=== PATIENT | male | born 1945 | race Caucasian/White ===

== ENCOUNTER → 2023-04-23 16:47 | Outpatient (REF) | payer BC, SELFPAY ==
[2023-04-23 18:33] LABS: ALT (SGPT) 17 U/L (0-50); AST (SGOT) 24 U/L (17-59); Albumin 3.8 g/dl (3.5-5.0); Alkaline Phosphatase 83 U/L (38-126); Blood Urea Nitrogen 48 mg/dl (9-20); Calcium 9.5 mg/dl (8.4-10.2); Carbon Dioxide 26 mmol/L (22-30); Chloride 102 mmol/L (98-107); Glucose 138 mg/dl (70-99); Sodium 140 mmol/L (135-145); Total Bilirubin 0.8 mg/dl (0.2-1.3); Total Protein 5.9 g/dl (6.3-8.2); eGFR 36.11
[2023-04-23 18:50] LABS: Free T4 1.16 ng/dl (0.78-2.19); Vitamin D, 25-OH*** 50.4 ng/mL (30-80)
[2023-04-23 19:03] LABS: TSH 2.95 uIU/ml (0.47-4.68)
[2023-04-23 19:58] LABS: PSA, Total - Diagnostic < 0.06 ng/ml (0.0-4.0)
[2023-04-26 17:38] LABS: Thyroid Peroxidase Ab (TPO) <0.3 IU/mL (0.0-9.0)
== END ==
LOC: REG 16:47
PROVIDERS: ATTENDING PHYSICIAN Nurse Practitioner Adult Health; FAMILY PHYSICIAN Internal Medicine Endocrinology, Diabetes & Metabolism; REFERRING PHYSICIAN Physician Assistant
DX: R97.21 Rising PSA following treatment for malignant neoplasm of prostate (principal); R79.89 Other specified abnormal findings of blood chemistry; Z91.011 Allergy to milk products; Z13.820 Encounter for screening for osteoporosis; E27.9 Disorder of adrenal gland, unspecified; E26.09 Other primary hyperaldosteronism; C61 Malignant neoplasm of prostate
CPT/HCPCS: 36415; 80053; 82306; 84153; 84403; 84439; 84443; 86376

== ENCOUNTER → 2023-05-05 09:26 | Outpatient (REF) | payer BC, SELFPAY ==
[2023-05-05 10:59] LABS: Prolactin 16.4 ng/ml (3.7-17.9)
[2023-05-05 11:02] LABS: ALT (SGPT) 20 U/L (0-50); AST (SGOT) 23 U/L (17-59); Albumin 3.9 g/dl (3.5-5.0); Alkaline Phosphatase 93 U/L (38-126); Blood Urea Nitrogen 49 mg/dl (9-20); Calcium 9.6 mg/dl (8.4-10.2); Carbon Dioxide 26 mmol/L (22-30); Chloride 106 mmol/L (98-107); Glucose 143 mg/dl (70-99); Potassium 3.9 mmol/L (3.5-5.1); Sodium 138 mmol/L (135-145); Total Bilirubin 0.6 mg/dl (0.2-1.3); Total Protein 6.1 g/dl (6.3-8.2); eGFR 33.95
[2023-05-07 01:40] LABS: Aldosterone, Serum 58.4 ng/dL
[2023-05-07 20:32] LABS: Sex Hormone Binding Globulin 36 nmol/L (19-76)
[2023-05-08 11:03] LABS: Renin Activity Results 0.3 ng/mL/hr
== END ==
LOC: REG 09:26
PROVIDERS: ATTENDING PHYSICIAN Internal Medicine Endocrinology, Diabetes & Metabolism; FAMILY PHYSICIAN Internal Medicine
DX: E29.1 Testicular hypofunction (principal); E26.09 Other primary hyperaldosteronism
CPT/HCPCS: 36415; 80053; 82088; 83002; 84146; 84244; 84270; 84403

== ENCOUNTER → 2023-05-11 15:33 | Outpatient (REF) | payer BC, SELFPAY | LOC: REG 15:33 | PROVIDERS: ATTENDING PHYSICIAN Internal Medicine Endocrinology, Diabetes & Metabolism; FAMILY PHYSICIAN Internal Medicine | DX: E27.8 Other specified disorders of adrenal gland (principal) | CPT/HCPCS: 36415; 83835 ==

== ENCOUNTER 2023-05-15 15:44 | Emergency (ER) | payer BC, SELFPAY ==
[2023-05-15] VITALS (8 sets, daily range): BP systolic 137–171; BP diastolic 65–96; BMI 35.8
[2023-05-15 16:43] LABS: % Basophils 0.6 % (0-2); % Eosinophils 4.9 % (0-6); % Immature Granulocytes 0.4 % (0-0.5); % Lymphocytes 22.9 % (20.5-51.1); % Monocytes 4.7 % (1.7-9.3); % Neutrophils 66.5 % (42.2-75.2); Absolute Eosinophils 0.2 10^3/uL (0-0.7); Absolute Lymphocytes 1.1 10^3/uL (1.2-3.4); Absolute Monocytes 0.2 10^3/uL (0.1-0.6); Absolute Neutrophils 3.1 10^3/uL (1.4-6.5); Hematocrit 37.4 % (39.0-52.0); Mean Corp Hgb Conc. 34.8 g/dL (33.0-37.0); Mean Corpuscular Hgb 31.3 pg (27.0-31.0); Mean Corpuscular Volume 90.1 fL (80.0-94.0); Mean Platelet Volume 9.4 fL (7.4-10.4); Nucleated Red Blood Cells % 0 % (-); Platelet Count 190 10^3/uL (130-400); Red Blood Cell Count 4.15 10^6/uL (4.70-6.10); Red Cell Dist. Width 14.6 % (11.5-14.5); White Blood Cell Count 4.7 10^3/uL (4.8-10.8)
[2023-05-15 17:02] LABS: ALT (SGPT) 18 U/L (0-50); AST (SGOT) 29 U/L (17-59); Albumin 4.1 g/dl (3.5-5.0); Alkaline Phosphatase 67 U/L (38-126); Blood Urea Nitrogen 42 mg/dl (9-20); Calcium 9.5 mg/dl (8.4-10.2); Carbon Dioxide 26 mmol/L (22-30); Chloride 103 mmol/L (98-107); Estimated Creatinine Clearance 44 ml/min; Glucose 166 mg/dl (70-99); Potassium 4.3 mmol/L (3.5-5.1); Sodium 140 mmol/L (135-145); Total Bilirubin 0.8 mg/dl (0.2-1.3); Total Protein 6.2 g/dl (6.3-8.2); eGFR 38.53
--- NOTE | 2023-05-15 17:08 | ED.GENMED ---
History of Present Illness
<Alem Wharton PA-C - Last Filed: 05/16/23 12:35>
General
Chief Complaint: Breathing Problem
Source: patient
Exam Limitations: none
Time Seen by Provider: 05/15/23 15:56
Nursing documentation reviewed up to this point in time: agreed with
Travel History
Have you had any contact with someone who has COVID-19?: No
Do you have any symptoms of coronavirus? Fever > 100 degrees, chills, cough, shortness of breath, sore throat, loss of taste or smell, muscle aches, or headache?: Yes
Symptoms:: sob
History of Present Illness
History of Present Illness:
Patient is a 77-year-old male with history of COPD, CHF, hypertension, hyperlipidemia, diabetes presenting for evaluation of worsening fatigue and dyspnea on exertion over the past 2 weeks. Patient states that he has been feeling increasingly tired
over the past few weeks and notices becoming more short of breath with exertion. He has a pulse ox that he uses at home and has noticed that when he is walking around is dipping as low as 94%. Over the past few days he has also developed a
headache. He did notice that he had had some weight increases earlier in the week. He denies any sick contacts.
He denies any chest pain, cough, fever, chills. He denies any swelling or pain in his lower extremities. He reports normal bowel movements and denies any blood in his stool. He denies any urinary symptoms.
Of note�patient does state that he recently decreased his metoprolol dose from 100 mg to 50 mg due to reading side effects that may lead to shortness of breath.
Otherwise�she is compliant with medications.
Past History
<Alem Wharton PA-C - Last Filed: 05/16/23 12:35>
Past History
ED Past Medical History: Cancer (Kidney, Prostate), CHF, HTN, Hypercholesterolemia, NIDDM, Renal failure and Other (Obstructive sleep apnea, Cellulitis, Adrenal gland growth)
ED Past Surgical History: Urological (Left nephrectomy d/t cancer)
Patient has exhibited threatening behavior?: No
PSI?: No
Social History
Tobacco: Non-smoker
Alcohol: Occasional
Drug: None
Personal:
Living: with family
Employment: Employed
Family History
Family History: Other (Noncontributory)
Phy Exam
<Alem Wharton PA-C - Last Filed: 05/16/23 12:35>
Physical Exam
Physical Exam:
General: Well appearing and non-toxic
Vitals: Hypertensive, otherwise vital signs stable, afebrile
HEENT: Atraumatic, normocephalic; pupils equal round reactive light bilaterally, protecting airway
Neck: appears supple, no JVD
CV: Regular rate and rhythm, no evidence of cyanosis
Resp: No evidence of respiratory distress, scattered crackles at right lung base otherwise clear, no wheezing
Abd: Obese, soft nontender; moderate distention chronic per patient
Extremities: No deformities, no evidence of cyanosis or edema; DP pulses palpable and equal bilateral
Neuro: alert and oriented x 3, grossly
Psych: Normal affect
Skin: Intact, no rashes
Scores
<Alem Wharton PA-C - Last Filed: 05/16/23 12:35>
Heart Failure Risk
Heart Failure Risk Score: Yes
History of Stroke or TIA: No
History of intubation for respiratory distress: No
Heart rate on ED arrival >/= 110: No
SaO2 <90% on arrival on room air: No
HR >/=110 during 3min walk test (or too ill to perform test): No
ECG has acute ischemic changes: No
Urea >/=12mmol/L (BUN 33.6mg/dL): Yes
Serum CO2>/=35mmol/L: No
Troponin I or T elevated to [place] Level (0.4mg/dL): No
NT-proBNP >/=5,000ng/L (5,000pg/ml): No
HF Risk Score: 1
Admission Status: MEDIUM RISK 5.1% Consider observation or discharge to home with homecare & f/u visit to PCP/[facility], or SNF for treatment
Course
<Alem Wharton PA-C - Last Filed: 05/16/23 12:35>
Orders/Labs/Results
Orders:
Orders
05/15/23 15:48
EKG [Electrocardiogram (*1)] Urgent
Reason for Study: Shortness of Breath
EKG- Treatment ONCE
05/15/23 16:32
CBC/With Diff [Complete Blood Count/With Diff] Urgent
CMP [Comprehensive Metabolic Panel] Urgent
05/15/23 16:33
NT-proBNP Urgent
05/15/23 17:12
CR Chest - 2 Views Urgent
Comment:
Reason For Exam: shortness of breath
05/15/23 17:14
COVID-19 Antigen Urgent
Source: Nasal Swab
Influenza A+B Rapid Molecular Urgent
OLIVIA Source: Nasal Swab
Specimen Description:
05/15/23 19:00
Ipratropium/Albuterol Sulfate [Duoneb] 3 ml INH R NOW STA
05/15/23 19:01
Doxycycline [Vibramycin] 100 mg PO NOW STA
05/15/23 20:18
Amoxicillin 875 mg/Clav 125 mg [Augmentin 875 mg/125 mg] 1 tablet PO NOW STA
Abnormal Lab Results
05/15/23
16:32
WBC 4.7 L 10^3/uL
(4.8-10.8)
RBC 4.15 L 10^6/uL
(4.70-6.10)
Hct 37.4 L %
(39.0-52.0)
MCH 31.3 H pg
(27.0-31.0)
RDW 14.6 H %
(11.5-14.5)
Absolute Lymphs (auto) 1.1 L 10^3/uL
(1.2-3.4)
BUN 42 H mg/dl
(9-20)
Creatinine 1.8 H mg/dL
(0.7-1.3)
Glucose 166 H mg/dl
(70-99)
Total Protein 6.2 L g/dl
(6.3-8.2)
05/15/23 16:32
05/15/23 16:32
Vital Signs
Initial and Last Documented VS:
Initial Vital Signs
Temp Pulse Resp BP Pulse Ox
97.4 F 91 18 151/96 98
05/15/23 15:47 05/15/23 15:47 05/15/23 15:47 05/15/23 15:47 05/15/23 15:47
Last Documented Vital Signs
Temp Pulse Resp BP Pulse Ox
97.4 F 85 17 150/90 95
05/15/23 15:47 05/15/23 20:35 05/15/23 20:35 05/15/23 20:37 05/15/23 20:30
Rafalt;Jefferson Singletary, DO - Last Filed: 05/15/23 19:02>
Orders/Labs/Results
Orders:
Orders
05/15/23 15:48
EKG [Electrocardiogram (*1)] Urgent
Reason for Study: Shortness of Breath
EKG- Treatment ONCE
05/15/23 16:32
CBC/With Diff [Complete Blood Count/With Diff] Urgent
CMP [Comprehensive Metabolic Panel] Urgent
05/15/23 16:33
NT-proBNP Urgent
05/15/23 17:12
CR Chest - 2 Views Urgent
Comment:
Reason For Exam: shortness of breath
05/15/23 17:14
COVID-19 Antigen Urgent
Source: Nasal Swab
Influenza A+B Rapid Molecular Urgent
OLIVIA Source: Nasal Swab
Specimen Description:
05/15/23 19:00
Ipratropium/Albuterol Sulfate [Duoneb] 3 ml INH R NOW STA
05/15/23 19:01
Doxycycline [Vibramycin] 100 mg PO NOW STA
05/15/23 20:18
Amoxicillin 875 mg/Clav 125 mg [Augmentin 875 mg/125 mg] 1 tablet PO NOW STA
Abnormal Lab Results
05/15/23
16:32
WBC 4.7 L 10^3/uL
(4.8-10.8)
RBC 4.15 L 10^6/uL
(4.70-6.10)
Hct 37.4 L %
(39.0-52.0)
MCH 31.3 H pg
(27.0-31.0)
RDW 14.6 H %
(11.5-14.5)
Absolute Lymphs (auto) 1.1 L 10^3/uL
(1.2-3.4)
BUN 42 H mg/dl
(9-20)
Creatinine 1.8 H mg/dL
(0.7-1.3)
Glucose 166 H mg/dl
(70-99)
Total Protein 6.2 L g/dl
(6.3-8.2)
05/15/23 16:32
05/15/23 16:32
Vital Signs
Initial and Last Documented VS:
Initial Vital Signs
Temp Pulse Resp BP Pulse Ox
97.4 F 91 18 151/96 98
05/15/23 15:47 05/15/23 15:47 05/15/23 15:47 05/15/23 15:47 05/15/23 15:47
Last Documented Vital Signs
Temp Pulse Resp BP Pulse Ox
97.4 F 85 17 150/90 95
05/15/23 15:47 05/15/23 20:35 05/15/23 20:35 05/15/23 20:37 05/15/23 20:30
<Alem Wharton PA-C - Last Filed: 05/16/23 12:35>
MDM/Problems Addressed
Differential Diagnosis Includes:
Acute CHF exacerbation, COPD exacerbation, COVID, flu, pneumonia, anemia, cardiac arrhythmia
MDM/Problems Addressed:
Patient is a 77 year old male with history as documented presenting with worsening fatigue and dyspnea on exertion over the past few weeks. He does report a chronic cough and headache over the past few days. No chest pain, fever, chills, lower leg
swelling/edema. Patient is hypertensive, otherwise has stable vital signs. O2 saturation is 98 on room air. Physical exam as documented above. Patient is stable and in no apparent distress.There are scattered crackles over right lung base, otherwise
clear. No evidence of DVT or peripheral edema on exam. He does not appear fluid overloaded. Will check basic labs, pro-BNP, viral swabs, chest xray. Will give duoneb.
CBC without any clinically significant abnormalities. CMP with renal insufficiency - appears to be around patients baseline. Pro-BNP 1700, not elevated to a level of acute heart failure exacerbation. COVID and Flu negative. CXR shows a mild right
lower lobe pneumonia with no evidence of heart failure exacerbation
On -reassessment, patient with subjective improvement following duoneb. Patient remains stable in emergency department. Given he is afebrile, not requiring any oxygen, and without leukocytosis - there is no indication for admission at this time. He
is fit for outpatient management. Given comorbidites/chronic lunch disease will start patient on dual therapy with augmentin/doxy. Initial dose given in emergency department today. Stable for discharge with close return precautions/primary care
follow-up. He has appointment scheduled for next week. Patient comfortable with this plan. All questions answered.
Chronic conditions affecting care:
CHF, COPD, hypertension, cardiac arrhythmia, diabetes
Acute Exacerbation and/or Progression of Chronic Illness:
Pneumonia
<Alem Wharton PA-C - Last Filed: 05/16/23 12:35>
*Radiology
Radiology exam reviewed: preliminary read by ED provider and radiology read reviewed
*Pulse Oximetry
Patient hypoxic: no
*EKG
Interpreted by ED Provider?: Yes
EKG Intrepretation Date: 05/16/23
Heart Rate: 82
Ischemia: no ischemia
*Critical Care Note
Total Time (30-74mins, 75-104mins- exclusive of procedures): Not Applicable
ED Attending Note
<Alem Wharton PA-C - Last Filed: 05/16/23 12:35>
-
Portions of this chart may have been created with voice recognition software.� Occasional wrong word or��sound alike� substitutions may have occurred due to the inherent limitations of voice recognition software.
<Jefferson Singletary DO - Last Filed: 05/15/23 19:02>
ED Attending Note
Patient seen and examined by attending physician: Yes
I performed the substantive portion of visit, reviewed & personally made and approve the management plan that is documented in note by myself or HEYDI.: Yes
ED Attending Note:
Seen with ERWIN examined independently 77-year-old male AF status post ablation and pacemaker heart failure presents with a subacute shortness of breath made some changes to his metoprolol no fevers no leg edema proBNP and chest x-ray noted reports
noted will try neb consideration for course of antibiotics not convinced he is volume overloaded here
Discharge Plan
Departure
Patient Disposition: Home (Routine Discharge)
Date of Disposition: 05/15/23
Time of Disposition: 20:25
Patient with high blood pressure during this ER visit?: Yes
Condition: Good
Covid-19: Negative COVID-19
Discharge Problem:
Right lower lobe pneumonia
Instructions: Community-Acquired Pneumonia, Adult (DC), BLOOD PRESSURE
Prescriptions:
New
amoxicillin-pot clavulanate 875-125 mg tablet
1 tab PO BID Qty: 14 0RF
doxycycline monohydrate 100 mg capsule
100 mg PO BID 7 Days Qty: 14 0RF
No Action
ezetimibe 10 MG tablet
10 mg PO DAILY
hydroxyzine HCl 10 mg tablet
10 - 20 mg PO HS PRN (Reason: itching)
metoprolol succinate 50 mg tablet extended release 24 hr
50 mg PO BID
furosemide 20 mg tablet
20 mg PO DAILY Qty: 30 0RF
lansoprazole [Prevacid] 30 mg capsule,delayed release(DR/EC)
30 mg PO DAILY 14 Days Qty: 14 0RF
gabapentin 600 mg tablet
1,200 mg PO DAILY PRN (Reason: neuropathy)
ropinirole 1 mg tablet
1 mg PO DAILY
levothyroxine 25 mcg tablet
25 mcg PO DAILY
repaglinide 0.5 mg tablet
0.5 mg PO TID
tamsulosin 0.4 mg Capsule
0.4 mg PO DAILY
eplerenone 50 mg tablet
50 mg PO BID
Hold Instructions: Until instructed by your physician
trospium 20 mg tablet
20 mg PO BID
docusate sodium 100 mg Capsule
100 mg PO BID Qty: 60 0RF
guaifenesin 600 mg Tablet Extended Release 12hr
1,200 mg PO Q12 Qty: 14 0RF
acetaminophen 325 mg Tablet
650 mg PO Q6HPRN PRN (Reason: mild pain/ fever>100.5F) Qty: 0 0RF
amiodarone [Pacerone] 200 mg Tablet
200 mg PO DAILY Qty: 30 0RF
aspirin 81 mg tablet,delayed release (DR/EC)
81 mg PO DAILY Qty: 0 0RF
Referrals:
Maximiliano Lanza MD [Family Provider] - Follow up in 5-7 days
Activity Restrictions/Additional Instructions:
-Return to the emergency department with any high fevers, worsening cough, chest pain, shortness of breath, severe fatigue, worsening in current symptoms, or any other concerns
-You were given your first dose of antibiotics in the emergency department tonight. You should resume antibiotics in the morning. It is important that you complete the antibiotic course.
-You should follow-up with your primary care provider next week to ensure symptoms are improving
Interventions
Interventions:
*Risk Screen - Suicide Last Done: 05/15/23 16:11
*General Assessment Last Done: 05/15/23 16:11
*Neglect/Abuse Screening Last Done: 05/15/23 16:11
ED- Fall Risk Assessment Last Done: 05/15/23 16:11
*ED COVID-19 Vaccine History Last Done: 05/15/23 15:48
*Nursing Disposition Last Done: 05/15/23 20:45
ED- Cardiac Assessment Last Done: 05/15/23 16:11
ED- Pulmonary Assessment Last Done: 05/15/23 16:11
Discharge Date and Time
Discharge Date/Time: 05/15/23 20:47
[2023-05-15 17:34] LABS: COVID-19 Antigen Negative (Negative)
[2023-05-15 17:45] LABS: NT-proBNP 1700 pg/ml
[2023-05-15] MEDS: VIBRAMYCIN 100 MG PO (19:24)
[2023-05-15] MEDS: DUONEB 3 ML INH (19:24)
[2023-05-15] MEDS: AUGMENTIN 875 MG/125 MG 1 TABLET PO (20:35)
== END 2023-05-15 20:47 | disposition home or self-care (01) ==
LOC: EMR 15:44
PROVIDERS: Physician Assistant; EMERGENCY PHYSICIAN Emergency Medicine; FAMILY PHYSICIAN Internal Medicine
DX: J18.9 Pneumonia, unspecified organism (principal); J44.1 Chronic obstructive pulmonary disease with (acute) exacerbation; I11.0 Hypertensive heart disease with heart failure; I50.9 Heart failure, unspecified; E11.9 Type 2 diabetes mellitus without complications; Z95.0 Presence of cardiac pacemaker; Z11.52 Encounter for screening for COVID-19; Z85.528 Personal history of other malignant neoplasm of kidney
CPT/HCPCS: 99285; 94640; 71046; 80053; 83880; 85025; 87502; 87811; 93005

== ENCOUNTER → 2023-05-18 14:17 | Outpatient (REF) | payer BC, SELFPAY ==
[2023-05-18 18:15] LABS: Urine Protein < 5 mg/dl
== END ==
LOC: MRI 14:17
PROVIDERS: ATTENDING PHYSICIAN Neurological Surgery; FAMILY PHYSICIAN Internal Medicine; REFERRING PHYSICIAN Internal Medicine Nephrology
DX: D49.7 Neoplasm of unspecified behavior of endocrine glands and other parts of nervous system (principal); N18.32 Chronic kidney disease, stage 3b
CPT/HCPCS: 72158; 82570; 84156; A9575

== ENCOUNTER → 2023-05-21 16:52 | Outpatient (REF) | payer BC, SELFPAY ==
[2023-05-21 17:58] LABS: Uric Acid 10.2 mg/dl (3.5-8.5)
== END ==
LOC: REG 16:52
PROVIDERS: ATTENDING PHYSICIAN Internal Medicine Nephrology; FAMILY PHYSICIAN Internal Medicine
DX: N18.32 Chronic kidney disease, stage 3b (principal)
CPT/HCPCS: 36415; 84550

== ENCOUNTER → 2023-06-10 18:00 | Outpatient (REF) | payer BC, SELFPAY | LOC: RAD 18:00 | PROVIDERS: ATTENDING PHYSICIAN Nurse Practitioner Family; OTHER PHYSICIAN Internal Medicine | DX: R06.02 Shortness of breath (principal); Z87.01 Personal history of pneumonia (recurrent) | CPT/HCPCS: 71046 ==

== ENCOUNTER → 2023-06-29 07:21 | Outpatient (REF) | payer BC, SELFPAY ==
[2023-06-29] MEDS: LEXISCAN 0.400000000000000022 MG IV (09:54)
[2023-06-29] MEDS: FLUSH (NSS) 1 FLUSH IV (09:55)
== END ==
LOC: RCS 07:21
PROVIDERS: ATTENDING PHYSICIAN Nurse Practitioner Gerontology; FAMILY PHYSICIAN Internal Medicine
DX: R06.02 Shortness of breath (principal); R06.09 Other forms of dyspnea; R53.83 Other fatigue; I44.7 Left bundle-branch block, unspecified
CPT/HCPCS: 78452; 93017; A9500; J2785

== ENCOUNTER → 2023-07-13 06:21 | Outpatient (REF) | payer BC, SELFPAY ==
[2023-07-13 07:50] LABS: Prolactin 8.2 ng/ml (3.7-17.9)
[2023-07-13 08:05] LABS: Cortisol, Random 2.1 ug/dl
[2023-07-13 08:06] LABS: Testosterone, Total 91.7 ng/dl (72-623)
[2023-07-14 14:14] LABS: Sex Hormone Binding Globulin 48 nmol/L (19-76)
[2023-07-14 14:21] LABS: DHEA Sulfate 20 ug/dL (16-123)
== END ==
LOC: REG 06:21
PROVIDERS: ATTENDING PHYSICIAN Internal Medicine Endocrinology, Diabetes & Metabolism; FAMILY PHYSICIAN Internal Medicine
DX: E27.8 Other specified disorders of adrenal gland (principal); E29.1 Testicular hypofunction
CPT/HCPCS: 36415; 82533; 82627; 83001; 83002; 83498; 84146; 84270; 84403

== ENCOUNTER → 2023-07-23 09:31 | Outpatient (REF) | payer BC, SELFPAY | LOC: RCS 09:31 | PROVIDERS: ATTENDING PHYSICIAN Nurse Practitioner Gerontology; FAMILY PHYSICIAN Internal Medicine; REFERRING PHYSICIAN Neurological Surgery | DX: R06.02 Shortness of breath (principal); R06.09 Other forms of dyspnea; M43.16 Spondylolisthesis, lumbar region | CPT/HCPCS: 72114; 93306 ==

== ENCOUNTER → 2023-07-30 08:38 | Outpatient (REF) | payer BC, SELFPAY ==
[2023-07-30 09:37] LABS: ALT (SGPT) 19 U/L (0-50); AST (SGOT) 23 U/L (17-59); Albumin 4.4 g/dl (3.5-5.0); Alkaline Phosphatase 76 U/L (38-126); Blood Urea Nitrogen 40 mg/dl (9-20); Calcium 9.7 mg/dl (8.4-10.2); Carbon Dioxide 22 mmol/L (22-30); Chloride 108 mmol/L (98-107); Glucose 164 mg/dl (70-99); HDL Cholesterol 39 mg/dl; LDL Cholesterol, Calculated 100 mg/dl; Potassium 4.4 mmol/L (3.5-5.1); Sodium 140 mmol/L (135-145); Total Bilirubin 0.8 mg/dl (0.2-1.3); Total Cholesterol 165 mg/dl (50-199); Total Protein 6.4 g/dl (6.3-8.2); Triglyceride 130 mg/dl (10-149); Very Low Density Lipoprotein 26 mg/dl (0-30); eGFR 41.01
[2023-07-30 10:06] LABS: PSA, Total - Diagnostic < 0.06 ng/ml (0.0-4.0)
[2023-07-30 10:11] LABS: Cortisol, Random 2.1 ug/dl
[2023-07-30 13:11] LABS: Glycohemoglobin (HgbA1c) 7.3 % (4.0-5.6)
[2023-08-01 01:20] LABS: Aldosterone, Serum 45.4 ng/dL
== END ==
LOC: REG 08:38
PROVIDERS: ATTENDING PHYSICIAN Urology; FAMILY PHYSICIAN Nurse Practitioner Adult Health; OTHER PHYSICIAN Internal Medicine Endocrinology, Diabetes & Metabolism; REFERRING PHYSICIAN Internal Medicine
DX: E27.9 Disorder of adrenal gland, unspecified (principal); R97.21 Rising PSA following treatment for malignant neoplasm of prostate
CPT/HCPCS: 36415; 80053; 80061; 82088; 82533; 83036; 83835; 84153

== ENCOUNTER 2023-07-31 11:11 | Emergency (ER) | payer BC, SELFPAY ==
[2023-07-31 11:15] VITALS: BP 156/93
[2023-07-31 11:38] VITALS: BP 147/76; BMI 36.0
[2023-07-31 12:00] VITALS: BP 167/81
[2023-07-31 12:05] LABS: % Basophils 0.2 % (0-2); % Eosinophils 3.8 % (0-6); % Immature Granulocytes 0.3 % (0-0.5); % Lymphocytes 26.4 % (20.5-51.1); % Monocytes 5.6 % (1.7-9.3); % Neutrophils 63.7 % (42.2-75.2); Absolute Eosinophils 0.2 10^3/uL (0-0.7); Absolute Lymphocytes 1.5 10^3/uL (1.2-3.4); Absolute Monocytes 0.3 10^3/uL (0.1-0.6); Absolute Neutrophils 3.7 10^3/uL (1.4-6.5); Hematocrit 39.7 % (39.0-52.0); Hemoglobin 14.1 g/dL (13.0-18.0); Mean Corp Hgb Conc. 35.5 g/dL (33.0-37.0); Mean Corpuscular Hgb 31.8 pg (27.0-31.0); Mean Corpuscular Volume 89.6 fL (80.0-94.0); Mean Platelet Volume 9.5 fL (7.4-10.4); Nucleated Red Blood Cells % 0 % (-); Platelet Count 166 10^3/uL (130-400); Red Blood Cell Count 4.43 10^6/uL (4.70-6.10); Red Cell Dist. Width 14.6 % (11.5-14.5); White Blood Cell Count 5.7 10^3/uL (4.8-10.8)
--- NOTE | 2023-07-31 12:15 | ED.GENMED ---
History of Present Illness
General
Chief Complaint: Breathing Problem
Source: patient
Exam Limitations: none
Time Seen by Provider: 07/31/23 12:06
Nursing documentation reviewed up to this point in time: agreed with
Travel History
Have you had any contact with someone who has COVID-19?: No
Do you have any symptoms of coronavirus? Fever > 100 degrees, chills, cough, shortness of breath, sore throat, loss of taste or smell, muscle aches, or headache?: No
History of Present Illness
History of Present Illness:
Patient to ED with complaint of elevated BP and SOB. States he feels that his BP has been elevated for the past month. Today he reports rattling and wheezing in chest. Brought self to ED for eval.
Past History
Past History
ED Past Medical History: Cancer (Kidney, Prostate), CHF, HTN, Hypercholesterolemia, NIDDM, Renal failure and Other (Obstructive sleep apnea, Cellulitis, Adrenal gland growth)
ED Past Surgical History: Urological (Left nephrectomy d/t cancer)
Patient has exhibited threatening behavior?: No
PSI?: No
Social History
Tobacco: Non-smoker
Alcohol: Occasional
Drug: None
Personal:
Living: with family
Employment: Employed
Family History
Family History: Other (Noncontributory)
Review of Systems
Review of Systems
Allergies reviewed?: Yes
All Other Systems: ROS reviewed and negative except as documented in HPI and ROS
Constitutional: Reports no symptoms
EENT: Reports no symptoms
Respiratory: Reports cough and trouble breathing
Cardiac: Reports no symptoms
ABD/GI: Reports no symptoms
: Reports no symptoms
Musculoskeletal: Reports no symptoms
Skin: Reports no symptoms
Neurological: Reports no symptoms
Psychiatric: Reports no symptoms
Phy Exam
General Physical Exam
General Presentation: well appearing and no apparent distress
General age: appears stated age
General Skin: warm and dry
General Habitus: normal
General Mental: alert
Cardiovascular Exam
Cardiovascular Exam: regular rate/rhythm and no edema
Pulmonary Exam
Pulmonary Exam: lungs clear and no respiratory distress (Pulse ox 97% RA)
Gastrointestinal Exam
Gastrointestinal Exam: normal bowel sounds and non tender
Musculoskeletal Exam
Musculoskeletal Exam: full ROM and neuro vasc intact
Skin Exam
Skin Exam: normal color, warm/dry and no rash
Psychiatric Exam
Psychiatric Exam: normal mood/affect
Scores
Heart Failure Risk
Heart Failure Risk Score: Not Applicable
Course
Orders/Labs/Results
Orders:
Orders
07/31/23 11:52
CXR2 [CR Chest - 2 Views ] Urgent
Comment:
Reason For Exam: SOB
07/31/23 11:53
Complete Blood Count/With Diff Urgent
07/31/23 11:54
Comprehensive Metabolic Panel Urgent
NT-proBNP Urgent
Abnormal Lab Results
07/31/23 07/31/23
11:53 11:54
RBC 4.43 L 10^6/uL
(4.70-6.10)
MCH 31.8 H pg
(27.0-31.0)
RDW 14.6 H %
(11.5-14.5)
BUN 42 H mg/dl
(9-20)
Creatinine 1.5 H mg/dL
(0.7-1.3)
Glucose 215 H mg/dl
(70-99)
07/31/23 11:53
07/31/23 11:54
Vital Signs
Initial and Last Documented VS:
Initial Vital Signs
Temp Pulse Resp BP Pulse Ox
98.6 F 82 20 156/93 95
07/31/23 11:15 07/31/23 11:15 07/31/23 11:15 07/31/23 11:15 07/31/23 11:15
Last Documented Vital Signs
Temp Pulse Resp BP Pulse Ox
98.6 F 80 22 162/87 93
07/31/23 11:15 07/31/23 13:30 07/31/23 13:30 07/31/23 13:00 07/31/23 13:30
*Radiology
Radiology exam reviewed: radiology read reviewed
*Pulse Oximetry
Patient hypoxic: no
*Critical Care Note
Total Time (30-74mins, 75-104mins- exclusive of procedures): Not Applicable
Update Note
Update Note:
Patient to ED with complaint of SOB increasing over the past 24 hours. LCTA. CXR NAD. Labs reviewed with Dr. Garcia. BNP 2200 noted. Will recommend double Lasix dose tofay and tomorrow. FOllow up with PCP. Given instructions on s/s to return
to ED and he is agreeable to plan.
ED Attending Note
-
Portions of this chart may have been created with voice recognition software.� Occasional wrong word or��sound alike� substitutions may have occurred due to the inherent limitations of voice recognition software.
Discharge Plan
Departure
Patient Disposition: Home (Routine Discharge)
Date of Disposition: 07/31/23
Time of Disposition: 13:29
Patient with high blood pressure during this ER visit?: No
Condition: Good
Covid-19: Not Applicable
Discharge Problem:
Dyspnea
Instructions: Shortness of Breath (Dyspnea) (DC)
Prescriptions:
No Action
ezetimibe 10 MG tablet
10 mg PO DAILY
hydroxyzine HCl 10 mg tablet
10 - 20 mg PO HS PRN (Reason: itching)
metoprolol succinate 50 mg tablet extended release 24 hr
50 mg PO BID
furosemide 20 mg tablet
20 mg PO DAILY Qty: 30 0RF
lansoprazole [Prevacid] 30 mg capsule,delayed release(DR/EC)
30 mg PO DAILY 14 Days Qty: 14 0RF
gabapentin 600 mg tablet
1,200 mg PO DAILY PRN (Reason: neuropathy)
ropinirole 1 mg tablet
1 mg PO DAILY
levothyroxine 25 mcg tablet
25 mcg PO DAILY
repaglinide 0.5 mg tablet
0.5 mg PO TID
tamsulosin 0.4 mg Capsule
0.4 mg PO DAILY
eplerenone 50 mg tablet
50 mg PO BID
Hold Instructions: Until instructed by your physician
trospium 20 mg tablet
20 mg PO BID
docusate sodium 100 mg Capsule
100 mg PO BID Qty: 60 0RF
guaifenesin 600 mg Tablet Extended Release 12hr
1,200 mg PO Q12 Qty: 14 0RF
acetaminophen 325 mg Tablet
650 mg PO Q6HPRN PRN (Reason: mild pain/ fever>100.5F) Qty: 0 0RF
amiodarone [Pacerone] 200 mg Tablet
200 mg PO DAILY Qty: 30 0RF
aspirin 81 mg tablet,delayed release (DR/EC)
81 mg PO DAILY Qty: 0 0RF
amoxicillin-pot clavulanate 875-125 mg tablet
1 tab PO BID Qty: 14 0RF
doxycycline monohydrate 100 mg capsule
100 mg PO BID 7 Days Qty: 14 0RF
Referrals:
Melissa Cano MD [Family Provider] - Follow up in 2-3 days
Activity Restrictions/Additional Instructions:
Double your lasix dose for the next 2 days.
Interventions
Interventions:
*Risk Screen - Suicide Last Done: 07/31/23 11:15
*General Assessment Last Done: 07/31/23 11:15
*Neglect/Abuse Screening Last Done: 07/31/23 11:15
ED- Fall Risk Assessment Last Done: 07/31/23 11:39
*ED COVID-19 Vaccine History Last Done: 07/31/23 11:39
*Nursing Disposition Last Done: 07/31/23 13:49
ED- Cardiac Assessment Last Done: 07/31/23 11:40
ED- Pulmonary Assessment Last Done: 07/31/23 11:40
Discharge Date and Time
Print Language: GERMAN
[2023-07-31 12:22] LABS: ALT (SGPT) 18 U/L (0-50); AST (SGOT) 22 U/L (17-59); Albumin 4.3 g/dl (3.5-5.0); Alkaline Phosphatase 65 U/L (38-126); Blood Urea Nitrogen 42 mg/dl (9-20); Calcium 9.7 mg/dl (8.4-10.2); Carbon Dioxide 27 mmol/L (22-30); Chloride 106 mmol/L (98-107); Estimated Creatinine Clearance 52 ml/min; Glucose 215 mg/dl (70-99); Potassium 3.9 mmol/L (3.5-5.1); Sodium 141 mmol/L (135-145); Total Protein 6.4 g/dl (6.3-8.2); eGFR 47.65
[2023-07-31 12:31] LABS: NT-proBNP 2260 pg/ml
[2023-07-31 12:58] VITALS: O2SAT 97; O2SAT 98
[2023-07-31 13:00] VITALS: BP 162/87
== END 2023-07-31 14:04 | disposition home or self-care (01) ==
LOC: EMR 11:11
PROVIDERS: Student in an Organized Health Care Education/Training Program; EMERGENCY PHYSICIAN Emergency Medicine; FAMILY PHYSICIAN Internal Medicine
DX: R06.00 Dyspnea, unspecified (principal); R06.2 Wheezing; R09.89 Other specified symptoms and signs involving the circulatory and respiratory systems; R05.9 Cough, unspecified; I13.0 Hypertensive heart and chronic kidney disease with heart failure and stage 1 through stage 4 chronic kidney disease, or unspecified chronic kidney disease; E11.22 Type 2 diabetes mellitus with diabetic chronic kidney disease; N18.9 Chronic kidney disease, unspecified; I50.9 Heart failure, unspecified; E78.00 Pure hypercholesterolemia, unspecified; G47.33 Obstructive sleep apnea (adult) (pediatric); M54.30 Sciatica, unspecified side; G25.81 Restless legs syndrome; J45.909 Unspecified asthma, uncomplicated; K21.9 Gastro-esophageal reflux disease without esophagitis; K58.9 Irritable bowel syndrome, unspecified; N40.0 Benign prostatic hyperplasia without lower urinary tract symptoms; M19.90 Unspecified osteoarthritis, unspecified site; Z95.810 Presence of automatic (implantable) cardiac defibrillator; Z79.82 Long term (current) use of aspirin; Z85.528 Personal history of other malignant neoplasm of kidney; Z90.5 Acquired absence of kidney; Z88.8 Allergy status to other drugs, medicaments and biological substances; Z91.048 Other nonmedicinal substance allergy status
CPT/HCPCS: 99284; 71046; 80053; 83880; 85025

== ENCOUNTER → 2023-08-10 13:39 | Outpatient (REF) | payer BC, SELFPAY | LOC: MRI 13:39 | PROVIDERS: ATTENDING PHYSICIAN Neurological Surgery; FAMILY PHYSICIAN Internal Medicine | DX: M54.2 Cervicalgia (principal); G89.29 Other chronic pain | CPT/HCPCS: 72141 ==

== ENCOUNTER → 2023-08-25 12:50 | Outpatient (REF) | payer BC, MEDICARE, SELFPAY ==
[2023-08-25 14:34] LABS: Blood Urea Nitrogen 40 mg/dl (9-20); Calcium 9.2 mg/dl (8.4-10.2); Carbon Dioxide 26 mmol/L (22-30); Chloride 104 mmol/L (98-107); Glucose 141 mg/dl (70-99); Potassium 3.5 mmol/L (3.5-5.1); Sodium 140 mmol/L (135-145); eGFR 38.29
[2023-08-25 14:52] LABS: Free T4 1.35 ng/dl (0.78-2.19)
[2023-08-25 15:06] LABS: PSA, Total - Diagnostic < 0.06 ng/ml (0.0-4.0)
== END ==
LOC: REG 12:50
PROVIDERS: ATTENDING PHYSICIAN Physician Assistant Surgical; FAMILY PHYSICIAN Internal Medicine; OTHER PHYSICIAN Internal Medicine Endocrinology, Diabetes & Metabolism; REFERRING PHYSICIAN Internal Medicine Nephrology
DX: C61 Malignant neoplasm of prostate (principal); C64.2 Malignant neoplasm of left kidney, except renal pelvis; N18.32 Chronic kidney disease, stage 3b; M10.9 Gout, unspecified; R79.89 Other specified abnormal findings of blood chemistry
CPT/HCPCS: 36415; 80048; 84153; 84439; 84443; 84550

== ENCOUNTER → 2023-09-16 08:17 | Outpatient (REF) | payer BC, SELFPAY ==
[2023-09-16 10:16] LABS: ALT (SGPT) 16 U/L (0-50); AST (SGOT) 21 U/L (17-59); Albumin 3.8 g/dl (3.5-5.0); Alkaline Phosphatase 90 U/L (38-126); Blood Urea Nitrogen 30 mg/dl (9-20); Calcium 9.6 mg/dl (8.4-10.2); Carbon Dioxide 31 mmol/L (22-30); Chloride 104 mmol/L (98-107); Glucose 123 mg/dl (70-99); Potassium 3.6 mmol/L (3.5-5.1); Sodium 143 mmol/L (135-145); Total Bilirubin 0.6 mg/dl (0.2-1.3); Total Protein 5.8 g/dl (6.3-8.2); eGFR 41.01
[2023-09-17 21:40] LABS: Adrenocorticotropic Hormone 13.3 pg/mL (7.2-63.3)
[2023-09-18 00:18] LABS: Aldosterone, Serum 25.7 ng/dL
[2023-09-18 16:16] LABS: Renin Activity Results 0.1 ng/mL/hr
== END ==
LOC: REG 08:17
PROVIDERS: ATTENDING PHYSICIAN Internal Medicine Endocrinology, Diabetes & Metabolism; OTHER PHYSICIAN Internal Medicine; REFERRING PHYSICIAN Internal Medicine Nephrology
DX: E26.09 Other primary hyperaldosteronism (principal); E27.8 Other specified disorders of adrenal gland
CPT/HCPCS: 36415; 80053; 82024; 82088; 84244

== ENCOUNTER → 2023-09-17 12:49 | Outpatient (REF) | payer BC, SELFPAY | LOC: HWRAD 12:49 | PROVIDERS: ATTENDING PHYSICIAN Internal Medicine Endocrinology, Diabetes & Metabolism; FAMILY PHYSICIAN Internal Medicine | DX: E26.09 Other primary hyperaldosteronism (principal) | CPT/HCPCS: 74150 ==

== ENCOUNTER 2023-09-18 14:57 | Emergency (ER) | payer BC, SELFPAY ==
[2023-09-18 15:00] VITALS: BP 171/88; BMI 35.4
[2023-09-18 15:30] LABS: % Basophils 0.4 % (0-2); % Eosinophils 3.4 % (0-6); % Immature Granulocytes 0.4 % (0-0.5); % Lymphocytes 20.4 % (20.5-51.1); % Monocytes 4.5 % (1.7-9.3); % Neutrophils 70.9 % (42.2-75.2); Absolute Eosinophils 0.2 10^3/uL (0-0.7); Absolute Lymphocytes 0.9 10^3/uL (1.2-3.4); Absolute Monocytes 0.2 10^3/uL (0.1-0.6); Absolute Neutrophils 3.2 10^3/uL (1.4-6.5); Hematocrit 33.7 % (39.0-52.0); Hemoglobin 11.8 g/dL (13.0-18.0); Mean Corpuscular Hgb 32.3 pg (27.0-31.0); Mean Corpuscular Volume 92.3 fL (80.0-94.0); Mean Platelet Volume 9.1 fL (7.4-10.4); Nucleated Red Blood Cells % 0 % (-); Platelet Count 158 10^3/uL (130-400); Red Blood Cell Count 3.65 10^6/uL (4.70-6.10); Red Cell Dist. Width 14.6 % (11.5-14.5); White Blood Cell Count 4.5 10^3/uL (4.8-10.8)
[2023-09-18 15:43] LABS: ALT (SGPT) 18 U/L (0-50); AST (SGOT) 23 U/L (17-59); Albumin 3.7 g/dl (3.5-5.0); Alkaline Phosphatase 76 U/L (38-126); Blood Urea Nitrogen 25 mg/dl (9-20); Calcium 8.8 mg/dl (8.4-10.2); Carbon Dioxide 30 mmol/L (22-30); Chloride 104 mmol/L (98-107); Estimated Creatinine Clearance 46 ml/min; Glucose 180 mg/dl (70-99); Potassium 3.3 mmol/L (3.5-5.1); Sodium 140 mmol/L (135-145); Total Bilirubin 0.6 mg/dl (0.2-1.3); Total Protein 5.5 g/dl (6.3-8.2); eGFR 41.01
[2023-09-18 15:56] LABS: Troponin I 0.015 ng/ml
[2023-09-18 16:44] VITALS: BP 142/79
[2023-09-18 17:00] VITALS: BP 144/76
--- NOTE | 2023-09-18 17:06 | ED.GENMED ---
History of Present Illness
General
Chief Complaint: Chest Pain
Source: patient
Exam Limitations: none
Time Seen by Provider: 09/18/23 17:03
History of Present Illness
History of Present Illness:
This a pleasant 78-year-old male presents with chest pain and shortness of breath. He states it has been gradually worsening for the last week. Patient states that he has known metastases in the
Vital signs are stable. Patient not hypoxic
Nursing note reviewed. I agree with nursing documentation up to this point in time.
Home Meds and allergies reviewed.
NUMBER AND COMPLEXITY OF PROBLEMS ADDRESSED AT THE ENCOUNTER
� Chronic conditions affecting care: COPD, chronic bronchitis, hypertension, hyperlipidemia, congestive heart failure, defibrillator, syndrome X, PVCs
� Acute Exacerbation and/or Progression of Chronic Illness:
� Differential Diagnosis includes:
AMOUNT AND/OR COMPLEXITY OF DATA TO BE REVIEWED AND ANALYZED
I performed an independent evaluation of the following and my interpretation is:
EKG: EKG shows a paced rhythm rate of 82 with left axis deviation, widened QRS at 122 ms consistent with LVH. There is some ST depression now noted when compared with previous EKG dated May 15, 2023. The ST depressions are in
the anterior leads.
CT: IMPRESSION:
1. No evidence of pulmonary embolism.
2. Scattered bilateral pulmonary nodules, new from prior. In conjunction with new right hilar lymphadenopathy, findings are suspicious for neoplasm/metastases. Consider outpatient workup with PET/CT.
3. Nondisplaced posterior right sixth rib fracture.
X-rays: FINDINGS:
Stable right chest wall cardiac device with intact leads overlying the right heart.
Lungs: Low lung volumes. Mild bibasilar atelectasis. No convincing focal infiltrates. No pleural effusion or pneumothorax.
Heart: Cardiac and mediastinal contours are unremarkable. No overt pulmonary vascular congestion.
Osseous structures: No acute abnormalities.
IMPRESSION:
Low lung volumes with mild bibasilar atelectasis.
Ultrasound:
Laboratory Studies:
Other:
Review of other/old records:
Clinical information was obtained by an independent historian:
Prescriptions/Medications Considered but not given:
Further testing considered but not performed:
RISK OF COMPLICATIONS AND/OR MORBIDITY OR MORTALITY OF PATIENT MANAGEMENT
Social determinants of health affecting care: Good Social Support
Discussion with other providers:
Escalation of care including admission/observation vs risk of discharge considered:
CRITICAL CARE NOTE:
Total Time (exclusive of procedures):
Update:
Past History
Past History
ED Past Medical History: Cancer (Kidney, Prostate), CHF, HTN, Hypercholesterolemia, NIDDM, Renal failure and Other (Obstructive sleep apnea, Cellulitis, Adrenal gland growth)
ED Past Surgical History: Urological (Left nephrectomy d/t cancer)
Patient has exhibited threatening behavior?: No
PSI?: No
Social History
Tobacco: Non-smoker
Alcohol: Occasional
Drug: None
Personal:
Living: with family
Employment: Employed
Family History
Family History: Other (Noncontributory)
Phy Exam
General Physical Exam
General Presentation: mild distress
General age: appears older than age
General Skin: warm and dry
General Habitus: debilitated and elderly
General Mental: anxious
General Hydration: appears well hydrated
ENT Exam
ENT Exam: EOMI, pharynx normal, neck supple and normocephalic
Eye Exam
Eye Exam: PERRL, cornea clear and conjunctiva normal
Cardiovascular Exam
Cardiovascular Exam: regular rate/rhythm
Pulmonary Exam
Pulmonary Exam: no respiratory distress and generalized wheezing
Oxygen Status: oxygen 2 liters via NC
Breath Sounds: Wheeze: generalized
Gastrointestinal Exam
Gastrointestinal Exam: normal bowel sounds, non tender, soft, no organomegaly, no pulsatile mass and non distended
Neurological Exam
Neurological Exam: alert, oriented x3, no motor deficits and speech normal
Musculoskeletal Exam
Musculoskeletal Exam: full ROM, edema (1+) and neuro vasc intact
Skin Exam
Skin Exam: normal color, warm/dry, no rash and no petechia
Psychiatric Exam
Psychiatric Exam: normal mood/affect
Scores
Heart Score for Chest Pain Patients
STEMI patient?: No
History: Slightly or Non-Suspicious
ECG: Normal
Age: >/= 65 years
Risk Factors: 1 or 2 Risk Factors
Troponin: </= Normal Limit
Heart Score for Chest Pain Patients: 3
Heart Score Risk: 2.5% MACE over next 6 weeks
Course
Orders/Labs/Results
Orders:
Orders
09/18/23 14:59
Electrocardiogram (*1) Urgent
Reason for Study: Chest Pain
EKG- Treatment ONCE
09/18/23 15:00
CXR2 [CR Chest - 2 Views ] Urgent
Comment:
Reason For Exam: chest pain
09/18/23 15:07
Complete Blood Count/With Diff Urgent
Comprehensive Metabolic Panel Urgent
Troponin I Urgent
09/18/23 17:10
Electrocardiogram (*1) Stat
Reason for Study: Other
Other Reason for Exam: overdose
EKG- Treatment ONCE
09/18/23 17:19
CT Chest Pe Study Urgent
Comment:
Reason For Exam: cp, dyspnea, known 'mets' to the neck
09/18/23 17:58
Hemoglobin A1c [Glycohemoglobin (HgbA1c)] Urgent
NT-proBNP Urgent
PTT Urgent
Prothrombin Time Urgent
Troponin I Urgent
09/18/23 18:00
Electrocardiogram (*1) Urgent
Reason for Study: Chest Pain
09/18/23 19:49
Urinalysis Reflex To Culture Urgent
Date Specimen was Collected: 09/18/23
Time Specimen was Collected: 17:38
Comment: n
Abnormal Lab Results
09/18/23
15:07
WBC 4.5 L 10^3/uL
(4.8-10.8)
RBC 3.65 L 10^6/uL
(4.70-6.10)
Hgb 11.8 L g/dL
(13.0-18.0)
Hct 33.7 L %
(39.0-52.0)
MCH 32.3 H pg
(27.0-31.0)
RDW 14.6 H %
(11.5-14.5)
Absolute Lymphs (auto) 0.9 L 10^3/uL
(1.2-3.4)
Lymphocytes % 20.4 L %
(20.5-51.1)
Potassium 3.3 L mmol/L
(3.5-5.1)
BUN 25 H mg/dl
(9-20)
Creatinine 1.7 H mg/dL
(0.7-1.3)
Glucose 180 H mg/dl
(70-99)
Total Protein 5.5 L g/dl
(6.3-8.2)
09/18/23 15:07
09/18/23 15:07
Vital Signs
Initial and Last Documented VS:
Initial Vital Signs
Temp Pulse Resp BP Pulse Ox
98.5 F 84 16 171/88 98
09/18/23 15:00 09/18/23 15:00 09/18/23 15:00 09/18/23 15:00 09/18/23 15:00
Last Documented Vital Signs
Temp Pulse Resp BP Pulse Ox
98.5 F 80 20 169/95 96
09/18/23 15:00 09/18/23 19:45 09/18/23 19:45 09/18/23 19:01 09/18/23 19:45
*Critical Care Note
Total Time (30-74mins, 75-104mins- exclusive of procedures): Not Applicable
Update Note
Update Note:
Discussed CT scan findings. Patient has a full team of oncologist at [facility]. He will discuss the CT scan findings with his team at [facility].
ED Attending Note
-
Portions of this chart may have been created with voice recognition software.� Occasional wrong word or��sound alike� substitutions may have occurred due to the inherent limitations of voice recognition software.
Discharge Plan
Departure
Patient Disposition: Home (Routine Discharge)
Date of Disposition: 09/18/23
Time of Disposition: 20:01
Patient with high blood pressure during this ER visit?: Yes
Condition: Good
Discharge Problem:
Chest pain
Instructions: Chest Pain PCP Follow Up
Prescriptions:
No Action
ezetimibe 10 MG tablet
10 mg PO DAILY
hydroxyzine HCl 10 mg tablet
10 - 20 mg PO HS PRN (Reason: itching)
metoprolol succinate 50 mg tablet extended release 24 hr
50 mg PO BID
furosemide 20 mg tablet
20 mg PO DAILY Qty: 30 0RF
lansoprazole [Prevacid] 30 mg capsule,delayed release(DR/EC)
30 mg PO DAILY 14 Days Qty: 14 0RF
gabapentin 600 mg tablet
1,200 mg PO DAILY PRN (Reason: neuropathy)
ropinirole 1 mg tablet
1 mg PO DAILY
levothyroxine 25 mcg tablet
25 mcg PO DAILY
repaglinide 0.5 mg tablet
0.5 mg PO TID
tamsulosin 0.4 mg Capsule
0.4 mg PO DAILY
eplerenone 50 mg tablet
50 mg PO BID
Hold Instructions: Until instructed by your physician
trospium 20 mg tablet
20 mg PO BID
docusate sodium 100 mg Capsule
100 mg PO BID Qty: 60 0RF
guaifenesin 600 mg Tablet Extended Release 12hr
1,200 mg PO Q12 Qty: 14 0RF
acetaminophen 325 mg Tablet
650 mg PO Q6HPRN PRN (Reason: mild pain/ fever>100.5F) Qty: 0 0RF
amiodarone [Pacerone] 200 mg Tablet
200 mg PO DAILY Qty: 30 0RF
aspirin 81 mg tablet,delayed release (DR/EC)
81 mg PO DAILY Qty: 0 0RF
amoxicillin-pot clavulanate 875-125 mg tablet
1 tab PO BID Qty: 14 0RF
doxycycline monohydrate 100 mg capsule
100 mg PO BID 7 Days Qty: 14 0RF
Referrals:
Maximiliano Lanza MD [Family Provider] -
Activity Restrictions/Additional Instructions:
As discussed, please follow up with QUINTEN CLEARY to discuss the CT scan findings suspicious for lung neoplasm/metastases. If you have any concerns or worsening symptoms, please return to the ER. A copy of your CD of the radiology read will accompany
this paperwork.
It was a pleasure meeting you and taking part in your care. We hope for your continued healing and wellness.
Please read discharge instructions in their entirety. However, they are for general education and may not describe your exact diagnosis at discharge. Information on your ER visit and medical conditions were discussed with you along with appropriate
follow up information...
If indicated, please take your medications as instructed and indicated on discharge paperwork.
Please schedule a follow up appointment as directed. Call to schedule an appointment
Please return to the emergency department with ANY change in, persisting, or worsening of symptoms. If any of your symptoms do not improve, or persist, or become more severe within 6-12 hours, please return to the emergency department for further
care.
Please return to the emergency department if you develop a headache, neck pain/stiffness, fever greater than 100.4F, chest pain, shortness of breath, persistent nausea, vomiting, slurred speech, difficulty walking, numbness/tingling, weakness, signs
of infection or any other symptoms that are worrisome to you.
If you have any questions or concerns please do not hesitate to call the Hospital at or E-mail me directly at [email or web address]
Interventions
Interventions:
*Risk Screen - Suicide Last Done: 09/18/23 15:00
*Neglect/Abuse Screening Last Done: 09/18/23 15:00
ED- Cardiac Assessment Last Done: 09/18/23 16:50
Discharge Date and Time
Print Language: [id number]
[2023-09-18 18:20] LABS: INR 1.07; PT 13.8 Sec (11.4-14.6)
[2023-09-18 18:21] LABS: APTT 28.6 Sec (23.4-35.0)
[2023-09-18 18:41] LABS: NT-proBNP 3240 pg/ml; Troponin I 0.015 ng/ml
[2023-09-18 19:01] VITALS: BP 169/95
[2023-09-18 20:00] VITALS: BP 175/85
[2023-09-18 20:01] LABS: Urine Albumin Negative (Neg - Trace); Urine Bilirubin Negative (Negative); Urine Character Clear (Clear); Urine Color Yellow; Urine Glucose Negative (Negative); Urine Ketone Negative (Negative); Urine Leukocyte Negative (Negative); Urine Nitrite Negative (Negative); Urine Occult Blood Negative (Negative); Urine Urobilinogen Negative (Neg - 1+)
== END 2023-09-18 20:41 | disposition home or self-care (01) ==
LOC: EMR 14:57
PROVIDERS: Student in an Organized Health Care Education/Training Program; EMERGENCY PHYSICIAN Student in an Organized Health Care Education/Training Program; FAMILY PHYSICIAN Internal Medicine
DX: R07.89 Other chest pain (principal); I11.0 Hypertensive heart disease with heart failure; I50.9 Heart failure, unspecified; J44.9 Chronic obstructive pulmonary disease, unspecified; I49.3 Ventricular premature depolarization
CPT/HCPCS: 99285; 71046; 71275; 80053; 81003; 83036; 83880; 84484; 85025; 85610; 85730; 93005; Q9967

== ENCOUNTER → 2023-09-24 12:50 | Outpatient (REF) | payer BC, SELFPAY | LOC: HWRAD 12:50 | PROVIDERS: ATTENDING PHYSICIAN Internal Medicine Nephrology; FAMILY PHYSICIAN Internal Medicine; REFERRING PHYSICIAN Internal Medicine Endocrinology, Diabetes & Metabolism | DX: N18.32 Chronic kidney disease, stage 3b (principal) | CPT/HCPCS: 76775 ==

== ENCOUNTER → 2023-10-06 13:33 | Outpatient (REF) | payer BC, SELFPAY | LOC: MRI 13:33 | PROVIDERS: ATTENDING PHYSICIAN Neurological Surgery; FAMILY PHYSICIAN Internal Medicine | DX: M54.2 Cervicalgia (principal); G89.29 Other chronic pain | CPT/HCPCS: 70553; 72156; A9575 ==

== ENCOUNTER → 2023-10-11 17:30 | Outpatient (REF) | payer BC, SELFPAY ==
[2023-10-11 18:29] LABS: % Eosinophils 4.4 % (0-6); % Immature Granulocytes 0.4 % (0-0.5); % Lymphocytes 21.9 % (20.5-51.1); % Monocytes 5.5 % (1.7-9.3); % Neutrophils 66.8 % (42.2-75.2); Absolute Basophils 0.1 10^3/uL (0-0.2); Absolute Eosinophils 0.2 10^3/uL (0-0.7); Absolute Lymphocytes 1.2 10^3/uL (1.2-3.4); Absolute Monocytes 0.3 10^3/uL (0.1-0.6); Absolute Neutrophils 3.5 10^3/uL (1.4-6.5); Hemoglobin 12.1 g/dL (13.0-18.0); Mean Corp Hgb Conc. 34.6 g/dL (33.0-37.0); Mean Corpuscular Hgb 31.3 pg (27.0-31.0); Mean Corpuscular Volume 90.4 fL (80.0-94.0); Mean Platelet Volume 9.7 fL (7.4-10.4); Nucleated Red Blood Cells % 0 % (-); Platelet Count 200 10^3/uL (130-400); Red Blood Cell Count 3.87 10^6/uL (4.70-6.10); Red Cell Dist. Width 14.4 % (11.5-14.5); White Blood Cell Count 5.2 10^3/uL (4.8-10.8)
== END ==
LOC: REG 17:30
PROVIDERS: ATTENDING PHYSICIAN Physician Assistant; FAMILY PHYSICIAN Internal Medicine
DX: C64.2 Malignant neoplasm of left kidney, except renal pelvis (principal); E27.8 Other specified disorders of adrenal gland
CPT/HCPCS: 36415; 85025

== ENCOUNTER → 2023-11-01 11:42 | Outpatient (REF) | payer BC, SELFPAY ==
[2023-11-01 13:27] LABS: % Basophils 0.5 % (0-2); % Eosinophils 5.5 % (0-6); % Immature Granulocytes 0.5 % (0-0.5); % Lymphocytes 22.7 % (20.5-51.1); % Neutrophils 63.8 % (42.2-75.2); Absolute Eosinophils 0.2 10^3/uL (0-0.7); Absolute Lymphocytes 0.9 10^3/uL (1.2-3.4); Absolute Monocytes 0.3 10^3/uL (0.1-0.6); Absolute Neutrophils 2.7 10^3/uL (1.4-6.5); Hemoglobin 11.8 g/dL (13.0-18.0); Mean Corp Hgb Conc. 34.7 g/dL (33.0-37.0); Mean Corpuscular Hgb 31.6 pg (27.0-31.0); Mean Corpuscular Volume 90.9 fL (80.0-94.0); Mean Platelet Volume 9.4 fL (7.4-10.4); Nucleated Red Blood Cells % 0 % (-); Platelet Count 230 10^3/uL (130-400); Red Blood Cell Count 3.74 10^6/uL (4.70-6.10); Red Cell Dist. Width 14.3 % (11.5-14.5); White Blood Cell Count 4.2 10^3/uL (4.8-10.8)
[2023-11-01 15:40] LABS: ALT (SGPT) 16 U/L (0-50); AST (SGOT) 22 U/L (17-59); Albumin 4.1 g/dl (3.5-5.0); Alkaline Phosphatase 77 U/L (38-126); Blood Urea Nitrogen 29 mg/dl (9-20); Calcium 9.6 mg/dl (8.4-10.2); Carbon Dioxide 29 mmol/L (22-30); Chloride 103 mmol/L (98-107); Glucose 131 mg/dl (70-99); Potassium 3.7 mmol/L (3.5-5.1); Sodium 145 mmol/L (135-145); eGFR 41.01
== END ==
LOC: RAD 11:42
PROVIDERS: ATTENDING PHYSICIAN Internal Medicine; FAMILY PHYSICIAN Internal Medicine
DX: C64.9 Malignant neoplasm of unspecified kidney, except renal pelvis (principal)
CPT/HCPCS: 36415; 74176; 80053; 85025

== ENCOUNTER → 2023-11-04 09:23 | Outpatient (REF) | payer BC, SELFPAY | LOC: RAD 09:23 | PROVIDERS: ATTENDING PHYSICIAN Internal Medicine; FAMILY PHYSICIAN Internal Medicine | DX: C64.9 Malignant neoplasm of unspecified kidney, except renal pelvis (principal) | CPT/HCPCS: 78306; A9503 ==

== ENCOUNTER 2023-11-06 03:45 | Emergency (ER) | payer BC, SELFPAY ==
[2023-11-06] VITALS (18 sets, daily range): BP systolic 162–209; BP diastolic 89–159
[2023-11-06 05:48] LABS: % Basophils 0.6 % (0-2); % Eosinophils 3.3 % (0-6); % Immature Granulocytes 0.4 % (0-0.5); % Monocytes 5.5 % (1.7-9.3); % Neutrophils 69.2 % (42.2-75.2); Absolute Eosinophils 0.2 10^3/uL (0-0.7); Absolute Lymphocytes 1.1 10^3/uL (1.2-3.4); Absolute Monocytes 0.3 10^3/uL (0.1-0.6); Absolute Neutrophils 3.5 10^3/uL (1.4-6.5); Hematocrit 32.3 % (39.0-52.0); Hemoglobin 11.4 g/dL (13.0-18.0); Mean Corp Hgb Conc. 35.3 g/dL (33.0-37.0); Mean Corpuscular Volume 90.7 fL (80.0-94.0); Mean Platelet Volume 8.6 fL (7.4-10.4); Nucleated Red Blood Cells % 0 % (-); Platelet Count 210 10^3/uL (130-400); Red Blood Cell Count 3.56 10^6/uL (4.70-6.10); Red Cell Dist. Width 14.6 % (11.5-14.5); White Blood Cell Count 5.1 10^3/uL (4.8-10.8)
--- NOTE | 2023-11-06 06:04 | ED.GENMED ---
History of Present Illness
<Wendy Soto DO - Last Filed: 11/06/23 07:33>
General
Chief Complaint: Musculo-Skeletal Complaint
Source: patient and previous radiology exam
Exam Limitations: none
Time Seen by Provider: 11/06/23 04:08
Nursing documentation reviewed up to this point in time: agreed with
History of Present Illness
History of Present Illness:
This is a 78-year-old gentleman who resides at home independently. He has a history of metastatic renal cell carcinoma. Initially diagnosed 2018 and underwent left nephrectomy at that time as well as XRT. He follows with oncologist at [facility].
More recently has been suffering with neck pain, back pain and underwent MRI of the cervical spine August of this year which showed 1.1 cm bony lesion left C5 facet concerning for bony metastasis. Repeat MRI of the cervical spine October 05 showed
increase in size in the C5 mass to 1.4 cm but no appreciable extraosseous soft tissue component and no pathologic fracture.
An MRI of the brain October 05 showed a tiny hypoattenuating focus in the left posterior pituitary gland measuring 3 mm concerning for a microadenoma. Also note of moderate age-related parenchymal atrophy and mild chronic microangiopathic ischemia.
Whole-body bone scan November 03 showed intense activity right posterior sixth rib at site of subacute fracture concerning for pathologic rib fracture. Was also noted severe polyarticular arthritis bilateral knees, ankles, feet right AC joint as well
as right elbow. The left C5 lesion did not demonstrate increased radiopharmaceutical activity.
He continues with some posterior neck pain, stable but has had some left shoulder pain over the past week and since yesterday has noticed weakness of his left arm, inability to lift his left arm that has gotten progressively worse throughout the day
prompting him to drive to the ED this morning for evaluation.
He denies headache, no dizziness nor lightheadedness, no leg pain nor weakness, no numbness.
While walking to his car however he does note feeling very mildly wobbly but able to drive and walk into the ED without difficulty.
He did not attempt to call his oncologist yesterday.
He has been taking Tylenol as well as ibuprofen for his neck pain/left shoulder pain. Left shoulder pain does not worsen with attempted movement of his left arm. No chest pain, no shortness of breath.
He has history of chronic kidney disease, creatinine baseline 1.7.
Patient states he has been evaluated by neurosurgeon and plan is for local injections to his neck to help with pain.
Past History
<Wendy Soto, DO - Last Filed: 11/06/23 07:33>
Past History
ED Past Medical History: Cancer (Kidney, Prostate), CHF, HTN, Hypercholesterolemia, NIDDM, Renal failure (Chronic kidney disease stage IIIb. Creatinine baseline 1.7) and Other (Obstructive sleep apnea, Cellulitis, Adrenal gland growth)
ED Past Surgical History: Urological (Left nephrectomy d/t cancer 2019) and Other (Lung mass biopsy positive for renal cell carcinoma metastasis)
Patient has exhibited threatening behavior?: No
PSI?: No
Social History
Tobacco: Non-smoker
Alcohol: Occasional
Drug: None
Personal:
Living: with family
Employment: Employed
Family History
Family History: Other (Noncontributory)
Phy Exam
<Wendy Soto, DO - Last Filed: 11/06/23 07:33>
Physical Exam
Physical Exam:
GENERAL: 78-year-old gentleman appears his stated age, awake and alert, easily communicative, appears in no acute distress.
EYE: pupils equal and reactive. Extraocular muscles are full. Anicteric
NECK: Supple, no midline bony tenderness. Mild tenderness left paraspinal region, no meningismus, no significant adenopathy.
ENT: posterior pharynx is clear, oral mucosa is moist. TM clear b/l, nares patent.
CARDIAC: Regular rate and rhythm. no murmur.
LUNGS: Clear breath sounds bilaterally, no acute respiratory distress, no wheezes/rales/rhonchi
ABDOMEN: Rotund, soft, nondistended, without focal tenderness, no r/g, no cvat. normoactive BS.
NEUROLOGICAL: Alert and oriented x3, cranial nerves II through XII grossly intact. 4 out of 5 motor strength left upper extremity, 5/5 motor strength right upper extremity as well as bilateral lower extremities. Shoulder shrug is intact
bilaterally. Gross sensation is intact bilaterally. Hand grasps are equal bilaterally. Moderate dysmetria left upper extremity with attempted [id number].
SKIN: Warm and dry, normal color, skin intact. No rash.
MUSCULOSKELETAL: No C/C/E. peripheral pulses are full and equal b/l. No palpable tenderness.
PSYCH: Normal and appropriate interaction.
NIH Stroke Score
Level of Consciousness: 0 - Alert
LOC questions: 0-Answers both correctly
LOC Commands: 0-Performs both correctly
Best Gaze: 0-Normal
Visual Ferrer: 0=Normal, no visual loss
Facial palsy: 0=Normal, symmetrical
Motor - Right Arm: 0=No drift 10 seconds
Motor - Left Arm: 1=Drift < 10 seconds
Motor - Right Le-No drift 5 seconds
Motor - Left Le-No drift 5 seconds
Limb Ataxia: 1-Present in one limb
Sensation: 0-Normal
Best Language: 0-No aphasia
Dysarthria: 0-Normal
Extinction and Inattention: 0-No abnormality
Total Score:: 2
Alteplase Contraindication
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
Gantt Coma Scale
Eye Opening: Spontaneous
Verbal Response: Oriented
Motor Response: Obeys Commands
GCS Total Score: 15
<Jefferson Singletary, DO - Last Filed: 11/06/23 09:35>
NIH Stroke Score
Total Score:: 2
Mervat Coma Scale
GCS Total Score: 15
Course
<Wendy Soto, DO - Last Filed: 11/06/23 07:33>
Orders/Labs/Results
Orders:
Orders
11/06/23 05:02
CT Head W/o Iv Contrast Urgent
Comment:
Reason For Exam: acute left arm weakness
11/06/23 05:03
Electrocardiogram (*1) Urgent
Reason for Study: Fatigue / Weakness
EKG- Treatment ONCE
11/06/23 05:39
Complete Blood Count/With Diff Urgent
Comprehensive Metabolic Panel Urgent
11/06/23 07:07
MR Cervical Spine W Contrast Urgent
Comment:
Reason For Exam: acute L arm weakness, Hx met RCC
OK for patient to be off Cardiac Monitoring for MRI: Yes
Recent pill cam endoscopy?: No
Pacemaker/Defibrillator?: Yes
Is the pacemaker a conditional type?: No
Brain Aneurysm Clips?: No
Have you ever worked with metal? grinding metal? welding?: No
Cochlear(ear) implants?: No
Does Pt have a Temp Sensing Cath?: No
Does the patient have IV access?: Yes
Does the patient have any stents?: No
MRI Brain [MR Brain With Contrast] Urgent
Comment:
Reason For Exam: acute L arm weakness-worsening since yesterday
OK for patient to be off Cardiac Monitoring for MRI: Yes
Recent pill cam endoscopy?: No
11/06/23 08:13
Acetaminophen [Tylenol] 650 mg PO NOW STA
11/06/23 08:26
Dexamethasone Sod Phosphate [Decadron] 10 mg IV NOW STA
Abnormal Lab Results
11/06/23
05:39
RBC 3.56 L 10^6/uL
(4.70-6.10)
Hgb 11.4 L g/dL
(13.0-18.0)
Hct 32.3 L %
(39.0-52.0)
MCH 32.0 H pg
(27.0-31.0)
RDW 14.6 H %
(11.5-14.5)
Absolute Lymphs (auto) 1.1 L 10^3/uL
(1.2-3.4)
Carbon Dioxide 31 H mmol/L
(22-30)
BUN 31 H mg/dl
(9-20)
Creatinine 1.6 H mg/dL
(0.7-1.3)
Glucose 183 H mg/dl
(70-99)
Total Protein 5.9 L g/dl
(6.3-8.2)
11/06/23 05:39
11/06/23 05:39
Vital Signs
Initial and Last Documented VS:
Initial Vital Signs
Temp Pulse Resp BP Pulse Ox
98.3 F 83 18 185/100 97
11/06/23 03:47 11/06/23 03:47 11/06/23 03:47 11/06/23 03:47 11/06/23 03:47
Last Documented Vital Signs
Temp Pulse Resp BP Pulse Ox
98.3 F 80 20 180/97 94
11/06/23 03:47 11/06/23 07:44 11/06/23 07:44 11/06/23 07:44 11/06/23 07:44
<Jefferson Singletary, DO - Last Filed: 11/06/23 09:35>
Orders/Labs/Results
Orders:
Orders
11/06/23 05:02
CT Head W/o Iv Contrast Urgent
Comment:
Reason For Exam: acute left arm weakness
11/06/23 05:03
Electrocardiogram (*1) Urgent
Reason for Study: Fatigue / Weakness
EKG- Treatment ONCE
11/06/23 05:39
Complete Blood Count/With Diff Urgent
Comprehensive Metabolic Panel Urgent
11/06/23 07:07
MR Cervical Spine W Contrast Urgent
Comment:
Reason For Exam: acute L arm weakness, Hx met RCC
OK for patient to be off Cardiac Monitoring for MRI: Yes
Recent pill cam endoscopy?: No
Pacemaker/Defibrillator?: Yes
Is the pacemaker a conditional type?: No
Brain Aneurysm Clips?: No
Have you ever worked with metal? grinding metal? welding?: No
Cochlear(ear) implants?: No
Does Pt have a Temp Sensing Cath?: No
Does the patient have IV access?: Yes
Does the patient have any stents?: No
MRI Brain [MR Brain With Contrast] Urgent
Comment:
Reason For Exam: acute L arm weakness-worsening since yesterday
OK for patient to be off Cardiac Monitoring for MRI: Yes
Recent pill cam endoscopy?: No
11/06/23 08:13
Acetaminophen [Tylenol] 650 mg PO NOW STA
11/06/23 08:26
Dexamethasone Sod Phosphate [Decadron] 10 mg IV NOW STA
Abnormal Lab Results
11/06/23
05:39
RBC 3.56 L 10^6/uL
(4.70-6.10)
Hgb 11.4 L g/dL
(13.0-18.0)
Hct 32.3 L %
(39.0-52.0)
MCH 32.0 H pg
(27.0-31.0)
RDW 14.6 H %
(11.5-14.5)
Absolute Lymphs (auto) 1.1 L 10^3/uL
(1.2-3.4)
Carbon Dioxide 31 H mmol/L
(22-30)
BUN 31 H mg/dl
(9-20)
Creatinine 1.6 H mg/dL
(0.7-1.3)
Glucose 183 H mg/dl
(70-99)
Total Protein 5.9 L g/dl
(6.3-8.2)
11/06/23 05:39
11/06/23 05:39
Vital Signs
Initial and Last Documented VS:
Initial Vital Signs
Temp Pulse Resp BP Pulse Ox
98.3 F 83 18 185/100 97
11/06/23 03:47 11/06/23 03:47 11/06/23 03:47 11/06/23 03:47 11/06/23 03:47
Last Documented Vital Signs
Temp Pulse Resp BP Pulse Ox
98.3 F 80 20 180/97 94
11/06/23 03:47 11/06/23 07:44 11/06/23 07:44 11/06/23 07:44 11/06/23 07:44
<Wendy Soto DO - Last Filed: 11/06/23 07:33>
MDM/Problems Addressed
Differential Diagnosis Includes:
Patient with known metastatic renal cell carcinoma presents with left arm weakness that began yesterday afternoon, has progressed throughout the evening, delicatessen manager.
He has known bony lesion suspicious for metastasis C5 vertebra on the left that has progressed in size from MRI end of August to follow-up MRI end of September.
I have concern for further progression of this C5 lesion, concern for cord compression versus nerve root compression especially in light of their 1 week history of left shoulder pain.
Left shoulder weakness does not appear to be focal shoulder pain related.
Other consideration is acute stroke versus intracranial metastatic disease.
Will check CT of the head, will check labs.
Will discuss results with radiology and will discuss need for MRI of the brain and cervical spine.
Chronic conditions affecting care: Kidney disease and Cancer
<Jefferson Singletary DO - Last Filed: 11/06/23 09:35>
*Radiology
Radiology exam reviewed: radiology read reviewed
*Pulse Oximetry
Patient hypoxic: no
*Critical Care Note
Total Time (30-74mins, 75-104mins- exclusive of procedures): 40
<Wendy Soto DO - Last Filed: 11/06/23 07:33>
Update Note
Update Note:
CT of the head shows no acute findings.
Creatinine stable 1.6.
Neuroexam remain remained stable. Continues with moderate paresis left upper extremity. Currently comfortable.
Case discussed with radiology, will plan for CT of the cervical spine and brain with contrast, assess for acute stroke versus progression of metastatic disease, concern for cord compression.
<Jefferson Singletary DO - Last Filed: 11/06/23 09:35>
Update Note
Update Note:
CT of the head shows no acute findings.
Creatinine stable 1.6.
Neuroexam remain remained stable. Continues with moderate paresis left upper extremity. Currently comfortable.
Case discussed with radiology, will plan for CT of the cervical spine and brain with contrast, assess for acute stroke versus progression of metastatic disease, concern for cord compression.
8:30 AM numerous calls [id number] with radiology, MRI technicians, final conclusion is that patient cannot get an MRI on the weekend here due to some staffing issues, due to his pacemaker, on exam patient does appear weak of his left proximal
arm, reviewed the particular with the patient option to be admitted started on steroids versus discharging to home with steroids, will admit, start on steroids message sent to hospitalist
9:30 AM numerous conversations with hospitalist and neurosurgery via text ultimate decision was for the patient to go to [facility]
Patient is in agreement transfer form signed
CRITICAL CARE STATEMENT: A total of 40 minutes of critical care time was provided for this patient. This includes management of unstable vital signs, evaluation of the patient at bedside, reviewing the patient's pertinent medical records discussion
with EMS providers and patient's family in addition to discussion with consultants, review of old EKGs and review of pertinent medical records. This time with separate from time utilized to perform the aforementioned documented procedures
ED Attending Note
<Wendy Soto DO - Last Filed: 11/06/23 07:33>
-
Portions of this chart may have been created with voice recognition software.� Occasional wrong word or��sound alike� substitutions may have occurred due to the inherent limitations of voice recognition software.
Discharge Plan
Departure
Patient Disposition: Acute Care Hospital
Date of Disposition: 11/06/23
Time of Disposition: 09:35
Admit to: Med/Surg
Presentation/result/management discussed w/ accepting MD/DO: Hospitalist
Patient with high blood pressure during this ER visit?: No
Condition: Fair
Discharge Problem:
Left arm weakness
Prescriptions:
No Action
ezetimibe 10 MG tablet
10 mg PO DAILY
hydroxyzine HCl 10 mg tablet
10 - 20 mg PO HS PRN (Reason: itching)
metoprolol succinate 50 mg tablet extended release 24 hr
50 mg PO BID
furosemide 20 mg tablet
20 mg PO DAILY Qty: 30 0RF
lansoprazole [Prevacid] 30 mg capsule,delayed release(DR/EC)
30 mg PO DAILY 14 Days Qty: 14 0RF
gabapentin 600 mg tablet
1,200 mg PO DAILY PRN (Reason: neuropathy)
ropinirole 1 mg tablet
1 mg PO DAILY
levothyroxine 25 mcg tablet
25 mcg PO DAILY
repaglinide 0.5 mg tablet
0.5 mg PO TID
tamsulosin 0.4 mg Capsule
0.4 mg PO DAILY
eplerenone 50 mg tablet
50 mg PO BID
trospium 20 mg tablet
20 mg PO BID
docusate sodium 100 mg Capsule
100 mg PO BID Qty: 60 0RF
guaifenesin 600 mg Tablet Extended Release 12hr
1,200 mg PO Q12 Qty: 14 0RF
acetaminophen 325 mg Tablet
650 mg PO Q6HPRN PRN (Reason: mild pain/ fever>100.5F) Qty: 0 0RF
amiodarone [Pacerone] 200 mg Tablet
200 mg PO DAILY Qty: 30 0RF
aspirin 81 mg tablet,delayed release (DR/EC)
81 mg PO DAILY Qty: 0 0RF
amoxicillin-pot clavulanate 875-125 mg tablet
1 tab PO BID Qty: 14 0RF
doxycycline monohydrate 100 mg capsule
100 mg PO BID 7 Days Qty: 14 0RF
Referrals:
Melissa Cano MD [Family Provider] -
Hospital Transfer
Other hospital: [facility]
I certify that the patient requires transfer: Yes
Discussed case with accepting physician: BETHEL
Reason for transfer: availability of service
Interventions
Interventions:
*Risk Screen - Suicide Last Done: 11/06/23 03:47
*Neglect/Abuse Screening Last Done: 11/06/23 03:47
ED- Fall Risk Assessment Last Done: 11/06/23 04:11
*ED COVID-19 Vaccine History Last Done: 11/06/23 03:47
ED-Musculoskeletal Assessment Last Done: 11/06/23 04:11
Discharge Date and Time
Print Language: [facility]
[2023-11-06 06:15] LABS: ALT (SGPT) 15 U/L (0-50); AST (SGOT) 24 U/L (17-59); Albumin 3.9 g/dl (3.5-5.0); Alkaline Phosphatase 81 U/L (38-126); Blood Urea Nitrogen 31 mg/dl (9-20); Calcium 9.7 mg/dl (8.4-10.2); Carbon Dioxide 31 mmol/L (22-30); Chloride 103 mmol/L (98-107); Glucose 183 mg/dl (70-99); Potassium 3.5 mmol/L (3.5-5.1); Sodium 145 mmol/L (135-145); Total Protein 5.9 g/dl (6.3-8.2)
[2023-11-06] MEDS: TYLENOL 650 MG PO (08:16)
[2023-11-06] MEDS: DECADRON 10 MG IV (09:36)
[2023-11-06] MEDS: CARDURA 1 MG PO (11:52)
[2023-11-06] MEDS: LOPRESSOR 100 MG PO (11:52)
== END 2023-11-06 13:44 | disposition short-term general hospital (02) ==
LOC: EMR 03:45
PROVIDERS: Emergency Medicine; EMERGENCY PHYSICIAN Emergency Medicine; FAMILY PHYSICIAN Internal Medicine
DX: R53.1 Weakness (principal); C64.2 Malignant neoplasm of left kidney, except renal pelvis; C61 Malignant neoplasm of prostate; C79.9 Secondary malignant neoplasm of unspecified site; E11.22 Type 2 diabetes mellitus with diabetic chronic kidney disease; I13.0 Hypertensive heart and chronic kidney disease with heart failure and stage 1 through stage 4 chronic kidney disease, or unspecified chronic kidney disease; N18.32 Chronic kidney disease, stage 3b; I50.9 Heart failure, unspecified; G47.33 Obstructive sleep apnea (adult) (pediatric); E78.00 Pure hypercholesterolemia, unspecified; Z90.5 Acquired absence of kidney; Z95.0 Presence of cardiac pacemaker
CPT/HCPCS: 96374; 99291; 70450; 80053; 85025; 93005

== ENCOUNTER 2023-12-12 22:15 | Inpatient (IN) | payer MEDICARE, BC, SELFPAY ==
[2023-12-12 17:53] VITALS: BP 167/75
[2023-12-12 18:00] VITALS: BP 151/79
--- NOTE | 2023-12-12 18:16 | ED.GENMED ---
History of Present Illness
General
Chief Complaint: Weakness
Source: patient
Exam Limitations: none
Time Seen by Provider: 12/12/23 17:56
History of Present Illness
History of Present Illness:
This is a 78 year old male that is brought in by ambulance with c/o lethargy. States that his wanted him sent in to be checked. States that he just feels that he needs to take a nap. States that he has had a fever with chills. Denies any chest
pain, SOB, abd pain, nausea, vomiting, diarrhea, headache, dizziness, urinary burning.
Past History
Past History
ED Past Medical History: Asthma, Cancer (Kidney, Prostate), CHF, COPD, GERD, HTN, Hypercholesterolemia, NIDDM, Renal failure (Chronic kidney disease stage IIIb. Creatinine baseline 1.7), Psychiatric (bipolar, anxiety) and Other (Obstructive sleep
apnea, Cellulitis, Adrenal gland growth, Neck and back pain, Sciatica, restless leg syndrome. IBS, Anemia, Hypospadias)
ED Past Surgical History: Cardiac (pacer/defib, Ablation X 2), Orthopedic (L5 framiotomy), Urological (Left nephrectomy d/t cancer 2019) and Other (Lung mass biopsy positive for renal cell carcinoma metastasis, Right strabismus repair, )
Patient has exhibited threatening behavior?: No
PSI?: No
Social History
Tobacco: Non-smoker
Alcohol: None
Drug: None
Personal:
Living: senior living
Employment: Employed
Family History
Family History: Other (Noncontributory)
Review of Systems
Review of Systems
All Other Systems: ROS reviewed and negative except as documented in HPI and ROS
Constitutional: Reports fever and chills
EENT: Reports no symptoms
Respiratory: Reports no symptoms; Denies cough or trouble breathing
Cardiac: Reports no symptoms; Denies chest pain
ABD/GI: Reports no symptoms; Denies abdominal pain, nausea, vomiting or diarrhea
: Reports no symptoms; Denies dysuria, frequency or urgency
Musculoskeletal: Reports no symptoms
Skin: Reports no symptoms
Neurological: Reports no symptoms; Denies dizzy or headache
Psychiatric: Reports no symptoms
Phy Exam
General Physical Exam
General Presentation: no apparent distress
General age: appears stated age
General Skin: warm and dry
General Habitus: elderly
General Mental: alert
General Hydration: dry mucous membranes
ENT Exam
ENT Exam: pharynx normal, neck supple and other (Large amount cerumen both ears)
Eye Exam
Eye Exam: EOMI
Cardiovascular Exam
Cardiovascular Exam: regular rate/rhythm, no edema, normal peripheral pulses and pacemaker
Pulmonary Exam
Pulmonary Exam: lungs clear, no respiratory distress, no rales, chest non tender, no crackles, no rhonchi, no wheezing and no cough
Gastrointestinal Exam
Gastrointestinal Exam: normal bowel sounds, non tender, soft, no organomegaly, no pulsatile mass and non distended
Musculoskeletal Exam
Musculoskeletal Exam: full ROM and no edema
Skin Exam
Skin Exam: normal color, warm/dry, no rash and no petechia
Psychiatric Exam
Psychiatric Exam: normal mood/affect
Course
Orders/Labs/Results
Orders:
Orders
12/12/23 18:15
CR Chest - 2 Views Urgent
Comment:
Reason For Exam: fever
12/12/23 18:16
0.9% Sodium Chloride 500 ml [Nss] 500 ml IV BOLUS
12/12/23 18:17
Acetaminophen [Tylenol] 1,000 mg PO NOW STA
12/12/23 18:26
Electrocardiogram (*1) Urgent
Reason for Study: Fatigue / Weakness
EKG- Treatment ONCE
12/12/23 18:52
COVID-19 Antigen Urgent
Source: Nasal Swab
Complete Blood Count/With Diff Urgent
Comprehensive Metabolic Panel Urgent
Lactic Acid Q4H
Comment: CANCEL 2nd LACTIC ACID IF 1st LACTIC ACID IS LESS THAN 2
Troponin I Urgent
Influenza A+B Rapid Molecular Urgent
OLIVIA Source: Nasal Swab
Specimen Description:
12/12/23 18:56
Urinalysis Reflex To Culture Urgent
Date Specimen was Collected: 12/12/23
Time Specimen was Collected: 18:52
Urine Microscopic Reflex Cult Urgent
Urine Culture Urgent
OLIVIA Source: U
Specimen Description:
Date Specimen was Collected: 12/12/23
Time Specimen was Collected: 18:52
12/12/23 19:17
CefTRIAXone [Rocephin] 1,000 mg IV NOW STA
12/12/23 19:18
Acetaminophen 1000MG/100Ml [Ofirmev] 1,000 mg in 100 ml IV ONCE
Acetaminophen IV Indication:: ED Narcotic Naive Pt-ONCE
12/12/23 20:11
Blood Culture Urgent
OLIVIA Source: Blood/Venous
Specimen Description:
12/12/23 21:13
Admit/Transfer Patient As Directed
Co-Sign Provider:
Level of Care: Inpatient admission
Assign to:: Medical/Surgical
Physician / Group: Reece/Hospitalist
Diagnosis: COVID, hypoxia, UTI
Reason for Hospitalization: COVID, hypoxia, UTI
Expected length of stay greater than two midnights?: Yes
ELOS- Estimated Length of Stay in days: 4
I certify the patient meets the requirements for IP care: Yes
12/12/23 21:14
PRN Pain Medication Management As Directed
May give lesser potent ordered pain med per pt: Yes
preference::
Protocol:: Medication orders for pain may be administered in a
manner that supports deferring to patient preference
when the pt is:
- Requesting an ordered lesser potent pain medication.
Least to most potent pain medications are defined
as: acetaminophen < NSAID < tramadol < opioids
(morphine, oxycodone, hydromorphone).
- Requesting a lesser dose of the same medication IF
ORDERED.
- Requesting a less intrusive route of administration
if both routes are prescribed by the provider (PO <
IV).
12/12/23 21:33
Code Status As Directed
Resuscitation Status: Full Code
12/12/23 22:15
Lactic Acid Q4H
Comment: CANCEL 2nd LACTIC ACID IF 1st LACTIC ACID IS LESS THAN 2
Abnormal Lab Results
12/12/23 12/12/23
18:52 18:56
RBC 3.15 L 10^6/uL
(4.70-6.10)
Hgb 10.4 L g/dL
(13.0-18.0)
Hct 31.0 L %
(39.0-52.0)
MCV 98.4 H fL
(80.0-94.0)
MCH 33.0 H pg
(27.0-31.0)
RDW 15.0 H %
(11.5-14.5)
Abs Immat Gran (auto) 0.1 H 10^3/uL
(0-0.05)
Absolute Lymphs (auto) 0.6 L 10^3/uL
(1.2-3.4)
Immature Gran % 1.2 H %
(0-0.5)
Neutrophils % 79.6 H %
(42.2-75.2)
Lymphocytes % 9.6 L %
(20.5-51.1)
BUN 36 H mg/dl
(9-20)
Creatinine 1.5 H mg/dL
(0.7-1.3)
Glucose 107 H mg/dl
(70-99)
Total Protein 5.9 L g/dl
(6.3-8.2)
Urine Nitrite (Reflex) Positive A
(Negative)
Leukocyte Esterase Rfl 2+ A
(Negative)
Urine WBC (Reflex) 30-40 A /HPF
(0-5)
Urine Bacteria (Reflex) Many A
(Negative)
SARS-CoV-2 Antigen Positive A
(Negative)
12/12/23 18:52
12/12/23 18:52
H/H low. Anemia, chronic renal insufficiency, Urine positive for infection. Hyperglycemia. Lactic acid normal at 1.1, Troponin 0.030, COVID Positive, Influenza negative.
Vital Signs
Initial and Last Documented VS:
Initial Vital Signs
Pulse Resp BP Pulse Ox
88 17 167/75 93
12/12/23 17:53 12/12/23 17:53 12/12/23 17:53 12/12/23 17:53
Last Documented Vital Signs
Temp Pulse Resp BP Pulse Ox
101.3 F H 80 20 134/58 97
12/12/23 18:00 12/12/23 21:30 12/12/23 21:30 12/12/23 21:00 12/12/23 21:30
MDM/Problems Addressed
Differential Diagnosis Includes:
COVID, Viral syndrome
MDM/Problems Addressed:
This is a 78 year old male that comes in by ambulance with c/o lethargy. States that his wanted him checked out as he was very tired. States that he just feels like he needs to take a nap.
will check labs. Chest, urine COVID and influenza.
back into see patient. Explained that he has a urinary tract infection and that he also has COVID. Will admit patient and start IV antibiotics. Hospitalist notified.
Chronic conditions affecting care:
CHF
Chronic conditions affecting care: DM
Acute Exacerbation and/or Progression of Chronic Illness:
NA
*Radiology
Radiology exam reviewed: radiology read reviewed (Chest-Cardiomegaly without associated pulmonary edema. )
*Pulse Oximetry
Patient hypoxic: no
*EKG
Interpreted by ED Provider?: Yes
Heart Rate: 80
Rate: normal
Rhythm: av sequential
Maybee: left axis deviation
Interval: normal interval
QRS Pattern: left bundle branch block
Ischemia: no ischemia
*Home Builder Interpretation
Rate: normal
Heart Rate: 82
Rhythm: av sequential
*Critical Care Note
Total Time (30-74mins, 75-104mins- exclusive of procedures): Not Applicable
ED Attending Note
-
Portions of this chart may have been created with voice recognition software.� Occasional wrong word or��sound alike� substitutions may have occurred due to the inherent limitations of voice recognition software.
Discharge Plan
Departure
Patient Disposition: Admit
Date of Disposition: 12/12/23
Time of Disposition: 20:23
Admit to: Med/Surg
Presentation/result/management discussed w/ accepting MD/DO: Hospitalist
Patient with high blood pressure during this ER visit?: Yes
Condition: Good
Covid-19: Confirmed COVID-19
Discharge Problem:
Urinary tract infection, COVID
Prescriptions:
No Action
quetiapine [Seroquel] 25 mg Tablet
25 mg PO HS
cyclobenzaprine [Flexeril] 10 mg Tablet
10 mg PO DAILYPRN PRN (Reason: mucles spasms)
furosemide [Lasix] 40 mg Tablet
40 mg PO BID
silver sulfadiazine 1 % Cream
1 applic TOPICAL DAILY
sennosides [senna] 8.6 mg Tablet
17.2 mg PO BIDPRN PRN (Reason: constipation)
dextromethorphan polistirex 30 mg/5 mL Suspension,Extended Rel 12 Hr
30 ml PO Q8HPRN PRN (Reason: cough)
acetaminophen [Tylenol] 325 mg Tablet
650 mg PO TID
acetaminophen [Tylenol] 325 mg Tablet
650 mg PO Q6HPRN PRN (Reason: mild pain)
gabapentin 600 mg Tablet
600 mg PO HS
ipratropium-albuterol [DuoNeb] 0.5 mg-3 mg(2.5 mg base)/3 mL Solution For Nebulization
3 ml INHALATION R DAILY
ipratropium-albuterol [DuoNeb] 0.5 mg-3 mg(2.5 mg base)/3 mL Solution For Nebulization
3 ml INHALATION R Q6HPRN PRN (Reason: copd)
doxazosin 1 mg Tablet
1 mg PO HS
metoprolol succinate [Toprol XL] 100 mg Tablet Extended Release 24 Hr
100 mg PO BID
probenecid-colchicine 500-0.5 mg Tablet
1 tab PO BIDPRN PRN (Reason: gout)
thiamine HCl (vitamin B1) 100 mg Tablet
100 mg PO DAILY
valproic acid 250 mg Capsule
500 mg PO HS
amlodipine [Norvasc] 5 mg Tablet
5 mg PO DAILY
tramadol 50 mg Tablet
50 mg PO BIDPRN PRN (Reason: moderate pains)
magnesium hydroxide [Milk of Magnesia] 400 mg/5 mL Suspension
2,400 mg PO [id number] PRN (Reason: constipation)
ascorbic acid (vitamin C) [Vitamin C] 500 mg Tablet
500 mg PO DAILY
bisacodyl [Dulcolax (bisacodyl)] 10 mg Suppository
10 mg DC DAILYPRN PRN (Reason: if no bm aftr mom)
fluticasone propion-salmeterol [Advair Diskus] 500-50 mcg/dose Blister With Device
1 inh INHALATION R BIDPRN PRN (Reason: copd)
Fleet Enema 19-7 gram/118 mL Enema
118 ml DC DAILYPRN PRN (Reason: if no bm aftr dulcolax)
docusate sodium [Colace] 100 mg Capsule
100 mg PO BID
vitamin B complex [B Complete] Tablet
1 tab PO DAILY
folic acid 1 mg Tablet
1 mg PO DAILY
allopurinol 300 mg Tablet
300 mg PO DAILY
albuterol sulfate [ProAir HFA] 90 mcg/actuation Hfa Aerosol Inhaler
1 inh INHALATION R Q6HPRN PRN (Reason: copd)
repaglinide 1 mg Tablet
1 mg PO TID
cholecalciferol (vitamin D3) [Vitamin D3] 25 mcg (1,000 unit) Tablet
25 mcg PO DAILY
alpha lipoic acid 200 mg Tablet
200 mg PO MOWEFR@,,18
divalproex [Depakote ER] 500 mg Tablet Extended Release 24 Hr
500 mg PO DAILY
Referrals:
Lopez Hassan MD [Family Provider] -
Interventions
Interventions:
*Risk Screen - Suicide Last Done: 12/12/23 18:02
*General Assessment Last Done: 12/12/23 18:02
*Neglect/Abuse Screening Last Done: 12/12/23 18:02
ED- Cardiac Assessment Last Done: 12/12/23 18:02
ED- Neurological Assessment Last Done: 12/12/23 18:02
ED- Pulmonary Assessment Last Done: 12/12/23 18:02
Discharge Date and Time
Print Language: GERMAN
[2023-12-12 19:05] LABS: % Basophils 0.7 % (0-2); % Immature Granulocytes 1.2 % (0-0.5); % Lymphocytes 9.6 % (20.5-51.1); % Monocytes 6.9 % (1.7-9.3); % Neutrophils 79.6 % (42.2-75.2); Absolute Eosinophils 0.1 10^3/uL (0-0.7); Absolute Immature Granulocytes 0.1 10^3/uL (0-0.05); Absolute Lymphocytes 0.6 10^3/uL (1.2-3.4); Absolute Monocytes 0.4 10^3/uL (0.1-0.6); Absolute Neutrophils 4.7 10^3/uL (1.4-6.5); Hemoglobin 10.4 g/dL (13.0-18.0); Mean Corp Hgb Conc. 33.5 g/dL (33.0-37.0); Mean Corpuscular Volume 98.4 fL (80.0-94.0); Nucleated Red Blood Cells % 0 % (-); Platelet Count 255 10^3/uL (130-400); Red Blood Cell Count 3.15 10^6/uL (4.70-6.10)
[2023-12-12 19:07] LABS: Urine Albumin Trace (Neg - Trace); Urine Bilirubin Negative (Negative); Urine Character Slightly Cloudy (Clear); Urine Color Yellow; Urine Glucose Negative (Negative); Urine Ketone Negative (Negative); Urine Leukocyte 2+ (Negative); Urine Nitrite Positive (Negative); Urine Occult Blood Negative (Negative); Urine Urobilinogen Negative (Neg - 1+)
[2023-12-12 19:13] LABS: Urine Bacteria Many (Negative); Urine Red Blood Cell 0-2 /HPF (0-2); Urine White Cell 30-40 /HPF (0-5)
[2023-12-12 19:18] LABS: Lactic Acid 1.1 mmol/L (0.7-2.0)
[2023-12-12 19:19] LABS: ALT (SGPT) 12 U/L (0-50); AST (SGOT) 22 U/L (17-59); Albumin 3.7 g/dl (3.5-5.0); Alkaline Phosphatase 84 U/L (38-126); Blood Urea Nitrogen 36 mg/dl (9-20); Calcium 9.4 mg/dl (8.4-10.2); Carbon Dioxide 30 mmol/L (22-30); Chloride 101 mmol/L (98-107); Glucose 107 mg/dl (70-99); Potassium 3.7 mmol/L (3.5-5.1); Sodium 144 mmol/L (135-145); Total Bilirubin 0.4 mg/dl (0.2-1.3); Total Protein 5.9 g/dl (6.3-8.2); eGFR 47.65
[2023-12-12 19:21] LABS: COVID-19 Antigen Positive (Negative)
[2023-12-12] MEDS: OFIRMEV 100 IV (19:24)
[2023-12-12] MEDS: NSS 500 IV (20:02)
[2023-12-12] MEDS: ROCEPHIN 1000 MG IV (20:02)
[2023-12-12 20:06] VITALS: BP 115/61
--- NOTE | 2023-12-12 20:22 | HPS.HSE ---
Family Physician
-
Family Physician: Lopez Hassan
Chief Complaint
-
lethargy
History of Present Illness
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
HTN, HLD, NIDDM, CKD stage IIIb-baseline creat 1.7, bipolar, anxiety, ASUNCION, cellulitis, adrenal gland growth, neck and back pain, sciatica, restless leg syndrome, IBS, Anemia, Hypospadias who presents to the ED due to lethargy, fatigue, generalized
weakness, dry cough, and URI symptoms. He also has fever and chills. Family and patient also notice increased confusion. He was noted to be hypoxic this am at [facility], and started on O2 per NC 3 Liters today, though typically does not wear O2. Off
oxygen in ED, his O2 was 92% on RA and respiratory rate increased to 33.
No CP, no SOB, no n/v/d, no abdominal pain, no dysuria, no bleeding.
ED txt:
IV fluids 500 mL bolus
oral Tylenol 1000 mg & Tyleonol 1000 mg IV
IV Rocephin
COVID positive
Flu negative
Creat 1.5
Medical History
Past Medical History
Past Medical History: Reports Other (As above)
Past Surgical History: Reports Cardiac (pacer, AICD, ablation x 2 2022), Orthopedic and Other (Left nephrectomy d/t cancer 2019, Lung mass biopsy positive for renal cell carcinoma metastasis, Right strabismus repair)
Social History
Tobacco: Non-smoker
Alcohol: Occasional
Drug: None
Personal:
Living: With Family
Employment: Retired
Family History
Family History: Not pertinent (reviewed)
Allergies / Home Medications
Allergies reflects when Allergies were last updated in [facility].
Home Medications with original date entered in [facility]
Allergy/Medication List:
Allergies
Allergy/AdvReac Type Severity Reaction Status Date / Time
grass pollen Allergy Itching Verified 11/06/23 03:46
mold Allergy Itching Verified 11/06/23 03:46
Bgonxyt-ECA-McU Reductase Allergy full body Verified 11/06/23 03:46
Inhibitor aches
[Bqbyosn-Mfy-Fmc Reductase
Inhibitor]
valsartan Allergy body Verified 11/06/23 03:46
aches/tolerates
losartan
Home Medications
acetaminophen 325 mg tablet (Tylenol) 650 mg PO Q6HPRN PRN mild pain 12/12/23
acetaminophen 325 mg tablet (Tylenol) 650 mg PO TID 12/12/23
albuterol sulfate 90 mcg/actuation aerosol inhaler 1 inh inhalation R Q6HPRN PRN copd 12/12/23
allopurinol 300 mg tablet 300 mg PO DAILY 12/12/23
alpha lipoic acid 200 mg tablet 200 mg PO MOWEFR@08,12,18 12/12/23
amlodipine 5 mg tablet (Norvasc) 5 mg PO DAILY 12/12/23
ascorbic acid (vitamin C) 500 mg tablet (Vitamin C) 500 mg PO DAILY 12/12/23
bisacodyl 10 mg rectal suppository (Dulcolax (bisacodyl)) 10 mg ND DAILYPRN PRN if no bm aftr mom 12/12/23
cholecalciferol (vitamin D3) 25 mcg (1,000 unit) tablet (Vitamin D3) 25 mcg PO DAILY 12/12/23
cyclobenzaprine 10 mg tablet 10 mg PO DAILYPRN PRN mucles spasms 12/12/23
dextromethorphan polistirex 30 mg/5 mL oral susp ext.release 12hr 30 ml PO Q8HPRN PRN cough 12/12/23
docusate sodium 100 mg capsule (Colace) 100 mg PO BID 12/12/23
doxazosin 1 mg tablet 1 mg PO HS 12/12/23
fluticasone 500 mcg-salmeterol 50 mcg/dose blistr powdr for inhalation (Advair Diskus) 1 inh inhalation R BIDPRN PRN copd 12/12/23
folic acid 1 mg tablet 1 mg PO DAILY 12/12/23
furosemide 40 mg tablet (Lasix) 40 mg PO BID 12/12/23
gabapentin 600 mg tablet 600 mg PO HS 12/12/23
ipratropium 0.5 mg-albuterol 3 mg (2.5 mg base)/3 mL nebulization soln 3 ml inhalation R DAILY 12/12/23
ipratropium 0.5 mg-albuterol 3 mg (2.5 mg base)/3 mL nebulization soln 3 ml inhalation R Q6HPRN PRN copd 12/12/23
magnesium hydroxide 400 mg/5 mL oral suspension (Milk of Magnesia) 2,400 mg PO [id number] PRN constipation 12/12/23
metoprolol succinate 100 mg tablet,extended release 24 hr (Toprol XL) 100 mg PO BID 12/12/23
probenecid 500 mg-colchicine 0.5 mg tablet 1 tab PO BIDPRN PRN gout 12/12/23
quetiapine 25 mg tablet (Seroquel) 25 mg PO HS 12/12/23
repaglinide 1 mg tablet 1 mg PO TID 12/12/23
sennosides 8.6 mg tablet (senna) 17.2 mg PO BIDPRN PRN constipation 12/12/23
silver sulfadiazine 1 % topical cream 1 applic topical DAILY right posterior thigh 12/12/23
sodium phosphates 19 gram-7 gram/118 mL enema (Fleet Enema) 118 ml ND DAILYPRN PRN if no bm aftr dulcolax 12/12/23
thiamine HCl (vitamin B1) 100 mg tablet 100 mg PO DAILY 12/12/23
tramadol 50 mg tablet 50 mg PO BIDPRN PRN moderate pains 12/12/23
valproic acid 250 mg capsule 500 mg PO HS 12/12/23
vitamin B complex 1 tab PO DAILY 12/12/23
Review of Systems
-
A 12 point ROS was completed and negative except as noted: Yes
Physical Exam
Vital Signs
Vital Signs
Temp Pulse Resp BP Pulse Ox
101.3 F H 83 20 151/79 96
12/12/23 18:00 12/12/23 18:00 12/12/23 18:00 12/12/23 18:00 12/12/23 18:02
Physical Exam
General: Well Developed, Well Nourished, Conversant and Appears Chronically Ill
HEENT: NormoCephalic, Anicteric and Other (NC 3 liters, dry mucous membranes)
Respiratory: Clear
Cardiac: S1/S2 and Regular Rhythm
GI: Soft, Non Tender and Non Distended
Musculoskeletal: No Clubbing, No Cyanosis and No Edema
Skin: Warm and Dry
Neuro: AO x 3, No Motor Deficits and Nonfocal/grossly intact
Psych: Calm and Confused
Laboratory Results
-
12/12/23 18:52
12/12/23 18:52
Laboratory Results
Lactic Acid 1.1 mmol/L (0.7-2.0) 12/12/23 18:52
Total Bilirubin 0.4 mg/dl (0.2-1.3) 12/12/23 18:52
AST 22 U/L (17-59) 12/12/23 18:52
ALT 12 U/L (0-50) 12/12/23 18:52
Alkaline Phosphatase 84 U/L (38-126) 12/12/23 18:52
Troponin I 0.030 ng/ml 12/12/23 18:52
Data Reviewed
-
Diagnostic Radiology: Image Personally Visualized and interpreted (CXR pending report, poor inspiratory effort, pacemaker noted, no acute findings ) and Report Reviewed by me (Cardiomegaly without associated pulmonary edema)
Medical Tests (Nuc Med, Echo, EKG etc): Image Personally Visualized and interpreted (paced, LBBB, unchanged)
Impression/Plan
-
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
COPD, GERD, HTN, HLD, NIDDM, CKD stage IIIb-baseline creat 1.7, bipolar, anxiety, ASUNCION, cellulitis, adrenal gland growth, neck and back pain, sciatica, restless leg syndrome, IBS, Anemia, Hypospadias who presents to the ED due to lethargy, fatigue,
generalized weakness, dry cough, and URI symptoms. He also has fever and chills. Family and patient also notice increased confusion. He was noted to be hypoxic this am at [facility], and started on O2 per NC 3 Liters today, though typically does not wear
O2. Off oxygen in ED, his O2 was 92% on RA and respiratory rate increased to 33.
No CP, no SOB, no n/v/d, no abdominal pain, no dysuria, no bleeding.
ED txt:
IV fluids 500 mL bolus
oral Tylenol 1000 mg & Tyleonol 1000 mg IV
IV Rocephin
COVID positive
Flu negative
Creat 1.5
#UTI - fever, lethargic, UA positive nitrites, 2+ LE, 30-40 WBC, many bacteria
-gentle IVF
-IV Rocephin
-urine and blood cx pending
#COVID, SARS CoV-1 Antigen positive
-URI symptoms and hypoxia, oxygen saturation 90-92% on room air, not on baseline oxygen, now requiring oxygen due to increased respiratory distress with tachypnea in 30s off oxygen and oxygen drop from 97 to 92% off oxygen.
-start IV Remdesivir
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 Will hold off for now and monitor symptoms
-O2 and wean per protocol, requiring 3L currently
-Supportive care w higher dose Vit C, Vit D, Mucinex, Zinc, Tessalon Perles, inhalers INH prn
#CKD stage III (creat 1.5-1.9 in the past year)
-baseline creat, monitor
#Vit C deficiency-history of,
-check Vit C level
#History renal cell carcinoma status post left nephrectomy, mets to C-spine with left arm/hand weakness
#CHF, slightly volume depleted
-hold Lasix for now
-gentle IV hydration overnight and monitor
#Hyperaldosteronism
Eplerenone on hold
#Coronary artery disease
Aspirin
#Hypertension
amlodipine 5, metoprolol, hold parameters
#Hyperlipidemia
#Diabetes
Low-dose sliding scale
Hold Repaglinide for now
#Neuropathy
hold gabapentin as patient is not taking this OP
#Hypothyroidism
Continue home Synthroid
-check TSH
#Asthma
Stable on room air
#Overactive bladder
DVT prophylaxis SCDs/Lovenox SC
GI prophylaxis
Full code
[2023-12-12 21:00] VITALS: BP 134/58
[2023-12-12 23:05] VITALS: BP 142/74; BMI 33.3
[2023-12-13] MEDS: VITAMIN C 1000 MG PO ×2 (00:06→08:41)
[2023-12-13] MEDS: TESSALON PERLES 100 MG PO ×4 (00:06→21:13)
[2023-12-13] MEDS: TYLENOL 650 MG PO ×4 (00:07→21:13)
[2023-12-13] MEDS: DEPAKENE 500 MG PO ×2 (00:07→21:13)
[2023-12-13] MEDS: CARDURA 1 MG PO ×2 (00:08→21:23)
[2023-12-13 00:34] LABS: Glucose - Point of Care 98 mg/dl (70-99)
[2023-12-13] MEDS: VEKLURY 250 MG IV (00:50)
[2023-12-13 03:00] VITALS: BP 148/85
[2023-12-13] MEDS: NSS 30 IV (03:30)
[2023-12-13] MEDS: NSS 1000 IV (04:07)
[2023-12-13 06:00] LABS: % Basophils 0.6 % (0-2); % Eosinophils 2.8 % (0-6); % Lymphocytes 19.8 % (20.5-51.1); % Monocytes 11.5 % (1.7-9.3); % Neutrophils 63.3 % (42.2-75.2); Absolute Eosinophils 0.1 10^3/uL (0-0.7); Absolute Immature Granulocytes 0.1 10^3/uL (0-0.05); Absolute Lymphocytes 0.7 10^3/uL (1.2-3.4); Absolute Monocytes 0.4 10^3/uL (0.1-0.6); Absolute Neutrophils 2.3 10^3/uL (1.4-6.5); Hematocrit 28.2 % (39.0-52.0); Hemoglobin 9.3 g/dL (13.0-18.0); Mean Corpuscular Hgb 32.4 pg (27.0-31.0); Mean Corpuscular Volume 98.3 fL (80.0-94.0); Mean Platelet Volume 8.9 fL (7.4-10.4); Nucleated Red Blood Cells % 0 % (-); Platelet Count 206 10^3/uL (130-400); Red Blood Cell Count 2.87 10^6/uL (4.70-6.10); Red Cell Dist. Width 15.2 % (11.5-14.5); White Blood Cell Count 3.6 10^3/uL (4.8-10.8)
--- NOTE | 2023-12-13 06:06 | PTCARENOTE ---
Pt admitted from ED. Covid +, placed on respiratory precautions. Pt drowsy, forgetful at times. Denied pain. Afebrile, VSS. Placed on continuous pulse ox per MD order. Pt >95% on 2L NC. Medsitter and bedsitter in place. Q2 turns. Call mosley
within reach and bed in lowest position.
[2023-12-13 06:14] LABS: INR 1.12; PT 14.2 Sec (11.4-14.6)
[2023-12-13 06:27] LABS: ALT (SGPT) 10 U/L (0-50); AST (SGOT) 16 U/L (17-59); Alkaline Phosphatase 73 U/L (38-126); Blood Urea Nitrogen 32 mg/dl (9-20); Calcium 8.8 mg/dl (8.4-10.2); Carbon Dioxide 32 mmol/L (22-30); Chloride 103 mmol/L (98-107); Estimated Creatinine Clearance 50 ml/min; Glucose 100 mg/dl (70-99); Potassium 3.4 mmol/L (3.5-5.1); Sodium 144 mmol/L (135-145); Total Bilirubin 0.1 mg/dl (0.2-1.3); Total Protein 4.9 g/dl (6.3-8.2); eGFR 47.65
[2023-12-13 07:39] LABS: Glucose - Point of Care 118 mg/dl (70-99)
[2023-12-13 07:48] VITALS: BP 162/79
[2023-12-13] MEDS: NOVOLOG FLEXPEN-LOW RESISTANCE SC (08:36)
[2023-12-13] MEDS: MUCINEX 600 MG PO ×2 (08:41→21:12)
[2023-12-13] MEDS: FOLVITE 1 MG PO (08:41)
[2023-12-13] MEDS: B COMPLEX w/VITAMIN C 1 CAPLET PO (08:41)
[2023-12-13] MEDS: COLACE 100 MG PO ×2 (08:41→21:12)
[2023-12-13] MEDS: ZINC 50 MG PO (08:41)
[2023-12-13] MEDS: ZYLOPRIM 300 MG PO (08:41)
[2023-12-13] MEDS: VITAMIN B1 100 MG PO (08:41)
[2023-12-13] MEDS: VITAMIN D3 (cholecalciferol) 50 MCG PO (08:42)
[2023-12-13] MEDS: TOPROL XL 100 MG PO ×2 (08:42→21:23)
[2023-12-13] MEDS: NORVASC 5 MG PO (08:42)
[2023-12-13 12:02] VITALS: BMI 33.6
[2023-12-13 12:02] LABS: Glucose - Point of Care 181 mg/dl (70-99)
--- NOTE | 2023-12-13 12:18 | CM ---
Addendum entered by Diane Oneill 12/14/23 15:18:
[facility] is not ready for discharge today; urine cultures are still pending. CM to continue to follow for discharge to [facility] if bed available tomorrow. [facility] may be options if no beds available at [facility].
CM to follow with plan for SNF pending bed availability. Will f/u in AM.
Original Note:
Chart reviewed and spoke with pt's with whom he lives in a 2 story home with 3 entry steps. Recent hospitalization at [facility] and transferred to [facility] for rehabilitation on 11/26/2023 with plan to return home following rehab at SNF.
Transfer to due to covid+, weakness, and confusion which continues; pt on medsitter/bedsitter due to increased confusion.
Pt does not have a bed hold at [facility], but would be accepted back when medically cleared if a bed is available. No Covid+ beds available at this time.
Plan: CM to follow for discharge, likely return to [facility] for continued rehab services.
PCP: Lopez Hassan
Pharmacy: [facility] in [place]
--- NOTE | 2023-12-13 13:17 | W.PN.HOSP.TC ---
Today's Communication/Plan
-
incentive ammy, acapella
wean os as tolerated
possible trial of steroids
abx
f/u cultures
Assessment / Plan
Assessment / Plan
Physical Exam
General: Well Developed, Well Nourished, Conversant and Appears Chronically Ill
HEENT: NormoCephalic, Anicteric and Other (NC 2 liters, dry mucous membranes)
Respiratory: Clear
Cardiac: S1/S2 and Regular Rhythm
GI: Soft, Non Tender and Non Distended
Musculoskeletal: No Clubbing, No Cyanosis and No Edema
Skin: Warm and Dry
Neuro: AO x 3, No Motor Deficits and Nonfocal/grossly intact
Psych: Calm, AAOx3
#UTI - fever, lethargic, UA positive nitrites, 2+ LE, 30-40 WBC, many bacteria
-gentle IVF
-IV Rocephin
-urine and blood cx pending
#COVID, SARS CoV-2
#Hypoxia
-Refused Remdesivir - mental status AAOx3 and competent - understands risks/benefits
-wean o2 as tolerated; goal o2 >92%
-incentive ammy
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 Will hold off for now and monitor symptoms
#CKD stage III (creat 1.5-1.9 in the past year)
-baseline creat, monitor
#Vit C deficiency-history of,
-check Vit C level
#History renal cell carcinoma status post left nephrectomy, mets to C-spine with left arm/hand weakness
#CHF, slightly volume depleted
-hold Lasix for now
-gentle IV hydration overnight and monitor
#Hyperaldosteronism
Eplerenone on hold
#Coronary artery disease
Aspirin
#Hypertension
amlodipine 5, metoprolol, hold parameters
#Hyperlipidemia
#Diabetes
Low-dose sliding scale
Hold Repaglinide for now
#Neuropathy
hold gabapentin as patient is not taking this OP
#Hypothyroidism
Continue home Synthroid
-check TSH
#Asthma
#Overactive bladder
#Hypokalemia
-monitor and replete
DVT prophylaxis SCDs/Lovenox SC
GI prophylaxis
Full code
Anticipated Discharge: 24 - 48 hours
Subjective/Interval History
-
Date of Service: December 13, 2023
Patient's mental status appears to be improved
Objective Data
-
Labs:
Laboratory Results
12/13/23
05:32
WBC 3.6 L
Hgb 9.3 L
Hct 28.2 L
Plt Count 206
PT 14.2
INR 1.12
Sodium 144
Potassium 3.4 L
Chloride 103
Carbon Dioxide 32 H
BUN 32 H
Creatinine 1.5 H
Glucose 100 H
Calcium 8.8
Total Bilirubin 0.1 L
AST 16 L
ALT 10
Alkaline Phosphatase 73
Vital Signs:
Vital Signs
Temp Pulse Resp BP Pulse Ox
98.6 F 82 18 162/79 95
12/13/23 07:48 12/13/23 07:48 12/13/23 07:48 12/13/23 07:48 12/13/23 11:10
I&O
12/12/23 12/13/23 12/14/23
06:59 06:59 06:59
Intake Total 380 / 380
Balance 380 / 380
Review of Systems
-
All other systems: Reviewed and negative
Physical Exam
-
General: Well Developed, Well Nourished and No Apparent Distress
HEENT: Normocephalic and Atraumatic; Negative Oxygen
Respiratory: Clear to Auscultation; Negative Wheezes or Rhonchi
Cardiac: Regular Rhythm and S1/S2; Negative Murmur
GI: Soft, Nontender, Nondistended and Normal Bowel Sounds
Musculoskeletal: No Clubbing, No Cyanosis and No Edema
Skin: Warm
Neuro: Awake
Data Reviewed
-
Diagnostic Radiology: Image personally visualized and interpreted and Report Reviewed by me
Labs: Labs Reviewed by me
[2023-12-13] MEDS: NOVOLOG FLEXPEN-LOW RESISTANCE 1 UNITS SC (14:10)
[2023-12-13] MEDS: KCL ELIXIR 40 MEQ PO (14:19)
--- NOTE | 2023-12-13 14:33 | PTCARENOTE ---
Patient refused noon remdesivir administration due to concerns of kidney injury and failure, which are side effects of the drug. He is further concenred about taking this medication as he has one kidney. MD made aware of patient decision.
[2023-12-13 14:36] VITALS: O2SAT 96
--- NOTE | 2023-12-13 14:37 | PTCARENOTE ---
Patient weaned of NC, now 96% spo2 on room air. RN and PT helped patient stand and turn into recliner for late lunch.
--- NOTE | 2023-12-13 14:49 | PTOTSP ---
Please order occupational therapy for ADL dysfunction. Thank you.
[2023-12-13 15:07] VITALS: BP 130/67
[2023-12-13 16:54] LABS: Glucose - Point of Care 210 mg/dl (70-99)
[2023-12-13] MEDS: NOVOLOG FLEXPEN-LOW RESISTANCE 2 UNITS SC (16:59)
[2023-12-13] MEDS: ProAIR HFA INHALER 2 PUFF INH (18:36)
[2023-12-13] MEDS: ROCEPHIN 1000 MG IV (21:13)
[2023-12-13] MEDS: STERILE WATER FOR INJECTION 10 ML IV (21:13)
[2023-12-13] MEDS: SEROQUEL 25 MG PO (21:14)
[2023-12-13] MEDS: LOVENOX 40 MG SC (21:14)
[2023-12-13 22:04] LABS: Glucose - Point of Care 157 mg/dl (70-99)
[2023-12-13 23:35] VITALS: BP 130/58
[2023-12-14] MEDS: TYLENOL 650 MG PO ×5 (06:31→23:44)
[2023-12-14 06:54] LABS: Hematocrit 27.5 % (39.0-52.0); Hemoglobin 9.3 g/dL (13.0-18.0); Mean Corp Hgb Conc. 33.8 g/dL (33.0-37.0); Mean Corpuscular Hgb 32.6 pg (27.0-31.0); Mean Corpuscular Volume 96.5 fL (80.0-94.0); Platelet Count 181 10^3/uL (130-400); Red Blood Cell Count 2.85 10^6/uL (4.70-6.10); Red Cell Dist. Width 14.6 % (11.5-14.5); White Blood Cell Count 2.8 10^3/uL (4.8-10.8)
[2023-12-14 07:23] LABS: ALT (SGPT) 12 U/L (0-50); AST (SGOT) 20 U/L (17-59); Alkaline Phosphatase 80 U/L (38-126); Blood Urea Nitrogen 29 mg/dl (9-20); Carbon Dioxide 26 mmol/L (22-30); Chloride 105 mmol/L (98-107); Estimated Creatinine Clearance 63 ml/min; Glucose 103 mg/dl (70-99); Magnesium 1.8 mg/dl (1.6-2.3); Potassium 3.7 mmol/L (3.5-5.1); Sodium 143 mmol/L (135-145); Total Bilirubin 0.2 mg/dl (0.2-1.3); Total Protein 5.1 g/dl (6.3-8.2); eGFR > 60.00
[2023-12-14 07:30] VITALS: BP 151/85
[2023-12-14 07:51] LABS: TSH Reflex To Free T4 3.09 uIU/ml (0.47-4.68)
[2023-12-14 08:18] LABS: Glucose - Point of Care 124 mg/dl (70-99)
[2023-12-14] MEDS: NOVOLOG FLEXPEN-LOW RESISTANCE SC ×2 (09:52→12:18)
[2023-12-14] MEDS: VITAMIN B1 100 MG PO (09:55)
[2023-12-14] MEDS: B COMPLEX w/VITAMIN C 1 CAPLET PO (09:55)
[2023-12-14] MEDS: MUCINEX 600 MG PO ×2 (09:56→21:07)
[2023-12-14] MEDS: VITAMIN C 500 MG PO (09:56)
[2023-12-14] MEDS: FOLVITE 1 MG PO (09:56)
[2023-12-14] MEDS: TESSALON PERLES 100 MG PO ×3 (09:56→21:07)
[2023-12-14] MEDS: TOPROL XL 100 MG PO ×2 (09:57→21:13)
[2023-12-14] MEDS: ZYLOPRIM 300 MG PO (09:57)
[2023-12-14] MEDS: COLACE 100 MG PO ×2 (09:57→21:07)
[2023-12-14] MEDS: VITAMIN D3 (cholecalciferol) 50 MCG PO (09:57)
[2023-12-14] MEDS: NORVASC 5 MG PO (09:57)
--- NOTE | 2023-12-14 11:26 | W.PN.HOSP.TC ---
Addendum entered and electronically signed by Lincoln Begum MD 12/14/23 13:01:
with no confirmation of eplerone use in ckd - should f/u with outpatient cardiology for continuation. have had extensive search to find collateral for eplerone use but unfortunately cannot be confirmed.
Original Note:
Today's Communication/Plan
-
cefdinir to complete 7 day course total of abx
f/u bmp outpatient(monitoring renal function now that back on lasix
stop tramadol with renal function
Assessment / Plan
Assessment / Plan
Physical Exam
General: Well Developed, Well Nourished, Conversant and Appears Chronically Ill
HEENT: NormoCephalic, Anicteric and Other (NC 2 liters, dry mucous membranes)
Respiratory: Clear
Cardiac: S1/S2 and Regular Rhythm
GI: Soft, Non Tender and Non Distended
Musculoskeletal: No Clubbing, No Cyanosis and No Edema
Skin: Warm and Dry
Neuro: AO x 3, No Motor Deficits and Nonfocal/grossly intact
Psych: Calm, AAOx3
#UTI - fever, lethargic, UA positive nitrites, 2+ LE, 30-40 WBC, many bacteria
-gentle IVF
-IV Rocephin - dc on cefdinir to complete 7 day total abx course
-urine and blood cx pending
#COVID, SARS CoV-2
#Hypoxia
-Refused Remdesivir - mental status AAOx3 and competent - understands risks/benefits
-wean o2 as tolerated; goal o2 >92%; on RA with O2> 92% -continue supportive care
-incentive ammy
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 Will hold off for now and monitor symptoms
#CKD stage III (creat 1.5-1.9 in the past year)
-baseline creat, monitor
-f/u bmp outpatient now that back on lasix upon dc
#Vit C deficiency
#History renal cell carcinoma status post left nephrectomy, mets to C-spine with left arm/hand weakness
#CHF, slightly volume depleted
-now euvolemic
-can restart lasix upon dc tomorrow with close bmp
#Hyperaldosteronism
Eplerenone on
#Coronary artery disease
Aspirin
#Hypertension
amlodipine 5mg, metoprolol, hold parameters
#Hyperlipidemia
#Diabetes
Low-dose sliding scale
Repaglinide
#Neuropathy
hold gabapentin as patient is not taking this OP
#Hypothyroidism
Continue home Synthroid
-tsh wnl
#Asthma
#Overactive bladder
#Hypokalemia
-monitor and replete
DVT prophylaxis SCDs/Lovenox SC
GI prophylaxis
Full code
More than 30 minutes spent in discharge including
Final examination of the patient
Summarizing hospital stay
Instructions for continuing care to all relevant caregivers
Preparation of discharge records, prescriptions, and referral forms
Total time spent (35 in minutes):
Anticipated Discharge: Today
Subjective/Interval History
-
Date of Service: December 14, 2023
AAOx3
Objective Data
-
Labs:
Laboratory Results
12/14/23
06:15
WBC 2.8 L
Hgb 9.3 L
Hct 27.5 L
Plt Count 181
Sodium 143
Potassium 3.7
Chloride 105
Carbon Dioxide 26
BUN 29 H
Creatinine 1.2
Glucose 103 H
Calcium 9.0
Total Bilirubin 0.2
AST 20
ALT 12
Alkaline Phosphatase 80
Vital Signs:
Vital Signs
Temp Pulse Resp BP Pulse Ox
98.5 F 84 18 151/85 93
12/14/23 07:30 12/14/23 07:30 10/08/24 07:30 12/14/23 07:30 12/14/23 07:30
I&O
12/13/23 12/14/23 12/15/23
06:59 06:59 06:59
Intake Total 380 / 380 1220 / 1220
Balance 380 / 380 1220 / 1220
Review of Systems
-
History Source: Patient
All other systems: Not reviewed unless documented
Physical Exam
-
General: Well Developed, Well Nourished and No Apparent Distress
HEENT: Normocephalic and Atraumatic; Negative Oxygen
Respiratory: Clear to Auscultation; Negative Wheezes or Rhonchi
Cardiac: Regular Rhythm and S1/S2; Negative Murmur
GI: Soft, Nontender, Nondistended and Normal Bowel Sounds
Musculoskeletal: No Clubbing, No Cyanosis and No Edema
Skin: Warm
Neuro: Awake
Data Reviewed
-
Diagnostic Radiology: Image personally visualized and interpreted and Report Reviewed by me
Labs: Labs Reviewed by me
[2023-12-14 12:07] LABS: Glucose - Point of Care 145 mg/dl (70-99)
--- NOTE | 2023-12-14 13:03 | W.DS.TRANS ---
DC Summary - Account Coordinator
-
Discharge Instructions:
Discharge Diagnosis/Procedures #UTI
#COVID, SARS CoV-2
Diet Low Cholesterol,Low Fat
Activity As tolerated
Driving Restrictions No driving
Blood Work bmp in 3-5 days with pcp/cardiology now that
back on lasix
Specialty Instructions Weigh Daily
Instructions:
Stand-Alone Forms:
Changes to Home Medications: Yes
Discharge Medications:
DC Medications w/original date entered in [employer]
acetaminophen 325 mg tablet (Tylenol) 650 mg PO Q6HPRN PRN mild pain 12/12/23
acetaminophen 325 mg tablet (Tylenol) 650 mg PO TID Pain 12/12/23
albuterol sulfate 90 mcg/actuation aerosol inhaler 1 inh inhalation R Q6HPRN PRN copd 12/12/23
allopurinol 300 mg tablet 300 mg PO DAILY Gout 12/12/23
alpha lipoic acid 200 mg tablet 200 mg PO MOWEFR@08,12,18 Supplement 12/12/23
amlodipine 5 mg tablet (Norvasc) 5 mg PO DAILY Blood Pressure 12/12/23
ascorbic acid (vitamin C) 500 mg tablet (Vitamin C) 500 mg PO DAILY Supplement 12/12/23
bisacodyl 10 mg rectal suppository (Dulcolax (bisacodyl)) 10 mg OK DAILYPRN PRN if no bm aftr mom 12/12/23
cholecalciferol (vitamin D3) 25 mcg (1,000 unit) tablet (Vitamin D3) 25 mcg PO DAILY Supplement 12/12/23
cyclobenzaprine 10 mg tablet 10 mg PO DAILYPRN PRN mucles spasms 12/12/23
dextromethorphan polistirex 30 mg/5 mL oral susp ext.release 12hr 30 ml PO Q8HPRN PRN cough 12/12/23
docusate sodium 100 mg capsule (Colace) 100 mg PO BID Constipation 12/12/23
doxazosin 1 mg tablet 1 mg PO HS Blood Pressure 12/12/23
fluticasone 500 mcg-salmeterol 50 mcg/dose blistr powdr for inhalation (Advair Diskus) 1 inh inhalation R BIDPRN PRN copd 12/12/23
folic acid 1 mg tablet 1 mg PO DAILY Supplement 12/12/23
furosemide 40 mg tablet (Lasix) 40 mg PO BID Fluid Retention/Swelling 12/12/23
gabapentin 600 mg tablet 600 mg PO HS Neuropathic pain 12/12/23
ipratropium 0.5 mg-albuterol 3 mg (2.5 mg base)/3 mL nebulization soln 3 ml inhalation R DAILY copd 12/12/23
ipratropium 0.5 mg-albuterol 3 mg (2.5 mg base)/3 mL nebulization soln 3 ml inhalation R Q6HPRN PRN copd 12/12/23
magnesium hydroxide 400 mg/5 mL oral suspension (Milk of Magnesia) 2,400 mg PO [id number] PRN constipation 12/12/23
metoprolol succinate 100 mg tablet,extended release 24 hr (Toprol XL) 100 mg PO BID 12/12/23
probenecid 500 mg-colchicine 0.5 mg tablet 1 tab PO BIDPRN PRN gout 12/12/23
quetiapine 25 mg tablet (Seroquel) 25 mg PO HS Sleep 12/12/23
repaglinide 1 mg tablet 1 mg PO TID Diabetes 12/12/23
sennosides 8.6 mg tablet (senna) 17.2 mg PO BIDPRN PRN constipation 12/12/23
silver sulfadiazine 1 % topical cream 1 applic topical DAILY right posterior thigh 12/12/23
sodium phosphates 19 gram-7 gram/118 mL enema (Fleet Enema) 118 ml OK DAILYPRN PRN if no bm aftr dulcolax 12/12/23
thiamine HCl (vitamin B1) 100 mg tablet 100 mg PO DAILY Supplement 12/12/23
valproic acid 250 mg capsule 500 mg PO HS mood stabilizer 12/12/23
vitamin B complex 1 tab PO DAILY Supplement 12/12/23
benzonatate 100 mg capsule 100 mg PO TID #0 caps 12/14/23
cefdinir 300 mg capsule 300 mg PO BID 6 days #12 caps 12/14/23
Home Medication Changes
benzonatate 100 mg capsule 100 mg PO TID #0 caps 12/14/23
cefdinir 300 mg capsule 300 mg PO BID 6 days #12 caps 12/14/23
Pending Results: No
[2023-12-14 13:23] VITALS: BP 165/86; PULSE 82; O2SAT 93
[2023-12-14 13:24] VITALS: BP 165/86; PULSE 79; O2SAT 92
--- NOTE | 2023-12-14 14:21 | PTOTSP ---
Dysphagia Evaluation
Oral/pharyngeal swallowing within functional limits to continue regular diet and thin liquids. Consider supervision with PO intake given changes to cognition. No further dysphagia therapy warranted. Please reconsult as appropriate.
Recommend:
1. Regular, Thin Liquids
2. Medications - as best tolerated; crush in puree as needed
3. Strategies: upright to 90 degrees, supervision, check for oral residue, reflux precautions
[2023-12-14 14:50] VITALS: BP 162/87
[2023-12-14 16:43] LABS: Glucose - Point of Care 163 mg/dl (70-99)
[2023-12-14] MEDS: NOVOLOG FLEXPEN-LOW RESISTANCE 1 UNITS SC (16:44)
--- NOTE | 2023-12-14 18:38 | PTCARENOTE ---
Patient continues to turn self. Discussed pressure ulcer prevention. q2hr turning discontinued at this time
[2023-12-14 20:44] LABS: Glucose - Point of Care 143 mg/dl (70-99)
[2023-12-14] MEDS: SEROQUEL 25 MG PO (21:07)
[2023-12-14] MEDS: DEPAKENE 500 MG PO (21:07)
[2023-12-14] MEDS: STERILE WATER FOR INJECTION 10 ML IV (21:08)
[2023-12-14] MEDS: LOVENOX 40 MG SC (21:08)
[2023-12-14] MEDS: ROCEPHIN 1000 MG IV (21:09)
[2023-12-14] MEDS: CARDURA 1 MG PO (21:09)
[2023-12-14] MEDS: TYLENOL PO (21:39)
[2023-12-14 22:13] VITALS: BP 136/71
[2023-12-14 23:54] VITALS: BP 160/82
[2023-12-15 06:22] LABS: Hematocrit 26.6 % (39.0-52.0); Hemoglobin 8.9 g/dL (13.0-18.0); Mean Corp Hgb Conc. 33.5 g/dL (33.0-37.0); Mean Corpuscular Hgb 30.7 pg (27.0-31.0); Mean Corpuscular Volume 91.7 fL (80.0-94.0); Mean Platelet Volume 9.1 fL (7.4-10.4); Platelet Count 182 10^3/uL (130-400); Red Cell Dist. Width 14.6 % (11.5-14.5); White Blood Cell Count 2.7 10^3/uL (4.8-10.8)
[2023-12-15 06:53] LABS: ALT (SGPT) 13 U/L (0-50); AST (SGOT) 26 U/L (17-59); Alkaline Phosphatase 66 U/L (38-126); Blood Urea Nitrogen 23 mg/dl (9-20); Calcium 8.9 mg/dl (8.4-10.2); Carbon Dioxide 27 mmol/L (22-30); Chloride 106 mmol/L (98-107); Estimated Creatinine Clearance 69 ml/min; Glucose 104 mg/dl (70-99); Magnesium 1.9 mg/dl (1.6-2.3); Potassium 3.6 mmol/L (3.5-5.1); Sodium 142 mmol/L (135-145); Total Bilirubin 0.3 mg/dl (0.2-1.3); eGFR > 60.00
[2023-12-15 07:30] VITALS: BP 143/70
[2023-12-15 08:21] LABS: Glucose - Point of Care 123 mg/dl (70-99)
[2023-12-15] MEDS: VITAMIN B1 100 MG PO (08:23)
[2023-12-15] MEDS: TYLENOL 650 MG PO ×4 (08:23→21:42)
[2023-12-15] MEDS: NOVOLOG FLEXPEN-LOW RESISTANCE SC ×3 (08:23→17:56)
[2023-12-15] MEDS: MUCINEX 600 MG PO ×2 (08:24→20:19)
[2023-12-15] MEDS: VITAMIN C 500 MG PO (08:24)
[2023-12-15] MEDS: VITAMIN D3 (cholecalciferol) 50 MCG PO (08:24)
[2023-12-15] MEDS: B COMPLEX w/VITAMIN C 1 CAPLET PO (08:24)
[2023-12-15] MEDS: ZYLOPRIM 300 MG PO (08:25)
[2023-12-15] MEDS: NORVASC 5 MG PO (08:25)
[2023-12-15] MEDS: FOLVITE 1 MG PO (08:25)
[2023-12-15] MEDS: COLACE 100 MG PO ×2 (08:25→20:19)
[2023-12-15] MEDS: TESSALON PERLES 100 MG PO ×3 (08:25→21:42)
[2023-12-15] MEDS: TOPROL XL 100 MG PO ×2 (08:26→20:20)
[2023-12-15 09:39] VITALS: BMI 32.8
--- NOTE | 2023-12-15 12:13 | CM ---
Addendum entered by Diane Oneill 12/15/23 12:35:
Additional referrals made to [facility] in [place], [facility], [facility], and [facility]. Await responses.
Original Note:
Lyle is ready for discharge to SNF. I spoke with his daughter and his . They do not want Lyle to return to [facility] and [facility] was requested, CM will also seek other options in the
event [facility] will not have a bed.
Lyle was Covid+ on admission 12/12/2023; most facilities will not accept until 5 day quarantine is met, unless they have a bed available with another covid+ patient.
Plan: CM to follow for transfer to SNF pending bed availability.
[2023-12-15 12:15] LABS: Glucose - Point of Care 134 mg/dl (70-99)
--- NOTE | 2023-12-15 13:10 | W.PN.HOSP.TC ---
Today's Communication/Plan
-
dc ready - cm aware - pending bed
cont abx
Assessment / Plan
Assessment / Plan
Physical Exam
General: Well Developed, Well Nourished, Conversant and Appears Chronically Ill
HEENT: NormoCephalic, Anicteric and Other (NC 2 liters, dry mucous membranes)
Respiratory: Clear
Cardiac: S1/S2 and Regular Rhythm
GI: Soft, Non Tender and Non Distended
Musculoskeletal: No Clubbing, No Cyanosis and No Edema
Skin: Warm and Dry
Neuro: AO x 3, No Motor Deficits and Nonfocal/grossly intact
Psych: Calm, AAOx3
#UTI - Serratia Marcescens
-gentle IVF
-IV Rocephin - dc on cefdinir to complete 7 day total abx course
-urine and blood cx pending
#COVID, SARS CoV-2
#Hypoxia, resolved
-Refused Remdesivir - mental status AAOx3 and competent - understands risks/benefits
-wean o2 as tolerated; goal o2 >92%; on RA with O2> 92% -continue supportive care
-incentive ammy
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 Will hold off for now and monitor symptoms
#CKD stage III (creat 1.5-1.9 in the past year)
-baseline creat, monitor
-f/u bmp outpatient now that back on lasix upon dc
#Vit C deficiency
#History renal cell carcinoma status post left nephrectomy, mets to C-spine with left arm/hand weakness
#CHF, slightly volume depleted
-now euvolemic
-restarted lasix
#Hyperaldosteronism
Unclear if patient is on Eplerenone; defer to cardiology outpatient - family has no official documentation here that he is on it and cardiology states patient has been to multiple different providers after August with possible changes of medication
that family has no collateral for. Pharmacy engaged v thoroughly to find collateral but no clear evidence that patient is on this med.
#Coronary artery disease
Aspirin
#Hypertension
amlodipine 5mg, metoprolol, hold parameters
#Hyperlipidemia
#Diabetes
Low-dose sliding scale
Repaglinide
#Neuropathy
hold gabapentin as patient is not taking this OP
#Hypothyroidism
Continue home Synthroid
-tsh wnl
#Asthma
#Overactive bladder
#Hypokalemia
-monitor and replete
DVT prophylaxis SCDs/Lovenox SC
GI prophylaxis
Full code
Anticipated Discharge: Within 24 hours
Subjective/Interval History
-
Date of Service: December 15, 2023
no acute events, ready for dc -
Objective Data
-
Labs:
Laboratory Results
12/15/23
05:38
WBC 2.7 L
Hgb 8.9 L
Hct 26.6 L
Plt Count 182
Sodium 142
Potassium 3.6
Chloride 106
Carbon Dioxide 27
BUN 23 H
Creatinine 1.1
Glucose 104 H
Calcium 8.9
Total Bilirubin 0.3
AST 26
ALT 13
Alkaline Phosphatase 66
Vital Signs:
Vital Signs
Temp Pulse Resp BP Pulse Ox
97.7 F 84 18 143/70 93
12/15/23 07:30 12/15/23 07:30 12/15/23 07:30 12/15/23 08:25 12/15/23 07:30
I&O
12/14/23 12/15/23 12/16/23
06:59 06:59 06:59
Intake Total 1220 / 1220 1040 / 1040
Balance 1220 / 1220 1040 / 1040
Review of Systems
-
History Source: Patient
All other systems: Not reviewed unless documented
Physical Exam
-
General: Well Developed, Well Nourished and No Apparent Distress
HEENT: Normocephalic and Atraumatic; Negative Oxygen
Respiratory: Clear to Auscultation; Negative Wheezes or Rhonchi
Cardiac: Regular Rhythm and S1/S2; Negative Murmur
GI: Soft, Nontender, Nondistended and Normal Bowel Sounds
Musculoskeletal: No Clubbing, No Cyanosis and No Edema
Skin: Warm
Neuro: Awake
Data Reviewed
-
Diagnostic Radiology: Image personally visualized and interpreted and Report Reviewed by me
Labs: Labs Reviewed by me
[2023-12-15] MEDS: TORADOL 15 MG IV (13:13)
[2023-12-15] MEDS: PROTONIX 40 MG PO (13:13)
--- NOTE | 2023-12-15 14:08 | PTCARENOTE ---
pt's requesting multiple constults including dermatology, anruology and psychaitry. reports pt has painful mole on left shoulder, and that pt 'has not been right since having surgery' pt's also concerned about rehab placement. states
previous rehab was unacceptable, stating 'they stopped his mood stabilizer cold turkey' and pt unable to provide what medication or dose was, or when it was stopped. pt is ao x3 but forgetful and seems inappropriate at times. and pt
arguing in room about '[facility]' Attending notifie dof consult requests. pt is in [place] at present d/t c/o calf tenderness over night, but now denies.
[2023-12-15 15:00] VITALS: BP 150/74
[2023-12-15 17:55] LABS: Glucose - Point of Care 118 mg/dl (70-99)
[2023-12-15] MEDS: LOVENOX 40 MG SC (20:18)
[2023-12-15] MEDS: ROCEPHIN 1000 MG IV (20:19)
[2023-12-15] MEDS: STERILE WATER FOR INJECTION 10 ML IV (20:19)
[2023-12-15] MEDS: CARDURA 1 MG PO (21:42)
[2023-12-15] MEDS: SEROQUEL 25 MG PO (21:42)
[2023-12-15] MEDS: DEPAKENE 500 MG PO (21:42)
[2023-12-15 22:19] LABS: Glucose - Point of Care 154 mg/dl (70-99)
[2023-12-15 23:10] VITALS: BP 170/99
[2023-12-16] MEDS: TORADOL 15 MG IV
[2023-12-16 00:39] VITALS: BP 157/83
[2023-12-16 06:00] VITALS: BMI 32.4
[2023-12-16 07:37] LABS: Hematocrit 27.5 % (39.0-52.0); Hemoglobin 9.3 g/dL (13.0-18.0); Mean Corp Hgb Conc. 33.8 g/dL (33.0-37.0); Mean Corpuscular Volume 91.7 fL (80.0-94.0); Platelet Count 176 10^3/uL (130-400); Red Cell Dist. Width 14.4 % (11.5-14.5); White Blood Cell Count 2.8 10^3/uL (4.8-10.8)
[2023-12-16 07:58] LABS: Glucose - Point of Care 114 mg/dl (70-99)
[2023-12-16 08:05] LABS: ALT (SGPT) 13 U/L (0-50); AST (SGOT) 23 U/L (17-59); Alkaline Phosphatase 68 U/L (38-126); Blood Urea Nitrogen 18 mg/dl (9-20); Calcium 8.8 mg/dl (8.4-10.2); Carbon Dioxide 26 mmol/L (22-30); Chloride 106 mmol/L (98-107); Estimated Creatinine Clearance 67 ml/min; Glucose 97 mg/dl (70-99); Magnesium 1.8 mg/dl (1.6-2.3); Potassium 3.4 mmol/L (3.5-5.1); Sodium 143 mmol/L (135-145); Total Bilirubin 0.3 mg/dl (0.2-1.3); Total Protein 5.1 g/dl (6.3-8.2); eGFR > 60.00
--- NOTE | 2023-12-16 09:10 | CM ---
Referrals made to [facility] in [place] (no bed available), [facility] (do not accept outside referrals), [facility] (may consider). Awaiting responses from: [facility], and [facility], [facility].
Call placed to the outstanding referrals - no bed available at [facility] until possibly next week, [facility] is looking at referral with possible bed available tomorrow, awaiting response from [facility].
CM will continue to follow.
--- NOTE | 2023-12-16 09:22 | PTCARENOTE ---
patient voided large amount of dorie urine on bed holm, bladder scanned for 129, will continue to monitor.
[2023-12-16] MEDS: NOVOLOG FLEXPEN-LOW RESISTANCE SC ×3 (09:44→18:00)
[2023-12-16 09:45] VITALS: BP 158/79
[2023-12-16] MEDS: TOPROL XL 100 MG PO (09:47)
[2023-12-16] MEDS: MUCINEX 600 MG PO (09:47)
[2023-12-16] MEDS: NORVASC 5 MG PO (09:49)
[2023-12-16] MEDS: B COMPLEX w/VITAMIN C 1 CAPLET PO (09:49)
[2023-12-16] MEDS: VITAMIN B1 100 MG PO (09:49)
[2023-12-16] MEDS: FOLVITE 1 MG PO (09:49)
[2023-12-16] MEDS: COLACE 100 MG PO (09:49)
[2023-12-16] MEDS: ZYLOPRIM 300 MG PO (09:49)
[2023-12-16] MEDS: TESSALON PERLES 100 MG PO ×2 (09:49→16:04)
[2023-12-16] MEDS: VITAMIN C 500 MG PO (09:50)
[2023-12-16] MEDS: TYLENOL 650 MG PO ×2 (09:50→16:02)
[2023-12-16] MEDS: ELIQUIS 10 MG PO (09:50)
[2023-12-16] MEDS: KCL ELIXIR 40 MEQ PO (09:55)
[2023-12-16] MEDS: VITAMIN D3 (cholecalciferol) 50 MCG PO (09:58)
[2023-12-16 12:14] LABS: Glucose - Point of Care 129 mg/dl (70-99)
--- NOTE | 2023-12-16 13:22 | CM ---
met with patient at bedside.he is stable for dc to snf facility.i spoke with bryce at [facility] and patient has to be isolated for 10 days.beore he is ad.i answered wil allen's questions and they have a bed for patient today.i called and left [facility]
for dght and spoke with who is fine with [facility].patient will transport via ambulance due to his covid + status.attending chandana.
patient signed imm letter.
phone number to call report is [phone] and fax number is [phone].
--- NOTE | 2023-12-16 13:27 | W.PN.HOSP.TC ---
Addendum entered and electronically signed by Lincoln Begum MD 12/17/23 18:13:
[id number]
Original Note:
Today's Communication/Plan
-
eliquis starter pack; 10mg BID x 7 days then 5mg bid thereafter for DVT
Cont abx course for UTI
F/u closely for eplerenone and depakote use
F/u hematology, pcp, neurology, cardiology outpatient
Assessment / Plan
Assessment / Plan
Physical Exam
General: Well Developed, Well Nourished, Conversant and Appears Chronically Ill
HEENT: NormoCephalic, Anicteric and Other (NC 2 liters, dry mucous membranes)
Respiratory: Clear
Cardiac: S1/S2 and Regular Rhythm
GI: Soft, Non Tender and Non Distended
Musculoskeletal: No Clubbing, No Cyanosis and No Edema
Skin: Warm and Dry
Neuro: AO x 3, No Motor Deficits and Nonfocal/grossly intact
Psych: Calm, AAOx3
#UTI - Serratia Marcescens
-gentle IVF
-IV Rocephin - dc on cefdinir to complete 7 day total abx course
#COVID, SARS CoV-2
#Hypoxia, resolved
-Refused Remdesivir - mental status AAOx3 and competent - understands risks/benefits
-wean o2 as tolerated; goal o2 >92%; on RA with O2> 92% -continue supportive care
-incentive ammy
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 Will hold off for now and monitor symptoms
#CKD stage III (creat 1.5-1.9 in the past year)
-baseline creat, monitor
-f/u bmp outpatient now that back on lasix upon dc
#DVT
-Small amount of occlusive thrombus in the left posterior tibial vein
-started on Eliquis
-f/u hematology outpatient
#Vit C deficiency
#History renal cell carcinoma status post left nephrectomy, mets to C-spine with left arm/hand weakness
#CHF, slightly volume depleted
-now euvolemic
-restarted lasix
#Hyperaldosteronism
Unclear if patient is on Eplerenone; defer to cardiology outpatient - family has no official documentation here that he is on it and cardiology states patient has been to multiple different providers after August with possible changes of medication
that family has no collateral for. Pharmacy engaged v thoroughly to find collateral but no clear evidence that patient is on this med.
#Coronary artery disease
Aspirin
#Hypertension
amlodipine 5mg, metoprolol, hold parameters
#Hyperlipidemia
#Diabetes
Low-dose sliding scale
Repaglinide
#Neuropathy
hold gabapentin as patient is not taking this OP
#Hypothyroidism
Continue home Synthroid
-tsh wnl
#Asthma
#Overactive bladder
#Hypokalemia
-monitor and replete
DVT prophylaxis SCDs/Lovenox SC
GI prophylaxis
Full code
More than 30 minutes spent in discharge including
Final examination of the patient
Summarizing hospital stay
Instructions for continuing care to all relevant caregivers
Preparation of discharge records, prescriptions, and referral forms
Total time spent (35 in minutes):
Anticipated Discharge: Today
Subjective/Interval History
-
Date of Service: December 16, 2023
no acute events; doing well
Objective Data
-
Labs:
Laboratory Results
12/16/23
06:43
WBC 2.8 L
Hgb 9.3 L
Hct 27.5 L
Plt Count 176
Sodium 143
Potassium 3.4 L
Chloride 106
Carbon Dioxide 26
BUN 18
Creatinine 1.1
Glucose 97
Calcium 8.8
Total Bilirubin 0.3
AST 23
ALT 13
Alkaline Phosphatase 68
Vital Signs:
Vital Signs
Temp Pulse Resp BP Pulse Ox
98.5 F 69 18 158/79 96
12/16/23 09:45 12/16/23 09:47 12/16/23 09:45 12/16/23 09:49 12/16/23 09:45
I&O
12/15/23 12/16/23 12/17/23
06:59 06:59 06:59
Intake Total 1040 / 1040 1280 / 1280
Output Total 100 / 100
Balance 1040 / 1040 1180 / 1180
Review of Systems
-
History Source: Patient
All other systems: Not reviewed unless documented
Physical Exam
-
General: Well Developed, Well Nourished and No Apparent Distress
HEENT: Normocephalic and Atraumatic; Negative Oxygen
Respiratory: Clear to Auscultation; Negative Wheezes or Rhonchi
Cardiac: Regular Rhythm and S1/S2; Negative Murmur
GI: Soft, Nontender, Nondistended and Normal Bowel Sounds
Musculoskeletal: No Clubbing, No Cyanosis and No Edema
Skin: Warm
Neuro: Awake
Data Reviewed
-
Diagnostic Radiology: Image personally visualized and interpreted and Report Reviewed by me
Labs: Labs Reviewed by me
--- NOTE | 2023-12-16 13:31 | W.DS.TRANS ---
DC Summary - Xray Tech
-
Discharge Instructions:
Discharge Diagnosis/Procedures #UTI
#COVID, SARS CoV-2
DVT
Diet Low Cholesterol,Low Fat
Activity As tolerated
Driving Restrictions No driving
Blood Work bmp in 3-5 days with pcp/cardiology now that
back on lasix
Specialty Instructions Weigh Daily
Instructions:
Stand-Alone Forms:
Changes to Home Medications: Yes
Discharge Medications:
DC Medications w/original date entered in [facility]
acetaminophen 325 mg tablet (Tylenol) 650 mg PO Q6HPRN PRN mild pain 12/12/23
acetaminophen 325 mg tablet (Tylenol) 650 mg PO TID Pain 12/12/23
albuterol sulfate 90 mcg/actuation aerosol inhaler 1 inh inhalation R Q6HPRN PRN copd 12/12/23
allopurinol 300 mg tablet 300 mg PO DAILY Gout 12/12/23
alpha lipoic acid 200 mg tablet 200 mg PO MOWEFR@08,12,18 Supplement 12/12/23
amlodipine 5 mg tablet (Norvasc) 5 mg PO DAILY Blood Pressure 12/12/23
ascorbic acid (vitamin C) 500 mg tablet (Vitamin C) 500 mg PO DAILY Supplement 12/12/23
bisacodyl 10 mg rectal suppository (Dulcolax (bisacodyl)) 10 mg AR DAILYPRN PRN if no bm aftr mom 12/12/23
cholecalciferol (vitamin D3) 25 mcg (1,000 unit) tablet (Vitamin D3) 25 mcg PO DAILY Supplement 12/12/23
cyclobenzaprine 10 mg tablet 10 mg PO DAILYPRN PRN mucles spasms 12/12/23
dextromethorphan polistirex 30 mg/5 mL oral susp ext.release 12hr 30 ml PO Q8HPRN PRN cough 12/12/23
docusate sodium 100 mg capsule (Colace) 100 mg PO BID Constipation 12/12/23
doxazosin 1 mg tablet 1 mg PO HS Blood Pressure 12/12/23
fluticasone 500 mcg-salmeterol 50 mcg/dose blistr powdr for inhalation (Advair Diskus) 1 inh inhalation R BIDPRN PRN copd 12/12/23
folic acid 1 mg tablet 1 mg PO DAILY Supplement 12/12/23
furosemide 40 mg tablet (Lasix) 40 mg PO BID Fluid Retention/Swelling 12/12/23
gabapentin 600 mg tablet 600 mg PO HS Neuropathic pain 12/12/23
ipratropium 0.5 mg-albuterol 3 mg (2.5 mg base)/3 mL nebulization soln 3 ml inhalation R DAILY copd 12/12/23
ipratropium 0.5 mg-albuterol 3 mg (2.5 mg base)/3 mL nebulization soln 3 ml inhalation R Q6HPRN PRN copd 12/12/23
magnesium hydroxide 400 mg/5 mL oral suspension (Milk of Magnesia) 2,400 mg PO [id number] PRN constipation 12/12/23
metoprolol succinate 100 mg tablet,extended release 24 hr (Toprol XL) 100 mg PO BID Blood Pressure 12/12/23
probenecid 500 mg-colchicine 0.5 mg tablet 1 tab PO BIDPRN PRN gout 12/12/23
quetiapine 25 mg tablet (Seroquel) 25 mg PO HS Sleep 12/12/23
repaglinide 1 mg tablet 1 mg PO TID Diabetes 12/12/23
sennosides 8.6 mg tablet (senna) 17.2 mg PO BIDPRN PRN constipation 12/12/23
silver sulfadiazine 1 % topical cream 1 applic topical DAILY right posterior thigh 12/12/23
sodium phosphates 19 gram-7 gram/118 mL enema (Fleet Enema) 118 ml AR DAILYPRN PRN if no bm aftr dulcolax 12/12/23
thiamine HCl (vitamin B1) 100 mg tablet 100 mg PO DAILY Supplement 12/12/23
vitamin B complex 1 tab PO DAILY Supplement 12/12/23
benzonatate 100 mg capsule 100 mg PO TID #0 caps 12/14/23
cefdinir 300 mg capsule 300 mg PO BID 6 days #12 caps 12/14/23
divalproex 500 mg tablet,extended release 24 hr (Depakote ER) 500 mg PO DAILY Seizures 12/14/23
apixaban 5 mg (74 tabs) tablets in a dose pack (Eliquis DVT-PE Treat 30D Start) See Rx Instructions .Route .COMPLEX #74 ea 12/16/23
Home Medication Changes
cefdinir 300 mg capsule 300 mg PO BID 6 days #12 caps 12/14/23
divalproex 500 mg tablet,extended release 24 hr (Depakote ER) 500 mg PO DAILY Seizures 12/14/23
apixaban 5 mg (74 tabs) tablets in a dose pack (Eliquis DVT-PE Treat 30D Start) See Rx Instructions .Route .COMPLEX #74 ea 12/16/23
Pending Results: No
--- NOTE | 2023-12-16 14:55 | PTCARENOTE ---
patient medicated with PRN Roxicodone this am without relief, then Toradol 15mgs IV x1 ordered with right knee pain decreasing from 10/10 to 8/10. patient feeling 'groggy/drowsy' afterwards. Alina Alcantara updated. Also, patient constipated,
awaiting results from [facility], turns with max assist x2, tolerating diet, vss, will continue to monitor.
--- NOTE | 2023-12-16 15:09 | PTCARENOTE ---
Addendum entered by Carmel Queen RN 12/16/23 19:41:
patient denies complaints, no sob, tolerating diet, but appetite is poor, PO's encouraged, vss, bed alarm maintained for safety. patient encouraged to not throw attends on floor when he has been incontinent and to let nursing staff know so he or
she can come and change him, will continue to monitor.
Original Note:
patient denies complaints, no sob, tolerating diet, but appetite is poor, PO's encouraged, vss, bed alarm maintained for safety, will continue to monitor.
[2023-12-16 15:25] VITALS: BP 119/64
--- NOTE | 2023-12-16 19:00 | PTCARENOTE ---
IV removed and report called to Susan Molina. patient's sister in room. patient to be picked up via ambulance at 1930, next shift RN made aware to follow up.
== END 2023-12-16 19:50 | DRG 689 ==
LOC: 3 WEST ACU 22:15
PROVIDERS: Clinical Nurse Specialist Family Health; ADMITTING PHYSICIAN Internal Medicine; ATTENDING PHYSICIAN Internal Medicine; EMERGENCY PHYSICIAN Student in an Organized Health Care Education/Training Program; FAMILY PHYSICIAN Internal Medicine
DX: N39.0 Urinary tract infection, site not specified (principal); U07.1 COVID-19; C79.51 Secondary malignant neoplasm of bone; I13.0 Hypertensive heart and chronic kidney disease with heart failure and stage 1 through stage 4 chronic kidney disease, or unspecified chronic kidney disease; I50.22 Chronic systolic (congestive) heart failure; D63.1 Anemia in chronic kidney disease; E03.9 Hypothyroidism, unspecified; E11.22 Type 2 diabetes mellitus with diabetic chronic kidney disease; E11.40 Type 2 diabetes mellitus with diabetic neuropathy, unspecified; E11.65 Type 2 diabetes mellitus with hyperglycemia; F31.9 Bipolar disorder, unspecified; G25.81 Restless legs syndrome; N18.32 Chronic kidney disease, stage 3b; J44.89 Other specified chronic obstructive pulmonary disease; Z53.29 Procedure and treatment not carried out because of patient's decision for other reasons; B96.89 Other specified bacterial agents as the cause of diseases classified elsewhere; E26.9 Hyperaldosteronism, unspecified; E54 Ascorbic acid deficiency; E78.00 Pure hypercholesterolemia, unspecified; E86.9 Volume depletion, unspecified; F41.9 Anxiety disorder, unspecified; G47.33 Obstructive sleep apnea (adult) (pediatric); I25.10 Atherosclerotic heart disease of native coronary artery without angina pectoris; I44.7 Left bundle-branch block, unspecified; K21.9 Gastro-esophageal reflux disease without esophagitis; K58.9 Irritable bowel syndrome, unspecified; N32.81 Overactive bladder; R09.02 Hypoxemia; R06.03 Acute respiratory distress; Z79.84 Long term (current) use of oral hypoglycemic drugs; Z79.899 Other long term (current) drug therapy; Z85.46 Personal history of malignant neoplasm of prostate; Z85.528 Personal history of other malignant neoplasm of kidney; Z88.8 Allergy status to other drugs, medicaments and biological substances
CPT/HCPCS: 71046; 80053; 81003; 81015; 82248; 82962; 83605; 83735; 84443; 84484; 85025; 85027; 85610; 87040; 87070; 87077; 87086; 87147; 87186; 87502; 87811; 92610; 93005; 93970; 94640; 96374; 96375; 97116; 97163; 97167; 97530; 99285; J0248

== ENCOUNTER → 2023-12-20 11:16 | Outpatient (REF) | payer MEDICARE, BC, SELFPAY ==
[2023-12-20 12:43] LABS: Blood Urea Nitrogen 32 mg/dl (9-20); Calcium 8.5 mg/dl (8.4-10.2); Carbon Dioxide 28 mmol/L (22-30); Chloride 103 mmol/L (98-107); Glucose 110 mg/dl (70-99); Potassium 3.1 mmol/L (3.5-5.1); Sodium 142 mmol/L (135-145); eGFR 38.29
== END ==
LOC: OLABP 11:16
PROVIDERS: ATTENDING PHYSICIAN Family Medicine
DX: N18.32 Chronic kidney disease, stage 3b (principal); I50.22 Chronic systolic (congestive) heart failure; E11.9 Type 2 diabetes mellitus without complications; Z95.810 Presence of automatic (implantable) cardiac defibrillator; I44.7 Left bundle-branch block, unspecified; E87.6 Hypokalemia; I25.10 Atherosclerotic heart disease of native coronary artery without angina pectoris
CPT/HCPCS: 36415; 80048

== ENCOUNTER → 2023-12-27 17:14 | Outpatient (REF) | payer OTHER, MEDICARE, BC, SELFPAY ==
[2023-12-27 18:48] LABS: % Basophils 0.4 % (0-2); % Eosinophils 10.6 % (0-6); % Immature Granulocytes 0.4 % (0-0.5); % Lymphocytes 17.7 % (20.5-51.1); % Monocytes 6.7 % (1.7-9.3); % Neutrophils 64.2 % (42.2-75.2); Absolute Eosinophils 0.5 10^3/uL (0-0.7); Absolute Lymphocytes 0.9 10^3/uL (1.2-3.4); Absolute Monocytes 0.3 10^3/uL (0.1-0.6); Absolute Neutrophils 3.1 10^3/uL (1.4-6.5); Hematocrit 28.4 % (39.0-52.0); Hemoglobin 9.3 g/dL (13.0-18.0); Mean Corp Hgb Conc. 32.7 g/dL (33.0-37.0); Mean Corpuscular Hgb 32.1 pg (27.0-31.0); Mean Corpuscular Volume 97.9 fL (80.0-94.0); Mean Platelet Volume 9.3 fL (7.4-10.4); Nucleated Red Blood Cells % 0 % (-); Platelet Count 244 10^3/uL (130-400); Red Cell Dist. Width 15.3 % (11.5-14.5); White Blood Cell Count 4.8 10^3/uL (4.8-10.8)
[2023-12-27 19:03] LABS: Blood Urea Nitrogen 27 mg/dl (9-20); Calcium 9.1 mg/dl (8.4-10.2); Carbon Dioxide 28 mmol/L (22-30); Chloride 105 mmol/L (98-107); Glucose 111 mg/dl (70-99); Potassium 3.2 mmol/L (3.5-5.1); Sodium 145 mmol/L (135-145); eGFR 56.58
== END ==
LOC: OLABP 17:14
PROVIDERS: ATTENDING PHYSICIAN Family Medicine
DX: N18.32 Chronic kidney disease, stage 3b (principal); I50.22 Chronic systolic (congestive) heart failure; E11.9 Type 2 diabetes mellitus without complications; Z95.810 Presence of automatic (implantable) cardiac defibrillator; I44.7 Left bundle-branch block, unspecified; E87.6 Hypokalemia; I25.10 Atherosclerotic heart disease of native coronary artery without angina pectoris
CPT/HCPCS: 36415; 80048; 85025

== ENCOUNTER 2024-01-16 17:16 | Emergency (ER) | payer MEDICARE, BC, SELFPAY ==
[2024-01-16 17:18] VITALS: BP 147/86
[2024-01-16 18:35] LABS: % Basophils 0.5 % (0-2); % Eosinophils 4.4 % (0-6); % Immature Granulocytes 0.5 % (0-0.5); % Lymphocytes 17.3 % (20.5-51.1); % Monocytes 4.2 % (1.7-9.3); % Neutrophils 73.1 % (42.2-75.2); Absolute Eosinophils 0.2 10^3/uL (0-0.7); Absolute Lymphocytes 0.8 10^3/uL (1.2-3.4); Absolute Monocytes 0.2 10^3/uL (0.1-0.6); Absolute Neutrophils 3.2 10^3/uL (1.4-6.5); Hematocrit 34.6 % (39.0-52.0); Hemoglobin 11.4 g/dL (13.0-18.0); Mean Corp Hgb Conc. 32.9 g/dL (33.0-37.0); Mean Corpuscular Hgb 31.4 pg (27.0-31.0); Mean Corpuscular Volume 95.3 fL (80.0-94.0); Mean Platelet Volume 8.6 fL (7.4-10.4); Nucleated Red Blood Cells % 0 % (-); Platelet Count 226 10^3/uL (130-400); Red Blood Cell Count 3.63 10^6/uL (4.70-6.10); White Blood Cell Count 4.3 10^3/uL (4.8-10.8)
[2024-01-16 18:55] LABS: ALT (SGPT) 12 U/L (0-50); AST (SGOT) 18 U/L (17-59); Albumin 4.1 g/dl (3.5-5.0); Alkaline Phosphatase 71 U/L (38-126); Blood Urea Nitrogen 29 mg/dl (9-20); Calcium 9.9 mg/dl (8.4-10.2); Carbon Dioxide 29 mmol/L (22-30); Chloride 102 mmol/L (98-107); Glucose 123 mg/dl (70-99); Potassium 3.8 mmol/L (3.5-5.1); Sodium 143 mmol/L (135-145); Total Bilirubin 0.6 mg/dl (0.2-1.3); Total Protein 6.2 g/dl (6.3-8.2)
--- NOTE | 2024-01-16 19:06 | ED.GENMED ---
History of Present Illness
General
Chief Complaint: Fatigue
Source: patient
Exam Limitations: none
Time Seen by Provider: 01/16/24 18:41
Nursing documentation reviewed up to this point in time: agreed with
History of Present Illness
History of Present Illness:
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
nephrectomy presents to the ER for evaluation. Patient presents with several complaints. He feels fatigue and in addition reports he is having urination issues. He will avoid but only urinate small amounts at a time and feels that he is
retaining. He denies however any pain or fevers. He denies any nausea vomiting abdominal pain fever chills. In addition he complains of low back pain he does have back issues but denies any injury. He denies any radiation of back pain. He
denies any numbness tingling or weakness in lower extremities.
Patient had a bone scan done October 2023 which showed increased radiopharmaceutical activity in the right posterior sixth rib at the site of subacute fracture and severe probably take arthritis in knees ankles feet and right AC joint
Past History
Past History
ED Past Medical History: Asthma, Cancer (Kidney, Prostate), CHF, COPD, GERD, HTN, Hypercholesterolemia, NIDDM, Renal failure (Chronic kidney disease stage IIIb. Creatinine baseline 1.7), Psychiatric (bipolar, anxiety) and Other (Obstructive sleep
apnea, Cellulitis, Adrenal gland growth, Neck and back pain, Sciatica, restless leg syndrome. IBS, Anemia, Hypospadias)
ED Past Surgical History: Cardiac (pacer/defib, Ablation X 2), Orthopedic (L5 framiotomy), Urological (Left nephrectomy d/t cancer 2019) and Other (Lung mass biopsy positive for renal cell carcinoma metastasis, Right strabismus repair, )
Patient has exhibited threatening behavior?: No
PSI?: No
Social History
Tobacco: Non-smoker
Alcohol: None
Drug: None
Personal:
Living: [facility]
Employment: Employed
Family History
Family History: Other (Noncontributory)
Review of Systems
Review of Systems
Allergies reviewed?: Yes
All Other Systems: ROS reviewed and negative except as documented in HPI and ROS
Constitutional: Reports no symptoms
Respiratory: Reports no symptoms
Cardiac: Reports no symptoms
ABD/GI: Reports no symptoms
: Reports other (pt does not feel that he is voiding completely )
Musculoskeletal: Reports back pain
Skin: Reports no symptoms
Neurological: Reports no symptoms
Psychiatric: Reports no symptoms
Phy Exam
General Physical Exam
General Presentation: no apparent distress
General age: appears stated age
General Skin: warm and dry
General Habitus: normal
General Mental: alert
General Hydration: dry mucous membranes
Gastrointestinal Exam
Gastrointestinal Exam: non tender and soft
Neurological Exam
Neurological Exam: alert, oriented x3 and other (Negative straight leg raise normal dorsiflexion para flexion normal sensation bilaterally)
Musculoskeletal Exam
Musculoskeletal Exam: other (normal inspection to lower back , non tender )
Skin Exam
Skin Exam: normal color and warm/dry
Psychiatric Exam
Psychiatric Exam: normal mood/affect
Course
Orders/Labs/Results
Orders:
Orders
01/16/24 17:18
EKG [Electrocardiogram (*1)] Urgent
Reason for Study: Shortness of Breath
EKG- Treatment ONCE
01/16/24 18:18
Complete Blood Count/With Diff Urgent
Comprehensive Metabolic Panel Urgent
TSH Reflex To Free T4 Urgent
Comment: ADDON
01/16/24 19:04
Add On- LAB Urgent
Tests Added?: tsh with reflexive t4
01/16/24 19:24
CT Abd/pel Without Iv Or Oral Urgent
Comment:
Reason For Exam: back pain /hx of stanton cell carcinoma +diff urinati
01/16/24 19:45
UA Reflex to Culture [Urinalysis Reflex To Culture] Urgent
Date Specimen was Collected: 01/16/24
Time Specimen was Collected: 19:18
Abnormal Lab Results
01/16/24
18:18
WBC 4.3 L 10^3/uL
(4.8-10.8)
RBC 3.63 L 10^6/uL
(4.70-6.10)
Hgb 11.4 L g/dL
(13.0-18.0)
Hct 34.6 L %
(39.0-52.0)
MCV 95.3 H fL
(80.0-94.0)
MCH 31.4 H pg
(27.0-31.0)
MCHC 32.9 L g/dL
(33.0-37.0)
RDW 16.0 H %
(11.5-14.5)
Absolute Lymphs (auto) 0.8 L 10^3/uL
(1.2-3.4)
Lymphocytes % 17.3 L %
(20.5-51.1)
BUN 29 H mg/dl
(9-20)
Creatinine 1.6 H mg/dL
(0.7-1.3)
Glucose 123 H mg/dl
(70-99)
Total Protein 6.2 L g/dl
(6.3-8.2)
01/16/24 18:18
01/16/24 18:18
Vital Signs
Initial and Last Documented VS:
Initial Vital Signs
Temp Pulse Resp BP Pulse Ox
97.7 F 87 18 147/86 95
01/16/24 17:18 01/16/24 17:18 01/16/24 17:18 01/16/24 17:18 01/16/24 17:18
Last Documented Vital Signs
Temp Pulse Resp BP Pulse Ox
97.7 F 87 18 147/86 95
01/16/24 17:18 01/16/24 17:18 01/16/24 17:18 01/16/24 17:18 01/16/24 17:18
External Grinder consulted with Physician
External Grinder consulted with physician?: Yes
Name of Physician Consulted: Paz
MDM/Problems Addressed
MDM/Problems Addressed:
Patient as document is a 78-year-old as documented male with history of renal cell carcinoma with recent fusion of neck due to cancer followed at [facility] presents to the ER for fatigue and low back pain. CAT scan unfortunately shows hepatic
metastasis right middle lobe pulmonary metastasis interval enlargement of multiple subcutaneous nodules suspicious for multifocal subcutaneous metastatic disease and a sclerotic lesion in the S1.
Patient has been taking Tylenol for pain patient was offered admission for fatigue and back pain however he is scheduled for radiation at [facility] tomorrow and does not want to miss this. Patient was given a Of his CAT scan report to further
review findings with his oncologist. Patient had some mild urinary retention however not significant for Womack catheter will DC on Flomax. Patient's urinalysis is negative for infection, creatinine minimally increased 1.6 hemoglobin stable 11.4.
case d/ c w/ DR Mullne
Chronic conditions affecting care:
renal cell carcinoma with mets
*Radiology
Radiology exam reviewed: radiology read reviewed
*Critical Care Note
Total Time (30-74mins, 75-104mins- exclusive of procedures): Not Applicable
ED Attending Note
-
Portions of this chart may have been created with voice recognition software.� Occasional wrong word or��sound alike� substitutions may have occurred due to the inherent limitations of voice recognition software.
Discharge Plan
Departure
Patient Disposition: Home (Routine Discharge)
Date of Disposition: 01/16/24
Time of Disposition: 21:01
Patient with high blood pressure during this ER visit?: Yes
Covid-19: Not Applicable
Discharge Problem:
Metastatic cancer
Instructions: Fatigue (DC), BLOOD PRESSURE
Prescriptions:
New
tamsulosin [Flomax] 0.4 mg capsule
0.4 mg PO DAILY Qty: 14 0RF
No Action
quetiapine [Seroquel] 25 mg Tablet
25 mg PO HS
cyclobenzaprine 10 mg Tablet
10 mg PO DAILYPRN PRN (Reason: mucles spasms)
furosemide [Lasix] 40 mg Tablet
40 mg PO BID
silver sulfadiazine 1 % Cream
1 applic TOPICAL DAILY
sennosides [senna] 8.6 mg Tablet
17.2 mg PO BIDPRN PRN (Reason: constipation)
dextromethorphan polistirex 30 mg/5 mL Suspension,Extended Rel 12 Hr
30 ml PO Q8HPRN PRN (Reason: cough)
acetaminophen [Tylenol] 325 mg Tablet
650 mg PO TID
acetaminophen [Tylenol] 325 mg Tablet
650 mg PO Q6HPRN PRN (Reason: mild pain)
gabapentin 600 mg Tablet
600 mg PO HS
ipratropium-albuterol 0.5 mg-3 mg(2.5 mg base)/3 mL Solution For Nebulization
3 ml INHALATION R DAILY
ipratropium-albuterol 0.5 mg-3 mg(2.5 mg base)/3 mL Solution For Nebulization
3 ml INHALATION R Q6HPRN PRN (Reason: copd)
doxazosin 1 mg Tablet
1 mg PO HS
metoprolol succinate [Toprol XL] 100 mg Tablet Extended Release 24 Hr
100 mg PO BID
probenecid-colchicine 500-0.5 mg Tablet
1 tab PO BIDPRN PRN (Reason: gout)
thiamine HCl (vitamin B1) 100 mg Tablet
100 mg PO DAILY
amlodipine [Norvasc] 5 mg Tablet
5 mg PO DAILY
magnesium hydroxide [Milk of Magnesia] 400 mg/5 mL Suspension
2,400 mg PO [id number] PRN (Reason: constipation)
ascorbic acid (vitamin C) [Vitamin C] 500 mg Tablet
500 mg PO DAILY
bisacodyl [Dulcolax (bisacodyl)] 10 mg Suppository
10 mg MT DAILYPRN PRN (Reason: if no bm aftr mom)
fluticasone propion-salmeterol [Advair Diskus] 500-50 mcg/dose Blister With Device
1 inh INHALATION R BIDPRN PRN (Reason: copd)
Fleet Enema 19-7 gram/118 mL Enema
118 ml MT DAILYPRN PRN (Reason: if no bm aftr dulcolax)
docusate sodium [Colace] 100 mg Capsule
100 mg PO BID
vitamin B complex Tablet
1 tab PO DAILY
folic acid 1 mg Tablet
1 mg PO DAILY
allopurinol 300 mg Tablet
300 mg PO DAILY
albuterol sulfate 90 mcg/actuation Hfa Aerosol Inhaler
1 inh INHALATION R Q6HPRN PRN (Reason: copd)
repaglinide 1 mg Tablet
1 mg PO TID
cholecalciferol (vitamin D3) [Vitamin D3] 25 mcg (1,000 unit) Tablet
25 mcg PO DAILY
alpha lipoic acid 200 mg Tablet
200 mg PO MOWEFR@,,18
benzonatate 100 mg Capsule
100 mg PO TID Qty: 0 0RF
cefdinir 300 mg capsule
300 mg PO BID 6 Days Qty: 12 0RF
divalproex [Depakote ER] 500 mg Tablet Extended Release 24 Hr
500 mg PO DAILY
Eliquis DVT-PE Treat 30D Start 5 mg (74 tabs) tablets,dose pack
See Rx Instructions .ROUTE .COMPLEX Qty: 74 0RF
Rx Instructions:
5 mg orally ;10mg BID x 7 days, then 5mg BID thereafter. For DVT
Referrals:
Maximiliano Lanza MD [Family Provider] -
Activity Restrictions/Additional Instructions:
As discussed please review your CAT scan results with your oncologist at [facility]. In addition a prescription for Flomax was sent to your pharmacy take as directed for urinary retention. Return if any worsening of symptoms
Interventions
Interventions:
*Risk Screen - Suicide Last Done: 01/16/24 17:18
*General Assessment Last Done: 01/16/24 17:18
*Neglect/Abuse Screening Last Done: 01/16/24 17:18
ED- Fall Risk Assessment Last Done: 01/16/24 19:42
*ED COVID-19 Vaccine History Last Done: 01/16/24 17:18
Discharge Date and Time
Print Language: KISWAHILI
[2024-01-16 19:42] VITALS: BMI 34.1
[2024-01-16 19:54] LABS: TSH Reflex To Free T4 2.32 uIU/ml (0.47-4.68)
[2024-01-16 19:56] LABS: Urine Albumin Negative (Neg - Trace); Urine Bilirubin Negative (Negative); Urine Character Clear (Clear); Urine Color Yellow; Urine Glucose Negative (Negative); Urine Ketone Negative (Negative); Urine Leukocyte Negative (Negative); Urine Nitrite Negative (Negative); Urine Occult Blood Negative (Negative); Urine Urobilinogen Negative (Neg - 1+)
[2024-01-16] MEDS: FLOMAX 0.4 MG PO (21:07)
[2024-01-16 21:26] VITALS: BP 160/64
== END 2024-01-16 21:27 | disposition home or self-care (01) ==
LOC: EMR 17:16
PROVIDERS: Emergency Medicine; Nurse Practitioner; EMERGENCY PHYSICIAN Emergency Medicine; FAMILY PHYSICIAN Internal Medicine
DX: C64.2 Malignant neoplasm of left kidney, except renal pelvis (principal); C78.01 Secondary malignant neoplasm of right lung; C79.51 Secondary malignant neoplasm of bone; C78.7 Secondary malignant neoplasm of liver and intrahepatic bile duct; C61 Malignant neoplasm of prostate; I13.0 Hypertensive heart and chronic kidney disease with heart failure and stage 1 through stage 4 chronic kidney disease, or unspecified chronic kidney disease; N18.32 Chronic kidney disease, stage 3b; I50.9 Heart failure, unspecified; Z79.01 Long term (current) use of anticoagulants; E78.00 Pure hypercholesterolemia, unspecified
CPT/HCPCS: 99285; 51798; 74176; 80053; 81003; 84443; 85025; 93005

== ENCOUNTER 2024-01-28 17:54 | Emergency (ER) | payer BC, SELFPAY ==
[2024-01-28 17:58] VITALS: BP 143/67
--- NOTE | 2024-01-28 18:59 | ED.GENMED ---
History of Present Illness
General
Chief Complaint: Esophageal Problem
Source: patient
Exam Limitations: none
Time Seen by Provider: 01/28/24 18:31
Nursing documentation reviewed up to this point in time: agreed with
History of Present Illness
History of Present Illness:
Patient is a 78-year-old male who presents the ED for evaluation. Patient reports last night he was taking his medication and usually takes several pills at once and since then feels like a pill has been stuck in his throat.
Patient has a history of renal cancer with metastasis including metastasis to neck. He currently gets radiation and recently got radiation to the neck on Wednesday(2 days ago ).
he feels it in his upper esophagus area. He did not vomit he has been able to eat and drink with it. He does tell me he' heard stridor' last night when it happened but no longer hears that. He denies any shortness breath. When he swallows or
drinks/eats he does feel that sensation that something is stuck in his throat.
Past History
Past History
ED Past Medical History: Asthma, Cancer (Kidney, Prostate), CHF, COPD, GERD, HTN, Hypercholesterolemia, NIDDM, Renal failure (Chronic kidney disease stage IIIb. Creatinine baseline 1.7), Psychiatric (bipolar, anxiety) and Other (Obstructive sleep
apnea, Cellulitis, Adrenal gland growth, Neck and back pain, Sciatica, restless leg syndrome. IBS, Anemia, Hypospadias)
ED Past Surgical History: Cardiac (pacer/defib, Ablation X 2), Orthopedic (L5 framiotomy), Urological (Left nephrectomy d/t cancer 2019) and Other (Lung mass biopsy positive for renal cell carcinoma metastasis, Right strabismus repair, )
Patient has exhibited threatening behavior?: No
PSI?: No
Social History
Tobacco: Non-smoker
Alcohol: None
Drug: None
Personal:
Living: snf
Employment: Employed
Family History
Family History: Other (Noncontributory)
Review of Systems
Review of Systems
Allergies reviewed?: Yes
All Other Systems: ROS reviewed and negative except as documented in HPI and ROS
Constitutional: Reports no symptoms; Denies fever, fatigue or chills
Respiratory: Reports other (Patient tells me he heard stridor last night but denies now no difficulty breathing)
Cardiac: Reports no symptoms
ABD/GI: Reports other (Foreign body sensation in throat); Denies abdominal pain, nausea or vomiting
: Reports no symptoms
Musculoskeletal: Reports no symptoms
Skin: Reports no symptoms
Neurological: Reports no symptoms
Psychiatric: Reports no symptoms
Phy Exam
General Physical Exam
General Presentation: no apparent distress
General age: appears stated age
General Skin: warm and dry
General Habitus: elderly
General Mental: alert
General Hydration: other (Slightly dry mucous membranes)
ENT Exam
ENT Exam: pharynx normal, neck supple and other (No drooling)
Cardiovascular Exam
Cardiovascular Exam: regular rate/rhythm, no murmur and normal peripheral pulses
Pulmonary Exam
Pulmonary Exam: lungs clear and no respiratory distress
Neurological Exam
Neurological Exam: alert and oriented x3
Musculoskeletal Exam
Musculoskeletal Exam: full ROM
Skin Exam
Skin Exam: normal color and warm/dry
Psychiatric Exam
Psychiatric Exam: normal mood/affect
Course
Vital Signs
Initial and Last Documented VS:
Initial Vital Signs
Temp Pulse Resp BP Pulse Ox
98.2 F 95 16 143/67 98
01/28/24 17:58 01/28/24 17:58 01/28/24 17:58 01/28/24 17:58 01/28/24 17:58
Last Documented Vital Signs
Temp Pulse Resp BP Pulse Ox
98.2 F 89 20 143/67 96
01/28/24 17:58 01/28/24 18:40 01/28/24 18:40 01/28/24 17:58 01/28/24 18:40
Raschel Knitting Machine Operator consulted with Physician
Raschel Knitting Machine Operator consulted with physician?: Yes
Name of Physician Consulted: DR Oconnell
MDM/Problems Addressed
Differential Diagnosis Includes:
Not limited to esophageal abrasion
MDM/Problems Addressed:
As documented patient is a 78-year-old male who presented for foreign body sensation to upper esophagus. He was swallowing pills last night and felt got stuck. He does get radiation to the neck region for history of metastatic renal cancer. He
presents awake alert no acute distress he is not short of breath there is no drooling he is tolerating secretions well and able to swallow. He does feel discomfort but is able to swallow. He has been able to eat and drink and did drink water in
front of me without any difficulty. He still feels a sensation that something may be stuck however is in no acute distress. Case discussed ED physician Case discussed with ENT on-call patient obviously may have a component of dysphagia as
discussed with ENT when he is getting radiation. Will hold off on imaging as discussed with ENT. he should stay well-hydrated and symptoms should improve over the next several days. Will give ENT follow-up if no
*Pulse Oximetry
Patient hypoxic: no
*Critical Care Note
Total Time (30-74mins, 75-104mins- exclusive of procedures): Not Applicable
ED Attending Note
-
Portions of this chart may have been created with voice recognition software.� Occasional wrong word or��sound alike� substitutions may have occurred due to the inherent limitations of voice recognition software.
Discharge Plan
Departure
Patient Disposition: Home (Routine Discharge)
Date of Disposition: 01/28/24
Time of Disposition: 19:22
Patient with high blood pressure during this ER visit?: Yes
Discharge Problem:
irritation of esophagus, Dysphagia
Instructions: Dysphagia, BLOOD PRESSURE
Prescriptions:
No Action
quetiapine [Seroquel] 25 mg Tablet
25 mg PO HS
cyclobenzaprine 10 mg Tablet
10 mg PO DAILYPRN PRN (Reason: mucles spasms)
furosemide [Lasix] 40 mg Tablet
40 mg PO BID
silver sulfadiazine 1 % Cream
1 applic TOPICAL DAILY
sennosides [senna] 8.6 mg Tablet
17.2 mg PO BIDPRN PRN (Reason: constipation)
dextromethorphan polistirex 30 mg/5 mL Suspension,Extended Rel 12 Hr
30 ml PO Q8HPRN PRN (Reason: cough)
acetaminophen [Tylenol] 325 mg Tablet
650 mg PO TID
acetaminophen [Tylenol] 325 mg Tablet
650 mg PO Q6HPRN PRN (Reason: mild pain)
gabapentin 600 mg Tablet
600 mg PO HS
ipratropium-albuterol 0.5 mg-3 mg(2.5 mg base)/3 mL Solution For Nebulization
3 ml INHALATION R DAILY
ipratropium-albuterol 0.5 mg-3 mg(2.5 mg base)/3 mL Solution For Nebulization
3 ml INHALATION R Q6HPRN PRN (Reason: copd)
doxazosin 1 mg Tablet
1 mg PO HS
metoprolol succinate [Toprol XL] 100 mg Tablet Extended Release 24 Hr
100 mg PO BID
probenecid-colchicine 500-0.5 mg Tablet
1 tab PO BIDPRN PRN (Reason: gout)
thiamine HCl (vitamin B1) 100 mg Tablet
100 mg PO DAILY
amlodipine [Norvasc] 5 mg Tablet
5 mg PO DAILY
magnesium hydroxide [Milk of Magnesia] 400 mg/5 mL Suspension
2,400 mg PO [id number] PRN (Reason: constipation)
ascorbic acid (vitamin C) [Vitamin C] 500 mg Tablet
500 mg PO DAILY
bisacodyl [Dulcolax (bisacodyl)] 10 mg Suppository
10 mg AZ DAILYPRN PRN (Reason: if no bm aftr mom)
fluticasone propion-salmeterol [Advair Diskus] 500-50 mcg/dose Blister With Device
1 inh INHALATION R BIDPRN PRN (Reason: copd)
Fleet Enema 19-7 gram/118 mL Enema
118 ml [place] DAILYPRN PRN (Reason: if no bm aftr dulcolax)
docusate sodium [Colace] 100 mg Capsule
100 mg PO BID
vitamin B complex Tablet
1 tab PO DAILY
folic acid 1 mg Tablet
1 mg PO DAILY
allopurinol 300 mg Tablet
300 mg PO DAILY
albuterol sulfate 90 mcg/actuation Hfa Aerosol Inhaler
1 inh INHALATION R Q6HPRN PRN (Reason: copd)
repaglinide 1 mg Tablet
1 mg PO TID
cholecalciferol (vitamin D3) [Vitamin D3] 25 mcg (1,000 unit) Tablet
25 mcg PO DAILY
alpha lipoic acid 200 mg Tablet
200 mg PO MOWEFR@,,18
benzonatate 100 mg Capsule
100 mg PO TID Qty: 0 0RF
cefdinir 300 mg capsule
300 mg PO BID 6 Days Qty: 12 0RF
divalproex [Depakote ER] 500 mg Tablet Extended Release 24 Hr
500 mg PO DAILY
Eliquis DVT-PE Treat 30D Start 5 mg (74 tabs) tablets,dose pack
See Rx Instructions .ROUTE .COMPLEX Qty: 74 0RF
Rx Instructions:
5 mg orally ;10mg BID x 7 days, then 5mg BID thereafter. For DVT
tamsulosin [Flomax] 0.4 mg capsule
0.4 mg PO DAILY Qty: 14 0RF
Referrals:
Reynaldo Chua MD [Active] -
Maxiimliano Lanza MD [Family Provider] -
Activity Restrictions/Additional Instructions:
Be sure to stay well-hydrated. Eat Soft foods ,not irritating foods. Follow-up with ENT as needed return if any worsening of symptoms
Interventions
Interventions:
*Risk Screen - Suicide Last Done: 01/28/24 17:58
*General Assessment Last Done: 01/28/24 17:58
*Neglect/Abuse Screening Last Done: 01/28/24 17:58
Discharge Date and Time
Print Language: DANISH
== END 2024-01-28 20:22 | disposition home or self-care (01) ==
LOC: EMR 17:54
PROVIDERS: EMERGENCY PHYSICIAN Emergency Medicine; FAMILY PHYSICIAN Internal Medicine
DX: K22.89 Other specified disease of esophagus (principal); R13.10 Dysphagia, unspecified; C64.9 Malignant neoplasm of unspecified kidney, except renal pelvis; C79.89 Secondary malignant neoplasm of other specified sites; I13.0 Hypertensive heart and chronic kidney disease with heart failure and stage 1 through stage 4 chronic kidney disease, or unspecified chronic kidney disease; I50.9 Heart failure, unspecified; N18.32 Chronic kidney disease, stage 3b; K21.9 Gastro-esophageal reflux disease without esophagitis; E78.00 Pure hypercholesterolemia, unspecified; G25.81 Restless legs syndrome; Z92.3 Personal history of irradiation; G47.33 Obstructive sleep apnea (adult) (pediatric)
CPT/HCPCS: 99283

== ENCOUNTER → 2024-01-31 17:06 | Outpatient (REF) | payer BC, SELFPAY | LOC: RAD 17:06 | PROVIDERS: ATTENDING PHYSICIAN Physician Assistant Medical; FAMILY PHYSICIAN Internal Medicine | DX: G95.89 Other specified diseases of spinal cord (principal); Z98.1 Arthrodesis status | CPT/HCPCS: 72052 ==

== ENCOUNTER → 2024-02-16 12:51 | Outpatient (REF) | payer BC, SELFPAY ==
[2024-02-16 13:55] LABS: % Basophils 0.7 % (0-2); % Eosinophils 4.3 % (0-6); % Immature Granulocytes 0.3 % (0-0.5); % Lymphocytes 14.7 % (20.5-51.1); Absolute Eosinophils 0.3 10^3/uL (0-0.7); Absolute Lymphocytes 0.9 10^3/uL (1.2-3.4); Absolute Monocytes 0.3 10^3/uL (0.1-0.6); Absolute Neutrophils 4.3 10^3/uL (1.4-6.5); Hematocrit 35.8 % (39.0-52.0); Hemoglobin 11.8 g/dL (13.0-18.0); Mean Corpuscular Hgb 30.9 pg (27.0-31.0); Mean Corpuscular Volume 93.7 fL (80.0-94.0); Mean Platelet Volume 8.7 fL (7.4-10.4); Nucleated Red Blood Cells % 0 % (-); Platelet Count 204 10^3/uL (130-400); Red Blood Cell Count 3.82 10^6/uL (4.70-6.10); Red Cell Dist. Width 14.3 % (11.5-14.5); White Blood Cell Count 5.8 10^3/uL (4.8-10.8)
[2024-02-16 14:23] LABS: Glycohemoglobin (HgbA1c) 6.1 % (4.0-5.6)
[2024-02-16 14:47] LABS: ALT (SGPT) 13 U/L (0-50); AST (SGOT) 17 U/L (17-59); Alkaline Phosphatase 86 U/L (38-126); Blood Urea Nitrogen 24 mg/dl (9-20); Calcium 9.3 mg/dl (8.4-10.2); Carbon Dioxide 30 mmol/L (22-30); Chloride 102 mmol/L (98-107); Glucose 120 mg/dl (70-99); HDL Cholesterol 32 mg/dl; LDL Cholesterol, Calculated 78 mg/dl; Potassium 3.5 mmol/L (3.5-5.1); Sodium 142 mmol/L (135-145); Total Bilirubin 0.6 mg/dl (0.2-1.3); Total Cholesterol 144 mg/dl (50-199); Total Protein 5.9 g/dl (6.3-8.2); Triglyceride 173 mg/dl (10-149); Uric Acid 7.1 mg/dl (3.5-8.5); Very Low Density Lipoprotein 34 mg/dl (0-30)
[2024-02-16 15:30] LABS: PSA, Total - Diagnostic < 0.06 ng/ml (0.0-4.0); TSH 6.28 uIU/ml (0.47-4.68)
[2024-02-19 01:45] LABS: PSA Total <0.1 ng/mL (0.0-4.0)
== END ==
LOC: REG 12:51
PROVIDERS: ATTENDING PHYSICIAN Internal Medicine Endocrinology, Diabetes & Metabolism; FAMILY PHYSICIAN Internal Medicine; OTHER PHYSICIAN Internal Medicine; OTHER PHYSICIAN Internal Medicine Nephrology; OTHER PHYSICIAN Nurse Practitioner Adult Health
DX: E26.09 Other primary hyperaldosteronism (principal); C61 Malignant neoplasm of prostate; N18.32 Chronic kidney disease, stage 3b; M10.9 Gout, unspecified; E11.9 Type 2 diabetes mellitus without complications; R53.83 Other fatigue; Z00.00 Encounter for general adult medical examination without abnormal findings; E78.5 Hyperlipidemia, unspecified; Z12.5 Encounter for screening for malignant neoplasm of prostate; C64.9 Malignant neoplasm of unspecified kidney, except renal pelvis
CPT/HCPCS: 36415; 80053; 80061; 83036; 84153; 84154; 84443; 84550; 85025

== ENCOUNTER 2024-03-27 20:34 | Emergency (ER) | payer BC, MEDICARE, SELFPAY ==
[2024-03-27 20:35] VITALS: BP 149/89
[2024-03-27] MEDS: TYLENOL 1000 MG PO (23:21)
[2024-03-27 23:27] VITALS: BMI 31.3
[2024-03-27 23:38] VITALS: BP 137/91
[2024-03-27 23:42] LABS: % Basophils 0.5 % (0-2); % Eosinophils 4.6 % (0-6); % Immature Granulocytes 0.5 % (0-0.5); % Lymphocytes 14.8 % (20.5-51.1); % Monocytes 5.7 % (1.7-9.3); % Neutrophils 73.9 % (42.2-75.2); Absolute Eosinophils 0.3 10^3/uL (0-0.7); Absolute Lymphocytes 0.9 10^3/uL (1.2-3.4); Absolute Monocytes 0.3 10^3/uL (0.1-0.6); Absolute Neutrophils 4.3 10^3/uL (1.4-6.5); Hematocrit 35.8 % (39.0-52.0); Mean Corp Hgb Conc. 33.5 g/dL (33.0-37.0); Mean Corpuscular Hgb 29.7 pg (27.0-31.0); Mean Corpuscular Volume 88.6 fL (80.0-94.0); Mean Platelet Volume 8.6 fL (7.4-10.4); Nucleated Red Blood Cells % 0 % (-); Platelet Count 216 10^3/uL (130-400); Red Blood Cell Count 4.04 10^6/uL (4.70-6.10); Red Cell Dist. Width 14.2 % (11.5-14.5); White Blood Cell Count 5.8 10^3/uL (4.8-10.8)
[2024-03-28 00:08] LABS: Blood Urea Nitrogen 22 mg/dl (9-20); Calcium 8.9 mg/dl (8.4-10.2); Carbon Dioxide 29 mmol/L (22-30); Chloride 100 mmol/L (98-107); Estimated Creatinine Clearance 49 ml/min; Glucose 155 mg/dl (70-99); Potassium 3.4 mmol/L (3.5-5.1); Sodium 139 mmol/L (135-145); eGFR 47.65
--- NOTE | 2024-03-28 01:03 | ED.GENMED ---
History of Present Illness
General
Chief Complaint: Back Pain
Source: patient
Exam Limitations: none
Time Seen by Provider: 03/27/24 22:41
History of Present Illness
History of Present Illness:
78-year-old male with a history of ongoing back issues. Some increased back pain today. Rolled off the couch with some increasing pain to the thighs. Pain is actually near baseline again. No abdominal pain no chest pain no other complaints
Past History
Past History
ED Past Medical History: Asthma, Cancer (Kidney, Prostate), CHF, COPD, GERD, HTN, Hypercholesterolemia, NIDDM, Renal failure (Chronic kidney disease stage IIIb. Creatinine baseline 1.7), Psychiatric (bipolar, anxiety) and Other (Obstructive sleep
apnea, Cellulitis, Adrenal gland growth, Neck and back pain, Sciatica, restless leg syndrome. IBS, Anemia, Hypospadias)
ED Past Surgical History: Cardiac (pacer/defib, Ablation X 2), Orthopedic (L5 framiotomy), Urological (Left nephrectomy d/t cancer 2019) and Other (Lung mass biopsy positive for renal cell carcinoma metastasis, Right strabismus repair, )
Patient has exhibited threatening behavior?: No
PSI?: No
Social History
Tobacco: Non-smoker
Alcohol: None
Drug: None
Personal:
Living: jail
Employment: Employed
Family History
Family History: Other (Noncontributory)
Review of Systems
Review of Systems
Constitutional: Denies fever
Cardiac: Reports no symptoms
Phy Exam
Physical Exam
Physical Exam:
GENERAL: Alert and oriented in no apparent distress
EYE: Orbits normal.
NECK: Supple
CARDIAC: Regular rate and rhythm without any obvious murmurs. Pacemaker
LUNGS: Clear breath sounds,normal
ABDOMEN: Soft, without focal tenderness or distention
NEUROLOGICAL: Alert and oriented , grossly non-focal. Good lower extremity strength. Able to get up and ambulate well.
SKIN: Warm and dry, no rash or lesion, no discoloration, skin intact.
MUSCULOSKELETAL: No edema,no deformity.Good color. Patient points to the paralumbar area although no swelling no spinal tenderness no warmth.
PSYCH: Normal and appropriate interaction.
Course
Orders/Labs/Results
Orders:
Orders
03/27/24 23:07
CT Lumbar Spine W/o Iv Contras Urgent
Comment:
Reason For Exam: Low back pain. History of CVA
IV Insert/Care/Rem.- Treatment PRN
Acetaminophen [Tylenol] 1,000 mg PO NOW STA
CXR2 [CR Chest - 2 Views ] Urgent
Comment:
Reason For Exam: sob
03/27/24 23:08
Electrocardiogram (*1) Stat
Reason for Study: Other
Other Reason for Exam: chest pain
EKG- Treatment ONCE
03/27/24 23:35
Basic Metabolic Panel Urgent
Complete Blood Count/With Diff Urgent
Abnormal Lab Results
03/27/24
23:35
RBC 4.04 L 10^6/uL
(4.70-6.10)
Hgb 12.0 L g/dL
(13.0-18.0)
Hct 35.8 L %
(39.0-52.0)
Absolute Lymphs (auto) 0.9 L 10^3/uL
(1.2-3.4)
Lymphocytes % 14.8 L %
(20.5-51.1)
Potassium 3.4 L mmol/L
(3.5-5.1)
BUN 22 H mg/dl
(9-20)
Creatinine 1.5 H mg/dL
(0.7-1.3)
Glucose 155 H mg/dl
(70-99)
03/27/24 23:35
03/27/24 23:35
Vital Signs
Initial and Last Documented VS:
Initial Vital Signs
Temp Pulse Resp BP Pulse Ox
97.7 F 85 16 149/89 96
03/27/24 20:35 03/27/24 20:35 03/27/24 20:35 03/27/24 20:35 03/27/24 20:35
Last Documented Vital Signs
Temp Pulse Resp BP Pulse Ox
97.6 F 82 20 137/91 96
03/27/24 23:39 03/27/24 23:39 03/27/24 23:39 03/27/24 23:38 03/27/24 23:45
*Radiology
Radiology exam reviewed: preliminary read by ED provider (No acute findings) and radiology read reviewed (No acute findings on CT)
*Pulse Oximetry
Patient hypoxic: no
*EKG
Interpreted by ED Provider?: Yes
Interpretation: abnormal
Comparison EKG: no changes
Rate: normal
Rhythm: other (Atrial paced)
[place]: normal axis
Interval: normal interval
QRS Pattern: left bundle branch block
Ischemia: non-specific ST changes
*Critical Care Note
Total Time (30-74mins, 75-104mins- exclusive of procedures): Not Applicable
Data Reviewed
Review of Other/Old Records Reveals: Labs, Records and Testing
Update Note
Update Note:
Patient doing well. Back to baseline. Stable for discharge. No serious etiology found.
ED Attending Note
-
Portions of this chart may have been created with voice recognition software.� Occasional wrong word or��sound alike� substitutions may have occurred due to the inherent limitations of voice recognition software.
Discharge Plan
Departure
Patient Disposition: Home (Routine Discharge)
Date of Disposition: 03/28/24
Time of Disposition: 01:19
Patient with high blood pressure during this ER visit?: Yes
Discharge Problem:
Low back pain, Chronic renal insufficiency
Instructions: Low Back Pain (DC), BLOOD PRESSURE
Prescriptions:
No Action
quetiapine [Seroquel] 25 mg Tablet
25 mg PO HS
cyclobenzaprine 10 mg Tablet
10 mg PO DAILYPRN PRN (Reason: mucles spasms)
furosemide [Lasix] 40 mg Tablet
40 mg PO BID
silver sulfadiazine 1 % Cream
1 applic TOPICAL DAILY
sennosides [senna] 8.6 mg Tablet
17.2 mg PO BIDPRN PRN (Reason: constipation)
dextromethorphan polistirex 30 mg/5 mL Suspension,Extended Rel 12 Hr
30 ml PO Q8HPRN PRN (Reason: cough)
acetaminophen [Tylenol] 325 mg Tablet
650 mg PO TID
acetaminophen [Tylenol] 325 mg Tablet
650 mg PO Q6HPRN PRN (Reason: mild pain)
gabapentin 600 mg Tablet
600 mg PO HS
ipratropium-albuterol 0.5 mg-3 mg(2.5 mg base)/3 mL Solution For Nebulization
3 ml INHALATION R DAILY
ipratropium-albuterol 0.5 mg-3 mg(2.5 mg base)/3 mL Solution For Nebulization
3 ml INHALATION R Q6HPRN PRN (Reason: copd)
doxazosin 1 mg Tablet
1 mg PO HS
metoprolol succinate [Toprol XL] 100 mg Tablet Extended Release 24 Hr
100 mg PO BID
probenecid-colchicine 500-0.5 mg Tablet
1 tab PO BIDPRN PRN (Reason: gout)
thiamine HCl (vitamin B1) 100 mg Tablet
100 mg PO DAILY
amlodipine [Norvasc] 5 mg Tablet
5 mg PO DAILY
magnesium hydroxide [Milk of Magnesia] 400 mg/5 mL Suspension
2,400 mg PO [id number] PRN (Reason: constipation)
ascorbic acid (vitamin C) [Vitamin C] 500 mg Tablet
500 mg PO DAILY
bisacodyl [Dulcolax (bisacodyl)] 10 mg Suppository
10 mg PA DAILYPRN PRN (Reason: if no bm aftr mom)
fluticasone propion-salmeterol [Advair Diskus] 500-50 mcg/dose Blister With Device
1 inh INHALATION R BIDPRN PRN (Reason: copd)
Fleet Enema 19-7 gram/118 mL Enema
118 ml PA DAILYPRN PRN (Reason: if no bm aftr dulcolax)
docusate sodium [Colace] 100 mg Capsule
100 mg PO BID
vitamin B complex Tablet
1 tab PO DAILY
folic acid 1 mg Tablet
1 mg PO DAILY
allopurinol 300 mg Tablet
300 mg PO DAILY
albuterol sulfate 90 mcg/actuation Hfa Aerosol Inhaler
1 inh INHALATION R Q6HPRN PRN (Reason: copd)
repaglinide 1 mg Tablet
1 mg PO TID
cholecalciferol (vitamin D3) [Vitamin D3] 25 mcg (1,000 unit) Tablet
25 mcg PO DAILY
alpha lipoic acid 200 mg Tablet
200 mg PO MOWEFR@08,,18
benzonatate 100 mg Capsule
100 mg PO TID Qty: 0 0RF
cefdinir 300 mg capsule
300 mg PO BID 6 Days Qty: 12 0RF
divalproex [Depakote ER] 500 mg Tablet Extended Release 24 Hr
500 mg PO DAILY
Eliquis DVT-PE Treat 30D Start 5 mg (74 tabs) tablets,dose pack
See Rx Instructions .ROUTE .COMPLEX Qty: 74 0RF
Rx Instructions:
5 mg orally ;10mg BID x 7 days, then 5mg BID thereafter. For DVT
tamsulosin [Flomax] 0.4 mg capsule
0.4 mg PO DAILY Qty: 14 0RF
Referrals:
Melissa Cano MD [Family Provider] - Follow up in 2-3 days
Activity Restrictions/Additional Instructions:
Tylenol for pain. Close follow-up with your physician
Interventions
Interventions:
*General Assessment Last Done: 03/27/24 22:04
ED- Fall Risk Assessment Last Done: 03/27/24 22:04
ED-Musculoskeletal Assessment Last Done: 03/27/24 22:04
Discharge Date and Time
Print Language: UKRAINIAN
[2024-03-28 01:09] VITALS: BP 126/79
== END 2024-03-28 01:25 | disposition home or self-care (01) ==
LOC: EMR 20:34
PROVIDERS: EMERGENCY PHYSICIAN Emergency Medicine; FAMILY PHYSICIAN Internal Medicine
DX: M54.50 Low back pain, unspecified (principal); E11.22 Type 2 diabetes mellitus with diabetic chronic kidney disease; I13.0 Hypertensive heart and chronic kidney disease with heart failure and stage 1 through stage 4 chronic kidney disease, or unspecified chronic kidney disease; N18.32 Chronic kidney disease, stage 3b; I50.9 Heart failure, unspecified; J44.89 Other specified chronic obstructive pulmonary disease; E78.00 Pure hypercholesterolemia, unspecified; G47.33 Obstructive sleep apnea (adult) (pediatric); K21.9 Gastro-esophageal reflux disease without esophagitis; Z85.528 Personal history of other malignant neoplasm of kidney; Z95.0 Presence of cardiac pacemaker; Z90.5 Acquired absence of kidney
CPT/HCPCS: 99285; 71046; 72131; 80048; 85025; 93005

== ENCOUNTER 2024-04-03 11:23 | Inpatient (IN) | payer MEDICARE, BC, SELFPAY ==
[2024-03-31 18:41] VITALS: BP 161/86
--- NOTE | 2024-03-31 22:13 | ED.GENMED ---
History of Present Illness
General
Chief Complaint: Back Pain
Source: patient and spouse
Exam Limitations: none
Time Seen by Provider: 03/31/24 21:46
Nursing documentation reviewed up to this point in time: agreed with
History of Present Illness
History of Present Illness:
Patient to ED wtih complaint of increasing confusion, increasing weakness. He was seen in ED on Wednesday for low back pain. CT completed, reveals multilevel DDD, degenerative facet disease. States pain continues to worsen. Sent back to ED by PCP.
states she is unable to care for him due to increasing weakness
Past History
Past History
ED Past Medical History: Asthma, Cancer (Kidney, Prostate), CHF, COPD, GERD, HTN, Hypercholesterolemia, NIDDM, Renal failure (Chronic kidney disease stage IIIb. Creatinine baseline 1.7), Psychiatric (bipolar, anxiety) and Other (Obstructive sleep
apnea, Cellulitis, Adrenal gland growth, Neck and back pain, Sciatica, restless leg syndrome. IBS, Anemia, Hypospadias)
ED Past Surgical History: Cardiac (pacer/defib, Ablation X 2), Orthopedic (L5 framiotomy), Urological (Left nephrectomy d/t cancer 2019) and Other (Lung mass biopsy positive for renal cell carcinoma metastasis, Right strabismus repair, )
Patient has exhibited threatening behavior?: No
PSI?: No
Social History
Tobacco: Non-smoker
Alcohol: None
Drug: None
Personal:
Living: fpc
Employment: Employed
Family History
Family History: Other (Noncontributory)
Review of Systems
Review of Systems
Allergies reviewed?: Yes
All Other Systems: ROS reviewed and negative except as documented in HPI and ROS
Constitutional: Reports fatigue
Respiratory: Reports no symptoms
Cardiac: Reports no symptoms
ABD/GI: Reports no symptoms
Musculoskeletal: Reports back pain (low back pain with radiation bilaterally to posterior thighs.)
Skin: Reports no symptoms
Neurological: Reports weakness and other (confusion)
Psychiatric: Reports no symptoms
Phy Exam
General Physical Exam
General Presentation: moderate distress
General age: appears stated age
General Skin: warm and dry
General Habitus: normal
General Mental: alert
Cardiovascular Exam
Cardiovascular Exam: regular rate/rhythm
Pulmonary Exam
Pulmonary Exam: lungs clear, no respiratory distress and chest non tender
Gastrointestinal Exam
Gastrointestinal Exam: normal bowel sounds, non tender and soft
Neurological Exam
Neurological Exam: alert, oriented x3, no motor deficits, no sensory deficits and speech normal
Musculoskeletal Exam
Musculoskeletal Exam: back pain (low back pain) and neuro vasc intact
Skin Exam
Skin Exam: normal color and no rash
Psychiatric Exam
Psychiatric Exam: normal mood/affect
Course
Orders/Labs/Results
Orders:
Orders
03/31/24 22:24
Complete Blood Count/No Diff Urgent
Comprehensive Metabolic Panel Urgent
04/01/24 00:01
CT Head W/o Iv Contrast Urgent
Reason For Exam: confusion
04/01/24 03:22
Admit/Transfer Patient As Directed
Co-Sign Provider:
Level of Care: Observation services
Assign to:: Medical/Surgical
Physician / Group: [facility]
Diagnosis: Pelvic Pain
04/01/24 03:23
Code Status As Directed
Resuscitation Status: Full Code
PRN Pain Medication Management As Directed
May give lesser potent ordered pain med per pt: Yes
preference::
Protocol:: Medication orders for pain may be administered in a
manner that supports deferring to patient preference
when the pt is:
- Requesting an ordered lesser potent pain medication.
Least to most potent pain medications are defined
as: acetaminophen < NSAID < tramadol < opioids
(morphine, oxycodone, hydromorphone).
- Requesting a lesser dose of the same medication IF
ORDERED.
- Requesting a less intrusive route of administration
if both routes are prescribed by the provider (PO <
IV).
04/01/24 03:55
Acetaminophen [Tylenol] 650 mg PO Q4HPRN PRN
Dextrose 50%-Water [Dextrose 50% Syringe] 12.5 grams IV [id number] PRN
Glucagon [GlucaGen] 1 mg IM PRN PRN
HYDROmorphone [Dilaudid] 0.5 mg IV Q4HPRN PRN
Tramadol HCl [Ultram] 25 mg PO Q6HPRN PRN
04/01/24 03:55
Activity As Directed
Activity Level: Ambulate
With Assistance
Bedside Glucose Monitoring As Directed
Frequency: AC&HS
Additional Instructions:: Change to q6h if pt on TPN, tube feeding or not eating
Bladder Scan As Directed
Follow Bladder Retention/Intermittent Cath Algorithm?: Yes
PRN if no void in __ hours: 6
Frequency: Per Retention Algorithm
If Bladder Scan Result >: 400
then:: Straight cath
I/O [Intake/ Output] As Directed
Frequency: Per unit guidelines
Straight Cath As Directed
Frequency: Per Retention Algorithm
Additional Instructions: straight cath as needed per acute urinary retention algorithm for 24 hrs
Additional Instructions: for bladder scan greater than 400 mL
Vital Signs As Directed
Frequency: Per unit guidelines
Weight As Directed
Frequency: Daily
Oxygen Therapy [O2 Therapy] [RESP] Routine
Titrate/Wean O2 to maintain O2 sat greater than (%): 94
Ot Eval And Treat Routine
PT Consult [Pt Eval And Treat] Routine
Activity Level: Ambulate
With Assistance
DX Deep Vein Thrombosis Video Routine
04/01/24 05:42
Basic Metabolic Panel IN AM
Complete Blood Count/No Diff IN AM
Glycohemoglobin (HgbA1c) IN AM
04/01/24 Breakfast
Regular
At Your Request: Full Participation
04/01/24 07:30
Insulin Aspart Corrective Low [Novolog Flexpen-Low Resistance] See Protocol SC AC
04/01/24 08:00
CT Pelvis W/o Iv Contrast Routine
Comment:
Reason For Exam: Pelvic Pain, Metastatic Disease
Heparin 5,000 units SC Q12
Abnormal Lab Results
03/31/24
22:24
RBC 4.26 L 10^6/uL
(4.70-6.10)
Hgb 12.6 L g/dL
(13.0-18.0)
Hct 37.6 L %
(39.0-52.0)
RDW 14.7 H %
(11.5-14.5)
Potassium 3.3 L mmol/L
(3.5-5.1)
Chloride 97 L mmol/L
(98-107)
Carbon Dioxide 33 H mmol/L
(22-30)
BUN 25 H mg/dl
(9-20)
Creatinine 1.5 H mg/dL
(0.7-1.3)
Glucose 138 H mg/dl
(70-99)
Total Protein 5.9 L g/dl
(6.3-8.2)
03/31/24 22:24
03/31/24 22:24
Vital Signs
Initial and Last Documented VS:
Initial Vital Signs
Temp Pulse Resp BP Pulse Ox
97.7 F 82 18 161/86 97
03/31/24 18:41 03/31/24 18:41 03/31/24 18:41 03/31/24 18:41 03/31/24 18:41
Last Documented Vital Signs
Temp Pulse Resp BP Pulse Ox
97.9 F 88 17 126/71 97
04/01/24 23:28 04/01/24 23:28 04/01/24 23:28 04/01/24 23:28 04/01/24 23:28
*Critical Care Note
Total Time (30-74mins, 75-104mins- exclusive of procedures): Not Applicable
Update Note
Update Note:
Patient to ED wtih increasing weakness over the past week. He was seen in ED 4 days ago with complaint of back pain. Had CT of lumbar spine which confirms DDD. Pain has not increased much since his visit here on Wednesday. states since discharge
he has been confused and now is unsteady on his feet. She is unable to care for him and feels he is now unsafe. PMH renal cancer, now with lung mets. Abd/pelvis CT from 01/29 reviewed: hepatic mets, pulmonary mets, sclerotic lesion on S1
suspicious for mets. No bone mets noted on lumber CT 03/28. Will recheck labs tonight. Head CT for increased confusion and weakness. He will not be able to return home at this point due to weakness and ambulatory instability. Will admit to
hospitalists service.
ED Attending Note
-
Portions of this chart may have been created with voice recognition software.� Occasional wrong word or��sound alike� substitutions may have occurred due to the inherent limitations of voice recognition software.
Discharge Plan
Departure
Patient Disposition: Admit
Date of Disposition: 04/01/24
Time of Disposition: 01:44
Admit to: Med/Surg
Presentation/result/management discussed w/ accepting MD/DO: Hospitalist
Discharge Problem:
Weakness, Metastatic renal cell carcinoma
Interventions
Interventions:
*Risk Screen - Suicide Last Done: 03/31/24 18:41
*General Assessment Last Done: 03/31/24 18:41
*Neglect/Abuse Screening Last Done: 03/31/24 18:41
ED- Fall Risk Assessment Last Done: 04/01/24 03:00
*ED COVID-19 Vaccine History Last Done: 03/31/24 22:16
*Nursing Disposition Last Done: 04/01/24 06:02
ED-Musculoskeletal Assessment Last Done: 03/31/24 22:17
Discharge Date and Time
Discharge Date/Time: 04/01/24 06:04
Musculoskeletal Injury Exam
Musculoskeletal Injury Exam
Bilateral Lower Back:
Pain with Movement?: Moderate
Tender to palpation?: Mild
Soft tissue swelling?: None
External deformity and angulation?: None
Joint effusion?: None
Contusion?: None
Hematoma-local bleeding into tissue?: None
Crepitus with movement?: No
Joint instability?: No
Malalignment/deformity?: No
Range of motion: Limited
Distal skin color and temperature: normal-warm & good color
Capillary Refill: normal
Normal distal neurovascular exam?: Yes
[2024-03-31 22:15] VITALS: BMI 30.7
[2024-03-31 22:25] VITALS: BP 166/90
[2024-03-31 22:30] LABS: Hematocrit 37.6 % (39.0-52.0); Hemoglobin 12.6 g/dL (13.0-18.0); Mean Corp Hgb Conc. 33.5 g/dL (33.0-37.0); Mean Corpuscular Hgb 29.6 pg (27.0-31.0); Mean Corpuscular Volume 88.3 fL (80.0-94.0); Mean Platelet Volume 8.6 fL (7.4-10.4); Platelet Count 208 10^3/uL (130-400); Red Blood Cell Count 4.26 10^6/uL (4.70-6.10); Red Cell Dist. Width 14.7 % (11.5-14.5)
[2024-03-31 22:50] LABS: ALT (SGPT) < 10 U/L (0-50); AST (SGOT) 20 U/L (17-59); Albumin 3.8 g/dl (3.5-5.0); Alkaline Phosphatase 95 U/L (38-126); Blood Urea Nitrogen 25 mg/dl (9-20); Calcium 9.2 mg/dl (8.4-10.2); Carbon Dioxide 33 mmol/L (22-30); Chloride 97 mmol/L (98-107); Estimated Creatinine Clearance 48 ml/min; Glucose 138 mg/dl (70-99); Potassium 3.3 mmol/L (3.5-5.1); Sodium 139 mmol/L (135-145); Total Bilirubin 0.7 mg/dl (0.2-1.3); Total Protein 5.9 g/dl (6.3-8.2); eGFR 47.65
[2024-04-01] VITALS (9 sets, daily range): BP systolic 126–175; BP diastolic 71–92; BMI 29.8
--- NOTE | 2024-04-01 03:27 | HPS.HSE ---
Family Physician
-
Family Physician: Juliane Fajardo MD
Chief Complaint
-
Pelvic pain, ambulatory dysfunction
History of Present Illness
Patient is a 78y M with PMH significant for renal cancer with metastatic lesions, hypertension and CKD who presents to ED complaining of pelvic / hip pain and difficulty ambulating. Patient states that his current symptoms started about 2-3
weeks ago. He denies any initial injury, fall, trauma at that time. Patient notes that his symptoms have gradually progressed. He reports mostly sharp, stabbing pains in the pelvis that are self-limited. He notes difficulty with ambulation due
to pain and unsteadiness.
Patient was seen in the ED here on 03/[address] scan of the lumbar spine was performed at that time. This showed multilevel DDD without acute abnormality.
Patient denies any paresthesias in the extremities. He denies any incontinence of bowel or bladder.
His pain continued / worsened in the past few days and patient returns to the ED this evening for further evaluation.
Given his degree of unsteadiness, feels that she cannot safely care for him at home.
He is currently followed at [facility] in regards to his malignancy.
Medical History
Past Medical History
Past Medical History: Reports Other
Additional Past Medical History:
Ventricular Ectopy / Bigeminy / NSVT
Chronic HFpEF
Hypertension
Hyperaldosteronism
History of Renal Oncocytoma
Metastatic Disease to the Lung and Spine
CKD III s/p Nephrectomy
DM-II
BPH
History of Prostate Cancer
Past Surgical History: Reports Other
Additional Past Surgical History:
VT Ablation (12/11/21)
Back Surgery
Cataracts
Left Nephrectomy
Social History
Tobacco: Non-smoker
Alcohol: Occasional
Drug: None
Family History
Family History: Not pertinent
Allergies / Home Medications
Allergies reflects when Allergies were last updated in [employer].
Home Medications with original date entered in [employer]
Allergy/Medication List:
Unable to reconcile.
If medication reconciliation has not been performed, why?: Medication List N/A (Unable to confirm current medications.)
Review of Systems
-
History Source: Patient
A 12 point ROS was completed and negative except as noted: Yes
Constitutional: Reports Fatigue; Denies Fever or Chills
Respiratory: Denies Cough or Trouble Breathing
Cardiac: Denies Chest Pain or Palpitations
Abdomen/GI: Denies Abdominal Pain, Nausea, Vomiting or Diarrhea
: Denies Dysuria or Frequency
Musculoskeletal: Reports Other (Pelvic pain.); Denies Edema
Neurological: Reports Weakness; Denies Dizzy or Headache
Psych: Denies Depression or Anxiety
Physical Exam
Vital Signs
Vital Signs
Temp Pulse Resp BP Pulse Ox
97.7 F 81 18 166/90 99
03/31/24 18:41 03/31/24 22:25 03/31/24 22:25 03/31/24 22:25 03/31/24 22:25
Physical Exam
General: Other (78y M in no acute distress.)
HEENT: Moist mucous membranes and PERRLA
Respiratory: Clear; No Wheezes, Rales or Rhonchi
Cardiac: S1/S2 and Regular Rhythm; No Murmur
GI: Soft, Non Tender, Non Distended and Normal Bowel Sounds
Musculoskeletal: No Clubbing, No Cyanosis and No Edema
Neuro: AO x 3 and Nonfocal/grossly intact
Laboratory Results
-
03/31/24 22:24
03/31/24 22:24
Laboratory Results
Total Bilirubin 0.7 mg/dl (0.2-1.3) 03/31/24 22:24
AST 20 U/L (17-59) 03/31/24 22:24
ALT < 10 U/L (0-50) 03/31/24 22:24
Alkaline Phosphatase 95 U/L (38-126) 03/31/24 22:24
Impression/Plan
-
A/P: Patient is a 78y M with PMH significant for metastatic renal carcinoma, hypertension and CKD who presents to ED complaining of several weeks of pelvic pain with ambulatory dysfunction.
Pelvic Pain
Ambulatory Dysfunction secondary to the above
- Observe overnight for further evaluation and treatment.
- Imaging from 03/28 included the L-spine and showed no acute abnormality.
- Will check CT pelvis given reported location of patient pain.
- Prior imaging with sclerotic lesions at S1 and L iliac crest.
- PT / OT evaluations.
- Pain control as needed.
- Follow for clinical improvement.
Metastatic Renal Carcinoma
- Followed at [facility] and on daily oral chemo or immunotherapy agent.
- Reconcile meds in AM / family will need to bring in oral agent for continued use during his stay.
Chronic HFrEF
History of VT
- Stable. No current dyspnea, edema, etc.
- Current med regimen is unclear and will need formal med rec in AM.
- Follow daily weights, I/Os, etc.
CKD III
- Stable. Renal function at / near known baseline.
- Solitary kidney s/p L nephrectomy.
- Follow for changes.
Benign Hypertension
Hyperaldosteronism
- Stable at present.
- Complete med rec in AM and resume usual outpatient medications.
- Reviewed available data sources and note conflicting agents, doses, etc.
Diet-Controlled DM-II
- Stable. Follow glucose and cover with SSI if needed.
- Update A1C.
DVT Prophylaxis: Subcut heparin
Code Status: Full
[2024-04-01 06:01] LABS: Hematocrit 35.4 % (39.0-52.0); Hemoglobin 11.9 g/dL (13.0-18.0); Mean Corp Hgb Conc. 33.6 g/dL (33.0-37.0); Mean Corpuscular Hgb 29.8 pg (27.0-31.0); Mean Corpuscular Volume 88.7 fL (80.0-94.0); Platelet Count 210 10^3/uL (130-400); Red Blood Cell Count 3.99 10^6/uL (4.70-6.10); Red Cell Dist. Width 14.6 % (11.5-14.5); White Blood Cell Count 4.3 10^3/uL (4.8-10.8)
[2024-04-01] MEDS: DILAUDID 0.5 MG IV (06:07)
[2024-04-01 06:16] LABS: Blood Urea Nitrogen 23 mg/dl (9-20); Calcium 8.9 mg/dl (8.4-10.2); Carbon Dioxide 33 mmol/L (22-30); Chloride 101 mmol/L (98-107); Estimated Creatinine Clearance 47 ml/min; Glucose 113 mg/dl (70-99); Potassium 3.2 mmol/L (3.5-5.1); Sodium 142 mmol/L (135-145); eGFR 51.77
[2024-04-01 07:16] LABS: Glucose - Point of Care 131 mg/dl (70-99)
[2024-04-01] MEDS: NOVOLOG FLEXPEN-LOW RESISTANCE SC (07:17)
[2024-04-01] MEDS: DEPAKOTE ER (24 HR RELEASE) 500 MG PO (07:47)
[2024-04-01] MEDS: ELIQUIS 5 MG PO ×2 (07:47→20:38)
[2024-04-01] MEDS: KCL 40 MEQ PO (07:47)
[2024-04-01 07:55] LABS: COVID-19 Antigen Negative (Negative)
[2024-04-01 08:03] LABS: Magnesium 1.9 mg/dl (1.6-2.3)
[2024-04-01 08:43] LABS: Urine Albumin 1+ (Neg - Trace); Urine Bilirubin Negative (Negative); Urine Character Clear (Clear); Urine Color Yellow; Urine Glucose Negative (Negative); Urine Ketone Trace (Negative); Urine Leukocyte Negative (Negative); Urine Nitrite Negative (Negative); Urine Occult Blood Negative (Negative); Urine Specific Gravity 1.015 (<1.030); Urine Urobilinogen Negative (Neg - 1+)
[2024-04-01 08:58] LABS: Urine Red Blood Cell 0-2 /HPF (0-2); Urine Squamous Cell 0-2 /LPF (Few); Urine White Cell None Seen /HPF (0-5)
--- NOTE | 2024-04-01 09:59 | W.PN.HOSP.TC ---
Today's Communication/Plan
-
See PN
Assessment / Plan
Assessment / Plan
78yo M with PMHx of DVT on eliquis, CKD stage 3b, HTN, hyperaldosteronism, Hx of L renal resection 2/2 mertastatic RCC currently on chemo, with metastatic disease to the neck s/p RT in 2023, chronic low back pain since 2013 came with new onset of
vertigo with movement and worsening lower back pain with radiation to both legs.
A/P:
#Vertigo
without hearing chage or ear pain
BPPV vs posterior stroke
MRI brain
PT/OT
CT head without acute findings
Meclizine PRN
#Hx of RCC with bone and lung mets
#Chronic lower back pain with exacerbations with intermittent L inner thigh numbness
getting SI joint injections
MRI lumbar spine to eval for metastatic disease
CT pelvis for lythic lesions
cont chemo
CT lumbar spine with foraminal stenosis, L3-L4 spurring of endplates with moderate imprigement on thecal sac
#DM type 2 with neuropathy
Accuchecks, insulin SS, DM diet
#Anemia
#Leukopenia
2/2 chemo
follow CBC
#Hypokalemia
replete and follow
#Hx of DVT
#CKD stage 3b
#Essential HTN
#COPD, not in exacerbation
#HLD
#DM type 2 with neuropathy
#Bipolar d/o
#Chronic HFrEF
#Afib s/p ablation and PPM
#Hx of L5 laminectomy
#Adrenal hypertrhophy with hyperaldosteronism
cont home meds
DVT ppx on Elqiuis
Full code
I have spent at least 59min reviewing chart, test results and direct patient care
Anticipated Discharge: > 48 hours
Subjective/Interval History
-
Date of Service: April 01, 2024
Objective Data
-
Labs:
Laboratory Results
03/31/24 04/01/24
22:24 05:42
WBC 6.0 4.3 L
Hgb 12.6 L 11.9 L
Hct 37.6 L 35.4 L
Plt Count 208 210
Sodium 139 142
Potassium 3.3 L 3.2 L
Chloride 97 L 101
Carbon Dioxide 33 H 33 H
BUN 25 H 23 H
Creatinine 1.5 H 1.4 H
Glucose 138 H 113 H
Calcium 9.2 8.9
Total Bilirubin 0.7
AST 20
ALT < 10
Alkaline Phosphatase 95
Vital Signs:
Vital Signs
Temp Pulse Resp BP Pulse Ox
97.3 F 81 16 154/78 96
04/01/24 07:00 04/01/24 07:00 04/01/24 07:00 04/01/24 07:00 04/01/24 07:00
Review of Systems
-
History Source: Patient
All other systems: Reviewed and negative
Musculoskeletal: Reports Other (lower back pain)
Neuro: Reports Dizzy
Physical Exam
-
General: Well Developed, Well Nourished and No Apparent Distress
HEENT: Normocephalic
Cardiac: Regular Rhythm
GI: Soft, Nontender and Nondistended
Genito-urinary: No Costovertebral Tender
Musculoskeletal: No Clubbing, No Cyanosis and No Edema
Neuro: Awake, Oriented, AO x 3, No Motor Deficits and No Sensory Deficits
Psych: Calm
[2024-04-01] MEDS: ANTIVERT 12.5 MG PO (10:18)
[2024-04-01 11:39] LABS: Glycohemoglobin (HgbA1c) 6.9 % (4.0-5.6)
[2024-04-01 12:04] LABS: Glucose - Point of Care 174 mg/dl (70-99)
[2024-04-01] MEDS: BENADRYL 25 MG PO (12:13)
[2024-04-01] MEDS: NOVOLOG FLEXPEN-LOW RESISTANCE 1 UNITS SC ×2 (12:26→17:18)
--- NOTE | 2024-04-01 15:46 | CM ---
Reviewed the chart notes and spoke with the patient at the bedside. The patient is admitted under observational status. [facility] letter provide and explained. The patient had no questions with regards to the letter.
The patient resides with his spouse in a two story home with three steps to enter. The patient has a cane and rolling walker. The patient has had [facility] in the past and been to [facility] and [facility]. The patient confirmed his pharmacy of choice is the [facility]
Brian Membreno CM continues to be available to patient/family and is monitoring medical plan for needs at discharge.
Plan: Discharge to home when medically stable. No anticipated needs.
[2024-04-01 17:17] LABS: Glucose - Point of Care 155 mg/dl (70-99)
[2024-04-01] MEDS: PRANDIN 1 MG PO ×2 (17:18→22:06)
[2024-04-01] MEDS: TESSALON PERLES 100 MG PO ×2 (17:18→22:06)
[2024-04-01] MEDS: LASIX 40 MG PO (17:18)
[2024-04-01] MEDS: TYLENOL 650 MG PO ×2 (17:50→22:08)
[2024-04-01] MEDS: NON-FORMULARY ITEM 2 MG PO (20:38)
[2024-04-01 21:59] LABS: Glucose - Point of Care 143 mg/dl (70-99)
[2024-04-01] MEDS: ZETIA 10 MG PO (22:06)
[2024-04-01] MEDS: NEURONTIN 300 MG PO (22:06)
[2024-04-02 05:30] VITALS: BMI 29.7
[2024-04-02 07:25] VITALS: BP 160/80
[2024-04-02 07:36] LABS: % Basophils 0.4 % (0-2); % Eosinophils 5.6 % (0-6); % Immature Granulocytes 0.4 % (0-0.5); % Lymphocytes 20.3 % (20.5-51.1); % Neutrophils 67.3 % (42.2-75.2); Absolute Eosinophils 0.3 10^3/uL (0-0.7); Absolute Monocytes 0.3 10^3/uL (0.1-0.6); Absolute Neutrophils 3.3 10^3/uL (1.4-6.5); Hematocrit 33.4 % (39.0-52.0); Hemoglobin 11.3 g/dL (13.0-18.0); Mean Corp Hgb Conc. 33.8 g/dL (33.0-37.0); Mean Corpuscular Volume 88.6 fL (80.0-94.0); Mean Platelet Volume 8.9 fL (7.4-10.4); Nucleated Red Blood Cells % 0 % (-); Platelet Count 197 10^3/uL (130-400); Red Blood Cell Count 3.77 10^6/uL (4.70-6.10); Red Cell Dist. Width 14.7 % (11.5-14.5)
[2024-04-02 07:45] LABS: Glucose - Point of Care 111 mg/dl (70-99)
[2024-04-02] MEDS: NOVOLOG FLEXPEN-LOW RESISTANCE SC ×2 (08:16→17:54)
[2024-04-02] MEDS: NON-FORMULARY ITEM 2 MG PO (08:16)
[2024-04-02] MEDS: B COMPLEX w/VITAMIN C 1 CAPLET PO (08:17)
[2024-04-02] MEDS: TYLENOL 650 MG PO ×3 (08:17→20:16)
[2024-04-02] MEDS: ZYLOPRIM 300 MG PO (08:17)
[2024-04-02] MEDS: PRANDIN 1 MG PO ×3 (08:18→21:13)
[2024-04-02] MEDS: VITAMIN B1 100 MG PO (08:18)
[2024-04-02] MEDS: FOLVITE 1 MG PO (08:18)
[2024-04-02] MEDS: ELIQUIS 5 MG PO ×2 (08:18→20:16)
[2024-04-02] MEDS: LASIX 40 MG PO ×2 (08:18→15:57)
[2024-04-02] MEDS: FLOMAX 0.8 MG PO (08:18)
[2024-04-02] MEDS: TESSALON PERLES 100 MG PO ×3 (08:18→21:13)
[2024-04-02] MEDS: NORVASC 5 MG PO (08:19)
[2024-04-02] MEDS: TOPROL XL 100 MG PO (08:19)
--- NOTE | 2024-04-02 10:00 | W.PN.HOSP.TC ---
Today's Communication/Plan
-
MRI brain and lumbar spine
Onc to follow
Assessment / Plan
Assessment / Plan
78yo M with PMHx of DVT on eliquis, CKD stage 3b, HTN, hyperaldosteronism, Hx of L renal resection 2/2 mertastatic RCC currently on chemo, with metastatic disease to the neck s/p RT in 2023, chronic low back pain since 2013 came with new onset of
vertigo with movement and worsening lower back pain with radiation to both legs.
A/P:
#Vertigo
without hearing chage or ear pain
BPPV vs posterior stroke
MRI brain
PT/OT
CT head without acute findings
Meclizine PRN
#Chronic confusion
since recent cervical Sx in Nov 2023 - had significant postOP delirium
MRI brain ordered
#Hx of RCC with bone and lung mets
#Chronic lower back pain with exacerbations with intermittent L inner thigh numbness
getting SI joint injections
MRI lumbar spine to eval for metastatic disease
CT pelvis: Stable S1 sclerotic lesion. New lytic lesion within the anterior right iliac bone measuring up to 2.0 cm, likely new metastasis. Grossly stable scattered subcutaneous soft tissue nodules measuring up to 2.0 cm, likely metastases.
cont chemo
CT lumbar spine with foraminal stenosis, L3-L4 spurring of endplates with moderate impingement on thecal sac - MRI lumbar spine
Oncology consult
#DM type 2 with neuropathy
Accuchecks, insulin SS, DM diet
#Anemia
#Leukopenia
2/2 chemo, stable
#Hypokalemia
replete and follow
#Hx of DVT
#CKD stage 3b
#Essential HTN
#COPD, not in exacerbation
#HLD
#DM type 2 with neuropathy
#Bipolar d/o
#Chronic HFrEF
#Afib s/p ablation and PPM
#Hx of L5 laminectomy
#Adrenal hypertrhophy with hyperaldosteronism
cont home meds
DVT ppx on Eliquis
Full code
I have spent at least 39min reviewing chart, test results and direct patient care
Anticipated Discharge: > 48 hours
Subjective/Interval History
-
Date of Service: April 02, 2024
Objective Data
-
Labs:
Laboratory Results
04/02/24
07:06
WBC 5.0
Hgb 11.3 L
Hct 33.4 L
Plt Count 197
Vital Signs:
Vital Signs
Temp Pulse Resp BP Pulse Ox
97.7 F 82 16 160/80 99
04/02/24 07:25 04/02/24 08:19 04/02/24 07:25 04/02/24 08:19 04/02/24 07:25
I&O
04/01/24 04/02/24 04/03/24
06:59 06:59 06:59
Intake Total 1380 / 1380
Output Total 925 / 925
Balance 455 / 455
Review of Systems
-
History Source: Patient
All other systems: Reviewed and negative
Neuro: Reports Dizzy
Physical Exam
-
General: No Apparent Distress
Neuro: Awake, Alert, Oriented and AO x 3
Psych: Calm and Confused (chronic)
[2024-04-02] MEDS: NON-FORMULARY ITEM 1 UNIT PO ×2 (11:37→20:17)
[2024-04-02 11:44] VITALS: BP 130/62
[2024-04-02 11:55] LABS: Glucose - Point of Care 211 mg/dl (70-99)
[2024-04-02] MEDS: NOVOLOG FLEXPEN-LOW RESISTANCE 2 UNITS SC (12:59)
--- NOTE | 2024-04-02 14:04 | CON.ONC ---
Impression
Impression
stage IV RCC - tx at [facility] - on Inlyta - Dr. Tinajero
back pain - new osseous metastasis on pelvic CT
Plan
Plan
1. Back pain - new metastatic focus appreciated on pelvic CT
-denies any new neurologic complaints - no weakness or numbness - no bowel or bladder changes
-MRI lumbar spine pending
-cont analgesia - may need to titrate up for pain control
2. Stage IV RCC - tx at [facility]
-on Inlyta - multikinase inhibitor
-per pt some dicussions of addition of keytruda
-will attempt to obtain records from [facility]
Will continue to follow with you.
Patient History
History of Present Illness
78y/o male seen in consultation today regarding h/o metastatic renal cell carcinoma, w/ liver, lung, and bone metastasis.
The patient is currently under the care of Dr. Tinajero at [facility]. He has been treated w/ multikinase therapy - Inlyta for the past several months. Per patient, some discussions were being had about the addition of Keytruda.
The patient has had issues w/ back pain, which progressed, prompting evaluation at the [place] [facility]. CT imaging of the lumbar spine revealed no acute abnormalities. Pelvic CT revealed stable S1 sclerotic lesion. New lytic lesion within the anterior
right iliac bone measuring up to 2.0 cm, likely new metastasis. Grossly stable scattered subcutaneous soft tissue nodules measuring up to 2.0 cm, likely metastases. Due to continued discomfort, MRI lumbar spine is pending for today along w/ MRI
brain.
Clinically, the patient notes continued back pain. He denies any numbness or tingling in his LE. No weakness. He is able to ambulate. No acute changes in bowel or bladder function. No fevers or chills. No singificant diarrhea w/ Inlyta.
Past-Medical/Surgical History
PMH:
stage IV renal cell carcinoma - lung, liver, bone mets - Dr. Tinajero - [facility] - Inlyta
Ventricular Ectopy / Bigeminy / NSVT
Chronic HFpEF
Hypertension
Hyperaldosteronism
History of Renal Oncocytoma
Metastatic Disease to the Lung and Spine
CKD III s/p Nephrectomy
DM-II
BPH
History of Prostate Cancer
PSH:
VT Ablation (12/11/21)
Back Surgery
Cataracts
Left Nephrectomy
Social History
Tobacco: Non-smoker
Alcohol: Occasional
Drug: None
Family History
Family History: Not pertinent
Allergies:
Amiodarone
statins
valsartan
Patient Medication
�Medication �Instructions �Recorded �Confirmed �Last Taken �Type
acetaminophen 325 mg tablet 650 mg PO Q6HPRN PRN mild pain 12/12/23 04/01/24 12/10/23 History
(Tylenol)
acetaminophen 325 mg tablet 650 mg PO TID Pain 12/12/23 04/01/24 12/12/23 History
(Tylenol)
albuterol sulfate 90 mcg/actuation 1 inh inhalation R Q6HPRN PRN copd 12/12/23 04/01/24 Unknown History
aerosol inhaler
allopurinol 300 mg tablet 300 mg PO DAILY Gout 12/12/23 04/01/24 12/12/23 History
alpha lipoic acid 200 mg tablet 600 mg PO MOWEFR@08,12,18 12/12/23 04/01/24 12/12/23 History
Supplement
amlodipine 5 mg tablet (Norvasc) 5 mg PO DAILY Blood Pressure 12/12/23 04/01/24 12/12/23 History
ascorbic acid (vitamin C) 500 mg 500 mg PO DAILY Supplement 12/12/23 04/01/24 12/12/23 History
tablet (Vitamin C)
bisacodyl 10 mg rectal suppository 10 mg OH DAILYPRN PRN if no bm 12/12/23 04/01/24 Unknown History
(Dulcolax (bisacodyl)) aftr mom
cholecalciferol (vitamin D3) 25 25 mcg PO DAILY Supplement 12/12/23 04/01/24 12/12/23 History
mcg (1,000 unit) tablet (Vitamin
D3)
cyclobenzaprine 10 mg tablet 10 mg PO DAILYPRN PRN mucles spasms 12/12/23 04/01/24 12/11/23 History
dextromethorphan polistirex 30 30 ml PO Q8HPRN PRN cough 12/12/23 04/01/24 Unknown History
mg/5 mL oral susp ext.release 12hr
doxazosin 1 mg tablet 1 mg PO HS Blood Pressure 12/12/23 04/01/24 12/11/23 History
fluticasone 500 mcg-salmeterol 50 1 inh inhalation R BIDPRN PRN copd 12/12/23 04/01/24 Unknown History
mcg/dose blistr powdr for
inhalation (Advair Diskus)
folic acid 1 mg tablet 1 mg PO DAILY Supplement 12/12/23 04/01/24 12/12/23 History
furosemide 40 mg tablet (Lasix) 40 mg PO BID Fluid 12/12/23 04/01/24 12/12/23 History
Retention/Swelling
gabapentin 600 mg tablet 300 mg PO HS Neuropathic pain 12/12/23 04/01/24 12/11/23 History
ipratropium 0.5 mg-albuterol 3 mg 3 ml inhalation R DAILY copd 12/12/23 04/01/24 12/12/23 History
(2.5 mg base)/3 mL nebulization
soln
ipratropium 0.5 mg-albuterol 3 mg 3 ml inhalation R Q6HPRN PRN copd 12/12/23 04/01/24 Unknown History
(2.5 mg base)/3 mL nebulization
soln
magnesium hydroxide 400 mg/5 mL 2,400 mg PO [id number] PRN 12/12/23 04/01/24 Unknown History
oral suspension (Milk of Magnesia) constipation
metoprolol succinate 100 mg 100 mg PO DAILY Blood Pressure 12/12/23 04/01/24 12/12/23 History
tablet,extended release 24 hr
(Toprol XL)
probenecid 500 mg-colchicine 0.5 1 tab PO BIDPRN PRN gout 12/12/23 04/01/24 Unknown History
mg tablet
repaglinide 1 mg tablet 1 mg PO TID Diabetes 12/12/23 04/01/24 12/12/23 History
sennosides 8.6 mg tablet (senna) 17.2 mg PO BIDPRN PRN constipation 12/12/23 04/01/24 Unknown History
sodium phosphates 19 gram-7 118 ml OH DAILYPRN PRN if no bm 12/12/23 04/01/24 Unknown History
gram/118 mL enema (Fleet Enema) aftr dulcolax
thiamine HCl (vitamin B1) 100 mg 100 mg PO DAILY Supplement 12/12/23 04/01/24 12/12/23 History
tablet
vitamin B complex 1 tab PO DAILY Supplement 12/12/23 04/01/24 12/12/23 History
benzonatate 100 mg capsule 100 mg PO TID #0 caps 12/14/23 04/01/24 Unknown Rx
tamsulosin 0.4 mg capsule (Flomax) 0.4 mg PO DAILY #14 caps 01/16/24 04/01/24 Unknown Rx
axitinib 1 mg tablet (Inlyta) 3 mg PO BID Antineoplastic Agent 04/01/24 04/01/24 03/31/24 History
ezetimibe 10 mg tablet (Zetia) 10 mg PO HS High Cholesterol 04/01/24 04/01/24 Unknown History
hydroxyzine HCl 10 mg tablet 10 mg PO HS PRN itching 04/01/24 04/01/24 Unknown History
sertraline 25 mg tablet (Zoloft) 25 mg PO DAILY Mental 04/01/24 04/01/24 Unknown History
Health/Anxiety
apixaban 5 mg (74 tabs) tablets in See Rx Instructions .ROUTE 04/02/24 04/01/24 Unknown History
a dose pack (Eliquis DVT-PE Treat .COMPLEX Blood Clot Prevention/Tx
30D Start)
eplerenone 50 mg tablet 50 mg PO BID Blood Pressure 04/02/24 04/02/24 Unknown History
Active Medications
Generic Name Dose Route Start Last Admin
Trade Name Freq PRN Reason Stop Dose Admin
Acetaminophen 650 mg 04/01/24 03:55 04/02/24 08:17
Acetaminophen 325 Mg Tablet PO 04/29/24 03:54 650 mg
Q4HPRN PRN Administration
Mild Pain / Temp > 101
Albuterol 1 puff 04/01/24 15:35
Albuterol Hfa [90 Mcg/Dose] Inhaler INH
R Q6HPRN PRN
copd
Protocol
Albuterol/Ipratropium 3 ml 04/01/24 15:35
Ipratropium 0.5/Albuterol 3 Mg (3 Ml Ampul) INH
R Q6HPRN PRN
copd
Protocol
Allopurinol 300 mg 04/02/24 08:00 04/02/24 08:17
Allopurinol 300 Mg Tablet PO 04/30/24 07:59 300 mg
DAILY HERLINDA Administration
Amlodipine Besylate 5 mg 04/02/24 08:00 04/02/24 08:19
Amlodipine 5 Mg Tablet PO 04/30/24 07:59 5 mg
DAILY HERLINDA Administration
Apixaban 5 mg 04/01/24 08:00 04/02/24 08:18
Apixaban (Eliquis) 5 Mg Tablet PO 04/29/24 07:59 5 mg
BID HERLINDA Administration
Benzonatate 100 mg 04/01/24 16:00 04/02/24 08:18
Benzonatate 100 Mg Capsule PO 04/29/24 15:59 100 mg
TID HERLINDA Administration
Bisacodyl 10 mg 04/01/24 15:35
Bisacodyl 10 Mg Rectal Suppository RECTAL 04/29/24 15:34
DAILYPRN PRN
if no bm aftr mom
Cyclobenzaprine HCl 10 mg 04/01/24 15:35
Cyclobenzaprine 10 Mg Tablet PO 04/29/24 15:34
DAILYPRN PRN
mucles spasms
Dextrose 12.5 grams 04/01/24 03:55
Dextrose 50% (0.5 Grams/Ml) 50 Ml Syringe IV 04/29/24 03:54
[id number] PRN
hypoglycemia
Protocol
Diphenhydramine HCl 25 mg 04/01/24 11:55 04/01/24 12:13
Diphenhydramine 25 Mg Capsule PO 04/29/24 11:54 25 mg
Q8HPRN PRN Administration
itching
Ezetimibe 10 mg 04/01/24 22:00 04/01/24 22:06
Ezetimibe (Zetia) 10 Mg Tablet PO 04/29/24 21:59 10 mg
HS HERLINDA Administration
Folic Acid 1 mg 04/02/24 08:00 04/02/24 08:18
Folic Acid 1 Mg Tablet PO 04/30/24 07:59 1 mg
DAILY HERLINDA Administration
Furosemide 40 mg 04/01/24 16:00 04/02/24 08:18
Furosemide 40 Mg Tablet PO 04/29/24 15:59 40 mg
BID@0800,1600 HERLINDA Administration
Gabapentin 300 mg 04/01/24 22:00 04/01/24 22:06
Gabapentin 300 Mg Capsule PO 04/29/24 21:59 300 mg
HS HERLINDA Administration
Glucagon 1 mg 04/01/24 03:55
Glucagon 1 Mg Vial IM 04/29/24 03:54
PRN PRN
hypoglycemia
Protocol
Hydroxyzine HCl 10 mg 04/01/24 15:35
Hydroxyzine 10 Mg Tablet PO 04/29/24 15:34
HS PRN
itching
Insulin Aspart 0 units 04/01/24 07:30 04/02/24 12:59
Insulin Aspart Low Resistance 300 Units/3 Ml Pen.Injctr SC 04/29/24 07:29 2 units
AC HERLINDA Administration
Protocol
Magnesium Hydroxide 30 ml 04/01/24 15:35
Milk Of Magnesia 30 Ml Cup PO 04/29/24 15:34
[id number] PRN
constipation
Meclizine HCl 12.5 mg 04/01/24 10:00 04/01/24 10:18
Meclizine 12.5 Mg Tablet PO 04/29/24 09:59 12.5 mg
Q8HPRN PRN Administration
vertigo
Metoprolol Succinate 100 mg 04/02/24 08:00 04/02/24 08:19
Metoprolol 100 Mg Extended Release Tablet PO 04/30/24 07:59 100 mg
DAILY HERLINDA Administration
Axitinib [Inlyta] 1 0 mg 04/01/24 20:00 04/02/24 08:16
Mg Tablet; Take 2 PO 04/29/24 19:59 2 mg
Tablets Po Bid BID HERLINDA Administration
Non-Formulary Medication 30 ml 04/01/24 15:35
Dextromethorphan Polistirex PO
Q8HPRN PRN
cough
Eplerenone 50mg 0 unit 04/02/24 11:00 04/02/24 11:37
Tablet Po Bid PO 04/30/24 10:59 1 unit
BID HERLINDA Administration
Oxycodone HCl 5 mg 04/01/24 11:55
Oxycodone 5 Mg Regular Release Tablet PO 04/15/24 11:54
Q6HPRN PRN
severe pain
Repaglinide 1 mg 04/01/24 16:00 04/02/24 08:18
Repaglinide 1 Mg Tablet PO 04/29/24 15:59 1 mg
TID HERLINDA Administration
Fluticasone/Salmeterol 2 puff 04/01/24 18:00
Advair Hfa 230/21 Inhaler INH 04/29/24 17:59
R BIDPRN PRN
copd
Sertraline HCl 25 mg 04/02/24 10:03
Sertraline 25 Mg Tablet PO 04/30/24 07:59
HS HERLINDA
Sodium Chloride 0 flush 04/01/24 05:00
Sodium Chloride 0.9% (Flush) Syringe IV 04/29/24 04:59
PER PROTOCOL HERLINDA
Tamsulosin HCl 0.8 mg 04/02/24 08:00 04/02/24 08:18
Tamsulosin 0.4 Mg Capsule PO 04/30/24 07:59 0.8 mg
DAILY HERLINDA Administration
Thiamine HCl 100 mg 04/02/24 08:00 04/02/24 08:18
Thiamine 100 Mg Tablet PO 04/30/24 07:59 100 mg
DAILY HERLINDA Administration
Vitamin B Complex/Vitamin C 1 caplet 04/02/24 08:00 04/02/24 08:17
Vitamin B Complex With Vitamin C Caplet PO 04/30/24 07:59 1 caplet
DAILY HERLINDA Administration
Review of Systems
-
An ROS was performed w/ pertinent findings as per HPI.
Physical Exam
-
General: Well Developed and No Apparent Distress
HEENT: Negative Jaundice
Cardiology: Normal Sinus Rhythm
Pulmonary: Clear
Extremities: Negative Edema
Neurology: Non Focal
Labs
Lab Results
WBC 5.0 10^3/uL (4.8-10.8) 04/02/24 07:06
RBC 3.77 10^6/uL (4.70-6.10) L 04/02/24 07:06
Hgb 11.3 g/dL (13.0-18.0) L 04/02/24 07:06
Hct 33.4 % (39.0-52.0) L 04/02/24 07:06
MCV 88.6 fL (80.0-94.0) 04/02/24 07:06
MCH 30.0 pg (27.0-31.0) 04/02/24 07:06
MCHC 33.8 g/dL (33.0-37.0) 04/02/24 07:06
RDW 14.7 % (11.5-14.5) H 04/02/24 07:06
Plt Count 197 10^3/uL (130-400) 04/02/24 07:06
MPV 8.9 fL (7.4-10.4) 04/02/24 07:06
Abs Immat Gran (auto) 0.0 10^3/uL (0-0.05) 04/02/24 07:06
Absolute Neuts (auto) 3.3 10^3/uL (1.4-6.5) 04/02/24 07:06
Absolute Lymphs (auto) 1.0 10^3/uL (1.2-3.4) L 04/02/24 07:06
Absolute Monos (auto) 0.3 10^3/uL (0.1-0.6) 04/02/24 07:06
Absolute Eos (auto) 0.3 10^3/uL (0-0.7) 04/02/24 07:06
Absolute Basos (auto) 0.0 10^3/uL (0-0.2) 04/02/24 07:06
Immature Gran % 0.4 % (0-0.5) 04/02/24 07:06
Neutrophils % 67.3 % (42.2-75.2) 04/02/24 07:06
Lymphocytes % 20.3 % (20.5-51.1) L 04/02/24 07:06
Monocytes % 6.0 % (1.7-9.3) 04/02/24 07:06
Eosinophils % 5.6 % (0-6) 04/02/24 07:06
Basophils % 0.4 % (0-2) 04/02/24 07:06
Creatinine 1.4 mg/dL (0.7-1.3) H 04/01/24 05:42
Vital Signs
Vital Signs
Temp Pulse Resp BP Pulse Ox
97.7 F 82 16 130/62 99
04/02/24 07:25 04/02/24 11:44 04/02/24 07:25 04/02/24 11:44 04/02/24 07:25
[2024-04-02 15:25] VITALS: BP 133/73
[2024-04-02 17:22] LABS: Glucose - Point of Care 146 mg/dl (70-99)
[2024-04-02] MEDS: NON-FORMULARY ITEM 3 MG PO (20:16)
[2024-04-02 21:10] LABS: Glucose - Point of Care 178 mg/dl (70-99)
[2024-04-02] MEDS: NEURONTIN 300 MG PO (21:13)
[2024-04-02] MEDS: ZETIA 10 MG PO (21:13)
[2024-04-02] MEDS: ZOLOFT 25 MG PO (21:13)
[2024-04-02] MEDS: FLEXERIL 10 MG PO (23:27)
[2024-04-02 23:31] VITALS: BP 150/73
[2024-04-03 05:12] VITALS: BMI 29.7
[2024-04-03 06:58] VITALS: BP 169/74
[2024-04-03] MEDS: NON-FORMULARY ITEM 2 MG PO ×2 (07:24→20:54)
[2024-04-03] MEDS: NON-FORMULARY ITEM 1 UNIT PO ×2 (07:25→20:53)
[2024-04-03] MEDS: PRANDIN 1 MG PO ×3 (07:25→23:38)
[2024-04-03] MEDS: B COMPLEX w/VITAMIN C 1 CAPLET PO (07:25)
[2024-04-03] MEDS: ZYLOPRIM 300 MG PO (07:25)
[2024-04-03] MEDS: VITAMIN B1 100 MG PO (07:25)
[2024-04-03] MEDS: FLOMAX 0.8 MG PO (07:26)
[2024-04-03] MEDS: TYLENOL 650 MG PO ×2 (07:26→16:57)
[2024-04-03] MEDS: ELIQUIS 5 MG PO ×2 (07:27→20:53)
[2024-04-03] MEDS: NORVASC 5 MG PO (07:27)
[2024-04-03] MEDS: TESSALON PERLES 100 MG PO ×3 (07:27→23:38)
[2024-04-03] MEDS: FOLVITE 1 MG PO (07:27)
[2024-04-03] MEDS: LASIX 40 MG PO ×2 (07:27→16:57)
[2024-04-03] MEDS: TOPROL XL 100 MG PO (07:27)
[2024-04-03 07:42] LABS: Blood Urea Nitrogen 26 mg/dl (9-20); Calcium 9.1 mg/dl (8.4-10.2); Carbon Dioxide 31 mmol/L (22-30); Chloride 101 mmol/L (98-107); Estimated Creatinine Clearance 47 ml/min; Glucose 104 mg/dl (70-99); Potassium 3.8 mmol/L (3.5-5.1); Sodium 142 mmol/L (135-145); eGFR 51.77
[2024-04-03 07:47] LABS: Glucose - Point of Care 110 mg/dl (70-99)
[2024-04-03] MEDS: NOVOLOG FLEXPEN-LOW RESISTANCE SC ×2 (08:12→13:36)
--- NOTE | 2024-04-03 08:59 | W.PN.HOSP.TC ---
Today's Communication/Plan
-
MRI findings noted
Appreciate oncology eval given suspected spine mets
PT/OT, eval for SNF placement
Assessment / Plan
Assessment / Plan
Physical Exam
General: No Apparent Distress
Neuro: Awake, Alert, Oriented and AO x 3. Cranial Nerves, sensation and strength grossly intact bilaterally.
Psych: Calm and Confused (chronic)
Assessment/Plan
78 y/o male with PMHx of DVT on eliquis, CKD stage 3b, HTN, hyperaldosteronism, Hx of L renal resection 2/2 metastatic RCC currently on chemo, with metastatic disease to the neck s/p RT in 2023, chronic low back pain since 2013 came with new onset
of vertigo with movement and worsening lower back pain with radiation to both legs.
#Vertigo
without hearing chage or ear pain
BPPV vs posterior stroke
MRI brain with no acute stoke
MRI Lumbar Spine showed 2 separate intradural masses within the lower lumbar spinal canal, slightly increased from prior with similar differential including meningioma, schwannoma and myxopapillary ependymoma and multilevel degenerative changes of
the lumbar spine as detailed, worst at L4-5 where disc and facet disease contribute to severe spinal canal and moderate neural foraminal stenosis at this level. Findings are overall not significantly changed compared to prior exam 05/18/2023 --
patient should see spine surgeon Dr. Gopi Ureña outpatient. Oncology already on the case and will appreciate their recommendations on the MRI L-Spine findings.
PT/OT
CT head without acute findings
Meclizine PRN
#Chronic confusion
since recent cervical Sx in Nov 2023 - had significant postOP delirium
MRI brain showed likely chronic small vessel ischemic changes and mild mucosal thickening of the bilateral maxillary sinuses.
#Hx of RCC with bone and lung mets
#Chronic lower back pain with exacerbations with intermittent L inner thigh numbness
getting SI joint injections
MRI lumbar spine suggests metastatic disease
CT pelvis: Stable S1 sclerotic lesion. New lytic lesion within the anterior right iliac bone measuring up to 2.0 cm, likely new metastasis. Grossly stable scattered subcutaneous soft tissue nodules measuring up to 2.0 cm, likely metastases.
cont chemo
CT lumbar spine with foraminal stenosis, L3-L4 spurring of endplates with moderate impingement on thecal sac - MRI lumbar spine noted
Oncology consult
#DM type 2 with neuropathy
Accuchecks, insulin SS, DM diet
#Anemia
#Leukopenia
2/2 chemo, stable
#Hypokalemia
replete and follow
#Hx of DVT
#CKD stage 3b
#Essential HTN
#COPD, not in exacerbation
#HLD
#DM type 2 with neuropathy
#Bipolar d/o
#Chronic HFrEF
#Afib s/p ablation and PPM
#Hx of L5 laminectomy
#Adrenal hypertrhophy with hyperaldosteronism
cont home meds
DVT ppx on Eliquis
Full code
Anticipated Discharge: 24 - 48 hours
Subjective/Interval History
-
Date of Service: April 03, 2024
Patient was seen and examined. He reported that he is doing okay, dizziness is only sometimes now, he is able to ambulate with a rolling walker, with assistance.
Objective Data
-
Labs:
Laboratory Results
04/03/24
06:30
Sodium 142
Potassium 3.8
Chloride 101
Carbon Dioxide 31 H
BUN 26 H
Creatinine 1.4 H
Glucose 104 H
Calcium 9.1
Vital Signs:
Vital Signs
Temp Pulse Resp BP Pulse Ox
97.6 F 82 18 169/74 93
04/03/24 06:58 04/03/24 07:27 04/03/24 06:58 04/03/24 07:27 04/03/24 06:58
I&O
04/02/24 04/03/2404/04/25
06:59 06:59 06:59
Intake Total 1380 / 1380 860 / 860
Output Total 925 / 925
Balance 455 / 455 860 / 860
--- NOTE | 2024-04-03 11:47 | W.PN.ONC ---
Today's Communication / Plan
-
Obtain additional imaging via MRI
MRI brain, MRI lumbar spine pending
Pain control per primary, may need up titration of opiate pain medication
Plan on referring to [facility] for palliative radiation to bone mets
Impression
Impression
stage IV RCC - tx at [facility] - on Inlyta - Dr. Tinajero
back pain - new osseous metastasis on pelvic CT
Plan
Plan
# Back pain
History stage IV renal cell carcinoma with mets to the liver, lung and bone
Now with new metastatic focus appreciated on pelvic CT
Patient denies any new neurologic complaints - no weakness or numbness - no bowel or bladder changes
MRI lumbar spine pending
MRI brain pending
cont analgesia per primary, may need to titrate up for pain control
Will recommend follow-up at [facility] to see radiation oncology for palliative radiation to new bony mets for analgesia
#Stage IV RCC
Receives treatment at [facility] followed by Dr. Tinajero
on Inlyta - multikinase inhibitor
per pt some dicussions of addition of keytruda
will attempt to obtain records from [facility])
Subjective/Objective
Subjective/Objective
Patient in MRI during visit
Vital Signs:
Vital Signs
Temp Pulse Resp BP Pulse Ox
97.6 F 82 18 169/74 93
04/03/24 06:58 04/03/24 07:27 04/03/24 06:58 04/03/24 07:27 04/03/24 06:58
Lab Results:
Laboratory Data
WBC 5.0 10^3/uL (4.8-10.8) 04/02/24 07:06
Hgb 11.3 g/dL (13.0-18.0) L 04/02/24 07:06
Plt Count 197 10^3/uL (130-400) 04/02/24 07:06
eGFR 51.77 04/03/24 06:30
[2024-04-03 13:27] LABS: Glucose - Point of Care 114 mg/dl (70-99)
--- NOTE | 2024-04-03 16:31 | CM ---
tt from [facility] - patient LOC to inpatient
IMM explained & signed. In chart
PT rec Home Health
Options given [facility] preferred
Referral placed in [facility] - notified Liaison
PLAN; home, [facility]
[2024-04-03 16:33] LABS: Glucose - Point of Care 159 mg/dl (70-99)
[2024-04-03] MEDS: NOVOLOG FLEXPEN-LOW RESISTANCE 1 UNITS SC (17:00)
[2024-04-03 19:29] VITALS: BP 124/68
[2024-04-03 21:54] LABS: Glucose - Point of Care 229 mg/dl (70-99)
[2024-04-03] MEDS: ZOLOFT 25 MG PO (23:38)
[2024-04-03] MEDS: ZETIA 10 MG PO (23:38)
[2024-04-03] MEDS: NEURONTIN 300 MG PO (23:38)
[2024-04-03 23:49] VITALS: BP 109/61
[2024-04-04 03:26] VITALS: BP 146/71
[2024-04-04 06:00] VITALS: BMI 29.5
--- NOTE | 2024-04-04 07:36 | W.PN.HOSP.TC ---
Today's Communication/Plan
-
Discharge today
Assessment / Plan
Assessment / Plan
Physical Exam
General: No Apparent Distress
Neuro: Awake, Alert, Oriented and AO x 3. Cranial Nerves, sensation and strength grossly intact bilaterally.
Psych: Calm and Confused (chronic)
Assessment/Plan
78 y/o male with PMHx of DVT on eliquis, CKD stage 3b, HTN, hyperaldosteronism, Hx of L renal resection 2/2 metastatic RCC currently on chemo, with metastatic disease to the neck s/p RT in 2023, chronic low back pain since 2013 came with new onset
of vertigo with movement and worsening lower back pain with radiation to both legs.
#Vertigo
without hearing chage or ear pain
BPPV vs posterior stroke
MRI brain with no acute stoke
MRI Lumbar Spine showed 2 separate intradural masses within the lower lumbar spinal canal, slightly increased from prior with similar differential including meningioma, schwannoma and myxopapillary ependymoma and multilevel degenerative changes of
the lumbar spine as detailed, worst at L4-5 where disc and facet disease contribute to severe spinal canal and moderate neural foraminal stenosis at this level. Findings are overall not significantly changed compared to prior exam 05/18/2023 --
patient should see spine surgeon Dr. Gopi Ureña outpatient. Oncology already on the case and will appreciate their recommendations on the MRI L-Spine findings.
PT/OT
CT head without acute findings
Meclizine PRN
Pain control with Tylenol
Meghan Cooley (rad onc) will see him as outpatient yenni to plan radiation for the Lspine lesions
#Chronic confusion
since recent cervical Sx in Nov 2023 - had significant postOP delirium
MRI brain showed likely chronic small vessel ischemic changes and mild mucosal thickening of the bilateral maxillary sinuses.
#Hx of RCC with bone and lung mets
#Chronic lower back pain with exacerbations with intermittent L inner thigh numbness
getting SI joint injections
MRI lumbar spine suggests metastatic disease
CT pelvis: Stable S1 sclerotic lesion. New lytic lesion within the anterior right iliac bone measuring up to 2.0 cm, likely new metastasis. Grossly stable scattered subcutaneous soft tissue nodules measuring up to 2.0 cm, likely metastases.
cont chemo
CT lumbar spine with foraminal stenosis, L3-L4 spurring of endplates with moderate impingement on thecal sac - MRI lumbar spine noted
Oncology consult
#DM type 2 with neuropathy
Accuchecks, insulin SS, DM diet
#Anemia
#Leukopenia
2/2 chemo, stable
#Hypokalemia
replete and follow
#Hx of DVT
#CKD stage 3b
#Essential HTN
#COPD, not in exacerbation
#HLD
#DM type 2 with neuropathy
#Bipolar d/o
#Chronic HFrEF
#Afib s/p ablation and PPM
#Hx of L5 laminectomy
#Adrenal hypertrhophy with hyperaldosteronism
cont home meds
DVT ppx on Eliquis
Full code
More than 30 minutes spent in discharge including
Final examination of the patient
Summarizing hospital stay
Instructions for continuing care to all relevant caregivers
Preparation of discharge records, prescriptions, and referral forms
Total time spent (in minutes): 35
Anticipated Discharge: Today
Subjective/Interval History
-
Date of Service: April 04, 2024
Patient was seen and examined. He reported mild pain but otherwise denied any other new symptoms or complaints.
Objective Data
-
Vital Signs:
Vital Signs
Temp Pulse Resp BP Pulse Ox
98.2 F 91 19 146/71 96
04/04/24 03:26 04/04/24 03:26 04/04/24 03:26 04/04/24 03:26 04/04/24 03:26
I&O
04/03/24 04/04/24 04/05/24
06:59 06:59 06:59
Intake Total 860 / 860 520 / 520
Balance 860 / 860 520 / 520
[2024-04-04 07:48] LABS: Glucose - Point of Care 130 mg/dl (70-99)
[2024-04-04 07:49] VITALS: BP 145/82
--- NOTE | 2024-04-04 08:27 | W.PN.ONC ---
Today's Communication / Plan
-
Reviewed Lspine CT images personally, d/w radiology. Though rare, I suspect the intradural lesions are metastases from his metastatic renal cell cancer.
Findings on pelvis CT do not align with his pain location
Case d/w Dr. Meghan Cooley ([facility] onc, [facility]) and Dr. Tip Tinajero at ([facility] onc, [facility])
Suspect he'll benefit from palliative radiation - will assist w/ arranging appt to see Dr. Yasir foster
Continue Tylenol for pain control, could consider adding steroids if needed
OOB, PT evaluation recommended
Continues on Inlyta for systemic therapy, with reports of consideration to add Keytruda (immunotherapy)
He has f/u with Dr. Tinajero on 04/18/24
d/c planning
Impression
Impression
stage IV RCC - tx at [facility] - on Inlyta - Dr. Tinajero
back pain - localizes to left low back/upper sacrum, without radiation, saddle anesthesia, ambulatory dysfunction, bowel/bladder symptoms; controlled w/ Tylenol
Pelvic CT shows new right anterior iliac bone lesion, stable S1 lesion
Plan
Plan
Reviewed Lspine CT images personally, d/w radiology. Though rare, I suspect the intradural lesions are metastases from his metastatic renal cell cancer.
Findings on pelvis CT do not align with his pain location
Case d/w Dr. Meghan Cooley (rad onc, [facility]) and Dr. Tip Tinajero at ([facility] onc, [facility])
Suspect he'll benefit from palliative radiation - will assist w/ arranging appt to see Dr. Yasir foster
Continue Tylenol for pain control, could consider adding steroids if needed
OOB, PT evaluation recommended
Continues on Inlyta for systemic therapy, with reports of consideration to add Keytruda (immunotherapy)
He has f/u with Dr. Tinajero on 04/18/24
Subjective/Objective
Subjective/Objective
describes back pain as localized to low back, just to the left of midline. No radiation of pain, no saddle anesthesia, no ambulatory dysfunction (except one episode last week when he had trouble walking), no bowel or bladder dysfunction. Tylenol is
helping.
Vital Signs:
Vital Signs
Temp Pulse Resp BP Pulse Ox
98.1 F 90 17 145/82 94
04/04/24 07:49 04/04/24 07:49 04/04/24 07:49 04/04/24 07:49 04/04/24 07:49
Lab Results:
Laboratory Data
WBC 5.0 10^3/uL (4.8-10.8) 04/02/24 07:06
Hgb 11.3 g/dL (13.0-18.0) L 04/02/24 07:06
Plt Count 197 10^3/uL (130-400) 04/02/24 07:06
eGFR 51.77 04/03/24 06:30
[2024-04-04 08:39] LABS: % Basophils 0.5 % (0-2); % Eosinophils 6.1 % (0-6); % Immature Granulocytes 0.2 % (0-0.5); % Lymphocytes 21.6 % (20.5-51.1); % Monocytes 6.6 % (1.7-9.3); Absolute Eosinophils 0.3 10^3/uL (0-0.7); Absolute Monocytes 0.3 10^3/uL (0.1-0.6); Absolute Neutrophils 2.9 10^3/uL (1.4-6.5); Hematocrit 34.2 % (39.0-52.0); Hemoglobin 11.6 g/dL (13.0-18.0); Mean Corp Hgb Conc. 33.9 g/dL (33.0-37.0); Mean Corpuscular Hgb 30.2 pg (27.0-31.0); Mean Corpuscular Volume 89.1 fL (80.0-94.0); Mean Platelet Volume 9.1 fL (7.4-10.4); Nucleated Red Blood Cells % 0 % (-); Platelet Count 206 10^3/uL (130-400); Red Blood Cell Count 3.84 10^6/uL (4.70-6.10); Red Cell Dist. Width 14.7 % (11.5-14.5); White Blood Cell Count 4.4 10^3/uL (4.8-10.8)
[2024-04-04] MEDS: NOVOLOG FLEXPEN-LOW RESISTANCE SC ×2 (08:40→17:12)
[2024-04-04] MEDS: B COMPLEX w/VITAMIN C 1 CAPLET PO (08:41)
[2024-04-04] MEDS: ZYLOPRIM 300 MG PO (08:41)
[2024-04-04] MEDS: NORVASC 5 MG PO (08:41)
[2024-04-04] MEDS: FOLVITE 1 MG PO (08:41)
[2024-04-04] MEDS: ELIQUIS 5 MG PO (08:41)
[2024-04-04] MEDS: VITAMIN B1 100 MG PO (08:41)
[2024-04-04] MEDS: FLOMAX 0.8 MG PO (08:41)
[2024-04-04] MEDS: PRANDIN 1 MG PO ×2 (08:41→17:13)
[2024-04-04] MEDS: LASIX 40 MG PO ×2 (08:41→17:13)
[2024-04-04] MEDS: TESSALON PERLES 100 MG PO (08:41)
[2024-04-04] MEDS: TOPROL XL 100 MG PO (08:41)
[2024-04-04] MEDS: NON-FORMULARY ITEM 2 MG PO (08:42)
[2024-04-04] MEDS: NON-FORMULARY ITEM 1 UNIT PO ×2 (08:42→11:29)
[2024-04-04 09:01] LABS: Blood Urea Nitrogen 26 mg/dl (9-20); Calcium 9.4 mg/dl (8.4-10.2); Carbon Dioxide 29 mmol/L (22-30); Chloride 100 mmol/L (98-107); Estimated Creatinine Clearance 44 ml/min; Glucose 126 mg/dl (70-99); Potassium 3.5 mmol/L (3.5-5.1); Sodium 139 mmol/L (135-145); eGFR 47.65
--- NOTE | 2024-04-04 09:06 | VNURNOTE ---
Home Health Liaison met with patient at bedside to discuss [facility] nurse/therapy, visits, schedule and homebound status. Patient is agreeable and understands that visits at home will be 2-3 x per week to assess and teach medical management. [facility]
brochure provided with contact information. Patient is aware that [facility] will contact them for start of care in 1-2 days after discharge from .
[facility] referral completed in [facility].
[2024-04-04 11:35] VITALS: BP 147/87
[2024-04-04] MEDS: TYLENOL 650 MG PO (12:05)
[2024-04-04 12:11] LABS: Glucose - Point of Care 170 mg/dl (70-99)
[2024-04-04] MEDS: NOVOLOG FLEXPEN-LOW RESISTANCE 1 UNITS SC (12:22)
--- NOTE | 2024-04-04 14:36 | CM ---
Addendum entered by Fariba Almaraz RN 04/04/24 15:19:
IMM reviewed.
Original Note:
Reviewed the chart notes. CM continues to be available to patient/family and is monitoring medical plan for needs at discharge.
Plan: Discharge to home with [facility] services.
[2024-04-04 14:47] VITALS: BP 108/64; BP 113/75; PULSE 92; PULSE 95
[2024-04-04 15:40] VITALS: BP 128/75
[2024-04-04] MEDS: TESSALON PERLES PO (17:12)
== END 2024-04-04 19:01 | disposition home health service (06) | DRG 543 ==
LOC: 2 NORTH 11:23
PROVIDERS: Internal Medicine; Nurse Practitioner; ADMITTING PHYSICIAN Hospitalist; ATTENDING PHYSICIAN Hospitalist; CONSULT PHYSICIAN Internal Medicine Hematology & Oncology; EMERGENCY PHYSICIAN Emergency Medicine; FAMILY PHYSICIAN Hospitalist
DX: C79.51 Secondary malignant neoplasm of bone (principal); C64.2 Malignant neoplasm of left kidney, except renal pelvis; C78.00 Secondary malignant neoplasm of unspecified lung; I50.32 Chronic diastolic (congestive) heart failure; I13.0 Hypertensive heart and chronic kidney disease with heart failure and stage 1 through stage 4 chronic kidney disease, or unspecified chronic kidney disease; N18.32 Chronic kidney disease, stage 3b; E26.9 Hyperaldosteronism, unspecified; J44.89 Other specified chronic obstructive pulmonary disease; F41.9 Anxiety disorder, unspecified; F31.9 Bipolar disorder, unspecified; E11.40 Type 2 diabetes mellitus with diabetic neuropathy, unspecified; Z86.718 Personal history of other venous thrombosis and embolism; E87.6 Hypokalemia; D64.81 Anemia due to antineoplastic chemotherapy; D70.1 Agranulocytosis secondary to cancer chemotherapy; E11.22 Type 2 diabetes mellitus with diabetic chronic kidney disease; E78.00 Pure hypercholesterolemia, unspecified; G25.81 Restless legs syndrome; G47.33 Obstructive sleep apnea (adult) (pediatric); K21.9 Gastro-esophageal reflux disease without esophagitis; K58.9 Irritable bowel syndrome, unspecified; M10.9 Gout, unspecified; M47.819 Spondylosis without myelopathy or radiculopathy, site unspecified; M54.40 Lumbago with sciatica, unspecified side; N40.0 Benign prostatic hyperplasia without lower urinary tract symptoms; Z79.01 Long term (current) use of anticoagulants; Z79.899 Other long term (current) drug therapy; Z85.46 Personal history of malignant neoplasm of prostate; Z90.5 Acquired absence of kidney; Z11.52 Encounter for screening for COVID-19; R42 Dizziness and giddiness
CPT/HCPCS: 70450; 70551; 71045; 72148; 72192; 80048; 80053; 81003; 81015; 82962; 83036; 83735; 85025; 85027; 87070; 87502; 87811; 97162; 97166; 97530; 99284

== ENCOUNTER → 2024-04-15 10:59 | Outpatient (REF) | payer MEDICARE, BC, SELFPAY ==
[2024-04-15 11:35] LABS: % Basophils 0.5 % (0-2); % Eosinophils 4.4 % (0-6); % Immature Granulocytes 0.3 % (0-0.5); % Lymphocytes 11.8 % (20.5-51.1); % Monocytes 3.6 % (1.7-9.3); % Neutrophils 79.4 % (42.2-75.2); Absolute Eosinophils 0.3 10^3/uL (0-0.7); Absolute Lymphocytes 0.7 10^3/uL (1.2-3.4); Absolute Monocytes 0.2 10^3/uL (0.1-0.6); Absolute Neutrophils 4.9 10^3/uL (1.4-6.5); Hematocrit 40.9 % (39.0-52.0); Hemoglobin 12.9 g/dL (13.0-18.0); Mean Corp Hgb Conc. 31.5 g/dL (33.0-37.0); Mean Corpuscular Volume 91.9 fL (80.0-94.0); Mean Platelet Volume 8.5 fL (7.4-10.4); Nucleated Red Blood Cells % 0 % (-); Platelet Count 201 10^3/uL (130-400); Red Blood Cell Count 4.45 10^6/uL (4.70-6.10); Red Cell Dist. Width 15.9 % (11.5-14.5); White Blood Cell Count 6.2 10^3/uL (4.8-10.8)
[2024-04-15 11:50] LABS: ALT (SGPT) 11 U/L (0-50); AST (SGOT) 16 U/L (17-59); Albumin 4.3 g/dl (3.5-5.0); Alkaline Phosphatase 90 U/L (38-126); Blood Urea Nitrogen 23 mg/dl (9-20); Calcium 10.1 mg/dl (8.4-10.2); Carbon Dioxide 26 mmol/L (22-30); Chloride 105 mmol/L (98-107); Glucose 143 mg/dl (70-99); Potassium 4.5 mmol/L (3.5-5.1); Sodium 140 mmol/L (135-145); Total Protein 6.2 g/dl (6.3-8.2); eGFR 47.65
== END ==
LOC: REG 10:59
PROVIDERS: ATTENDING PHYSICIAN Internal Medicine; FAMILY PHYSICIAN Internal Medicine; REFERRING PHYSICIAN Physician Assistant Surgical
DX: C64.9 Malignant neoplasm of unspecified kidney, except renal pelvis (principal); C64.2 Malignant neoplasm of left kidney, except renal pelvis
CPT/HCPCS: 36415; 80053; 85025

== ENCOUNTER → 2024-04-24 15:02 | Outpatient (REF) | payer MEDICARE, BC, SELFPAY | LOC: HWRAD 15:02 | PROVIDERS: ATTENDING PHYSICIAN Neurological Surgery; FAMILY PHYSICIAN Internal Medicine | DX: C64.9 Malignant neoplasm of unspecified kidney, except renal pelvis (principal); C79.51 Secondary malignant neoplasm of bone | CPT/HCPCS: 72125 ==

== ENCOUNTER → 2024-05-02 10:45 | Outpatient (REF) | payer MEDICARE, BC, SELFPAY ==
[2024-05-02 11:55] LABS: % Basophils 0.4 % (0-2); % Eosinophils 2.2 % (0-6); % Immature Granulocytes 0.3 % (0-0.5); % Lymphocytes 14.6 % (20.5-51.1); % Monocytes 5.7 % (1.7-9.3); % Neutrophils 76.8 % (42.2-75.2); Absolute Eosinophils 0.2 10^3/uL (0-0.7); Absolute Lymphocytes 1.4 10^3/uL (1.2-3.4); Absolute Monocytes 0.5 10^3/uL (0.1-0.6); Absolute Neutrophils 7.1 10^3/uL (1.4-6.5); Hematocrit 43.9 % (39.0-52.0); Hemoglobin 14.3 g/dL (13.0-18.0); Mean Corp Hgb Conc. 32.6 g/dL (33.0-37.0); Mean Corpuscular Hgb 29.4 pg (27.0-31.0); Mean Corpuscular Volume 90.1 fL (80.0-94.0); Mean Platelet Volume 10.4 fL (7.4-10.4); Nucleated Red Blood Cells % 0 % (-); Platelet Count 269 10^3/uL (130-400); Red Blood Cell Count 4.87 10^6/uL (4.70-6.10); Red Cell Dist. Width 16.1 % (11.5-14.5); White Blood Cell Count 9.2 10^3/uL (4.8-10.8)
[2024-05-02 12:17] LABS: ALT (SGPT) 29 U/L (0-50); AST (SGOT) 21 U/L (17-59); Albumin 4.5 g/dl (3.5-5.0); Alkaline Phosphatase 123 U/L (38-126); Blood Urea Nitrogen 70 mg/dl (9-20); Calcium 9.9 mg/dl (8.4-10.2); Carbon Dioxide 24 mmol/L (22-30); Chloride 98 mmol/L (98-107); Glucose 313 mg/dl (70-99); Potassium 3.9 mmol/L (3.5-5.1); Sodium 138 mmol/L (135-145); Total Bilirubin 1.8 mg/dl (0.2-1.3); Total Protein 6.6 g/dl (6.3-8.2); eGFR 35.88
== END ==
LOC: RAD 10:45
PROVIDERS: ATTENDING PHYSICIAN Internal Medicine; FAMILY PHYSICIAN Internal Medicine
DX: C64.9 Malignant neoplasm of unspecified kidney, except renal pelvis (principal)
CPT/HCPCS: 36415; 71260; 74177; 80053; 85025; Q9967

== ENCOUNTER 2024-06-06 17:22 | Observation (INO) | payer BC, SELFPAY ==
[2024-06-06] VITALS (10 sets, daily range): BP systolic 119–182; BP diastolic 76–118; PULSE 80; BMI 28.3
--- NOTE | 2024-06-06 13:17 | ED.GENMED ---
History of Present Illness
<Elayne Byrne PA-C - Last Filed: 06/07/24 10:55>
General
Chief Complaint: Weakness
Source: patient and ambulance crew
Exam Limitations: none
Time Seen by Provider: 06/06/24 13:03
History of Present Illness
History of Present Illness:
78yoM with a history of metastatic renal cell carcinoma on Inlyta (receives care at [facility]), atrial fibrillation, CHF, hypertension, hyperlipidemia, type 2 diabetes, CKD, and ICD placement presenting via EMS for evaluation of generalized
weakness. Patient woke up this morning and was feeling confused. He is also feeling generally weak which he has been feeling for the past several months. He has not been eating or drinking much and feels dehydrated. He is not sure if he urinated
today. He feels somewhat short of breath which is also chronic for him. Additionally, he has a slight headache. He denies any chest pain, abdominal pain, vomiting, diarrhea, fevers. states he was recently hospitalized at [facility] about 1.5
weeks ago for dehydration.
Past History
<Elayne Byrne PA-C - Last Filed: 06/07/24 10:55>
Past History
ED Past Medical History: Asthma, Cancer (Kidney, Prostate), CHF, COPD, GERD, HTN, Hypercholesterolemia, NIDDM, Renal failure (Chronic kidney disease stage IIIb. Creatinine baseline 1.7), Psychiatric (bipolar, anxiety) and Other (Obstructive sleep
apnea, Cellulitis, Adrenal gland growth, Neck and back pain, Sciatica, restless leg syndrome. IBS, Anemia, Hypospadias)
ED Past Surgical History: Cardiac (pacer/defib, Ablation X 2), Orthopedic (L5 framiotomy), Urological (Left nephrectomy d/t cancer 2019) and Other (Lung mass biopsy positive for renal cell carcinoma metastasis, Right strabismus repair, )
Patient has exhibited threatening behavior?: No
PSI?: No
Social History
Tobacco: Non-smoker
Alcohol: None
Drug: None
Personal:
Living: custodial
Employment: Employed
Family History
Family History: Other (Noncontributory)
Phy Exam
<Elayne Byrne PA-C - Last Filed: 06/07/24 10:55>
Physical Exam
Physical Exam:
Chronically ill appearing, no acute distress
General Physical Exam
General Presentation: no apparent distress
General Skin: warm and dry
General Habitus: elderly
General Mental: alert
General Hydration: dry mucous membranes
ENT Exam
ENT Exam: normocephalic
Cardiovascular Exam
Cardiovascular Exam: regular rate/rhythm
Pulmonary Exam
Pulmonary Exam: lungs clear, no respiratory distress, no rales, no crackles, no rhonchi and no wheezing
Gastrointestinal Exam
Gastrointestinal Exam: non tender, soft and non distended
Neurological Exam
Neurological Exam: alert, oriented x3, no motor deficits and other (Oriented to person, place, and time. Able to state the exact date.)
[place] Coma Scale
Eye Opening: Spontaneous
Verbal Response: Oriented
Motor Response: Obeys Commands
GCS Total Score: 15
Skin Exam
Skin Exam: normal color and warm/dry
Course
<Elayne Byrne PA-C - Last Filed: 06/07/24 10:55>
Orders/Labs/Results
Orders:
Orders
06/06/24 13:11
Electrocardiogram (*1) Urgent
Reason for Study: Fatigue / Weakness
EKG- Treatment ONCE
06/06/24 13:16
CT Head W/o Iv Contrast Urgent
Comment:
Reason For Exam: confusion
Cardiac Monitoring- Treatment ONCE
06/06/24 13:26
Complete Blood Count/With Diff Urgent
Comprehensive Metabolic Panel Urgent
Magnesium Urgent
Troponin I Urgent
06/06/24 14:02
PT Consult [Pt Eval And Treat] Urgent
Activity Level: Out of Bed-Early Mobility
06/06/24 14:15
COVID-19 Antigen Urgent
Source: Nasal Swab
Influenza A+B Rapid Molecular Urgent
OLIVIA Source: Nasal Swab
Specimen Description:
06/06/24 Dinner
Cholesterol Lowering
At Your Request: Full Participation
Cholesterol Lowering: Sodium, 2 Gram
06/06/24 15:48
0.9% Sodium Chloride 500 ml [Nss] 500 ml IV BOLUS
CR Forearm - Right 2 View Urgent
Comment:
Reason For Exam: pain
06/06/24 15:52
Straight cath- Treatment ONCE
06/06/24 15:54
Case Management Consult ONCE
Case Management Consult: Discharge Planning
06/06/24 17:02
Admit/Transfer Patient As Directed
Co-Sign Provider:
Level of Care: Observation services
Assign to:: Medical/Surgical
Physician / Group: deidra amin
Diagnosis: gen weakness 2/2 volume depletion, hx renal ca mets c-spine,lung,,lumbar
Code Status As Directed
Resuscitation Status: Do not resuscitate
Reached after discussion with pt or family/Healthcare POA: Yes
Based on pt advanced directive or healthcare POA form: Yes
Decision communicated with: Per patient with Iveth and attending Dr. Amin at bedside
DNR Bracelet Application ONCE
06/06/24 17:09
PRN Pain Medication Management As Directed
May give lesser potent ordered pain med per pt: Yes
preference::
Protocol:: Medication orders for pain may be administered in a
manner that supports deferring to patient preference
when the pt is:
- Requesting an ordered lesser potent pain medication.
Least to most potent pain medications are defined
as: acetaminophen < NSAID < tramadol < opioids
(morphine, oxycodone, hydromorphone).
- Requesting a lesser dose of the same medication IF
ORDERED.
- Requesting a less intrusive route of administration
if both routes are prescribed by the provider (PO <
IV).
06/06/24 17:29
Urinalysis Reflex To Culture Urgent
Date Specimen was Collected: 06/06/24
Time Specimen was Collected: 15:08
Urine Microscopic Reflex Cult Urgent
06/06/24 20:16
0.9% Sodium Chloride 1000 ml [Nss] 1,000 ml IV 60 mls/hr
Dextrose 50%-Water [Dextrose 50% Syringe] 12.5 grams IV [id number] PRN
Glucagon [GlucaGen] 1 mg IM PRN PRN
Metoprolol Xl [Toprol Xl] 100 mg PO BID
Ondansetron Injectable [Zofran] 4 mg IV Q6HPRN PRN
Oxycodone [Roxicodone] 5 mg PO Q4
06/06/24 20:16
DIETARY IP CONSULT Routine
Reason for Consult: Decreased appetite only drinking 24 ounces a day
VTE Contraindication Routine
VTE Mechanical Device Contraindication: Medical Contraindication
Pharmocologic Contraindication: Medical Contraindication
Comment: Patient on Eliquis
Activity As Directed
Activity Level: With Assistance
Comment: Uses walker
Bedside Glucose Monitoring As Directed
Frequency: AC&HS
Additional Instructions:: Change to q6h if pt on TPN, tube feeding or not eating
Buprenorphine Patch Confirmation BID@0700,1900
Intake/ Output As Directed
Frequency: Per unit guidelines
Precautions As Directed
Type of Precautions: Other
Comment: Fall
Vital Signs As Directed
Frequency: Per unit guidelines
Weight As Directed
Frequency: Daily
06/06/24 20:29
Cyclobenzaprine HCl [Flexeril] 5 mg PO TIDPRN PRN
06/06/24 20:30
Apixaban [Eliquis] 5 mg PO BID
06/06/24 21:00
Eplerenone [Inspra] 50 mg PO BID AT 0800,1600
Sertraline HCl [Zoloft] 50 mg PO QPM
06/06/24 22:00
Acetaminophen [Tylenol] 975 mg PO TID
Ezetimibe [Zetia] 10 mg PO HS
06/06/24 23:00
axitinib [Inlyta] See Dose Instructions PO BID
06/07/24 07:30
Insulin Aspart Corrective Low [Novolog Flexpen-Low Resistance] See Protocol SC AC
06/07/24 08:00
Allopurinol [Zyloprim] 300 mg PO DAILY
Amlodipine [Norvasc] 10 mg PO DAILY
FOLic ACID [Folvite] 1 mg PO DAILY
06/07/24 09:36
Complete Blood Count/With Diff IN AM
Comprehensive Metabolic Panel IN AM
Glycohemoglobin (HgbA1c) IN AM
06/12/24 08:00
Pt Own Bupren Patch 5 Mcg/Hr [Butrans 5 Mcg/Hr Patch Patient Own] 1 patch TRANSDERM MO
Remove Pt Own Buprenorph Patch [Remove Pt Own Butrans Patch] See Dose Instructions REMOVE Q7D
Abnormal Lab Results
06/06/24
13:26
WBC 4.5 L 10^3/uL
(4.8-10.8)
RBC 4.18 L 10^6/uL
(4.70-6.10)
Hgb 12.5 L g/dL
(13.0-18.0)
Hct 36.7 L %
(39.0-52.0)
RDW 16.4 H %
(11.5-14.5)
Absolute Lymphs (auto) 0.6 L 10^3/uL
(1.2-3.4)
Neutrophils % 76.1 H %
(42.2-75.2)
Lymphocytes % 12.8 L %
(20.5-51.1)
BUN 30 H mg/dl
(9-20)
Glucose 158 H mg/dl
(70-99)
Total Protein 5.7 L g/dl
(6.3-8.2)
06/06/24 13:26
06/06/24 13:26
Vital Signs
Initial and Last Documented VS:
Initial Vital Signs
Pulse Resp BP Pulse Ox
81 20 156/98 98
06/06/24 13:06 06/06/24 13:06 06/06/24 13:06 06/06/24 13:06
Last Documented Vital Signs
Temp Pulse Resp BP Pulse Ox
98.5 F 82 24 181/94 97
06/07/24 07:30 06/07/24 09:54 06/07/24 07:30 06/07/24 09:54 06/07/24 07:30
<Carmel Purcell MD - Last Filed: 06/06/24 14:00>
Orders/Labs/Results
Orders:
Orders
06/06/24 13:11
Electrocardiogram (*1) Urgent
Reason for Study: Fatigue / Weakness
EKG- Treatment ONCE
06/06/24 13:16
CT Head W/o Iv Contrast Urgent
Comment:
Reason For Exam: confusion
Cardiac Monitoring- Treatment ONCE
06/06/24 13:26
Complete Blood Count/With Diff Urgent
Comprehensive Metabolic Panel Urgent
Magnesium Urgent
Troponin I Urgent
06/06/24 14:02
PT Consult [Pt Eval And Treat] Urgent
Activity Level: Out of Bed-Early Mobility
06/06/24 14:15
COVID-19 Antigen Urgent
Source: Nasal Swab
Influenza A+B Rapid Molecular Urgent
OLIVIA Source: Nasal Swab
Specimen Description:
06/06/24 Dinner
Cholesterol Lowering
At Your Request: Full Participation
Cholesterol Lowering: Sodium, 2 Gram
06/06/24 15:48
0.9% Sodium Chloride 500 ml [Nss] 500 ml IV BOLUS
CR Forearm - Right 2 View Urgent
Comment:
Reason For Exam: pain
06/06/24 15:52
Straight cath- Treatment ONCE
06/06/24 15:54
Case Management Consult ONCE
Case Management Consult: Discharge Planning
06/06/24 17:02
Admit/Transfer Patient As Directed
Co-Sign Provider:
Level of Care: Observation services
Assign to:: Medical/Surgical
Physician / Group: deidra amin
Diagnosis: gen weakness 2/2 volume depletion, hx renal ca mets c-spine,lung,,lumbar
Code Status As Directed
Resuscitation Status: Do not resuscitate
Reached after discussion with pt or family/Healthcare POA: Yes
Based on pt advanced directive or healthcare POA form: Yes
Decision communicated with: Per patient with Iveth and attending Dr. Amin at bedside
DNR Bracelet Application ONCE
06/06/24 17:09
PRN Pain Medication Management As Directed
May give lesser potent ordered pain med per pt: Yes
preference::
Protocol:: Medication orders for pain may be administered in a
manner that supports deferring to patient preference
when the pt is:
- Requesting an ordered lesser potent pain medication.
Least to most potent pain medications are defined
as: acetaminophen < NSAID < tramadol < opioids
(morphine, oxycodone, hydromorphone).
- Requesting a lesser dose of the same medication IF
ORDERED.
- Requesting a less intrusive route of administration
if both routes are prescribed by the provider (PO <
IV).
06/06/24 17:29
Urinalysis Reflex To Culture Urgent
Date Specimen was Collected: 06/06/24
Time Specimen was Collected: 15:08
Urine Microscopic Reflex Cult Urgent
06/06/24 20:16
0.9% Sodium Chloride 1000 ml [Nss] 1,000 ml IV 60 mls/hr
Dextrose 50%-Water [Dextrose 50% Syringe] 12.5 grams IV [id number] PRN
Glucagon [GlucaGen] 1 mg IM PRN PRN
Metoprolol Xl [Toprol Xl] 100 mg PO BID
Ondansetron Injectable [Zofran] 4 mg IV Q6HPRN PRN
Oxycodone [Roxicodone] 5 mg PO Q4
06/06/24 20:16
DIETARY IP CONSULT Routine
Reason for Consult: Decreased appetite only drinking 24 ounces a day
VTE Contraindication Routine
VTE Mechanical Device Contraindication: Medical Contraindication
Pharmocologic Contraindication: Medical Contraindication
Comment: Patient on Eliquis
Activity As Directed
Activity Level: With Assistance
Comment: Uses walker
Bedside Glucose Monitoring As Directed
Frequency: AC&HS
Additional Instructions:: Change to q6h if pt on TPN, tube feeding or not eating
Buprenorphine Patch Confirmation BID@0700,1900
Intake/ Output As Directed
Frequency: Per unit guidelines
Precautions As Directed
Type of Precautions: Other
Comment: Fall
Vital Signs As Directed
Frequency: Per unit guidelines
Weight As Directed
Frequency: Daily
06/06/24 20:29
Cyclobenzaprine HCl [Flexeril] 5 mg PO TIDPRN PRN
06/06/24 20:30
Apixaban [Eliquis] 5 mg PO BID
06/06/24 21:00
Eplerenone [Inspra] 50 mg PO BID AT 0800,1600
Sertraline HCl [Zoloft] 50 mg PO QPM
06/06/24 22:00
Acetaminophen [Tylenol] 975 mg PO TID
Ezetimibe [Zetia] 10 mg PO HS
06/06/24 23:00
axitinib [Inlyta] See Dose Instructions PO BID
06/07/24 07:30
Insulin Aspart Corrective Low [Novolog Flexpen-Low Resistance] See Protocol SC AC
06/07/24 08:00
Allopurinol [Zyloprim] 300 mg PO DAILY
Amlodipine [Norvasc] 10 mg PO DAILY
FOLic ACID [Folvite] 1 mg PO DAILY
06/07/24 09:36
Complete Blood Count/With Diff IN AM
Comprehensive Metabolic Panel IN AM
Glycohemoglobin (HgbA1c) IN AM
06/12/24 08:00
Pt Own Bupren Patch 5 Mcg/Hr [Butrans 5 Mcg/Hr Patch Patient Own] 1 patch TRANSDERM MO
Remove Pt Own Buprenorph Patch [Remove Pt Own Butrans Patch] See Dose Instructions REMOVE Q7D
Abnormal Lab Results
06/06/24
13:26
WBC 4.5 L 10^3/uL
(4.8-10.8)
RBC 4.18 L 10^6/uL
(4.70-6.10)
Hgb 12.5 L g/dL
(13.0-18.0)
Hct 36.7 L %
(39.0-52.0)
RDW 16.4 H %
(11.5-14.5)
Absolute Lymphs (auto) 0.6 L 10^3/uL
(1.2-3.4)
Neutrophils % 76.1 H %
(42.2-75.2)
Lymphocytes % 12.8 L %
(20.5-51.1)
BUN 30 H mg/dl
(9-20)
Glucose 158 H mg/dl
(70-99)
Total Protein 5.7 L g/dl
(6.3-8.2)
06/06/24 13:26
06/06/24 13:26
Vital Signs
Initial and Last Documented VS:
Initial Vital Signs
Pulse Resp BP Pulse Ox
81 20 156/98 98
06/06/24 13:06 06/06/24 13:06 06/06/24 13:06 06/06/24 13:06
Last Documented Vital Signs
Temp Pulse Resp BP Pulse Ox
98.5 F 82 24 181/94 97
06/07/24 07:30 06/07/24 09:54 06/07/24 07:30 06/07/24 09:54 06/07/24 07:30
<Elayne Byrne PA-C - Last Filed: 06/07/24 10:55>
MDM/Problems Addressed
Differential Diagnosis Includes:
78yoM here with generalized weakness and feeling dehydrated. Also was confused earlier today. Hx of metastatic renal cell carcinoma. He is mildly hypertensive with otherwise normal vital signs. Mucous membranes are dry. He is A&Ox4. Differential
diagnosis includes but is not limited to: dehydration, CHRISTIAN, failure to thrive, brain mets, UTI
Initial ED plan: Check cardiac labs, EKG, UA, and CT head.
<Elayne Byrne PA-C - Last Filed: 06/07/24 10:55>
*Critical Care Note
Total Time (30-74mins, 75-104mins- exclusive of procedures): Not Applicable
<Elayne Byrne PA-C - Last Filed: 06/07/24 10:55>
Update Note
Update Note:
Labs overall unremarkable. Renal function at baseline. EKG shows paced rhythm and troponin WNL. CT head is negative for acute findings. Patient assessed by PT and he was unable to stand due to lightheadedness. interested in placement at [facility]. Patient complaining of R forearm pain. X-rays added and patient admitted for further management. UA pending.
ED Attending Note
<Elayne Byrne PA-C - Last Filed: 06/07/24 10:55>
-
Portions of this chart may have been created with voice recognition software.� Occasional wrong word or��sound alike� substitutions may have occurred due to the inherent limitations of voice recognition software.
<Carmel Purcell MD - Last Filed: 06/06/24 14:00>
ED Attending Note
Patient seen and examined by attending physician: Yes
I performed the substantive portion of visit, reviewed & personally made and approve the management plan that is documented in note by myself or HEYDI.: Yes
ED Attending Note:
Patient reports that he feels slightly confused and reports he has been seeing animals that are not really there. Additionally, he reports that he is having increased difficulty walking due to generalized weakness. On exam, patient is alert and
oriented x 3. He is appears tired and disheveled. Lungs are clear. Abdomen is soft and nontender. His neurological exam is nonfocal. We will check for UTI and check CT head.
Discharge Plan
Departure
Patient Disposition: Admit
Date of Disposition: 06/06/24
Time of Disposition: 15:54
Presentation/result/management discussed w/ accepting MD/DO: Hospitalist
Discharge Problem:
Generalized weakness
Interventions
Interventions:
*Risk Screen - Suicide Last Done: 06/06/24 19:46
*General Assessment Last Done: 06/06/24 13:41
*Neglect/Abuse Screening Last Done: 06/06/24 13:41
*ED- Fall Risk Assessment Last Done: 06/06/24 13:41
*ED COVID-19 Vaccine History Last Done: 06/06/24 13:40
*Nursing Disposition Last Done: 06/06/24 20:05
ED- Cardiac Assessment Last Done: 06/06/24 13:41
ED- Neurological Assessment Last Done: 06/06/24 13:41
ED- Pulmonary Assessment Last Done: 06/06/24 13:41
Discharge Date and Time
Discharge Date/Time: 06/06/24 20:05
[2024-06-06 13:38] LABS: % Basophils 0.4 % (0-2); % Eosinophils 4.6 % (0-6); % Immature Granulocytes 0.4 % (0-0.5); % Lymphocytes 12.8 % (20.5-51.1); % Monocytes 5.7 % (1.7-9.3); % Neutrophils 76.1 % (42.2-75.2); Absolute Eosinophils 0.2 10^3/uL (0-0.7); Absolute Lymphocytes 0.6 10^3/uL (1.2-3.4); Absolute Monocytes 0.3 10^3/uL (0.1-0.6); Absolute Neutrophils 3.5 10^3/uL (1.4-6.5); Hematocrit 36.7 % (39.0-52.0); Hemoglobin 12.5 g/dL (13.0-18.0); Mean Corp Hgb Conc. 34.1 g/dL (33.0-37.0); Mean Corpuscular Hgb 29.9 pg (27.0-31.0); Mean Corpuscular Volume 87.8 fL (80.0-94.0); Mean Platelet Volume 10.4 fL (7.4-10.4); Nucleated Red Blood Cells % 0 % (-); Platelet Count 190 10^3/uL (130-400); Red Blood Cell Count 4.18 10^6/uL (4.70-6.10); Red Cell Dist. Width 16.4 % (11.5-14.5); White Blood Cell Count 4.5 10^3/uL (4.8-10.8)
[2024-06-06 13:54] LABS: ALT (SGPT) < 10 U/L (0-50); AST (SGOT) 17 U/L (17-59); Albumin 3.7 g/dl (3.5-5.0); Alkaline Phosphatase 100 U/L (38-126); Blood Urea Nitrogen 30 mg/dl (9-20); Calcium 9.6 mg/dl (8.4-10.2); Carbon Dioxide 26 mmol/L (22-30); Chloride 105 mmol/L (98-107); Glucose 158 mg/dl (70-99); Magnesium 1.6 mg/dl (1.6-2.3); Potassium 3.8 mmol/L (3.5-5.1); Sodium 141 mmol/L (135-145); Total Protein 5.7 g/dl (6.3-8.2); eGFR 56.58
[2024-06-06 14:04] LABS: Troponin I 0.016 ng/ml
[2024-06-06 14:43] LABS: COVID-19 Antigen Negative (Negative)
--- NOTE | 2024-06-06 16:15 | CM ---
ED CM reviewed chart and consulted noted for SNF placement
Pt resides with spouse in a 2[facility] with 3 HARPER and full flight to 2nd floor
Pt is indep with ambulation and personal with use of a WW
Lately, family has been assisting as needed
Per PT eval, SNF recs
Referral sent to [facility] via [facility] per request
Referral pending
OT eval requested for [facility] Fed auth
Discharge Disposition- SNF pending auth
--- NOTE | 2024-06-06 16:27 | W.PN.UPDATE ---
Update Note
Progress Note Update
I saw and examined the patient.
The [employer] or PA's note was reviewed and I agree with the note.
Comment: 78 y/o M who presents with generalized weakness, nausea, decreased oral intake, and visual hallucinations.
158/76, 80, 24, 97.8 F, 93%
Gen: NAD, Awake and alert
Eyes: EOMI, PERRLA, no scleral icterus.
ENMT: dry MM
Neck: supple.
CV: RRR, +S1/S2, no m/r/g.
Resp: CTAB, no rales, wheezes, or rhonchi.
Abd: +BS, soft, NT, ND
Skin: No rashes.
Neuro: CN 2-12 intact, non-focal.
Psych: Normal mood and affect.
Lab Results
06/06/24 06/06/24
13:26 14:15
WBC 4.5 L
RBC 4.18 L
Hgb 12.5 L
Hct 36.7 L
MCV 87.8
MCH 29.9
MCHC 34.1
RDW 16.4 H
Plt Count 190
MPV 10.4
Abs Immat Gran (auto) 0.0
Absolute Neuts (auto) 3.5
Absolute Lymphs (auto) 0.6 L
Absolute Monos (auto) 0.3
Absolute Eos (auto) 0.2
Absolute Basos (auto) 0.0
Immature Gran % 0.4
Neutrophils % 76.1 H
Lymphocytes % 12.8 L
Monocytes % 5.7
Eosinophils % 4.6
Basophils % 0.4
Nucleated RBC % 0
Sodium 141
Potassium 3.8
Chloride 105
Carbon Dioxide 26
BUN 30 H
Creatinine 1.3
eGFR 56.58
Glucose 158 H
Calcium 9.6
Magnesium 1.6
Total Bilirubin 1.0
AST 17
ALT < 10
Alkaline Phosphatase 100
Troponin I 0.016
Total Protein 5.7 L
Albumin 3.7
SARS-CoV-[address] brain: No acute intracranial abnormality.
R forearm Xray: No evidence acute fracture or dislocation. There is a 3.7 cm lucency within the distal right humerus, suspicious for metastasis in the setting of known malignancy. Consider nonemergent MRI for further evaluation.
Acute metabolic encephalopathy:
-Presumably visual hallucinations likely represent acute metabolic encephalopathy due to nausea and decreased oral intake.
-500cc NS given in the ER, cont maintenance IVFs (low flow rate with h/o CHF)
-Regarding generalized weakness will consult PT/OT
-Case discussed with ELEN Byrne. Patient's vital signs were stable in the ER and labs reportedly unremarkable (confirmed by me). Patient was seen by physical therapy in the ER and he was unable to stand. The was requesting [facility].
Case management was consulted. Case discussed with Vasu Jenkins. Patient will need insurance authorization. A bed search will be started today. In the meantime the patient will be brought into the hospital under observation.
Other problems:
DM2 with diabetic neuropathy: SSI/accuchecks/diabetic diet
CKD3b
Essential HTN: cont Norvasc/BB
COPD, not in exacerbation
HLD
Bipolar disorder: cont Zoloft
Chronic HFrEF: daily wts, I/Os, close attention to volume status while patient is being rehydrated
Atrial fibrillation status post ablation and PPM: cont BB/Eliquis
History of L5 laminectomy
Adrenal hypertrophy with hyperaldosteronism
--- NOTE | 2024-06-06 16:29 | HPS.HSE ---
Addendum entered and electronically signed by SOHA Alexis 06/06/24 17:56:
Prior Alcohol abuse
Per Stopped drinking 1.5 years ago whiskey
- used to drink 2-4 oz of whisky daily or 6 beers every 2 days
Original Note:
Family Physician
-
Family Physician: Maximiliano Lanza
Chief Complaint
-
Weakness, confusion, decreased oral intake
History of Present Illness
78-year-old male with history of metastatic renal cell carcinoma on and Inlyta that he receives at [facility]. His states she is a school bus driver and was out of work this morning when her was trying to call their daughter to
come and help him he was confused thinking she still lives here however she lives in [place]. The patient was admitted 2 weeks ago to [facility] for confusion secondary to dehydration from poor oral intake. He has been home 8
days. She states when he came home 8 days ago he walked up the stairs with a walker to the second floor with the bedrooms and bathrooms are he fell in the hallway. She states EMS came out picked him up and was able to place him back in his bed he
has been upstairs for the last 6 days unable to walk to the downstairs due to weakness. He is only drinking 20 ounces of water and 4 ounces of Premier protein shake and is very volume depleted. He does not appear to be retaining any urine on
bedside bladder scan by nurse. No one is home during the day to help him they are asking for SNF placement at [facility]. He also complains of a slight headache he is unsure if he urinated today. He denies fever, chills, sore throat, headache,
chest pain, palpitations, abdominal pain, nausea, vomiting, diarrhea, rash. He had recent IV normal saline infiltration to his right arm at [facility] 2 weeks ago.
He has past medical history of renal cell CA status post left nephrectomy 2018, metastatic renal cell carcinoma summer 2023 to lungs, cervical /lumbar spine, right shoulder, fracture left rib, status post neck scraping, tumor resection, radiation to
neck summer 2023 [place], status post lumbar radiation x 5 days April 2023, CKD 3 status post nephrectomy ventricular, BPH, prostate cancer status post radiation x 24 treatments 2018, ectopy / Bigeminy / NSVT status post VT ablation,
pacemaker/defibrillator chronic heart failure reduced EF 40%,, Hypertension, DM2, hyperaldosteronism, GERD, sciatica, ASUNCION, restless leg syndrome, IBS,Pt on eliquis for DVT Prophylaxis 2 years now.
Medical History
Past Medical History
Past Medical History: Reports Other
Additional Past Medical History:
Ventricular Ectopy / Bigeminy / NSVT
Chronic HF reduced EF 40% 2023
Hypertension
Hyperaldosteronism
CKD III s/p Nephrectomy left 2017
DM-II
BPH
History of Prostate Cancer Dx 2019 status post 28 radiation treatments
History of renal cell carcinoma status post left nephrectomy 2017
HX of metastatic renal cell carcinoma to lungs, cervical and lumbar spine, left rib with fracture, right shoulder
Radiation lumbar spine April 2024 x 5 days
Radiation cervical spine with neck scraping, tumor resection summer 2023 [facility]
GERD
sciatica
ASUNCION
restless leg syndrome
IBS
Past Surgical History: Reports Other
Additional Past Surgical History:
VT Ablation (12/11/21)
Back Surgery
Cataracts
Left Nephrectomy
Social History
Tobacco: Non-smoker
Alcohol: Occasional
Drug: None
Personal:
Living: With Family ( Iveth)
Employment: Retired
Family History
Family History: Not pertinent
Allergies / Home Medications
Allergies reflects when Allergies were last updated in [employer].
Home Medications with original date entered in [employer]
Allergy/Medication List:
Allergies
Allergy/AdvReac Type Severity Reaction Status Date / Time
amiodarone Allergy Itching Verified 06/06/24 13:49
grass pollen Allergy Itching Verified 06/06/24 13:49
mold Allergy Itching Verified 06/06/24 13:49
Nigmdif-NSK-BwK Reductase Allergy full body Verified 06/06/24 13:49
Inhibitor aches
[Janhewh-Xjj-Nrp Reductase
Inhibitor]
valsartan Allergy body Verified 06/06/24 13:49
aches/tolerates
losartan
Home Medications
acetaminophen 325 mg tablet (Tylenol) 975 mg PO TID Pain 12/12/23
allopurinol 300 mg tablet 300 mg PO DAILY Gout 12/12/23
alpha lipoic acid 200 mg tablet 600 mg PO MOWEFR@0800 Supplement 12/12/23
amlodipine 5 mg tablet (Norvasc) 10 mg PO DAILY Blood Pressure 12/12/23
ascorbic acid (vitamin C) 500 mg tablet (Vitamin C) 500 mg PO DAILY Supplement 12/12/23
folic acid 1 mg tablet 1 mg PO DAILY Supplement 12/12/23
metoprolol succinate 100 mg tablet,extended release 24 hr (Toprol XL) 100 mg PO BID Blood Pressure 12/12/23
repaglinide 1 mg tablet 1 mg PO TID Diabetes 12/12/23
axitinib 1 mg tablet (Inlyta) 3 mg PO BID Antineoplastic Agent 04/01/24
ezetimibe 10 mg tablet (Zetia) 10 mg PO HS High Cholesterol 04/01/24
sertraline 25 mg tablet (Zoloft) 50 mg PO QPM Mental Health/Anxiety 04/01/24
apixaban 5 mg (74 tabs) tablets in a dose pack (Eliquis DVT-PE Treat 30D Start) 5 mg PO BID Blood Clot Prevention/Tx 04/02/24
eplerenone 50 mg tablet 50 mg PO BID Blood Pressure 04/02/24
buprenorphine 5 mcg/hour weekly transdermal patch 1 patch transdermal MO 06/06/24
cyclobenzaprine 5 mg tablet 5 mg PO TIDPRN PRN muscle spasms 06/06/24
oxycodone 5 mg tablet 5 mg PO Q4H 06/06/24
potassium 500 mg PO DAILY 06/06/24
Review of Systems
-
History Source: Patient and Family ( at bedside)
A 12 point ROS was completed and negative except as noted: Yes
Constitutional: Reports Fatigue (Generalized) and Other (Confusion earlier); Denies Fever or Chills
EENT: Denies Sore Throat or Runny Nose
Respiratory: Denies Cough or Trouble Breathing
Cardiac: Denies Chest Pain, Diaphoresis, Palpitations or Syncope
Abdomen/GI: Denies Abdominal Pain, Nausea, Vomiting, Diarrhea, Constipated, Bloody Stools or Black Stools
: Denies Dysuria, Frequency, Flank Pain, Incontinence, Difficulty Voiding or Urgency
Musculoskeletal: Reports Joint Pain (Chronic right shoulder pain, right humeral pain)
Skin: Reports Other (Recent IV normal saline infiltration 2 weeks ago right arm [facility]); Denies Itching or Rash
Neurological: Reports Headache and Weakness (Generalized); Denies Dizzy
Endocrine: Denies Polyuria or Polydipsia
Hematologic/Lymphatic: Reports No Symptoms
Psych: Reports Calm
Physical Exam
Vital Signs
Vital Signs
Temp Pulse Resp BP Pulse Ox
97.8 F 80 24 158/76 93
06/06/24 13:08 06/06/24 15:00 06/06/24 13:45 06/06/24 15:00 06/06/24 14:45
Physical Exam
General: Conversant; No Pain, Fever or Chills
HEENT: NormoCephalic, Anicteric, PERRLA, [place] Conjunctivae, No Ptosis and Other (Dry oral mucosa)
Respiratory: Clear; No Wheezes, Rales or Rhonchi
Cardiac: S1/S2 and Other (Paced, permanent pacemaker/defibrillator left upper chest wall); No Rub, Gallop or Peripheral Edema
Breast: Deferred by me
GI: Soft, Non Tender, Non Distended and No Hepatosplenomegaly
Rectal: Deferred by Provider
Genito-urinary: Deferred by me
Musculoskeletal: No Clubbing, No Cyanosis, No Edema and Other (Chronic right shoulder pain upper right humerus likely secondary to new lucency likely CA on x-ray)
Skin: Warm and Dry; No Rash
Neuro: AO x 3 (Patient states was confused earlier forgot his daughter lived in [place] and was trying to call her), Nonfocal/grossly intact, Cranial Nerves Intact, No Sensory Deficits and Other (Limited range of motion right arm due to likely
new lucency/mets humerus); No Slurred Speech, Facial Droop or Tremors
Psych: Calm
Laboratory Results
-
06/06/24 13:26
06/06/24 13:26
Laboratory Results
Total Bilirubin 1.0 mg/dl (0.2-1.3) 06/06/24 13:26
AST 17 U/L (17-59) 06/06/24 13:26
ALT < 10 U/L (0-50) 06/06/24 13:26
Alkaline Phosphatase 100 U/L (38-126) 06/06/24 13:26
Troponin I 0.016 ng/ml 06/06/24 13:26
Impression/Plan
-
Impression/plan:
Observation MedSurg
#Generalized weakness/confusion 2/2 Volume depletion
Recent hospitalization weakness, confusion secondary to dehydration 2 weeks ago at [facility]
-Patient drinking 20 ounces water and 4 ounce Premier protein shake daily only
Creat 1.3
-Consult dietary
-IV NSS 60 cc an hour x 1 L total due to CHF with a EF 40%
-PT/OT/case management consult for SNF patient and requesting [facility] [facility]
#Right shoulder pain secondary to suspected NEW metastases distal right humerus
-Continue oxycodone 5 mg p.o. every 4 hours as needed, buprenorphine patch transdermal Mondays, Tylenol 975 mg p.o. 3 times daily
Right forearm x-ray:There is a 3.7 cm lucency within the distal right humerus, suspicious for metastasis in the setting of known malignancy. Consider nonemergent MRI for further evaluation.
-
#History of renal cell carcinoma status post left nephrectomy 2017
#HX of metastatic renal cell carcinoma to lungs, cervical and lumbar spine, left rib with fracture, right shoulder
#Radiation lumbar spine April 2024 x 5 days
#Radiation cervical spine with neck scraping, tumor resection summer 2023 [facility]
Follows with [place] [facility]-Dr.'s Tinajero
-Receives Inlyta started 3 months ago with plans for possible Keytruda immunotherapy
#CKD 3 A
-Creat 1.3
#Permanent pacemaker/defibrillator
#Chronic heart failure reduced EF
I/O, daily weights
2D echo 07/23/2023: EF 40-45%, mildly reduced systolic function, mild diffuse hypokinesis, mild concentric LVH, mild MR/AR
#Hypertension
-BP 158/76
-Continue Norvasc 10 mg daily, eplernone 50 mg twice daily, Toprol XL 100 mg twice daily with hold parameters
#Hyperaldosteronism
#DM-II
-Accu-Cheks with SSI, check HgbA1c
-Hold repaglinide 1 mg 3 times daily due to decreased oral intake
BS 158
#BPH
#History of Prostate Cancer Dx 2018
Status post radiation x 29 treatments
#Ventricular Ectopy / Bigeminy / NSVT
-Status post VT ablation 2 years ago
Pt on eliquis for DVT Prophylaxis 2 years now
Other PMH:
GERD
ASUNCION
Sciatica
Restless leg syndrome
IBS
DVT prophylaxis
Continue Eliquis 5 mg twice daily
DNR per patient with Iveth at bedside
[2024-06-06] MEDS: NSS 500 IV (16:49)
[2024-06-06 17:43] LABS: Urine Albumin 3+ (Neg - Trace); Urine Bilirubin Negative (Negative); Urine Character Clear (Clear); Urine Color Yellow; Urine Glucose Negative (Negative); Urine Ketone Negative (Negative); Urine Leukocyte Negative (Negative); Urine Nitrite Negative (Negative); Urine Occult Blood Negative (Negative); Urine Specific Gravity 1.015 (<1.030); Urine Urobilinogen 1+ (Neg - 1+)
[2024-06-06 17:49] LABS: Urine Hyaline Cast 0-2 /LPF (0-2)
[2024-06-06 17:50] LABS: Urine Bacteria Few (Negative); Urine Mucus Few; Urine Red Blood Cell 0-2 /HPF (0-2); Urine White Cell 0-2 /HPF (0-5)
--- NOTE | 2024-06-06 19:48 | W.PN.UPDATE ---
Update Note
Progress Note Update
CODE STATUS full code at 1948 PM-patient changed mind from DNR to full code
--- NOTE | 2024-06-06 20:24 | PTCARENOTE ---
Pt arrived onto floor @2023. Pt AAOx3 and a socket puller to the bed. Pt with no complaints of pain or SOB at this time. Pt oriented to room and call mosley; will continue to monitor
[2024-06-06 21:29] LABS: Glucose - Point of Care 130 mg/dl (70-99)
[2024-06-06] MEDS: NSS 1000 IV (22:18)
[2024-06-06] MEDS: ROXICODONE 5 MG PO (22:18)
[2024-06-06] MEDS: TYLENOL 975 MG PO (22:20)
[2024-06-06] MEDS: ZETIA 10 MG PO (22:20)
[2024-06-06] MEDS: ZOLOFT 50 MG PO (22:20)
[2024-06-06] MEDS: ELIQUIS 5 MG PO (22:20)
[2024-06-06] MEDS: INSPRA 50 MG PO (22:20)
[2024-06-06] MEDS: TOPROL XL 100 MG PO (22:22)
[2024-06-06] MEDS: NON-FORMULARY ITEM 1 MG PO (23:22)
[2024-06-07] MEDS: ROXICODONE PO ×3 (00:59→12:00)
[2024-06-07 04:45] VITALS: BMI 29.8
[2024-06-07 07:16] LABS: Glucose - Point of Care 101 mg/dl (70-99)
[2024-06-07] MEDS: NOVOLOG FLEXPEN-LOW RESISTANCE SC ×3 (07:22→16:39)
[2024-06-07 07:30] VITALS: BP 181/94
[2024-06-07] MEDS: ELIQUIS 5 MG PO ×2 (09:52→20:43)
[2024-06-07] MEDS: INSPRA 50 MG PO ×2 (09:52→17:39)
[2024-06-07] MEDS: TYLENOL 975 MG PO ×3 (09:52→21:39)
[2024-06-07] MEDS: TOPROL XL 100 MG PO ×2 (09:53→20:45)
[2024-06-07] MEDS: ZYLOPRIM 300 MG PO (09:53)
[2024-06-07] MEDS: FOLVITE 1 MG PO (09:53)
[2024-06-07 09:54] LABS: % Basophils 0.3 % (0-2); % Eosinophils 3.3 % (0-6); % Immature Granulocytes 0.5 % (0-0.5); % Lymphocytes 8.5 % (20.5-51.1); % Monocytes 5.4 % (1.7-9.3); Absolute Eosinophils 0.2 10^3/uL (0-0.7); Absolute Lymphocytes 0.5 10^3/uL (1.2-3.4); Absolute Monocytes 0.3 10^3/uL (0.1-0.6); Absolute Neutrophils 4.8 10^3/uL (1.4-6.5); Hematocrit 33.2 % (39.0-52.0); Hemoglobin 11.3 g/dL (13.0-18.0); Mean Corpuscular Hgb 29.8 pg (27.0-31.0); Mean Corpuscular Volume 87.6 fL (80.0-94.0); Mean Platelet Volume 9.9 fL (7.4-10.4); Nucleated Red Blood Cells % 0 % (-); Platelet Count 155 10^3/uL (130-400); Red Blood Cell Count 3.79 10^6/uL (4.70-6.10); Red Cell Dist. Width 15.8 % (11.5-14.5); White Blood Cell Count 5.8 10^3/uL (4.8-10.8)
[2024-06-07] MEDS: NON-FORMULARY ITEM 3 MG PO ×2 (09:54→20:45)
[2024-06-07] MEDS: NORVASC 10 MG PO (09:54)
[2024-06-07] MEDS: ROXICODONE 5 MG PO ×4 (09:57→23:47)
--- NOTE | 2024-06-07 10:54 | W.PN.HOSP.TC ---
Today's Communication/Plan
-
d/c
Assessment / Plan
Assessment / Plan
Gen: NAD, Awake and alert
Eyes: EOMI, PERRLA, no scleral icterus.
ENMT: MMM
Neck: supple.
CV: remains RRR, +S1/S2, no m/r/g.
Resp: CTAB anteriorly, no rales, wheezes, or rhonchi.
Abd: +BS, soft, NT, ND
Skin: No rashes.
Neuro: CN 2-12 intact, non-focal.
Psych: Normal mood and affect.
CT brain: No acute intracranial abnormality.
R forearm Xray: No evidence acute fracture or dislocation. There is a 3.7 cm lucency within the distal right humerus, suspicious for metastasis in the setting of known malignancy. Consider nonemergent MRI for further evaluation.
Acute metabolic encephalopathy:
-Presumably visual hallucinations likely represent acute metabolic encephalopathy due to nausea and decreased oral intake.
-500cc NS given in the ER, cont maintenance IVFs (low flow rate with h/o CHF)
-Regarding generalized weakness will consult PT/OT
-Case discussed with ELEN Byrne. Patient's vital signs were stable in the ER and labs reportedly unremarkable (confirmed by me). Patient was seen by physical therapy in the ER and he was unable to stand. The was requesting [place] run.
Case management was consulted. Case discussed with Vasu Jenkins. Patient will need insurance authorization. A bed search will be started today. In the meantime the patient will be brought into the hospital under observation.
Other problems:
DM2 with diabetic neuropathy: SSI/accuchecks/diabetic diet
CKD3b
Essential HTN: cont Norvasc/BB
COPD, not in exacerbation
HLD
Bipolar disorder: cont Zoloft
Chronic HFrEF: daily wts, I/Os, close attention to volume status while patient is being rehydrated
Atrial fibrillation status post ablation and PPM: cont BB/Eliquis
History of L5 laminectomy
Adrenal hypertrophy with hyperaldosteronism
FULL/Eliquis
Medically cleared for discharge. Case management aware.
Anticipated Discharge: Today
Subjective/Interval History
-
Date of Service: June 07, 2024
Patient reports ports that he has a dull ache in his chest that is chronic.
Objective Data
-
Labs:
Laboratory Results
06/07/24
09:36
WBC 5.8
Hgb 11.3 L
Hct 33.2 L
Plt Count 155
Sodium Pending
Potassium Pending
Chloride Pending
Carbon Dioxide Pending
BUN Pending
Creatinine Pending
Glucose Pending
Calcium Pending
Total Bilirubin Pending
AST Pending
ALT Pending
Alkaline Phosphatase Pending
Vital Signs:
Vital Signs
Temp Pulse Resp BP Pulse Ox
98.5 F 82 24 181/94 97
06/07/24 07:30 06/07/24 09:54 06/07/24 07:30 06/07/24 09:54 06/07/24 07:30
I&O
06/06/24 06/07/24 06/08/24
06:59 06:59 06:59
Intake Total 200 / 200
Balance 200 / 200
[2024-06-07 11:16] LABS: Glycohemoglobin (HgbA1c) 7.1 % (4.0-5.6)
[2024-06-07 12:02] LABS: Glucose - Point of Care 126 mg/dl (70-99)
[2024-06-07 12:02] LABS: ALT (SGPT) < 10 U/L (0-50); AST (SGOT) 14 U/L (17-59); Albumin 3.2 g/dl (3.5-5.0); Alkaline Phosphatase 96 U/L (38-126); Blood Urea Nitrogen 23 mg/dl (9-20); Calcium 8.8 mg/dl (8.4-10.2); Carbon Dioxide 24 mmol/L (22-30); Chloride 108 mmol/L (98-107); Estimated Creatinine Clearance 51 ml/min; Glucose 111 mg/dl (70-99); Potassium 3.4 mmol/L (3.5-5.1); Sodium 140 mmol/L (135-145); Total Bilirubin 1.2 mg/dl (0.2-1.3); Total Protein 5.1 g/dl (6.3-8.2); eGFR > 60.00
[2024-06-07 12:09] VITALS: BP 157/90
--- NOTE | 2024-06-07 12:35 | CM ---
Addendum entered by Tori Anders 06/07/24 14:12:
Patient's sister Sima Hagan contacted returned case inspector to request update, patient's sister in not listed as emergency contact however, returned case inspector met with patient who gave permission for returned case inspector to update patient's sister, ,
patient had a recent inpatient stay at [facility] 05/16/24 to 05/25/24 and returned case inspector reached out to [facility] with dates to see if patient has a qualifying stay for skilled placement at [facility].
Original Note:
Chart reviewed and patient admitted under OBS, OBS letter provided to patient. Plan was for skilled placement and referral sent to [facility], per admissions at [facility], patient has Medicare A only and does not have Medicare part B, and is OBS, per
[facility] they contacted patient's [employer] and patient's [employer] is a secondary insurance and will not pay for skilled placement therefore patient would be private pay for skilled placement at [facility] and family would need to
complete financial application in order to move forward, patient's spouse made aware and is extremely upset.
Plan: At this patient will need to private pay for skilled placement as patient is OBS, has Medicare A but not B and [employer] is secondary to Medicare.
--- NOTE | 2024-06-07 14:30 | PTCARENOTE ---
Earlier today with night RN, verified Butrans patch on RUE and documented appropriately in [email or web address].
This afternoon, while ambulating patient, RN observed another Butrans patch on LUE. Patient stated that should have been removed when RUE placed.
Removed patch and disposed.
[2024-06-07 15:00] VITALS: BP 170/92
[2024-06-07 16:39] LABS: Glucose - Point of Care 121 mg/dl (70-99)
[2024-06-07 17:01] VITALS: BMI 29.8
[2024-06-07] MEDS: ZOLOFT 50 MG PO (17:39)
[2024-06-07 20:41] VITALS: BP 130/95
[2024-06-07] MEDS: ZETIA 10 MG PO (21:39)
[2024-06-07 23:09] LABS: Glucose - Point of Care 125 mg/dl (70-99)
[2024-06-07 23:59] VITALS: BP 176/101
[2024-06-08] MEDS: ROXICODONE PO (04:42)
[2024-06-08 07:30] VITALS: BP 155/87
[2024-06-08 07:39] LABS: Glucose - Point of Care 117 mg/dl (70-99)
[2024-06-08] MEDS: NOVOLOG FLEXPEN-LOW RESISTANCE SC ×2 (07:58→17:45)
[2024-06-08] MEDS: INSPRA 50 MG PO ×2 (08:45→17:18)
[2024-06-08] MEDS: TYLENOL 975 MG PO ×2 (08:46→17:18)
[2024-06-08] MEDS: ROXICODONE 5 MG PO ×3 (08:48→17:18)
[2024-06-08] MEDS: ZYLOPRIM 300 MG PO (08:49)
[2024-06-08] MEDS: TOPROL XL 100 MG PO (08:49)
[2024-06-08] MEDS: ELIQUIS 5 MG PO (08:49)
[2024-06-08] MEDS: NORVASC 10 MG PO (08:50)
[2024-06-08] MEDS: FOLVITE 1 MG PO (08:50)
[2024-06-08] MEDS: NON-FORMULARY ITEM 3 MG PO (08:52)
--- NOTE | 2024-06-08 10:18 | W.PN.HOSP.TC ---
Addendum entered and electronically signed by Mikal Dodson MD 06/08/24 12:23:
Total time spent on d/c = 34 min. This included today's physical exam, progress note, review of laboratory and diagnostic data, preparation of discharge documents and prescriptions, and discussions about the pt's hospital course and discharge plan
with the patient and other medical support specialist involved in the patient's care.
Original Note:
Today's Communication/Plan
-
d/c aftger Mg/K result
Assessment / Plan
Assessment / Plan
Gen: NAD, Awake and alert
Eyes: EOMI, PERRLA, no scleral icterus.
ENMT: MMM
Neck: supple.
CV: continues to remain RRR, +S1/S2, no m/r/g.
Resp: CTAB anteriorly, no rales, wheezes, or rhonchi.
Abd: remains +BS, soft, NT, ND
Skin: No rashes.
Neuro: remains CN 2-12 intact, non-focal.
Psych: Normal mood and affect.
CT brain: No acute intracranial abnormality.
R forearm Xray: No evidence acute fracture or dislocation. There is a 3.7 cm lucency within the distal right humerus, suspicious for metastasis in the setting of known malignancy. Consider nonemergent MRI for further evaluation.
Acute metabolic encephalopathy:
-Presumably visual hallucinations likely represent acute metabolic encephalopathy due to nausea and decreased oral intake.
-500cc NS given in the ER, cont maintenance IVFs (low flow rate with h/o CHF)
-Regarding generalized weakness will consult PT/OT
-from admission: Case discussed with ELEN Byrne. Patient's vital signs were stable in the ER and labs reportedly unremarkable (confirmed by me). Patient was seen by physical therapy in the ER and he was unable to stand. The was
requesting [place] run. Case management was consulted. Case discussed with Vasu Jenkins. Patient will need insurance authorization. A bed search will be started today. In the meantime the patient will be brought into the hospital under observation.
-pt now has a bed at [facility]
Other problems:
Hypokalemia: check K/Mg
DM2 with diabetic neuropathy: SSI/accuchecks/diabetic diet
CKD3b
Essential HTN: cont Norvasc/BB
COPD, not in exacerbation
HLD
Bipolar disorder: cont Zoloft
Chronic HFrEF: daily wts, I/Os, close attention to volume status while patient is being rehydrated
Atrial fibrillation status post ablation and PPM: cont BB/Eliquis
History of L5 laminectomy
Adrenal hypertrophy with hyperaldosteronism
FULL/Eliquis
Anticipated Discharge: Today
Subjective/Interval History
-
Date of Service: June 08, 2024
Patient states he is confused and is not sure why. Offers no other acute complaints.
Objective Data
-
Vital Signs:
Vital Signs
Temp Pulse Resp BP Pulse Ox
97.6 F 81 18 155/87 98
06/08/24 07:30 06/08/24 07:30 06/08/24 07:30 06/08/24 07:30 06/08/24 07:30
I&O
06/07/24 06/08/24 06/09/24
06:59 06:59 06:59
Intake Total 200 / 200 1200 / 1200
Output Total 600 / 600
Balance 200 / 200 600 / 600
[2024-06-08 10:30] VITALS: BP 130/76
[2024-06-08 10:56] LABS: Blood Urea Nitrogen 22 mg/dl (9-20); Calcium 8.9 mg/dl (8.4-10.2); Carbon Dioxide 23 mmol/L (22-30); Chloride 109 mmol/L (98-107); Estimated Creatinine Clearance 56 ml/min; Glucose 138 mg/dl (70-99); Potassium 3.7 mmol/L (3.5-5.1); Sodium 141 mmol/L (135-145); eGFR > 60.00
--- NOTE | 2024-06-08 10:58 | CM ---
Addendum entered by Tori Anders 06/08/24 14:48:
Patient was admitted under OBS, [facility] letter provided to patient 06/07/24 at 1pm.
Original Note:
Chart reviewed and patient has had a recent stay at [facility] inpatient, per Judy in Medical records patient was at [facility] from 05/16/24 to 05/25/24. pool manager spoke with [facility] admissions this morning and they can accept patient today based
on recent inpatient stay at [facility]. Patient will need to go by w/c darlyn. Family made aware.
[facility] Skilled
Report [phone]

Plan; Skilled placement at [facility] today.
[2024-06-08 11:17] LABS: Magnesium 1.6 mg/dl (1.6-2.3)
[2024-06-08 12:01] LABS: Glucose - Point of Care 174 mg/dl (70-99)
[2024-06-08] MEDS: NOVOLOG FLEXPEN-LOW RESISTANCE 1 UNITS SC (12:46)
--- NOTE | 2024-06-08 14:13 | W.DCSUMMARY ---
Discharge Summary
Discharge Data
Date of Admission: 06/06/24
Date of Discharge: 06/08/24
-
Pending Results: No
Hospital Course
Primary diagnoses:
Acute metabolic encephalopathy due to nausea and decreased oral intake
Secondary diagnoses:
Hypokalemia
Type 2 diabetes mellitus with diabetic neuropathy
Chronic kidney disease 3b
Essential hypertension
Chronic obstructive pulmonary disease
Hyperlipidemia
Bipolar disorder
Chronic heart failure with reduced ejection fraction
Atrial fibrillation status post ablation and permanent pacemaker
History of L5 laminectomy
Adrenal hypertrophy with hyperaldosteronism
Consultants:
None
Imaging:
CT brain: No acute intracranial abnormality.
R forearm Xray: No evidence acute fracture or dislocation. There is a 3.7 cm lucency within the distal right humerus, suspicious for metastasis in the setting of known malignancy. Consider nonemergent MRI for further evaluation.
Hospital course: 78-year-old male who presented with chief complaints of weakness, confusion, decreased oral intake as outlined in the H&P done on admission. The patient reportedly had visual hallucinations. This was likely due to acute metabolic
encephalopathy due to nausea he was having as well as decreased oral intake. He was given IV fluids in the ER and then placed on maintenance fluids. He was seen in consultation by physical therapy in the ER. He was unable to be placed from the ER
and brought into the hospital under observation status. The patient's acute metabolic encephalopathy resolved and he was discharged in medically stable condition upon run.
Discharge Plan
-
Patient Disposition: Usp/SNF
Discharge Diagnosis/Procedures: Acute metabolic encephalopathy due to nausea and decreased oral intake
Condition: Fair
Diet: Low Cholesterol and Diabetic, Carb Controlled
Additional Diets: fluid restrict to 1500cc/day
Activity: With assistance
Driving Restrictions: No driving
Blood Work: BMP and CBC in 1 week, prescription from PCP
Referrals:
Maximiliano Lanza MD [Family Provider] - in less than 1 week
Prescriptions:
New
Eliquis 5 mg Tablet
5 mg PO BID Qty: 0 0RF
magnesium oxide 400 mg magnesium capsule
400 mg PO BID Qty: 60 0RF
Continued
acetaminophen [Tylenol] 325 mg Tablet
975 mg PO TID
metoprolol succinate [Toprol XL] 100 mg Tablet Extended Release 24 Hr
100 mg PO BID
amlodipine [Norvasc] 5 mg Tablet
10 mg PO DAILY
ascorbic acid (vitamin C) [Vitamin C] 500 mg Tablet
500 mg PO DAILY
folic acid 1 mg Tablet
1 mg PO DAILY
allopurinol 300 mg Tablet
300 mg PO DAILY
repaglinide 1 mg Tablet
1 mg PO TID
alpha lipoic acid 200 mg Tablet
600 mg PO MOWEFR@0800
Inlyta 1 mg Tablet
3 mg PO BID
sertraline [Zoloft] 25 mg Tablet
50 mg PO QPM
ezetimibe [Zetia] 10 mg Tablet
10 mg PO HS
eplerenone 50 mg Tablet
50 mg PO BID
potassium
500 mg PO DAILY
oxycodone 5 mg Tablet
5 mg PO Q4H
cyclobenzaprine 5 mg Tablet
5 mg PO TIDPRN PRN (Reason: muscle spasms)
buprenorphine 5 mcg/hour Patch Weekly
1 patch TRANSDERMAL MO
Discontinued
Eliquis DVT-PE Treat 30D Start 5 mg (74 tabs) tablets,dose pack
5 mg PO BID
Discharge Orders:
Discharge Patient (As Directed); Ordered 06/08/24
Ordered By: Mikal Dodson
Discharge Date and Time
Print Language: LAO
[2024-06-08 15:00] VITALS: BP 153/88
[2024-06-08 17:23] LABS: Glucose - Point of Care 126 mg/dl (70-99)
== END 2024-06-08 18:36 ==
LOC: 4 WEST ACU 17:22
PROVIDERS: Clinical Nurse Specialist Family Health; Physician Assistant; ADMITTING PHYSICIAN Internal Medicine; EMERGENCY PHYSICIAN Emergency Medicine; FAMILY PHYSICIAN Internal Medicine
DX: G93.41 Metabolic encephalopathy (principal); E87.6 Hypokalemia; R53.1 Weakness; E86.0 Dehydration; R51.9 Headache, unspecified; R11.0 Nausea; R63.0 Anorexia; M25.511 Pain in right shoulder; R44.1 Visual hallucinations; R26.2 Difficulty in walking, not elsewhere classified; R41.0 Disorientation, unspecified; C64.2 Malignant neoplasm of left kidney, except renal pelvis; C78.00 Secondary malignant neoplasm of unspecified lung; C79.51 Secondary malignant neoplasm of bone; I50.22 Chronic systolic (congestive) heart failure; I13.0 Hypertensive heart and chronic kidney disease with heart failure and stage 1 through stage 4 chronic kidney disease, or unspecified chronic kidney disease; I48.91 Unspecified atrial fibrillation; E11.22 Type 2 diabetes mellitus with diabetic chronic kidney disease; E78.00 Pure hypercholesterolemia, unspecified; N18.32 Chronic kidney disease, stage 3b; J44.9 Chronic obstructive pulmonary disease, unspecified; K21.9 Gastro-esophageal reflux disease without esophagitis; F31.9 Bipolar disorder, unspecified; G47.33 Obstructive sleep apnea (adult) (pediatric); N40.0 Benign prostatic hyperplasia without lower urinary tract symptoms; M18.11 Unilateral primary osteoarthritis of first carpometacarpal joint, right hand; E26.9 Hyperaldosteronism, unspecified; I44.7 Left bundle-branch block, unspecified; E27.8 Other specified disorders of adrenal gland; G25.81 Restless legs syndrome; F10.11 Alcohol abuse, in remission; Z92.3 Personal history of irradiation; Z79.01 Long term (current) use of anticoagulants; Z86.718 Personal history of other venous thrombosis and embolism; Z90.5 Acquired absence of kidney; Z88.8 Allergy status to other drugs, medicaments and biological substances; Z85.46 Personal history of malignant neoplasm of prostate; Z11.52 Encounter for screening for COVID-19; Z95.0 Presence of cardiac pacemaker
CPT/HCPCS: 70450; 73090; 80048; 80053; 81003; 81015; 82962; 83036; 83735; 84484; 85025; 87070; 87502; 87811; 93005; 96360; 99285; G0378

== ENCOUNTER → 2024-06-12 11:42 | Outpatient (REF) | payer OTHER, MEDICARE, BC, SELFPAY ==
[2024-06-12 12:52] LABS: % Basophils 0.5 % (0-2); % Eosinophils 5.4 % (0-6); % Immature Granulocytes 0.8 % (0-0.5); % Lymphocytes 15.6 % (20.5-51.1); % Monocytes 7.5 % (1.7-9.3); % Neutrophils 70.2 % (42.2-75.2); Absolute Eosinophils 0.2 10^3/uL (0-0.7); Absolute Lymphocytes 0.6 10^3/uL (1.2-3.4); Absolute Monocytes 0.3 10^3/uL (0.1-0.6); Absolute Neutrophils 2.6 10^3/uL (1.4-6.5); Hematocrit 35.1 % (39.0-52.0); Hemoglobin 11.8 g/dL (13.0-18.0); Mean Corp Hgb Conc. 33.6 g/dL (33.0-37.0); Mean Corpuscular Hgb 29.8 pg (27.0-31.0); Mean Corpuscular Volume 88.6 fL (80.0-94.0); Mean Platelet Volume 10.3 fL (7.4-10.4); Nucleated Red Blood Cells % 0 % (-); Platelet Count 173 10^3/uL (130-400); Red Blood Cell Count 3.96 10^6/uL (4.70-6.10); Red Cell Dist. Width 16.4 % (11.5-14.5); White Blood Cell Count 3.7 10^3/uL (4.8-10.8)
[2024-06-12 13:05] LABS: ALT (SGPT) < 10 U/L (0-50); AST (SGOT) 14 U/L (17-59); Albumin 3.1 g/dl (3.5-5.0); Alkaline Phosphatase 103 U/L (38-126); Blood Urea Nitrogen 18 mg/dl (9-20); Calcium 8.6 mg/dl (8.4-10.2); Carbon Dioxide 26 mmol/L (22-30); Chloride 109 mmol/L (98-107); Glucose 116 mg/dl (70-99); Potassium 3.8 mmol/L (3.5-5.1); Sodium 140 mmol/L (135-145); Total Bilirubin 0.8 mg/dl (0.2-1.3); Total Protein 4.9 g/dl (6.3-8.2); eGFR > 60.00
== END ==
LOC: OLABP 11:42
PROVIDERS: ATTENDING PHYSICIAN Family Medicine
DX: G92.8 Other toxic encephalopathy (principal); R53.1 Weakness; C64.9 Malignant neoplasm of unspecified kidney, except renal pelvis; J45.909 Unspecified asthma, uncomplicated; E11.21 Type 2 diabetes mellitus with diabetic nephropathy; Z90.5 Acquired absence of kidney; E87.6 Hypokalemia; R11.0 Nausea; R63.0 Anorexia; N18.30 Chronic kidney disease, stage 3 unspecified; I10 Essential (primary) hypertension; J44.9 Chronic obstructive pulmonary disease, unspecified; I50.32 Chronic diastolic (congestive) heart failure; E78.5 Hyperlipidemia, unspecified; E27.40 Unspecified adrenocortical insufficiency; F31.9 Bipolar disorder, unspecified
CPT/HCPCS: 36415; 80053; 85025

== ENCOUNTER → 2024-06-29 12:46 | Outpatient (REF) | payer OTHER, MEDICARE, BC, SELFPAY ==
[2024-06-29 13:33] LABS: % Basophils 0.3 % (0-2); % Eosinophils 4.7 % (0-6); % Immature Granulocytes 0.7 % (0-0.5); % Lymphocytes 11.9 % (20.5-51.1); % Monocytes 6.5 % (1.7-9.3); % Neutrophils 75.9 % (42.2-75.2); Absolute Eosinophils 0.3 10^3/uL (0-0.7); Absolute Immature Granulocytes 0.1 10^3/uL (0-0.05); Absolute Lymphocytes 0.8 10^3/uL (1.2-3.4); Absolute Monocytes 0.5 10^3/uL (0.1-0.6); Absolute Neutrophils 5.4 10^3/uL (1.4-6.5); Hematocrit 40.8 % (39.0-52.0); Hemoglobin 13.8 g/dL (13.0-18.0); Mean Corp Hgb Conc. 33.8 g/dL (33.0-37.0); Mean Corpuscular Hgb 30.5 pg (27.0-31.0); Mean Corpuscular Volume 90.1 fL (80.0-94.0); Mean Platelet Volume 9.7 fL (7.4-10.4); Nucleated Red Blood Cells % 0 % (-); Platelet Count 171 10^3/uL (130-400); Red Blood Cell Count 4.53 10^6/uL (4.70-6.10); Red Cell Dist. Width 18.4 % (11.5-14.5); White Blood Cell Count 7.1 10^3/uL (4.8-10.8)
== END ==
LOC: OLABP 12:46
PROVIDERS: ATTENDING PHYSICIAN Family Medicine
DX: G92.8 Other toxic encephalopathy (principal); R53.1 Weakness; C64.9 Malignant neoplasm of unspecified kidney, except renal pelvis; J45.909 Unspecified asthma, uncomplicated; E11.21 Type 2 diabetes mellitus with diabetic nephropathy; Z90.5 Acquired absence of kidney; E87.6 Hypokalemia; R11.0 Nausea; R63.0 Anorexia; N18.30 Chronic kidney disease, stage 3 unspecified; I10 Essential (primary) hypertension; J44.9 Chronic obstructive pulmonary disease, unspecified; I50.32 Chronic diastolic (congestive) heart failure; E78.5 Hyperlipidemia, unspecified; E27.40 Unspecified adrenocortical insufficiency; F31.9 Bipolar disorder, unspecified
CPT/HCPCS: 36415; 85025

== ENCOUNTER → 2024-07-07 15:34 | Outpatient (REF) | payer OTHER, MEDICARE, BC, SELFPAY ==
[2024-07-07 16:18] LABS: % Basophils 0.4 % (0-2); % Eosinophils 3.7 % (0-6); % Immature Granulocytes 0.4 % (0-0.5); % Lymphocytes 14.9 % (20.5-51.1); % Monocytes 3.7 % (1.7-9.3); % Neutrophils 76.9 % (42.2-75.2); Absolute Eosinophils 0.2 10^3/uL (0-0.7); Absolute Lymphocytes 0.7 10^3/uL (1.2-3.4); Absolute Monocytes 0.2 10^3/uL (0.1-0.6); Absolute Neutrophils 3.8 10^3/uL (1.4-6.5); Hematocrit 42.1 % (39.0-52.0); Hemoglobin 14.4 g/dL (13.0-18.0); Mean Corp Hgb Conc. 34.2 g/dL (33.0-37.0); Mean Corpuscular Hgb 30.8 pg (27.0-31.0); Nucleated Red Blood Cells % 0 % (-); Platelet Count 161 10^3/uL (130-400); Red Blood Cell Count 4.68 10^6/uL (4.70-6.10); Red Cell Dist. Width 18.9 % (11.5-14.5); White Blood Cell Count 4.9 10^3/uL (4.8-10.8)
[2024-07-07 17:20] LABS: ALT (SGPT) 14 U/L (0-50); AST (SGOT) 16 U/L (17-59); Albumin 3.5 g/dl (3.5-5.0); Alkaline Phosphatase 82 U/L (38-126); Blood Urea Nitrogen 27 mg/dl (9-20); Calcium 9.8 mg/dl (8.4-10.2); Carbon Dioxide 20 mmol/L (22-30); Chloride 111 mmol/L (98-107); Glucose 118 mg/dl (70-99); Sodium 142 mmol/L (135-145); Total Bilirubin 1.1 mg/dl (0.2-1.3); Total Protein 5.6 g/dl (6.3-8.2); eGFR > 60.00
== END ==
LOC: OLABP 15:34
PROVIDERS: ATTENDING PHYSICIAN Family Medicine
DX: E27.40 Unspecified adrenocortical insufficiency (principal); R53.1 Weakness; C64.9 Malignant neoplasm of unspecified kidney, except renal pelvis; J45.909 Unspecified asthma, uncomplicated; E11.21 Type 2 diabetes mellitus with diabetic nephropathy
CPT/HCPCS: 36415; 80053; 85025

== ENCOUNTER → 2024-07-08 07:09 | Outpatient (REF) | payer MEDICARE, BC, SELFPAY | LOC: RCS 07:09 | PROVIDERS: ATTENDING PHYSICIAN Internal Medicine Cardiovascular Disease; FAMILY PHYSICIAN Hospitalist | DX: Z01.818 Encounter for other preprocedural examination (principal) | CPT/HCPCS: 93306; 93356 ==

== ENCOUNTER → 2024-07-20 09:57 | Outpatient (REF) | payer OTHER, MEDICARE, SELFPAY ==
[2024-07-20 10:41] LABS: % Basophils 0.5 % (0-2); % Immature Granulocytes 0.2 % (0-0.5); % Lymphocytes 13.2 % (20.5-51.1); % Monocytes 7.9 % (1.7-9.3); % Neutrophils 72.2 % (42.2-75.2); Absolute Eosinophils 0.3 10^3/uL (0-0.7); Absolute Lymphocytes 0.6 10^3/uL (1.2-3.4); Absolute Monocytes 0.3 10^3/uL (0.1-0.6); Absolute Neutrophils 3.1 10^3/uL (1.4-6.5); Hemoglobin 12.8 g/dL (13.0-18.0); Mean Corpuscular Hgb 30.9 pg (27.0-31.0); Mean Corpuscular Volume 96.6 fL (80.0-94.0); Mean Platelet Volume 10.7 fL (7.4-10.4); Nucleated Red Blood Cells % 0 % (-); Platelet Count 139 10^3/uL (130-400); Red Blood Cell Count 4.14 10^6/uL (4.70-6.10); Red Cell Dist. Width 19.7 % (11.5-14.5); White Blood Cell Count 4.3 10^3/uL (4.8-10.8)
[2024-07-20 10:49] LABS: ALT (SGPT) 14 U/L (0-50); AST (SGOT) 15 U/L (17-59); Albumin 2.8 g/dl (3.5-5.0); Alkaline Phosphatase 75 U/L (38-126); Blood Urea Nitrogen 27 mg/dl (9-20); Calcium 8.4 mg/dl (8.4-10.2); Carbon Dioxide 25 mmol/L (22-30); Chloride 112 mmol/L (98-107); Glucose 95 mg/dl (70-99); Potassium 3.7 mmol/L (3.5-5.1); Sodium 141 mmol/L (135-145); Total Bilirubin 1.3 mg/dl (0.2-1.3); Total Protein 4.9 g/dl (6.3-8.2); eGFR > 60.00
== END ==
LOC: OLABP 09:57
PROVIDERS: ATTENDING PHYSICIAN Family Medicine
DX: E27.40 Unspecified adrenocortical insufficiency (principal); R53.1 Weakness; C64.9 Malignant neoplasm of unspecified kidney, except renal pelvis; J45.909 Unspecified asthma, uncomplicated; E11.21 Type 2 diabetes mellitus with diabetic nephropathy; Z90.5 Acquired absence of kidney; E87.6 Hypokalemia; R11.0 Nausea; R63.0 Anorexia; N18.30 Chronic kidney disease, stage 3 unspecified; I10 Essential (primary) hypertension; J44.9 Chronic obstructive pulmonary disease, unspecified; I50.32 Chronic diastolic (congestive) heart failure; E78.5 Hyperlipidemia, unspecified; F31.9 Bipolar disorder, unspecified
CPT/HCPCS: 36415; 80053; 85025

== ENCOUNTER → 2024-09-20 17:09 | Outpatient (REF) | payer MEDICARE, BC, SELFPAY ==
[2024-09-20 18:06] LABS: Hematocrit 33.8 % (39.0-52.0); Hemoglobin 11.4 g/dL (13.0-18.0); Mean Corp Hgb Conc. 33.7 g/dL (33.0-37.0); Mean Corpuscular Volume 96.3 fL (80.0-94.0); Nucleated Red Blood Cells % 0 % (-); Platelet Count 180 10^3/uL (130-400); Red Cell Dist. Width 14.9 % (11.5-14.5)
[2024-09-20 18:16] LABS: Microalb - Urine Creatinine 86.000 mg/dl
[2024-09-20 18:28] LABS: ALT (SGPT) < 10 U/L (0-50); AST (SGOT) 12 U/L (17-59); Albumin 3.9 g/dl (3.5-5.0); Alkaline Phosphatase 74 U/L (38-126); Blood Urea Nitrogen 23 mg/dl (9-20); Calcium 9.1 mg/dl (8.4-10.2); Carbon Dioxide 23 mmol/L (22-30); Glucose 199 mg/dl (70-99); Total Protein 5.6 g/dl (6.3-8.2); eGFR > 60.00
[2024-09-20 18:44] LABS: Chloride 109 mmol/L (98-107); Potassium 3.6 mmol/L (3.5-5.1); Sodium 139 mmol/L (135-145)
[2024-09-20 18:50] LABS: TSH 3.68 uIU/ml (0.47-4.68)
[2024-09-20 18:59] LABS: Microalbumin, Random Urine > 57.0 mg/dl (0.6-1.7)
[2024-09-21 10:04] LABS: Glycohemoglobin (HgbA1c) 5.7 % (4.0-5.6)
== END ==
LOC: REG 17:09
PROVIDERS: ATTENDING PHYSICIAN Internal Medicine; FAMILY PHYSICIAN Hospitalist; OTHER PHYSICIAN Internal Medicine Endocrinology, Diabetes & Metabolism; OTHER PHYSICIAN Physician Assistant Medical
DX: E11.9 Type 2 diabetes mellitus without complications (principal); Z09 Encounter for follow-up examination after completed treatment for conditions other than malignant neoplasm; R53.1 Weakness; C64.9 Malignant neoplasm of unspecified kidney, except renal pelvis; R79.89 Other specified abnormal findings of blood chemistry; E26.09 Other primary hyperaldosteronism; Z98.1 Arthrodesis status; M54.2 Cervicalgia; G95.89 Other specified diseases of spinal cord
CPT/HCPCS: 36415; 72052; 80053; 82043; 82570; 83036; 84439; 84443; 85025

== ENCOUNTER → 2024-10-25 14:24 | Outpatient (REF) | payer BC, SELFPAY ==
[2024-10-25 16:19] LABS: Hematocrit 36.5 % (39.0-52.0); Hemoglobin 12.0 g/dL (13.0-18.0); Mean Corp Hgb Conc. 32.9 g/dL (33.0-37.0); Mean Corpuscular Volume 96.6 fL (80.0-94.0); Nucleated Red Blood Cells % 0 % (-); Platelet Count 191 10^3/uL (130-400); Red Cell Dist. Width 14.5 % (11.5-14.5)
[2024-10-25 16:52] LABS: ALT (SGPT) < 10 U/L (0-50); AST (SGOT) 12 U/L (17-59); Albumin 3.9 g/dl (3.5-5.0); Alkaline Phosphatase 80 U/L (38-126); Blood Urea Nitrogen 26 mg/dl (9-20); Calcium 9.4 mg/dl (8.4-10.2); Carbon Dioxide 25 mmol/L (22-30); Chloride 110 mmol/L (98-107); Glucose 103 mg/dl (70-99); Potassium 4.1 mmol/L (3.5-5.1); Sodium 140 mmol/L (135-145); Total Protein 5.6 g/dl (6.3-8.2); eGFR > 60.00
[2024-10-25 17:21] LABS: PSA, Total - Diagnostic < 0.06 ng/ml (0.0-4.0)
== END ==
LOC: REG 14:24
PROVIDERS: ATTENDING PHYSICIAN Internal Medicine; FAMILY PHYSICIAN Hospitalist; REFERRING PHYSICIAN Internal Medicine Endocrinology, Diabetes & Metabolism
DX: C64.9 Malignant neoplasm of unspecified kidney, except renal pelvis (principal)
CPT/HCPCS: 36415; 80053; 84153; 85025

== ENCOUNTER → 2024-10-26 12:29 | Outpatient (REF) | payer MEDICARE, BC, SELFPAY | LOC: RAD 12:29 | PROVIDERS: FAMILY PHYSICIAN Hospitalist | DX: C64.9 Malignant neoplasm of unspecified kidney, except renal pelvis (principal) | CPT/HCPCS: 70491; 71260; 74177; Q9967 ==

== ENCOUNTER → 2024-10-26 14:01 | Outpatient (REF) | payer MEDICARE, BC, SELFPAY ==
[2024-10-26 15:20] LABS: FSH 75.7 mIU/ml (1.55-9.74)
[2024-10-26 15:31] LABS: Cortisol, Random 8.6 ug/dl; TSH 2.76 uIU/ml (0.47-4.68)
[2024-10-29 03:14] LABS: IGF-1 Z Score Calculation 0.0
== END ==
LOC: REG 14:01
PROVIDERS: ATTENDING PHYSICIAN Internal Medicine Endocrinology, Diabetes & Metabolism; FAMILY PHYSICIAN Hospitalist
DX: R79.89 Other specified abnormal findings of blood chemistry (principal); E29.1 Testicular hypofunction; D35.2 Benign neoplasm of pituitary gland
CPT/HCPCS: 36415; 82533; 83001; 83002; 84270; 84305; 84403; 84439; 84443

== ENCOUNTER → 2024-11-18 08:21 | Outpatient (REF) | payer BC, SELFPAY ==
[2024-11-18 10:49] LABS: Cortisol, Random 11.7 ug/dl
== END ==
LOC: REG 08:21
PROVIDERS: ATTENDING PHYSICIAN Internal Medicine Endocrinology, Diabetes & Metabolism; FAMILY PHYSICIAN Hospitalist
DX: R79.89 Other specified abnormal findings of blood chemistry (principal)
CPT/HCPCS: 36415; 82533

== ENCOUNTER 2024-11-29 17:36 | Emergency (ER) | payer BC, MEDICARE, SELFPAY ==
[2024-11-29 17:47] VITALS: BP 144/94
[2024-11-29 17:59] LABS: Hematocrit 35.8 % (39.0-52.0); Hemoglobin 12.2 g/dL (13.0-18.0); Mean Corp Hgb Conc. 34.1 g/dL (33.0-37.0); Mean Corpuscular Volume 93.7 fL (80.0-94.0); Nucleated Red Blood Cells % 0 % (-); Platelet Count 160 10^3/uL (130-400); Red Cell Dist. Width 14.2 % (11.5-14.5)
[2024-11-29 18:18] LABS: ALT (SGPT) < 10 U/L (0-50); AST (SGOT) 13 U/L (17-59); Albumin 4.0 g/dl (3.5-5.0); Alkaline Phosphatase 61 U/L (38-126); Blood Urea Nitrogen 34 mg/dl (9-20); Calcium 9.3 mg/dl (8.4-10.2); Carbon Dioxide 25 mmol/L (22-30); Chloride 106 mmol/L (98-107); Glucose 164 mg/dl (70-99); Potassium 3.9 mmol/L (3.5-5.1); Sodium 138 mmol/L (135-145); Total Protein 5.9 g/dl (6.3-8.2); eGFR 51.45
[2024-11-29 21:00] VITALS: BP 152/99
--- NOTE | 2024-11-29 22:47 | ED.GENMED ---
History of Present Illness
General
Chief Complaint: Breathing Problem
Source: patient
Exam Limitations: none
Time Seen by Provider: 11/29/24 20:26
Nursing documentation reviewed up to this point in time: agreed with
History of Present Illness
History of Present Illness:
Patient with history of kidney and prostate cancer, currently receiving treatment and COPD, presents to ED secondary to worsening shortness of breath along with generalized weakness over the past 1 week. Denies fever or chills. Denies vomiting or
diarrhea. Denies headache. Denies dizziness. Denies sick contact. Patient states that he has had number of similar symptoms in the past, requiring admission. Patient frustrated, as multiple admissions have failed to find out etiology behind his
symptoms.
Past History
Past History
ED Past Medical History: Asthma, Cancer (Kidney, Prostate), CHF, COPD, GERD, HTN, Hypercholesterolemia, NIDDM, Renal failure (Chronic kidney disease stage IIIb. Creatinine baseline 1.7), Psychiatric (bipolar, anxiety) and Other (Obstructive sleep
apnea, Cellulitis, Adrenal gland growth, Neck and back pain, Sciatica, restless leg syndrome. IBS, Anemia, Hypospadias)
ED Past Surgical History: Cardiac (pacer/defib, Ablation X 2), Orthopedic (L5 framiotomy), Urological (Left nephrectomy d/t cancer 2019) and Other (Lung mass biopsy positive for renal cell carcinoma metastasis, Right strabismus repair, )
Patient has exhibited threatening behavior?: No
PSI?: No
Social History
Tobacco: Non-smoker
Alcohol: None
Drug: None
Personal:
Living: long-term
Employment: Employed
Family History
Family History: Other (Noncontributory)
Review of Systems
Review of Systems
Allergies reviewed?: Yes
All Other Systems: ROS reviewed and negative except as documented in HPI and ROS
Constitutional: Reports no symptoms
Respiratory: Reports trouble breathing
ABD/GI: Reports no symptoms
Musculoskeletal: Reports no symptoms
Skin: Reports no symptoms
Neurological: Reports no symptoms
Phy Exam
Physical Exam
Physical Exam:
General: well nourished male, in no acute distress. afebrile
Heent: nc/at. eomi
Lungs: cta
Heart: rrr. no murmur
Abd: soft and nontender
Neuro: aao x 3. no focal neurological deficit
Skin: no rash. warm to touch
Psych: pleasant and cooperative
Scores
Heart Failure Risk
Heart Failure Risk Score: Not Applicable
Course
Orders/Labs/Results
Orders:
Orders
11/29/24 17:38
Electrocardiogram (*1) Urgent
Reason for Study: Shortness of Breath
EKG- Treatment ONCE
11/29/24 17:54
Complete Blood Count/With Diff Urgent
Comprehensive Metabolic Panel Urgent
Pro-BNP [NT-proBNP] Urgent
11/29/24 20:38
CR Chest - 2 Views Urgent
Comment:
Reason For Exam: cough/sob
11/29/24 23:16
Case Management Consult ONCE
Case Management Consult: VN/Home Care
Comment: Pt with worsening generalized weakness, with underlying malignancy. May benefit from VN evaluation,
to see what additional resources may be available at home along with PT/OT
Abnormal Lab Results
11/29/24
17:54
WBC 4.2 L 10^3/uL
(4.8-10.8)
RBC 3.82 L 10^6/uL
(4.70-6.10)
Hgb 12.2 L g/dL
(13.0-18.0)
Hct 35.8 L %
(39.0-52.0)
MCH 31.9 H pg
(27.0-31.0)
Absolute Lymphs (auto) 0.5 L 10^3/uL
(1.2-3.4)
Neutrophils % 81.1 H %
(42.2-75.2)
Lymphocytes % 10.8 L %
(20.5-51.1)
BUN 34 H mg/dl
(9-20)
Creatinine 1.4 H mg/dL
(0.7-1.3)
Glucose 164 H mg/dl
(70-99)
AST 13 L U/L
(17-59)
Total Protein 5.9 L g/dl
(6.3-8.2)
11/29/24 17:54
11/29/24 17:54
Vital Signs
Initial and Last Documented VS:
Initial Vital Signs
Temp Pulse Resp BP Pulse Ox
98.8 F 83 21 144/94 97
11/29/24 17:47 11/29/24 17:47 11/29/24 17:47 11/29/24 17:47 11/29/24 17:47
Last Documented Vital Signs
Temp Pulse Resp BP Pulse Ox
98.6 F 86 20 151/86 99
11/29/24 23:21 11/29/24 23:21 11/29/24 23:21 11/29/24 23:21 11/29/24 23:21
MDM/Problems Addressed
MDM/Problems Addressed:
Patient with an unremarkable workup in ED, including blood work and chest x-ray. Patient is able to ambulate independently, with steady gait, with normal pulse ox during ambulation in ED. As such, with his multiple previous admissions for similar
complaint, there is no indication for any further workup at this time, as his condition may be chronic or may be contributed by mild dehydration as well as his underlying malignancy. After discussion, decision made to discharge patient home, with
consultation to case management for home VN assessment. Patient advised to return to ED with worsening symptoms.
*Pulse Oximetry
SaO2: 97
Oxygen Mode of Delivery: Room air
Patient hypoxic: no
*Critical Care Note
Total Time (30-74mins, 75-104mins- exclusive of procedures): Not Applicable
ED Attending Note
-
Portions of this chart may have been created with voice recognition software.� Occasional wrong word or��sound alike� substitutions may have occurred due to the inherent limitations of voice recognition software.
Discharge Plan
Departure
Patient Disposition: Home (Routine Discharge)
Date of Disposition: 11/29/24
Time of Disposition: 23:18
Patient with high blood pressure during this ER visit?: Yes
Condition: Fair
Discharge Problem:
Weakness, Dyspnea
Instructions: Shortness of Breath (Dyspnea) (DC), Weakness - ED (DC)
Prescriptions:
No Action
acetaminophen [Tylenol] 325 mg Tablet
975 mg PO TID
metoprolol succinate [Toprol XL] 100 mg Tablet Extended Release 24 Hr
100 mg PO BID
amlodipine [Norvasc] 5 mg Tablet
10 mg PO DAILY
ascorbic acid (vitamin C) [Vitamin C] 500 mg Tablet
500 mg PO DAILY
folic acid 1 mg Tablet
1 mg PO DAILY
allopurinol 300 mg Tablet
300 mg PO DAILY
repaglinide 1 mg Tablet
1 mg PO TID
alpha lipoic acid 200 mg Tablet
600 mg PO MOWEFR@0800
Inlyta 1 mg Tablet
3 mg PO BID
sertraline [Zoloft] 25 mg Tablet
50 mg PO QPM
ezetimibe [Zetia] 10 mg Tablet
10 mg PO HS
eplerenone 50 mg Tablet
50 mg PO BID
potassium
500 mg PO DAILY
oxycodone 5 mg Tablet
5 mg PO Q4H
cyclobenzaprine 5 mg Tablet
5 mg PO TIDPRN PRN (Reason: muscle spasms)
buprenorphine 5 mcg/hour Patch Weekly
1 patch TRANSDERMAL MO
Eliquis 5 mg Tablet
5 mg PO BID Qty: 0 0RF
magnesium oxide 400 mg magnesium capsule
400 mg PO BID Qty: 60 0RF
Referrals:
uJliane Fajardo MD [Family Provider, Internal Medicine]
Activity Restrictions/Additional Instructions:
As discussed, please follow-up with your primary care physician for reevaluation. Please consider return to ED with worsening symptoms. In the meantime, do recommend proper diet along with increased water intake. You may be contacted by [facility] case management, for potential home PT OT, as well as visiting nurse evaluation.
Interventions
Interventions:
*Risk Screen - Suicide Last Done: 11/29/24 17:49
*General Assessment Last Done: 11/29/24 17:49
*Neglect/Abuse Screening Last Done: 11/29/24 17:49
*ED- Fall Risk Assessment Last Done: 11/29/24 17:49
*ED COVID-19 Vaccine History Last Done: 11/29/24 17:49
*Nursing Disposition Last Done: 11/29/24 23:21
ED- Cardiac Assessment Last Done: 11/29/24 20:35
ED- Pulmonary Assessment Last Done: 11/29/24 20:36
Discharge Date and Time
Discharge Date/Time: 11/29/24 23:24
Print Language: MONTSERRATIAN
[2024-11-29 23:21] VITALS: BP 151/86
--- NOTE | 2024-11-30 11:05 | EDCM ---
Called pt to follow up from ED visit last night. Discussed possible home care referral for VN, PT and OT. Pt informed me he had home care in the past and wants to think about it. We discussed how often they would visit and the services that could be
provided. Pt would like to think about it and asked that someone call him back tomorrow.
== END 2024-11-29 23:24 | disposition home or self-care (01) ==
LOC: EMR 17:36
PROVIDERS: Student in an Organized Health Care Education/Training Program; EMERGENCY PHYSICIAN Emergency Medicine; FAMILY PHYSICIAN Hospitalist
DX: R53.1 Weakness (principal); R06.00 Dyspnea, unspecified; J44.89 Other specified chronic obstructive pulmonary disease; G47.33 Obstructive sleep apnea (adult) (pediatric); I13.0 Hypertensive heart and chronic kidney disease with heart failure and stage 1 through stage 4 chronic kidney disease, or unspecified chronic kidney disease; E11.22 Type 2 diabetes mellitus with diabetic chronic kidney disease; I50.9 Heart failure, unspecified; N18.32 Chronic kidney disease, stage 3b; E78.00 Pure hypercholesterolemia, unspecified; Z85.528 Personal history of other malignant neoplasm of kidney; C61 Malignant neoplasm of prostate; Z95.0 Presence of cardiac pacemaker; Z90.5 Acquired absence of kidney
CPT/HCPCS: 99285; 71046; 80053; 83880; 85025; 93005

== ENCOUNTER 2024-12-30 22:55 | Observation (INO) | payer BC, MEDICARE, SELFPAY ==
[2024-12-30] VITALS (8 sets, daily range): BP systolic 127–150; BP diastolic 65–113; BMI 28.8
[2024-12-30 16:14] LABS: Hematocrit 39.3 % (39.0-52.0); Hemoglobin 12.8 g/dL (13.0-18.0); Mean Corp Hgb Conc. 32.6 g/dL (33.0-37.0); Mean Corpuscular Volume 94.5 fL (80.0-94.0); Nucleated Red Blood Cells % 0 % (-); Platelet Count 166 10^3/uL (130-400); Red Cell Dist. Width 15.0 % (11.5-14.5)
[2024-12-30 16:33] LABS: ALT (SGPT) 11 U/L (0-50); AST (SGOT) 15 U/L (17-59); Albumin 4.0 g/dl (3.5-5.0); Alkaline Phosphatase 70 U/L (38-126); Blood Urea Nitrogen 29 mg/dl (9-20); Calcium 9.0 mg/dl (8.4-10.2); Carbon Dioxide 26 mmol/L (22-30); Chloride 108 mmol/L (98-107); Glucose 132 mg/dl (70-99); Potassium 4.8 mmol/L (3.5-5.1); Sodium 140 mmol/L (135-145); Total Protein 6.0 g/dl (6.3-8.2); eGFR 51.45
[2024-12-30 16:39] LABS: Troponin I 0.026 ng/ml
--- NOTE | 2024-12-30 18:19 | ED.GENMED ---
History of Present Illness
<Alem Wharton PA-C - Last Filed: 12/31/24 03:28>
General
Chief Complaint: Weakness
Source: patient and family
Exam Limitations: none
Time Seen by Provider: 12/30/24 18:03
Nursing documentation reviewed up to this point in time: agreed with
History of Present Illness
History of Present Illness:
Patient is a 79 y.o male with history CHF, hypertension, hyperlipidemia, diabetes who presents to the emergency department for evaluation of generalized weakness and dizziness. Patient states that starting yesterday evening he became increasingly
weak and developed dizziness. He states that he was experiencing a spinning sensation which caused some balance difficulty/instability. He did not sustain any falls however states that his ambulation was limited secondary to his
weakness/instability. Currently, he denies any dizziness.
Patient also describes intermittent chest discomfort in his left upper chest as well as shortness of breath which is baseline. He denies any fever or abdominal pain. He has felt nauseous. No back pain or dysuria. No recent weight gain.
Patient is anticoagulated on Eliquis.
Patient lives at home with his however she is currently traveling out of town this weekend.
Past History
<Alem Wharton PA-C - Last Filed: 12/31/24 03:28>
Past History
ED Past Medical History: Asthma, Cancer (Kidney, Prostate), CHF, COPD, GERD, HTN, Hypercholesterolemia, NIDDM, Renal failure (Chronic kidney disease stage IIIb. Creatinine baseline 1.7), Psychiatric (bipolar, anxiety) and Other (Obstructive sleep
apnea, Cellulitis, Adrenal gland growth, Neck and back pain, Sciatica, restless leg syndrome. IBS, Anemia, Hypospadias)
ED Past Surgical History: Cardiac (pacer/defib, Ablation X 2), Orthopedic (L5 framiotomy), Urological (Left nephrectomy d/t cancer 2019) and Other (Lung mass biopsy positive for renal cell carcinoma metastasis, Right strabismus repair, )
Patient has exhibited threatening behavior?: No
PSI?: No
Social History
Tobacco: Non-smoker
Alcohol: None
Drug: None
Personal:
Living: shelter
Employment: Employed
Family History
Family History: Other (Noncontributory)
Review of Systems
<Alem Wharton PA-C - Last Filed: 12/31/24 03:28>
Review of Systems
Allergies reviewed?: Yes
All Other Systems: ROS reviewed and negative except as documented in HPI and ROS
Phy Exam
<Alem Wharton PA-C - Last Filed: 12/31/24 03:28>
Physical Exam
Physical Exam:
Vitals: Hypertensive, otherwise vital signs stable.
General: Patient is in no acute distress
Skin: Warm and dry, no rashes or lesions
Head: Normocephalic, atraumatic
Eyes: Sclera nonicteric.
Throat: Protecting airway
Neck: Normal ROM, no cervical spine tenderness, no meningismus
Cardiac: Regular rate and rhythm, no murmurs.
Pulm: Normal respiratory effort, no wheezes, rales, rhonchi heard on exam
Abdomen: Abdomen soft and nontender.
Extremities: No evidence of cyanosis or edema. Strength 5/5 in bilateral upper and lower extremities.
Neuro: AAOx3. Normal finger-nose no focal neurologic deficits.
Psychiatric: Normal affect.
Course
<Alem Wharton PA-C - Last Filed: 12/31/24 03:28>
Orders/Labs/Results
Orders:
Orders
12/30/24 15:48
Electrocardiogram (*1) Urgent
Reason for Study: Vertigo / Dizzy
12/30/24 15:49
EKG- Treatment ONCE
12/30/24 15:58
C-Reactive Protein Urgent
Comment: ADD ON
Complete Blood Count/With Diff Urgent
Comprehensive Metabolic Panel Urgent
Erythrocyte Sed Rate Urgent
Comment: ADD ON
NT-proBNP Urgent
Comment: ADD ON
Troponin I Urgent
12/30/24 18:14
CT Head W/o Iv Contrast Urgent
Comment:
Reason For Exam: dizziness
pacemaker [Interrogate Pacemaker- Treatment] ONCE
12/30/24 18:19
CR Chest - 2 Views Urgent
Comment:
Reason For Exam: SOB, weakness
12/30/24 18:56
Electrocardiogram (*1) Urgent
Reason for Study: Chest Pain
EKG- Treatment ONCE
12/30/24 18:57
Add On- LAB Urgent
Comments:: NT ProBNP to troponin
Tests Added?: NT ProBNP to troponin
12/30/24 19:12
COVID-19 Antigen Urgent
Source: Nasal Swab
Influenza A+B Rapid Molecular Urgent
OLIVIA Source: Nasal Swab
Specimen Description:
12/30/24 19:55
Troponin I Urgent
12/30/24 20:30
Add On- LAB Urgent
Tests Added?: ESR/ CRP
12/30/24 20:37
Urinalysis Reflex To Culture Urgent
Date Specimen was Collected: 12/30/24
Time Specimen was Collected: 20:36
Urine Microscopic Reflex Cult Urgent
12/30/24 22:25
Oxycodone [Roxicodone] 5 mg PO NOW STA
Nursing to Place Non Medication Order As Directed
Physician Order: Remove buprenorphine patch from right shoulder
Above order entered?: Yes
12/30/24 22:26
Admit/Transfer Patient As Directed
Co-Sign Provider:
Level of Care: Observation services
Assign to:: Medical/Surgical
Physician / Group: jesusita ruvalcaba
Diagnosis: acute dizziness/weakness 2/2 buprenorphine patch due to chronic neck/leg pa
Code Status As Directed
Resuscitation Status: Full Code
12/30/24 22:28
PRN Pain Medication Management As Directed
May give lesser potent ordered pain med per pt: Yes
preference::
Protocol:: Medication orders for pain may be administered in a
manner that supports deferring to patient preference
when the pt is:
- Requesting an ordered lesser potent pain medication.
Least to most potent pain medications are defined
as: acetaminophen < NSAID < tramadol < opioids
(morphine, oxycodone, hydromorphone).
- Requesting a lesser dose of the same medication IF
ORDERED.
- Requesting a less intrusive route of administration
if both routes are prescribed by the provider (PO <
IV).
12/31/24 00:14
Acetaminophen [Tylenol] 650 mg PO Q4HPRN PRN
Apixaban [Eliquis] 5 mg PO BID
Bisacodyl [Dulcolax] 10 mg RECTAL [id number] PRN
Dextrose 50%-Water [Dextrose 50% Syringe] 12.5 grams IV [id number] PRN
Docusate W/Senna [Senokot-S] 1 tablet PO BIDPRN PRN
Glucagon [GlucaGen] 1 mg IM PRN PRN
Metoprolol Xl [Toprol Xl] 100 mg PO BID
Polyethylene Glycol Powder [Miralax] 17 grams PO DAILYPRN PRN
12/31/24 00:14
VTE Contraindication Routine
VTE Mechanical Device Contraindication: Medical Contraindication
Pharmocologic Contraindication: Medical Contraindication
Comment: pt on eliquis
Activity As Directed
Activity Level: With Assistance
Bedside Glucose Monitoring As Directed
Frequency: AC&HS
Additional Instructions:: Change to q6h if pt on TPN, tube feeding or not eating
Intake/ Output As Directed
Frequency: Per unit guidelines
Orthostatic Vital Signs As Directed
Orthostatic VS Frequency: BID
Vital Signs As Directed
Frequency: q4h
Weight As Directed
Frequency: Daily
Pt Eval And Treat Routine
Activity Level: With Assistance
12/31/24 06:00
Complete Blood Count/With Diff IN AM
Comprehensive Metabolic Panel IN AM
Glycohemoglobin (HgbA1c) IN AM
12/31/24 08:00
Allopurinol [Zyloprim] 300 mg PO DAILY
Amlodipine [Norvasc] 10 mg PO DAILY
FOLic ACID [Folvite] 1 mg PO DAILY
Repaglinide [Prandin] 1 mg PO AC
Spironolactone [Aldactone] 25 mg PO DAILY
axitinib [Inlyta] 3 mg PO BID
12/31/24 Dinner
1800 calorie (15 carb) Diabetic
At Your Request: Full Participation
12/31/24 18:00
Sertraline HCl [Zoloft] 50 mg PO QPM
12/31/24 20:00
Oxycodone [Roxicodone] 5 mg PO HSPRN PRN
12/31/24 22:00
Ezetimibe [Zetia] 10 mg PO HS
Abnormal Lab Results
12/30/24 12/30/24
15:58 20:37
WBC 4.5 L 10^3/uL
(4.8-10.8)
RBC 4.16 L 10^6/uL
(4.70-6.10)
Hgb 12.8 L g/dL
(13.0-18.0)
MCV 94.5 H fL
(80.0-94.0)
MCHC 32.6 L g/dL
(33.0-37.0)
RDW 15.0 H %
(11.5-14.5)
Absolute Lymphs (auto) 0.6 L 10^3/uL
(1.2-3.4)
Neutrophils % 77.0 H %
(42.2-75.2)
Lymphocytes % 12.3 L %
(20.5-51.1)
Chloride 108 H mmol/L
(98-107)
BUN 29 H mg/dl
(9-20)
Creatinine 1.4 H mg/dL
(0.7-1.3)
Glucose 132 H mg/dl
(70-99)
AST 15 L U/L
(17-59)
C-Reactive Protein 11.60 H mg/L
(0.0-10.00)
Total Protein 6.0 L g/dl
(6.3-8.2)
Urine Albumin (Reflex) 3+ A
(Neg - Trace)
12/30/24 15:58
12/30/24 15:58
Vital Signs
Initial and Last Documented VS:
Initial Vital Signs
Temp Pulse Resp BP Pulse Ox
98.4 F 80 18 143/89 97
12/30/24 15:44 12/30/24 15:44 12/30/24 15:44 12/30/24 15:44 12/30/24 15:44
Last Documented Vital Signs
Temp Pulse Resp BP Pulse Ox
97.6 F 79 18 152/87 97
12/31/24 00:53 12/31/24 00:56 12/31/24 00:53 12/31/24 00:56 12/31/24 00:53
<Handy Garcia, DO - Last Filed: 12/30/24 20:35>
Orders/Labs/Results
Orders:
Orders
12/30/24 15:48
Electrocardiogram (*1) Urgent
Reason for Study: Vertigo / Dizzy
12/30/24 15:49
EKG- Treatment ONCE
12/30/24 15:58
C-Reactive Protein Urgent
Comment: ADD ON
Complete Blood Count/With Diff Urgent
Comprehensive Metabolic Panel Urgent
Erythrocyte Sed Rate Urgent
Comment: ADD ON
NT-proBNP Urgent
Comment: ADD ON
Troponin I Urgent
12/30/24 18:14
CT Head W/o Iv Contrast Urgent
Comment:
Reason For Exam: dizziness
pacemaker [Interrogate Pacemaker- Treatment] ONCE
12/30/24 18:19
CR Chest - 2 Views Urgent
Comment:
Reason For Exam: SOB, weakness
12/30/24 18:56
Electrocardiogram (*1) Urgent
Reason for Study: Chest Pain
EKG- Treatment ONCE
12/30/24 18:57
Add On- LAB Urgent
Comments:: NT ProBNP to troponin
Tests Added?: NT ProBNP to troponin
12/30/24 19:12
COVID-19 Antigen Urgent
Source: Nasal Swab
Influenza A+B Rapid Molecular Urgent
OLIVIA Source: Nasal Swab
Specimen Description:
12/30/24 19:55
Troponin I Urgent
12/30/24 20:30
Add On- LAB Urgent
Tests Added?: ESR/ CRP
12/30/24 20:37
Urinalysis Reflex To Culture Urgent
Date Specimen was Collected: 12/30/24
Time Specimen was Collected: 20:36
Urine Microscopic Reflex Cult Urgent
12/30/24 22:25
Oxycodone [Roxicodone] 5 mg PO NOW STA
Nursing to Place Non Medication Order As Directed
Physician Order: Remove buprenorphine patch from right shoulder
Above order entered?: Yes
12/30/24 22:26
Admit/Transfer Patient As Directed
Co-Sign Provider:
Level of Care: Observation services
Assign to:: Medical/Surgical
Physician / Group: jesusita ruvalcaba
Diagnosis: acute dizziness/weakness 2/2 buprenorphine patch due to chronic neck/leg pa
Code Status As Directed
Resuscitation Status: Full Code
12/30/24 22:28
PRN Pain Medication Management As Directed
May give lesser potent ordered pain med per pt: Yes
preference::
Protocol:: Medication orders for pain may be administered in a
manner that supports deferring to patient preference
when the pt is:
- Requesting an ordered lesser potent pain medication.
Least to most potent pain medications are defined
as: acetaminophen < NSAID < tramadol < opioids
(morphine, oxycodone, hydromorphone).
- Requesting a lesser dose of the same medication IF
ORDERED.
- Requesting a less intrusive route of administration
if both routes are prescribed by the provider (PO <
IV).
12/31/24 00:14
Acetaminophen [Tylenol] 650 mg PO Q4HPRN PRN
Apixaban [Eliquis] 5 mg PO BID
Bisacodyl [Dulcolax] 10 mg RECTAL [id number] PRN
Dextrose 50%-Water [Dextrose 50% Syringe] 12.5 grams IV [id number] PRN
Docusate W/Senna [Senokot-S] 1 tablet PO BIDPRN PRN
Glucagon [GlucaGen] 1 mg IM PRN PRN
Metoprolol Xl [Toprol Xl] 100 mg PO BID
Polyethylene Glycol Powder [Miralax] 17 grams PO DAILYPRN PRN
12/31/24 00:14
VTE Contraindication Routine
VTE Mechanical Device Contraindication: Medical Contraindication
Pharmocologic Contraindication: Medical Contraindication
Comment: pt on eliquis
Activity As Directed
Activity Level: With Assistance
Bedside Glucose Monitoring As Directed
Frequency: AC&HS
Additional Instructions:: Change to q6h if pt on TPN, tube feeding or not eating
Intake/ Output As Directed
Frequency: Per unit guidelines
Orthostatic Vital Signs As Directed
Orthostatic VS Frequency: BID
Vital Signs As Directed
Frequency: q4h
Weight As Directed
Frequency: Daily
Pt Eval And Treat Routine
Activity Level: With Assistance
12/31/24 06:00
Complete Blood Count/With Diff IN AM
Comprehensive Metabolic Panel IN AM
Glycohemoglobin (HgbA1c) IN AM
12/31/24 08:00
Allopurinol [Zyloprim] 300 mg PO DAILY
Amlodipine [Norvasc] 10 mg PO DAILY
FOLic ACID [Folvite] 1 mg PO DAILY
Repaglinide [Prandin] 1 mg PO AC
Spironolactone [Aldactone] 25 mg PO DAILY
axitinib [Inlyta] 3 mg PO BID
12/31/24 Dinner
1800 calorie (15 carb) Diabetic
At Your Request: Full Participation
12/31/24 18:00
Sertraline HCl [Zoloft] 50 mg PO QPM
12/31/24 20:00
Oxycodone [Roxicodone] 5 mg PO HSPRN PRN
12/31/24 22:00
Ezetimibe [Zetia] 10 mg PO HS
Abnormal Lab Results
12/30/24 12/30/24
15:58 20:37
WBC 4.5 L 10^3/uL
(4.8-10.8)
RBC 4.16 L 10^6/uL
(4.70-6.10)
Hgb 12.8 L g/dL
(13.0-18.0)
MCV 94.5 H fL
(80.0-94.0)
MCHC 32.6 L g/dL
(33.0-37.0)
RDW 15.0 H %
(11.5-14.5)
Absolute Lymphs (auto) 0.6 L 10^3/uL
(1.2-3.4)
Neutrophils % 77.0 H %
(42.2-75.2)
Lymphocytes % 12.3 L %
(20.5-51.1)
Chloride 108 H mmol/L
(98-107)
BUN 29 H mg/dl
(9-20)
Creatinine 1.4 H mg/dL
(0.7-1.3)
Glucose 132 H mg/dl
(70-99)
AST 15 L U/L
(17-59)
C-Reactive Protein 11.60 H mg/L
(0.0-10.00)
Total Protein 6.0 L g/dl
(6.3-8.2)
Urine Albumin (Reflex) 3+ A
(Neg - Trace)
12/30/24 15:58
12/30/24 15:58
Vital Signs
Initial and Last Documented VS:
Initial Vital Signs
Temp Pulse Resp BP Pulse Ox
98.4 F 80 18 143/89 97
12/30/24 15:44 12/30/24 15:44 12/30/24 15:44 12/30/24 15:44 12/30/24 15:44
Last Documented Vital Signs
Temp Pulse Resp BP Pulse Ox
97.6 F 79 18 152/87 97
12/31/24 00:53 12/31/24 00:56 12/31/24 00:53 12/31/24 00:56 12/31/24 00:53
<Alem Wharton PA-C - Last Filed: 12/31/24 03:28>
MDM/Problems Addressed
Differential Diagnosis Includes:
Not limited to: Viral illness, acute dehydration, UTI, peripheral vertigo, CVA, CHF exacerbation, etc.
MDM/Problems Addressed:
79-year-old male with 2 days of generalized weakness associated with intermittent dizziness and exertional dyspnea. No fevers or infectious symptoms. No exertional chest pain. No neurologic symptoms. Hypertensive with otherwise stable vital
signs. Physical exam as above. Patient generally weak appearing however no distress. He is neurologically intact without any focal deficits. Cardio/pulmonary assessment unremarkable. No clinical evidence of fluid overload on exam.
Symptoms vague, differential broad. He is not dizzy at time of my assessment. Will obtain basic labs, cardiac enzymes, UA, viral swabs. Will check chest x-ray and head CT.
Update: ED workup relatively unremarkable. Mild leukopenia. Chemistry reveals renal insufficiency which is stable. Cardiac [place] [address] without acute findings. Urine not infected.
Ultimately, no acute central or cardiac process identified on workup in ED. However given generalized weakness and balance difficulties concern for fall risk at home. Do not suspect acute CHF exacerbation�while elevated BNP noted will hold
diuretics without evidence of pulmonary edema on chest x-ray. Patient accepted to hospital service in stable condition
Chronic conditions affecting care:
Congestive heart failure, hypertension, hyperlipidemia, CKD, diabetes
Acute Exacerbation and/or Progression of Chronic Illness:
N/A
<Alem Wharton PA-C - Last Filed: 12/31/24 03:28>
*Radiology
Radiology exam reviewed: radiology read reviewed
*Pulse Oximetry
SaO2: 97
Oxygen Mode of Delivery: Room air
Patient hypoxic: no
*EKG
Interpreted by ED Provider?: Yes
EKG Intrepretation Date: 12/30/24
Interpretation: abnormal
Comparison EKG: no changes
Heart Rate: 79
Rate: normal
Rhythm: av sequential
Interval: long QT
QRS Pattern: left bundle branch block
*Special Assemblies Supervisor Interpretation
Rate: normal
Interpretation: abnormal
Heart Rate: 80
Rhythm: ventricular paced
*Critical Care Note
Total Time (30-74mins, 75-104mins- exclusive of procedures): Not Applicable
<Alem Wharton PA-C - Last Filed: 12/31/24 03:28>
Patient Management
Discussion with other providers: Hospitalist
ED Attending Note
<Alem Wharton PA-C - Last Filed: 12/31/24 03:28>
-
Portions of this chart may have been created with voice recognition software.� Occasional wrong word or��sound alike� substitutions may have occurred due to the inherent limitations of voice recognition software.
<Handy Garcia DO - Last Filed: 12/30/24 20:35>
ED Attending Note
Patient seen and examined by attending physician: Yes
I performed the substantive portion of visit, reviewed & personally made and approve the management plan that is documented in note by myself or HEYDI.: Yes
ED Attending Note:
I have seen and evaluated the patient with a [id number] encounter. I have spoken to the advance practicer provider and involved in the medical history, the physical exam, medical decision making.
Evaluation and management service: agree unless noted differently below.
Results interpretation: agree unless noted differently below.
Focused HPI: 79-year-old male presenting for evaluation of generalized weakness. Patient noted symptoms earlier today. Patient states he feels like he is going to lose his balance and fall. States all his extremities are week. Symptoms are worse
with exertion.
Physical exam: Sitting in bed comfortably. Heart regular rate and rhythm. Abdomen soft and nontender. Lungs clear
Medical Decision Making: Initial workup is negative including a negative troponin. Will trend his troponin. His BNP is elevated but chest x-ray is clear. Urinalysis pending but will admit based on his generalized weakness and fall risk
Discharge Plan
Departure
Patient Disposition: Admit
Date of Disposition: 12/30/24
Time of Disposition: 21:14
Presentation/result/management discussed w/ accepting MD/DO: Hospitalist
Covid-19: Negative COVID-19
Discharge Problem:
Generalized weakness, Dyspnea
Interventions
Interventions:
*Risk Screen - Suicide Last Done: 12/30/24 15:44
*General Assessment Last Done: 12/30/24 15:44
*Neglect/Abuse Screening Last Done: 12/30/24 15:44
*ED- Fall Risk Assessment Last Done: 12/30/24 17:59
*ED COVID-19 Vaccine History Last Done: 12/30/24 17:59
*ED Influenza Vaccine History Last Done: 12/30/24 17:59
*Nursing Disposition Last Done: 12/31/24 00:54
ED- Cardiac Assessment Last Done: 12/30/24 18:08
ED- Neurological Assessment Last Done: 12/30/24 18:08
ED- Pulmonary Assessment Last Done: 12/30/24 18:08
Discharge Date and Time
Discharge Date/Time: 12/31/24 00:15
[2024-12-30 19:35] LABS: COVID-19 Antigen Negative (Negative)
[2024-12-30 20:29] LABS: Troponin I 0.019 ng/ml
[2024-12-30 20:47] LABS: Urine Character Clear (Clear)
[2024-12-30 20:53] LABS: Urine Red Blood Cell 0-2 /HPF (0-2); Urine White Cell 0-2 /HPF (0-5)
[2024-12-30 21:13] LABS: C-Reactive Protein 11.60 mg/L (0.0-10.00)
--- NOTE | 2024-12-30 22:02 | HPS.HSE ---
Family Physician
-
Family Physician: Juliane Fajardo MD
Chief Complaint
-
Dizziness, weakness starting yesterday, chronic neck and leg pain starting 2 days ago
History of Present Illness
79-year-old male who reports feeling generalized weakness and dizziness yesterday evening 12/29/2024. He also reports a spinning sensation which caused some balance difficulty however did not fall. He states dizziness gets worse from supine
position to sitting up and also with standing. He reports his is currently out of town in [place] visiting her daughter and her father. The patient has no other family members to look in on him. He reports has had neck and flareup of
restless leg syndrome put buprenorphine patch 5mcg on 2 days ago within 24 hours started feeling weak and dizzy he has not used the patch in several months. He states he does take oxycodone 5 mg at nighttime only however according to MAR can take
as needed. He reports having a follow-up with his oncologist 2 weeks ago at [facility] with no changes in drug regimen of Inlyta twice daily. He denies headache, fever, chills, chest pain, palpitations, cough, abdominal pain, nausea,
vomiting, diarrhea, urinary symptoms. He reports finishing amoxicillin for rhinorrhea/URI 3 weeks ago.
The patient had an admission 06/06 - 06/08/2024 secondary to encephalopathy/visual hallucination, due to nausea decreased oral intake with presentation of weakness. He improved with IV fluids will send to SNF. He was also found to have a 3.7 cm
lucency in his distal right humerus suspicious for metastases. To his June visit he had a prior admission at [facility] for weakness requiring IV fluids.
He has past medical history of metastatic renal cell CA status post left nephrectomy 2018, metastatic renal cell carcinoma summer 2023 to lungs, cervical /lumbar spine, right shoulder, fracture left rib, status post neck scraping, tumor resection,
radiation to neck summer 2023 [place], status post lumbar radiation x 5 days April 2023, CKD 3 status post nephrectomy ventricular, BPH, prostate cancer status post radiation x 24 treatments 2019, ectopy / Bigeminy / NSVT status post VT
ablation, pacemaker/defibrillator chronic heart failure reduced EF 40%,, Hypertension, DM2, hyperaldosteronism, GERD, sciatica, ASUNCION, restless leg syndrome, IBS,Pt on eliquis for DVT Prophylaxis 2 years now.
Medical History
Past Medical History
Past Medical History: Reports Other
Additional Past Medical History:
Ventricular Ectopy / Bigeminy / NSVT
Chronic HF reduced EF 40% 2023
Hypertension
Hyperaldosteronism
CKD III s/p Nephrectomy left 2017
DM-II
BPH
History of Prostate Cancer Dx 2019 status post 28 radiation treatments
History of renal cell carcinoma status post left nephrectomy 2017
HX of metastatic renal cell carcinoma to lungs, cervical and lumbar spine, left rib with fracture, right shoulder
Radiation lumbar spine April 2024 x 5 days
Radiation cervical spine with neck scraping, tumor resection summer 2023 [facility]
Chronic neck pain
GERD
sciatica
ASUNCION
restless leg syndrome
IBS
Past Surgical History: Reports Other
Additional Past Surgical History:
VT Ablation (12/11/21)
Back Surgery
Cataracts
Left Nephrectomy
Social History
Tobacco: Non-smoker
Alcohol: Occasional
Drug: None
Personal:
Living: With Family ( Iveth)
Employment: Retired
Family History
Family History: Not pertinent
Allergies / Home Medications
Allergies reflects when Allergies were last updated in [facility].
Home Medications with original date entered in [facility]
Allergy/Medication List:
Allergies
Allergy/AdvReac Type Severity Reaction Status Date / Time
amiodarone Allergy Itching Verified 12/30/24 15:44
grass pollen Allergy Itching Verified 12/30/24 15:44
mold Allergy Itching Verified 12/30/24 15:44
Etfokus-XGL-AmP Reductase Allergy full body Verified 12/30/24 15:44
Inhibitor (Jhhngnd-Fqw-Glk aches
Reductase Inhibitor)
valsartan Allergy body Verified 12/30/24 15:44
aches/tolerates
losartan
Home Medications
acetaminophen 325 mg tablet (Tylenol) 975 mg PO TID Pain 12/12/23
allopurinol 300 mg tablet 300 mg PO DAILY Gout 12/12/23
alpha lipoic acid 200 mg tablet 600 mg PO MOWEFR@0800 Supplement 12/12/23
amlodipine 5 mg tablet (Norvasc) 10 mg PO DAILY Blood Pressure 12/12/23
folic acid 1 mg tablet 1 mg PO DAILY Supplement 12/12/23
metoprolol succinate 100 mg tablet,extended release 24 hr (Toprol XL) 100 mg PO BID Blood Pressure 12/12/23
repaglinide 1 mg tablet 1 mg PO TID Diabetes 12/12/23
axitinib 1 mg tablet (Inlyta) 3 mg PO BID Antineoplastic Agent 04/01/24
ezetimibe 10 mg tablet (Zetia) 10 mg PO HS High Cholesterol 04/01/24
sertraline 25 mg tablet (Zoloft) 50 mg PO QPM Mental Health/Anxiety 04/01/24
buprenorphine 5 mcg/hour weekly transdermal patch 1 patch transdermal WEEKLY 06/06/24
oxycodone 5 mg tablet 5 mg PO Q4H Pain 06/06/24
potassium 500 mg PO DAILY Supplement 06/06/24
apixaban 5 mg tablet (Eliquis) 5 mg PO BID #0 tabs 06/08/24
spironolactone 25 mg tablet 25 mg PO DAILY 12/30/24
Review of Systems
-
History Source: Patient
A 12 point ROS was completed and negative except as noted: Yes
Constitutional: Denies Fever or Chills
EENT: Denies Sore Throat or Runny Nose
Respiratory: Denies Cough or Trouble Breathing
Cardiac: Denies Chest Pain, Diaphoresis, Palpitations or Syncope
Abdomen/GI: Denies Abdominal Pain, Nausea, Vomiting, Diarrhea, Constipated, Bloody Stools or Black Stools
: Denies Dysuria, Frequency, Flank Pain, Incontinence, Difficulty Voiding or Urgency
Musculoskeletal: Reports Other (Chronic neck pain and restless leg pain); Denies Joint Pain or Edema
Skin: Denies Itching or Rash
Neurological: Reports Dizzy and Weakness (Generalized); Denies Headache or Numbness
Endocrine: Reports No Symptoms
Hematologic/Lymphatic: Reports No Symptoms
Psych: Reports Calm
Physical Exam
Vital Signs
Vital Signs
Temp Pulse Resp BP Pulse Ox
98.4 F 80 14 150/113 97
12/30/24 15:44 12/30/24 21:15 12/30/24 21:15 12/30/24 21:00 12/30/24 20:34
Physical Exam
General: Conversant; No Fever or Chills
HEENT: NormoCephalic, Anicteric, Moist mucous membranes, PERRLA, [place] Conjunctivae, No Ptosis, Nose Appears Normal, Ears Appear Normal and Other (Chronic neck pain)
Respiratory: Clear; No Wheezes, Rales or Rhonchi
Cardiac: S1/S2 and Regular Rhythm; No Murmur, Rub, Gallop or Peripheral Edema
Breast: Deferred by me
GI: Soft, Non Tender, Non Distended, Normal Bowel Sounds and No Hepatosplenomegaly
Rectal: Deferred by Provider
Genito-urinary: Deferred by me
Musculoskeletal: No Clubbing, No Cyanosis and No Edema
Skin: Warm and Dry; No Rash
Neuro: AO x 3, No Motor Deficits, Nonfocal/grossly intact, Cranial Nerves Intact and No Sensory Deficits; No Slurred Speech, Facial Droop, Tremors or Sedated
Psych: Calm
Laboratory Results
-
12/30/24 15:58
12/30/24 15:58
Laboratory Results
Total Bilirubin 1.0 mg/dl (0.2-1.3) 12/30/24 15:58
AST 15 U/L (17-59) L 12/30/24 15:58
ALT 11 U/L (0-50) 12/30/24 15:58
Alkaline Phosphatase 70 U/L (38-126) 12/30/24 15:58
Troponin I 0.019 ng/ml D 12/30/24 19:55
Impression/Plan
-
Impression/plan:
Observation MedSurg
#Generalized weakness/dizziness likely secondary to buprenorphine patch due to Acute on chronic neck pain/restless leg syndrome
#Chronic cervical pain status post cervical fusion tumor removal 2017
#Chronic restless leg syndrome
Creat 1.4 baseline appears 1.1-1.2/bun 29
COVID/influenza negative
- Patient reports has had neck and flareup of restless leg syndrome put buprenorphine patch 8 mcg on 2 days ago within 24 hours started feeling weak and dizzy he has not used the patch in several months
- Remove buprenorphine patch
- Continue oxycodone 5 mg every 4 hours as needed
-Check orthostatic vitals
- PT/OT/case management consult
CT head: No acute intracranial abnormality
CXR: 2 cm right lower lung nodule again seen indeterminate cannot exclude malignancy no pneumonia or vascular congestion
#Chronic 2 cm right lower lobe lung nodule
#History of renal cell carcinoma status post Left Nephrectomy 2017
#HX of Metastatic renal cell carcinoma to Lungs, cervical and lumbar spine, left rib with fracture, right shoulder
#Radiation lumbar spine April 2024 x 5 days
#Radiation cervical spine with neck scraping, tumor resection summer 2023 [facility]
Follows with [facility]-Dr.'s Lior Hawkins 2 weeks ago no changes in drug regimen
-Receives Inlyta started March 2024 with plans for possible Keytruda immunotherapy
# Chronic right shoulder pain secondary to suspected NEW metastases distal right humerus June 2021
-Continue oxycodone 5 mg p.o. every 4 hours as needed, Tylenol 975 mg p.o. 3 times daily
-Hold buprenorphine patch
June 2024 right forearm x-ray:There is a 3.7 cm lucency within the distal right humerus, suspicious for metastasis in the setting of known malignancy. Consider nonemergent MRI for further evaluation.
-
#CKD 3 A
Status post left nephrectomy 2017 due to renal cell carcinoma
-Creat 1. 4 baseline appears 1.1�1.2
#Permanent pacemaker/defibrillator
#Chronic heart failure reduced EF
I/O, daily weights
2D echo 07/23/2023: EF 40-45%, mildly reduced systolic function, mild diffuse hypokinesis, mild concentric LVH, mild MR/AR
#Hypertension
-BP 158/76
-Continue Norvasc 10 mg daily, continue spironolactone 25 mg daily Toprol XL 100 mg twice daily with hold parameters
#Hyperaldosteronism
#DM-II
-Accu-Cheks with SSI, check HgbA1c
- Continue repaglinide 1 mg 3 times daily due to decreased oral intake
BS 132
#BPH
#History of Prostate Cancer Dx 2018
-Status post radiation x 29 treatments
#Ventricular Ectopy / Bigeminy / NSVT
-Status post VT ablation 2 years ago
Other PMH:
GERD
ASUNCION
Sciatica
IBS
DVT prophylaxis
Continue Eliquis 5 mg twice daily
Full code per patient
--- NOTE | 2024-12-30 22:16 | W.PN.UPDATE ---
Update Note
Progress Note Update
Patient seen in conjunction with LINK ASSEMBLER. I agree with the findings on history and physical. I concur with assessment and plan listed otherwise.
Patient is a 79-year-old male patient presenting to the emergency department with approximately 1 to 2 days of intermittent dizziness and difficulty ambulating. He has extensive past medical history significant for metastatic renal cell CA status
post left nephrectomy 2018, mets to lungs, cervical /lumbar spine, right shoulder, fracture left rib, status post neck scraping, tumor resection, radiation to neck summer 2023 [place], status post lumbar radiation x 5 days April 2023, currently
on Inlyta, CKD 3 status post nephrectomy ventricular, BPH, prostate cancer status post radiation x 24 treatments 2018, ectopy / Bigeminy / NSVT status post VT ablation, pacemaker/defibrillator chronic heart failure reduced EF 40%, Hypertension, DM2,
hyperaldosteronism, GERD, sciatica, ASUNCION, restless leg syndrome, IBS, DVT on eliquis for prophylaxis.
Usually lives with spouse who is currently away. Reports that he has had some worsening pain over the last few days and he was started a buprenorphine patch that he has not used in several months. Approximately 24 hours after starting the patch he
started noticing generalized weakness and intermittent dizziness when going from a supine to seated or standing position. He is unable to tell whether dizziness is vertigo but he definitely notices a motion sensation with positional changes. He
denies any associated nausea. He denies any vomiting. He denies any change in his chronic shortness of breath. He denies having any chest pain. He denies any cough. He denies fevers or chills. He denies any melena or hematochezia. He has no
nausea vomiting or diarrhea. He denies any urinary symptoms. His appetite has been consistent. He has been no acute weight gain or weight loss. Is medication changes included switching from eplerenone to spironolactone. He denies any changes in
his cancer treatment regimen. He has continued to use oxycodone nightly in addition to this buprenorphine. His last use of buprenorphine was the month of September.
In the emergency department he was afebrile with temp of 98.4, normotensive at 150/100 with a pulse of 80 and was satting at 7% on room air. Chest x-ray shows known right lower lobe nodule. CT of the head was unremarkable. His troponin was
negative. ECG shows paced rhythm no acute ST-T wave changes. BNP remains elevated at 10,700. UA was unremarkable. COVID and flu test were negative.
Pacemaker was interrogated without any abnormal findings. CBC was normal. Electrolytes were normal. BUN/creatinine slightly elevated compared to baseline with creatinine of 1.4.
Assessment
79-year-old with extensive comorbidities including conduction abnormalities and CHF with reduced EF status post pacemaker AICD, hypertension, diabetes, metastatic renal cell cancer with mets to lung bone and currently status post radiation and on
Inlyta, CKD stage III status post nephrectomy for renal cell cancer presenting to the emergency department with approximately 1 day history of weakness particularly in his lower extremities and some dizziness. There are no focal deficits on exam.
CT of the head was unremarkable.'s labs essentially unremarkable. The only finding is a change in medication with initiation of burping often.
Weakness
- Admit to MedSurg observation
- DC buprenorphine for now
- Check orthostatic vital signs
- Was started on Aldactone 25 recently with stopping of eplerenone, electrolytes are okay, check orthostatics
- continue oxycodone hs for pain control
- PT consult
CHF - EF 40% s/p AICD PPM. Paced rhtyhm. Chronic elevated bnp but no evidence of acute volume overload.
- continue metoprolol and aldactone
- continue norvasc if not orthostatic
DM II -
- continue repaglinide
- sliding scale insulin
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
- continue home medication
- f/u with Gutierrez
DVT PPX - on apixaban
Code status - full code
[2024-12-30] MEDS: ROXICODONE 5 MG PO (22:47)
[2024-12-31 00:34] LABS: Glucose - Point of Care 193 mg/dl (70-99)
[2024-12-31 00:51] VITALS: BMI 28.8
[2024-12-31 00:53] VITALS: BP 152/87
[2024-12-31 00:55] VITALS: BMI 28.6
[2024-12-31] MEDS: TOPROL XL 100 MG PO ×2 (00:56→08:52)
[2024-12-31] MEDS: ELIQUIS 5 MG PO ×2 (00:57→08:52)
--- NOTE | 2024-12-31 02:42 | PTCARENOTE ---
Patient arrived on unit @0012 via stretcher from ED. Patient AAOX3, ambulate to be with assist x1. Patient denies any c/o pain or discomfort. Skin assessment completed, oriented to unit, call mosley within reach.
[2024-12-31 03:37] VITALS: BP 121/64
[2024-12-31 08:00] LABS: Glucose - Point of Care 111 mg/dl (70-99)
[2024-12-31 08:07] VITALS: BP 121/64
[2024-12-31 08:30] LABS: Hematocrit 36.3 % (39.0-52.0); Hemoglobin 11.7 g/dL (13.0-18.0); Mean Corp Hgb Conc. 32.2 g/dL (33.0-37.0); Mean Corpuscular Volume 95.5 fL (80.0-94.0); Nucleated Red Blood Cells % 0 % (-); Platelet Count 141 10^3/uL (130-400); Red Cell Dist. Width 14.9 % (11.5-14.5)
[2024-12-31] MEDS: FOLVITE 1 MG PO (08:51)
[2024-12-31] MEDS: NORVASC 10 MG PO (08:51)
[2024-12-31] MEDS: ALDACTONE 25 MG PO (08:51)
[2024-12-31 08:54] LABS: ALT (SGPT) 10 U/L (0-50); AST (SGOT) 13 U/L (17-59); Albumin 3.2 g/dl (3.5-5.0); Alkaline Phosphatase 67 U/L (38-126); Blood Urea Nitrogen 28 mg/dl (9-20); Calcium 8.7 mg/dl (8.4-10.2); Carbon Dioxide 26 mmol/L (22-30); Chloride 108 mmol/L (98-107); Estimated Creatinine Clearance 47 ml/min; Glucose 105 mg/dl (70-99); Potassium 4.1 mmol/L (3.5-5.1); Sodium 140 mmol/L (135-145); Total Protein 5.1 g/dl (6.3-8.2); eGFR 56.23
[2024-12-31] MEDS: PRANDIN 1 MG PO (09:05)
[2024-12-31 10:24] VITALS: BP 126/76; BP 126/77; BP 139/77; PULSE 60; O2SAT 96
--- NOTE | 2024-12-31 11:17 | W.PN.HOSP.TC ---
Addendum entered and electronically signed by Lincoln Begum MD 12/31/24 13:00:
[id number]
Original Note:
Today's Communication/Plan
-
F/u with ortho, pcp outpt
Pain control with lidocaine patch
DC buprenorphine patch
Assessment / Plan
Assessment / Plan
Physical Exam
General: Conversant; No Fever or Chills
HEENT: NormoCephalic, Anicteric, Moist mucous membranes, PERRLA, [employer] Conjunctivae, No Ptosis, Nose Appears Normal, Ears Appear Normal and Other (Chronic neck pain)
Respiratory: Clear; No Wheezes, Rales or Rhonchi
Cardiac: S1/S2 and Regular Rhythm; No Murmur, Rub, Gallop or Peripheral Edema
Breast: Deferred by me
GI: Soft, Non Tender, Non Distended, Normal Bowel Sounds and No Hepatosplenomegaly
Rectal: Deferred by Provider
Genito-urinary: Deferred by me
Musculoskeletal: No Clubbing, No Cyanosis and No Edema
Skin: Warm and Dry; No Rash
Neuro: AO x 3, No Motor Deficits, Nonfocal/grossly intact, Cranial Nerves Intact and No Sensory Deficits; No Slurred Speech, Facial Droop, Tremors or Sedated
Psych: Calm
#Generalized weakness/dizziness likely secondary to buprenorphine patch due to Acute on chronic neck pain/restless leg syndrome - resolved this AM and ambulating well with PT
#Chronic cervical pain status post cervical fusion tumor removal 2017
#Chronic restless leg syndrome
COVID/influenza negative
- Patient reports has had neck and flareup of restless leg syndrome put buprenorphine patch 8 mcg on 2 days ago within 24 hours started feeling weak and dizzy he has not used the patch in several months
- Remove buprenorphine patch
-Added lidocaine patch
- Continue oxycodone 5 mg every 4 hours as needed
- PT/OT/case management consult
#Chronic 2 cm right lower lobe lung nodule
-f/u outpt
#History of renal cell carcinoma status post Left Nephrectomy 2017
#HX of Metastatic renal cell carcinoma to Lungs, cervical and lumbar spine, left rib with fracture, right shoulder
#Radiation lumbar spine April 2024 x 5 days
#Radiation cervical spine with neck scraping, tumor resection summer 2023 [facility]
Follows with [facility]-Dr.'s Lior Hawkins 2 weeks ago no changes in drug regimen
-Receives Inlyta started March 2024 with plans for possible Keytruda immunotherapy
# Chronic right shoulder pain secondary to suspected NEW metastases distal right humerus June 2021
-Continue oxycodone 5 mg p.o. every 4 hours as needed, Tylenol 975 mg p.o. 3 times daily
-Hold buprenorphine patch
June 2024 right forearm x-ray:There is a 3.7 cm lucency within the distal right humerus, suspicious for metastasis in the setting of known malignancy. Consider nonemergent MRI for further evaluation.
-
#CKD 3 A
Status post left nephrectomy 2018 due to renal cell carcinoma
-Creat 1. 4 baseline appears 1.1�1.2
#Permanent pacemaker/defibrillator
#Chronic heart failure reduced EF
I/O, daily weights
2D echo 07/23/2023: EF 40-45%, mildly reduced systolic function, mild diffuse hypokinesis, mild concentric LVH, mild MR/AR
#Hypertension
-Continue Norvasc 10 mg daily, continue spironolactone 25 mg daily Toprol XL 100 mg twice daily with hold parameters
#Hyperaldosteronism
#DM-II
-Accu-Cheks with SSI, check HgbA1c
- Continue repaglinide 1 mg 3 times daily due to decreased oral intake
BS 132
#BPH
#History of Prostate Cancer Dx 2018
-Status post radiation x 29 treatments
#Ventricular Ectopy / Bigeminy / NSVT
-Status post VT ablation 2 years ago
Other PMH:
GERD
ASUNCION
Sciatica
IBS
DVT prophylaxis
Continue Eliquis 5 mg twice daily
More than 30 minutes spent in discharge including
Final examination of the patient
Summarizing hospital stay
Instructions for continuing care to all relevant caregivers
Preparation of discharge records, prescriptions, and referral forms
Total time spent (in minutes): 36
Anticipated Discharge: Today
Subjective/Interval History
-
Date of Service: December 31, 2024
Symptoms have resolved, worked well with PT
Objective Data
-
Labs:
Laboratory Results
12/31/24
08:15
WBC 3.5 L
Hgb 11.7 L
Hct 36.3 L
Plt Count 141
Sodium 140
Potassium 4.1
Chloride 108 H
Carbon Dioxide 26
BUN 28 H
Creatinine 1.3
Glucose 105 H
Calcium 8.7
Total Bilirubin 0.5
AST 13 L
ALT 10
Alkaline Phosphatase 67
Vital Signs:
Vital Signs
Temp Pulse Resp BP Pulse Ox
97.5 F 83 16 121/64 97
12/31/24 08:07 12/31/24 08:52 12/31/24 08:07 12/31/24 08:52 12/31/24 08:07
Review of Systems
-
History Source: Patient
All other systems: Not reviewed unless documented
Data Reviewed
-
Diagnostic Radiology: Image personally visualized and interpreted and Report Reviewed by me
Labs: Labs Reviewed by me
--- NOTE | 2024-12-31 11:19 | W.DS.TRANS ---
DC Summary - Video Editing Intern
-
Discharge Instructions:
Discharge Diagnosis/Procedures Generalized weakness/dizziness likely secondary
to buprenorphine patch - resolved
Diet Restrict fluids to 48 oz,Low Cholesterol,Low Fat
,Diabetic, Carb Controlled
Blood Work cbc and bmp in 3-5 days with pcp
Others Tests 2 cm right lower lung nodule again seen - f/u
outpatient for imaging
Instructions:
Stand-Alone Forms:
Changes to Home Medications: Yes
Discharge Medications:
DC Medications w/original date entered in [facility]
acetaminophen 325 mg tablet (Tylenol) 975 mg PO TID Pain 12/12/23
allopurinol 300 mg tablet 300 mg PO DAILY Gout 12/12/23
alpha lipoic acid 200 mg tablet 600 mg PO MOWEFR@0800 Supplement 12/12/23
amlodipine 5 mg tablet (Norvasc) 10 mg PO DAILY Blood Pressure 12/12/23
folic acid 1 mg tablet 1 mg PO DAILY Supplement 12/12/23
metoprolol succinate 100 mg tablet,extended release 24 hr (Toprol XL) 100 mg PO BID Blood Pressure 12/12/23
repaglinide 1 mg tablet 1 mg PO TID Diabetes 12/12/23
axitinib 1 mg tablet (Inlyta) 3 mg PO BID Antineoplastic Agent 04/01/24
ezetimibe 10 mg tablet (Zetia) 10 mg PO HS High Cholesterol 04/01/24
sertraline 25 mg tablet (Zoloft) 50 mg PO QPM Mental Health/Anxiety 04/01/24
oxycodone 5 mg tablet 5 mg PO Q4H Pain 06/06/24
potassium 500 mg PO DAILY Supplement 06/06/24
apixaban 5 mg tablet (Eliquis) 5 mg PO BID #0 tabs 06/08/24
spironolactone 25 mg tablet 25 mg PO DAILY 12/30/24
lidocaine 4 % topical patch (Lidocaine Pain Relief) 1 patch topical DAILY PRN Pain #100 ea 12/31/24
Home Medication Changes
lidocaine 4 % topical patch (Lidocaine Pain Relief) 1 patch topical DAILY PRN Pain #100 ea 12/31/24
Pending Results: No
[2024-12-31 11:52] LABS: Glucose - Point of Care 89 mg/dl (70-99)
[2024-12-31] MEDS: ZYLOPRIM 300 MG PO (11:52)
[2024-12-31] MEDS: PRANDIN PO ×2 (11:52→11:55)
[2024-12-31 12:36] VITALS: BP 137/74
[2024-12-31 14:49] LABS: Glycohemoglobin (HgbA1c) 6.4 % (4.0-5.9)
== END 2024-12-31 13:10 | disposition home or self-care (01) ==
LOC: 3 WEST ACU 22:55
PROVIDERS: Clinical Nurse Specialist Family Health; Physician Assistant; Student in an Organized Health Care Education/Training Program; ADMITTING PHYSICIAN Internal Medicine; ATTENDING PHYSICIAN Internal Medicine; EMERGENCY PHYSICIAN Student in an Organized Health Care Education/Training Program; FAMILY PHYSICIAN Hospitalist
DX: R53.1 Weakness (principal); R42 Dizziness and giddiness; R91.1 Solitary pulmonary nodule; I50.22 Chronic systolic (congestive) heart failure; G25.81 Restless legs syndrome; D72.819 Decreased white blood cell count, unspecified; E11.22 Type 2 diabetes mellitus with diabetic chronic kidney disease; E26.9 Hyperaldosteronism, unspecified; N18.31 Chronic kidney disease, stage 3a; E78.00 Pure hypercholesterolemia, unspecified; G47.33 Obstructive sleep apnea (adult) (pediatric); I13.0 Hypertensive heart and chronic kidney disease with heart failure and stage 1 through stage 4 chronic kidney disease, or unspecified chronic kidney disease; I47.20 Ventricular tachycardia, unspecified; J44.89 Other specified chronic obstructive pulmonary disease; K21.9 Gastro-esophageal reflux disease without esophagitis; K58.9 Irritable bowel syndrome, unspecified; M54.30 Sciatica, unspecified side; N40.0 Benign prostatic hyperplasia without lower urinary tract symptoms; Z11.52 Encounter for screening for COVID-19; Z79.899 Other long term (current) drug therapy; Z79.4 Long term (current) use of insulin; Z79.01 Long term (current) use of anticoagulants; Z85.528 Personal history of other malignant neoplasm of kidney; Z85.46 Personal history of malignant neoplasm of prostate; Z92.3 Personal history of irradiation; Z95.810 Presence of automatic (implantable) cardiac defibrillator
CPT/HCPCS: 70450; 71046; 80053; 81003; 81015; 82962; 83036; 83880; 84484; 85025; 85652; 86140; 87502; 87811; 93005; 93289; 97162; 97530; 99285; G0378

== ENCOUNTER → 2025-01-09 14:05 | Outpatient (REF) | payer MEDICARE, BC, SELFPAY | LOC: MRI 14:05 | PROVIDERS: ATTENDING PHYSICIAN Internal Medicine Endocrinology, Diabetes & Metabolism | DX: D35.2 Benign neoplasm of pituitary gland (principal) | CPT/HCPCS: 70553; 76014; 76015; A9575 ==

== ENCOUNTER → 2025-01-10 14:43 | Outpatient (REF) | payer MEDICARE, BC, SELFPAY | LOC: RAD 14:43 | PROVIDERS: ATTENDING PHYSICIAN Internal Medicine Endocrinology, Diabetes & Metabolism; FAMILY PHYSICIAN Hospitalist | DX: M85.80 Other specified disorders of bone density and structure, unspecified site (principal); M81.0 Age-related osteoporosis without current pathological fracture | CPT/HCPCS: 77080 ==

== ENCOUNTER 2025-01-12 13:11 | Emergency (ER) | payer MEDICARE, BC, SELFPAY ==
[2025-01-12 13:37] LABS: Hematocrit 39.8 % (39.0-52.0); Hemoglobin 13.4 g/dL (13.0-18.0); Mean Corp Hgb Conc. 33.7 g/dL (33.0-37.0); Mean Corpuscular Volume 92.6 fL (80.0-94.0); Nucleated Red Blood Cells % 0 % (-); Platelet Count 179 10^3/uL (130-400); Red Cell Dist. Width 14.7 % (11.5-14.5)
[2025-01-12 13:46] LABS: ALT (SGPT) < 10 U/L (0-50); AST (SGOT) 14 U/L (17-59); Albumin 3.8 g/dl (3.5-5.0); Alkaline Phosphatase 75 U/L (38-126); Blood Urea Nitrogen 26 mg/dl (9-20); Calcium 9.3 mg/dl (8.4-10.2); Carbon Dioxide 23 mmol/L (22-30); Chloride 106 mmol/L (98-107); Glucose 154 mg/dl (70-99); Potassium 3.9 mmol/L (3.5-5.1); Sodium 134 mmol/L (135-145); Total Protein 5.9 g/dl (6.3-8.2); eGFR 51.45
[2025-01-12 14:00] VITALS: BP 150/82
[2025-01-12 15:00] VITALS: BP 144/82
--- NOTE | 2025-01-12 15:18 | ED.GENMED ---
History of Present Illness
General
Chief Complaint: Weakness
Source: patient and records
Exam Limitations: none
Time Seen by Provider: 01/12/25 15:07
Nursing documentation reviewed up to this point in time: agreed with
History of Present Illness
History of Present Illness:
79-year-old male with a past medical history of COPD, CHF, hypertension, hyperlipidemia, renal cancer status post left nephrectomy in 2019 with chronic kidney disease who presents to the emergency department from outpatient CT area for evaluation of
generalized weakness. Of note patient was just admitted to this hospital at the end of December for generalized weakness that was attributed to polypharmacy, specifically buprenorphine patch. Patient was scheduled for an outpatient CT by his
oncologist through [facility] for evaluation of his renal cancer. He says that for the past few days he has been feeling very weak. Today he reported for his scheduled CT scan and was too weak to stand, very pale. He says he had an episode of
sweatiness and paresthesias in his extremities. Staff at outpatient CT called rapid response and he was brought to the ER to be evaluated. Aside from feeling very weak he also reports he has had some nausea and poor appetite for the past few days.
No vomiting, diarrhea, abdominal pain reported. He has had a mild cough. He says he feels more short of breath than usual. Denies any chest pain. Denies any other acute complaints.
Past History
Past History
ED Past Medical History: Asthma, Cancer (Kidney, Prostate), CHF, COPD, GERD, HTN, Hypercholesterolemia, NIDDM, Renal failure (Chronic kidney disease stage IIIb. Creatinine baseline 1.7), Psychiatric (bipolar, anxiety) and Other (Obstructive sleep
apnea, Cellulitis, Adrenal gland growth, Neck and back pain, Sciatica, restless leg syndrome. IBS, Anemia, Hypospadias)
ED Past Surgical History: Cardiac (pacer/defib, Ablation X 2), Orthopedic (L5 framiotomy), Urological (Left nephrectomy d/t cancer 2019) and Other (Lung mass biopsy positive for renal cell carcinoma metastasis, Right strabismus repair, )
Patient has exhibited threatening behavior?: No
PSI?: No
Social History
Tobacco: Non-smoker
Alcohol: None
Drug: None
Personal:
Living: penitentiary
Employment: Employed
Family History
Family History: Other (Noncontributory)
Review of Systems
Review of Systems
All Other Systems: ROS reviewed and negative except as documented in HPI and ROS
Constitutional: Reports fatigue; Denies fever
EENT: Denies sore throat or runny nose
Respiratory: Reports cough and trouble breathing
Cardiac: Reports diaphoresis; Denies chest pain or palpitations
ABD/GI: Reports nausea; Denies abdominal pain or vomiting
: Denies flank pain
Musculoskeletal: Denies neck pain or back pain
Neurological: Reports dizzy, headache and other (Paresthesias)
Phy Exam
Physical Exam
Physical Exam:
General: Awake, alert, oriented x3; no acute distress
Head: Normocephalic, atraumatic
Eyes: Conjunctiva normal, pupils equal round reactive to light bilaterally
Throat: Airway intact, handling secretions
Neck: Trachea midline, no JVD noted
Lungs: Clear to auscultation bilaterally, no wheezing, rales, rhonchi
Heart: Regular rate and rhythm, no murmurs, gallops, or rubs
Abd: Soft, non distended, nontender
Neuro: Cranial nerves grossly intact, speech fluid, motor and sensory intact and symmetric in all extremities
Skin: Warm and dry
Extremities: Trace edema around the ankles, extremities are warm and well-perfused
Scores
Heart Failure Risk
Heart Failure Risk Score: Not Applicable
Heart Score for Chest Pain Patients
STEMI patient?: Not applicable
Withdrawal Assessment of Alcohol
Withdrawal Assessment Completed?: Not applicable
Course
Orders/Labs/Results
Orders:
Orders
01/12/25 13:13
Electrocardiogram (*1) Urgent
Reason for Study: Fatigue / Weakness
EKG- Treatment ONCE
01/12/25 13:23
BNP [NT-proBNP] Urgent
Complete Blood Count/With Diff Urgent
Comprehensive Metabolic Panel Urgent
01/12/25 15:08
Interrogate Pacemaker- Treatment ONCE
01/12/25 15:18
CT Chest/abd/pel W Iv Cont Urgent
Comment:
Reason For Exam: renal cancer, cough, SOB, nausea
Abnormal Lab Results
01/12/25
13:23
RBC 4.30 L 10^6/uL
(4.70-6.10)
MCH 31.2 H pg
(27.0-31.0)
RDW 14.7 H %
(11.5-14.5)
Absolute Lymphs (auto) 0.6 L 10^3/uL
(1.2-3.4)
Neutrophils % 81.6 H %
(42.2-75.2)
Lymphocytes % 11.1 L %
(20.5-51.1)
Sodium 134 L mmol/L
(135-145)
BUN 26 H mg/dl
(9-20)
Creatinine 1.4 H mg/dL
(0.7-1.3)
Glucose 154 H mg/dl
(70-99)
AST 14 L U/L
(17-59)
Total Protein 5.9 L g/dl
(6.3-8.2)
01/12/25 13:23
01/12/25 13:23
Vital Signs
Initial and Last Documented VS:
Initial Vital Signs
Pulse Resp Pulse Ox
81 16 98
01/12/25 13:16 01/12/25 13:16 01/12/25 13:16
Last Documented Vital Signs
Pulse Resp BP Pulse Ox
80 22 150/82 94
01/12/25 14:45 01/12/25 14:45 01/12/25 14:00 01/12/25 15:26
MDM/Problems Addressed
Differential Diagnosis Includes:
Differential diagnosis includes but not limited to: Infection including viral infection, UTI, pneumonia; CHF; anemia; electrolyte abnormality/dehydration; polypharmacy; deconditioning
MDM/Problems Addressed:
79-year-old male with history as noted presents to the ER for evaluation of generalized weakness associate with multiple other complaints over the past few days. He reports some nausea with poor appetite, shortness of breath and cough. Was
scheduled for an outpatient CT for cancer surveillance today and was referred over to the ER due to being very weak. Hypertensive but otherwise normal vital signs here. Physical exam as noted. His EKG shows a paced rhythm. Will interrogate
device. Labs sent in triage including a CBC and a CMP showed no clinically significant abnormalities�his creatinine is 1.4 [place] [address]. He is requesting that we proceed with CT scan as scheduled that she should have
chest imaging to evaluate for signs of acute CHF and so we will proceed with CT chest/abdomen/pelvis as scheduled. Will reassess after the above�overall history and exam suspicious for CHF exacerbation with his cough and dyspnea, trace edema in the
legs with elevated proBNP.
CT reviewed no acute abnormalities but multiple incidental findings noted. Suspect some mild CHF contributing to his weakness. I had a long discussion with the patient and offered admission to the hospital again but he is adamant that he does not
want to stay in the hospital again and wants to be discharged at this point. He is not hypoxic, vital signs have been stable throughout prolonged ED observation. I think will be reasonable to trial a few days of diuretic and have him follow-up
with his installment loan collector on an outpatient basis. He says he already has a prescription for Lasix at home to take 'when I do not feel good.' He is supposed to see Dr. Lantigua next week. Using shared decision making we will proceed with this plan. All
questions answered.
Chronic conditions affecting care:
CHF, renal cancer, CKD
Acute Exacerbation and/or Progression of Chronic Illness: HTN
*Radiology
Radiology exam reviewed: radiology read reviewed
*Pulse Oximetry
SaO2: 94
Patient hypoxic: no (94%)
*EKG
Interpreted by ED Provider?: Yes
Comparison EKG: no changes
Heart Rate: 80
Rate: normal
Rhythm: other (Atrial paced)
*Critical Care Note
Total Time (30-74mins, 75-104mins- exclusive of procedures): Not Applicable
Data Reviewed
Review of Other/Old Records Reveals: Labs and Records
Source: patient and records
Patient Management
Escalation/DeEscalation of care consider admission/obs:
Offered admission but using shared decision making�discharged with close follow-up plan
ED Attending Note
-
Portions of this chart may have been created with voice recognition software.� Occasional wrong word or��sound alike� substitutions may have occurred due to the inherent limitations of voice recognition software.
Discharge Plan
Departure
Patient Disposition: Home (Routine Discharge)
Date of Disposition: 01/12/25
Time of Disposition: 18:23
Patient with high blood pressure during this ER visit?: Yes
Discharge Problem:
Weakness
Instructions: Generalized Weakness (DC)
Prescriptions:
No Action
acetaminophen [Tylenol] 325 mg Tablet
975 mg PO TID
metoprolol succinate [Toprol XL] 100 mg Tablet Extended Release 24 Hr
100 mg PO BID
amlodipine [Norvasc] 5 mg Tablet
10 mg PO DAILY
folic acid 1 mg Tablet
1 mg PO DAILY
allopurinol 300 mg Tablet
300 mg PO DAILY
repaglinide 1 mg Tablet
1 mg PO TID
alpha lipoic acid 200 mg Tablet
600 mg PO MOWEFR@0800
Inlyta 1 mg Tablet
3 mg PO BID
sertraline [Zoloft] 25 mg Tablet
50 mg PO QPM
ezetimibe [Zetia] 10 mg Tablet
10 mg PO HS
potassium
500 mg PO DAILY
oxycodone 5 mg Tablet
5 mg PO Q4H
Eliquis 5 mg Tablet
5 mg PO BID Qty: 0 0RF
spironolactone 25 mg tablet
25 mg PO DAILY
lidocaine [Lidocaine Pain Relief] 4 % adhesive patch,medicated
1 patch topical DAILY PRN (Reason: Pain) Qty: 100 0RF
Referrals:
Juliane Fajardo MD [Family Provider, Internal Medicine]
Andrez Lantigua MD [Active, Cardiology] - Follow up in 5-7 days
Activity Restrictions/Additional Instructions:
You should take your water pill once daily for the next 3 days. You should call your installment loan collector Wednesday to update him and follow-up as scheduled in the office next week. If your symptoms are getting worse or if you develop new symptoms please
return to the ER immediately.
Thank you for visiting the Emergency Department at [facility].
1. Please schedule a follow up appointment as directed. Call first thing tomorrow morning to make an appointment.
2. If indicated, please take your medications as instructed and indicated on discharge paperwork.
3. If any of your symptoms do not improve, or persist, or become more severe within 6-12 hours, please return to the emergency department for further care.
4. Please return to the emergency department if you develop a headache, neck pain/stiffness, fever greater than 100.4F, chest pain, shortness of breath, persistent nausea, vomiting, slurred speech, difficulty walking, numbness/tingling, weakness,
signs of infection or any other symptoms that are worrisome to you.
Please call [phone] if you have any questions.
Interventions
Interventions:
*Risk Screen - Suicide Last Done: 01/12/25 13:14
*General Assessment Last Done: 01/12/25 13:14
*Neglect/Abuse Screening Last Done: 01/12/25 13:14
*ED- Fall Risk Assessment Last Done: 01/12/25 13:14
*ED COVID-19 Vaccine History Last Done: 01/12/25 13:14
*ED Influenza Vaccine History Last Done: 01/12/25 13:14
ED- Cardiac Assessment Last Done: 01/12/25 13:14
ED- Neurological Assessment Last Done: 01/12/25 13:14
ED- Pulmonary Assessment Last Done: 01/12/25 13:37
Discharge Date and Time
Print Language: YI
[2025-01-12 16:00] VITALS: BP 147/82
== END 2025-01-12 18:49 | disposition home or self-care (01) ==
LOC: EMR 13:11
PROVIDERS: Student in an Organized Health Care Education/Training Program; EMERGENCY PHYSICIAN Emergency Medicine; FAMILY PHYSICIAN Hospitalist
DX: R53.1 Weakness (principal); E11.22 Type 2 diabetes mellitus with diabetic chronic kidney disease; I13.0 Hypertensive heart and chronic kidney disease with heart failure and stage 1 through stage 4 chronic kidney disease, or unspecified chronic kidney disease; N18.32 Chronic kidney disease, stage 3b; I50.9 Heart failure, unspecified; E78.00 Pure hypercholesterolemia, unspecified; J44.89 Other specified chronic obstructive pulmonary disease; G47.33 Obstructive sleep apnea (adult) (pediatric); K21.9 Gastro-esophageal reflux disease without esophagitis; F31.9 Bipolar disorder, unspecified; F41.9 Anxiety disorder, unspecified; G25.81 Restless legs syndrome; K58.9 Irritable bowel syndrome, unspecified; Z79.84 Long term (current) use of oral hypoglycemic drugs; Z95.0 Presence of cardiac pacemaker; Z85.528 Personal history of other malignant neoplasm of kidney; Z90.5 Acquired absence of kidney; Z85.46 Personal history of malignant neoplasm of prostate
CPT/HCPCS: 99284; 93288; 71260; 74177; 80053; 83880; 85025; 93005; Q9967

== ENCOUNTER → 2025-01-24 13:55 | Outpatient (REF) | payer BC, SELFPAY | LOC: RCS 13:55 | PROVIDERS: ATTENDING PHYSICIAN Internal Medicine Cardiovascular Disease; FAMILY PHYSICIAN Hospitalist | DX: R06.02 Shortness of breath (principal) | CPT/HCPCS: 93306 ==

== ENCOUNTER → 2025-02-05 14:57 | Outpatient (REF) | payer BC, SELFPAY ==
[2025-02-05 15:35] LABS: Hematocrit 37.4 % (39.0-52.0); Hemoglobin 12.1 g/dL (13.0-18.0); Mean Corp Hgb Conc. 32.4 g/dL (33.0-37.0); Mean Corpuscular Volume 95.4 fL (80.0-94.0); Nucleated Red Blood Cells % 0 % (-); Platelet Count 183 10^3/uL (130-400); Red Cell Dist. Width 15.4 % (11.5-14.5)
[2025-02-05 16:00] LABS: ALT (SGPT) 10 U/L (0-50); AST (SGOT) 15 U/L (17-59); Albumin 4.1 g/dl (3.5-5.0); Alkaline Phosphatase 64 U/L (38-126); Blood Urea Nitrogen 46 mg/dl (9-20); Calcium 9.6 mg/dl (8.4-10.2); Carbon Dioxide 22 mmol/L (22-30); Chloride 109 mmol/L (98-107); Glucose 121 mg/dl (70-99); Potassium 4.3 mmol/L (3.5-5.1); Sodium 138 mmol/L (135-145); Total Protein 6.2 g/dl (6.3-8.2); eGFR 43.83
[2025-02-05 16:32] LABS: TSH 2.76 uIU/ml (0.47-4.68)
== END ==
LOC: REG 14:57
PROVIDERS: ATTENDING PHYSICIAN Internal Medicine Endocrinology, Diabetes & Metabolism; FAMILY PHYSICIAN Hospitalist; REFERRING PHYSICIAN Internal Medicine
DX: R79.89 Other specified abnormal findings of blood chemistry (principal); C64.9 Malignant neoplasm of unspecified kidney, except renal pelvis
CPT/HCPCS: 36415; 80053; 84439; 84443; 85025